=== PATIENT | male | born 1965 | race Caucasian/White ===

== ENCOUNTER 2016-06-24 20:47 | Inpatient (IN) ==
[2016-06-24 21:35] LABS: Basophils # 0.1 K/mcL (0.0-0.2); Basophils % 0.4 %; Eosinophils # 0.2 K/mcL (0.0-0.6); Eosinophils % 2.1 %; Hemoglobin 11.5 g/dL (12.9-16.9); Immature Granulocytes % 0.5 % (0-4); Lymphocytes # 1.2 K/mcL (0.6-4.6); Lymphocytes % 10.6 %; Mean Corpuscular HGB Conc 31.9 g/dL (31.6-35.5); Mean Corpuscular Hemoglobin 27.4 pg (28.0-33.3); Mean Corpuscular Volume 85.9 fL (83.0-100.0); Mean Platelet Volume 9.9 fL (9.4-12.4); Monocytes # 0.7 K/mcL (0.0-1.3); Monocytes % 6.2 %; Neutrophils # 9.3 K/mcL (1.6-8.9); Platelet Count 261 K/mcL (140-400); Red Blood Count 4.19 M/mcL (4.19-5.50); Red Cell Distribution Width 14.1 % (11.5-14.5); Segmented Neutrophils % 80.2 %
[2016-06-24 21:45] LABS: Calcium 8.5 mg/dL (8.6-10.8); Potassium 5.3 mEq/L (3.5-4.5)
[2016-06-24 23:12] LABS: INR 1.2; Prothrombin Time 13.2 Seconds (9.4-12.1)
[2016-06-24 23:14] LABS: Activated Partial Thrombo Time 32.3 Seconds (26.0-36.0)
[2016-06-25 10:28] LABS: INR 1.2; Prothrombin Time 13.1 Seconds (9.4-12.1)
[2016-06-25 10:31] LABS: Activated Partial Thrombo Time 30.4 Seconds (26.0-36.0)
[2016-06-25 10:34] LABS: Calcium 8.4 mg/dL (8.6-10.8); Potassium 5.5 mEq/L (3.5-4.5)
[2016-06-25 11:23] VITALS: BP 149/94
[2016-06-25 13:34] LABS: Basophils % 0.1 %; Hematocrit 38.1 % (37.5-50.1); Hemoglobin 12.5 g/dL (12.9-16.9); Immature Granulocytes % 1.1 % (0-4); Immature Platelets 3.5 % (1.1-6.1); Lymphocytes # 0.6 K/mcL (0.6-4.6); Lymphocytes % 4.8 %; Mean Corpuscular HGB Conc 32.8 g/dL (31.6-35.5); Mean Corpuscular Hemoglobin 27.4 pg (28.0-33.3); Mean Corpuscular Volume 83.4 fL (83.0-100.0); Monocytes # 0.1 K/mcL (0.0-1.3); Monocytes % 0.8 %; Neutrophils # 12.5 K/mcL (1.6-8.9); Platelet Count 246 K/mcL (140-400); Red Blood Count 4.57 M/mcL (4.19-5.50); Red Cell Distribution Width 13.8 % (11.5-14.5); Segmented Neutrophils % 93.2 %
== END 2016-06-25 13:57 | disposition left against medical advice (07) | DRG 189 ==
LOC: 2NNU 20:47 → EMEROO 20:47 → 2NNU 23:41
PROVIDERS: ADMIT Internal Medicine; ATTEND Internal Medicine

== ENCOUNTER 2017-02-28 19:10 | Inpatient (IN) ==
[2017-02-28] MEDS ORDERED: *HR* Morphine 2 MG/ML SYRINGE IVP ONE ×2 (19:26→20:28)
[2017-02-28] MEDS ORDERED: Ondansetron 4 MG/2 ML VIAL IVP ONE (19:26)
[2017-02-28 19:57] LABS: Basophils # 0.1 K/mcL (0.0-0.2); Basophils % 0.4 %; Eosinophils # 0.2 K/mcL (0.0-0.6); Eosinophils % 1.2 %; Hematocrit 36.5 % (37.5-50.1); Hemoglobin 10.9 g/dL (12.9-16.9); Immature Granulocytes % 0.4 % (0-4); Lymphocytes # 1.2 K/mcL (0.6-4.6); Lymphocytes % 9.6 %; Mean Corpuscular HGB Conc 29.9 g/dL (31.6-35.5); Mean Corpuscular Hemoglobin 25.6 pg (28.0-33.3); Mean Corpuscular Volume 85.7 fL (83.0-100.0); Monocytes # 0.9 K/mcL (0.0-1.3); Monocytes % 7.6 %; Platelet Count 252 K/mcL (140-400); Red Blood Count 4.26 M/mcL (4.19-5.50); Red Cell Distribution Width 15.9 % (11.5-14.5); Segmented Neutrophils % 80.8 %
--- NOTE | 2017-02-28 20:01 | Emergency Department Note ---
Disposition Clinical Impression: Anasarca, Acute diarrhea, Scrotal swelling, Hyperglycemia, Hyperkalemia CHF (congestive heart failure) Qualifiers: Congestive heart failure type: unspecified congestive heart failure type Congestive heart failure chronicity: unspecified congestive heart failure chronicity Qualified Code(s): I50.9 - Heart failure, unspecified Disposition: Admitted As Inpatient Condition: Fair Forms: ED Satisfaction Letter Time of Disposition: 22:50 General Adult HPI - General Chief complaint: ED Urogenital-Male Stated complaint: swelling in testicles Source: patient Limitations: no limitations Nursing Notes Reviewed: Yes Vital Signs Reviewed: Yes - History of Present Illness HPI Narrative: 52-year-old male past medical history of diabetes, recent diagnosis of C. difficile colitis, recent left above-knee amputation presents to the emergency Department with concern for testicular swelling. Patient states that this is been going on for last couple days. He also states that he is feeling a little more distended in his lower abdomen as well, has not been urinating as much, has increasing shortness of breath. Patient states that the diarrhea that he has had has not resolved after completion of his antibiotics. He was on Flagyl and vancomycin orally for it before discontinuation. Pain Scale: 7 - Related Data Home Medications Medication Instructions Recorded Confirmed Insulin ASPART [Novolog Flexpen] 15 units SQ TIDAC 12/05/14 06/24/16 Insulin Degludec [Tresiba 70 unit SQ BID 02/07/16 08/05/16 Flextouch U-100] Amlodipine Besylate [Amlodipine 10 mg PO DAILY 06/24/16 08/05/16 Besylate] Fluticasone/Vilanterol [Breo 1 each IH DAILY 06/24/16 08/05/16 Ellipta 100-25 Mcg INH] Lisinopril [Zestril] 2.5 mg PO DAILY 06/24/16 08/05/16 Oxygen 3 l NS CONT 06/24/16 08/05/16 Acetaminophen [Tylenol] 650 mg PO Q6HR PRN 08/05/16 08/05/16 Aspirin [Lo-Dose Aspirin EC] 81 mg PO DAILY 08/05/16 08/05/16 Buspirone HCl [Buspar] 7.5 mg PO BID 08/05/16 08/05/16 Carvedilol [Coreg] 3.125 mg PO BIDWM 08/05/16 08/05/16 Cyclobenzaprine [Flexeril] 10 mg PO TID PRN 08/05/16 08/05/16 DAPTOmycin [Cubicin] 500 mg IV Q24H 08/05/16 08/05/16 Enoxaparin [Lovenox] 40 mg SQ DAILY 08/05/16 08/05/16 FLUoxetine HCl [PROzac] 20 mg PO BID 08/05/16 08/05/16 Furosemide [Lasix] 40 mg PO BID 08/05/16 08/05/16 Nystatin POWDER [Nystop] 1 appl TP BID 08/05/16 08/05/16 OxyCODONE Immed Rel [Roxicodone 5 10 mg PO Q4HR PRN 08/05/16 08/05/16 MG] OxyCODONE Immed Rel [Roxicodone 5 20 mg PO Q4HR PRN 08/05/16 08/05/16 MG] hydrALAZINE [HydrALAZINE] 25 mg PO BID 08/05/16 08/05/16 Allergies Allergy/AdvReac Type Severity Reaction Status Date / Time tramadol Allergy Nausea Verified 02/28/17 19:20 vancomycin Allergy Hives Verified 02/28/17 19:20 All systems ED: reviewed and negative except as stated. Review of Systems: As Per HPI Constitutional: Denies: fever Cardiovascular: Reports: dyspnea on exertion. Denies: chest pain Respiratory: Reports: dyspnea. Denies: cough Gastrointestinal: Reports: other (Abdominal swelling and distention) Genitourinary: Reports: other (Less urine output, swelling of the testicles bilaterally) Musculoskeletal: Denies: back pain Integumentary: Denies: rash Past Medical History - Past Medical History Medical history: Reports: CHF, COPD, diabetes, hypertension, renal disease Surgical history: Reports: appendectomy, other Psychiatric history: Reports: anxiety, depression - Social History Smoking Status: Current every day smoker Smokeless Tobacco Status: No Alcohol use: Reports: none Drug use: Reports: none Physical Exam General: 52-year-old male who appears to be mildly dyspneic in conversation, extensive swelling Head: autraumatic, EOMI, no conjuncitval pallor, no scleral icterus, Mouth: oral mucous membranes moist Neck: neck soft, trachea midline Chest:: Equal chest wall rise Lungs: Rales bilaterally, mildly dyspneic in conversation Heart: normal heart sounds, normal rate and rhythm, Abdomen: soft, non-tender, no rigidity, no guarding, no rebdound tenderness, distention of the abdomen : Swelling of the scrotum, mild tenderness to palpation, no tenderness of the testicles to palpation, Lower Extremities: Unilateral 2+ pitting edema of the right leg, blisters of the right leg, left AKA which has serous drainage, but no erythema Integumentary: Pustules throughout the right lower extremity Neuro: Alert Psych: normal affect, normal mood - General Limitations: no limitations General appearance: alert, in no apparent distress Course Vital Signs Temperature 98.4 F 02/28/17 19:27 Pulse Rate 87 02/28/17 19:27 Respiratory Rate 20 02/28/17 19:27 Blood Pressure 136/84 02/28/17 19:27 O2 Sat by Pulse Oximetry 97 02/28/17 19:27 Temperature 98.4 F 02/28/17 19:27 Pulse Rate 84 02/28/17 22:42 Respiratory Rate 18 02/28/17 22:42 Blood Pressure 134/83 02/28/17 22:42 O2 Sat by Pulse Oximetry 98 02/28/17 22:42 Oxygen Delivery Oxygen Delivery Nasal Cannula Medical Decision Making - [facility] Narrative Medical decision making narrative: 52-year-old male presents to the emergency department with concern for significant swelling of his scrotum. On exam, his whole entire body appears edematous. We will obtain an EKG, chest x-ray, troponin, BNP, BMP, CBC. There is concern at this time is congestive heart failure. Patient's physical exam reveals rales of the lungs bilaterally. The patient also expresses some shortness of breath. Patient is on 2-1/2 L of oxygen at home normally, but states that he does not use it consistently. We will obtain a CT scan of the abdomen and pelvis to rule out intra-abdominal abnormality, possibly necrotizing fasciitis since this patient is a diabetic. Patient is provided analgesia here in the emergency department. Chest x-ray does not reveal any abnormality. Patient was unable to tolerate CT of the abdomen and pelvis, but will allow the pelvis to be scanned. This revealed anasarca and scrotal swelling. BNP here was elevated at 517. Patient has a creatinine of 1.99. This is his normal level of creatinine. Patient has mild hyperkalemia at 5.3. He does not have any electrocardiogram changes that warrants administration of calcium gluconate. I spoke with the hospitalist regarding this patient and he agreed to accept the admission. He believes that the patient's anasarca might be secondary to his recent diagnosis of C. difficile colitis as protein loss can occur through diarrhea. He wanted me to place the patient on contact precautions and provided oral vancomycin and oral metronidazole. I have also ordered a C. difficile pending on this patient. Patient's glucose was elevated as well here in the emergency department was 568. We administered 10 units of regular insulin here in the emergency department. I discussed this plan with the patient and he agreed to be admitted to the hospital. Patient was hemodynamically stable and not in any distress at time of admission. Chest X-Ray 02/28/17 19:25 IMPRESSION: No acute cardiopulmonary abnormality. D/ / Fede Muro MD / Fede Muro MD Interpreting Provider: Fede Muro MD Pelvis CT 02/28/17 20:36 IMPRESSION: Extensive anasarca and scrotal skin edema. D/ / James Conner MD / James Conner MD Interpreting Provider: James Conner MD Vital Signs Temperature 98.4 F 02/28/17 19:27 Pulse Rate 87 02/28/17 19:27 Respiratory Rate 20 02/28/17 19:27 Blood Pressure 136/84 02/28/17 19:27 O2 Sat by Pulse Oximetry 97 02/28/17 19:27 Temperature 98.4 F 02/28/17 19:27 Pulse Rate 84 02/28/17 22:42 Respiratory Rate 18 02/28/17 22:42 Blood Pressure 134/83 02/28/17 22:42 O2 Sat by Pulse Oximetry 98 02/28/17 22:42 Oxygen Delivery Oxygen Delivery Nasal Cannula - Medical Records Medical records reviewed: Yes I reviewed the patient's medical records. - Lab Data Lab results reviewed: Yes I reviewed the patient's lab results. Result diagrams: 02/28/17 19:51 02/28/17 19:51 Lab Results 02/28/17 02/28/17 02/28/17 Range/Units 19:51 19:51 19:51 WBC 12.3 H (4.3-11.1) K/mcL RBC 4.26 (4.19-5.50) M/mcL Hgb 10.9 L (12.9-16.9) g/dL Hct 36.5 L (37.5-50.1) % MCV 85.7 (83.0-100.0) fL MCH 25.6 L (28.0-33.3) pg MCHC 29.9 L (31.6-35.5) g/dL RDW 15.9 H (11.5-14.5) % Plt Count 252 (140-400) K/mcL MPV 11.0 (9.4-12.4) fL Immature Gran % 0.4 (0-4) % Seg Neutrophils % 80.8 % Lymphocytes % 9.6 % Monocytes % 7.6 % Eosinophils % 1.2 % Basophils % 0.4 % Neutrophils # 10.0 H (1.6-8.9) K/mcL Lymphocytes # 1.2 (0.6-4.6) K/mcL Monocytes # 0.9 (0.0-1.3) K/mcL Eosinophils # 0.2 (0.0-0.6) K/mcL Basophils # 0.1 (0.0-0.2) K/mcL Sodium 131 L (136-145) mEq/L Potassium 5.3 H (3.5-4.5) mEq/L Chloride 104 (98-109) mEq/L Carbon Dioxide 19 (19-29) mEq/L BUN 17 (8-26) mg/dL Creatinine 1.99 H (0.72-1.25) mg/dL Est GFR ( Amer) 43 L (> 60) Est GFR (Non-Af Amer) 35 L (> 60) BUN/Creatinine Ratio 9 (6-26) Glucose 568 H* (70-99) mg/dL Calculated Osmolality 300 (280-300) Lactic Acid (0.5-2.2) mmol/L Calcium 8.0 L (8.6-10.8) mg/dL Total Bilirubin 0.4 (0.2-1.2) mg/dL AST 12 (5-34) Units/L ALT 19 (0-55) Units/L Alkaline Phosphatase 378 H (38-126) Units/L Troponin I 0.03 (0-0.03) ng/mL B-Natriuretic Peptide (0-100) pg/mL Serum Total Protein 6.8 (6.0-8.3) g/dL Albumin 1.7 L (3.5-5.0) g/dL Globulin 5.1 H (2.4-3.5) g/dL Albumin/Globulin Ratio 0.3 L (1.1-2.2) Lipase < 10 (8-78) Units/L Beta-Hydroxybutyric Acd (0.02-0.27) mmol/L 02/28/17 02/28/17 02/28/17 Range/Units 19:51 20:16 20:17 WBC (4.3-11.1) K/mcL RBC (4.19-5.50) M/mcL Hgb (12.9-16.9) g/dL Hct (37.5-50.1) % MCV (83.0-100.0) fL MCH (28.0-33.3) pg MCHC (31.6-35.5) g/dL RDW (11.5-14.5) % Plt Count (140-400) K/mcL MPV (9.4-12.4) fL Immature Gran % (0-4) % Seg Neutrophils % % Lymphocytes % % Monocytes % % Eosinophils % % Basophils % % Neutrophils # (1.6-8.9) K/mcL Lymphocytes # (0.6-4.6) K/mcL Monocytes # (0.0-1.3) K/mcL Eosinophils # (0.0-0.6) K/mcL Basophils # (0.0-0.2) K/mcL Sodium (136-145) mEq/L Potassium (3.5-4.5) mEq/L Chloride (98-109) mEq/L Carbon Dioxide (19-29) mEq/L BUN (8-26) mg/dL Creatinine (0.72-1.25) mg/dL Est GFR ( Amer) (> 60) Est GFR (Non-Af Amer) (> 60) BUN/Creatinine Ratio (6-26) Glucose (70-99) mg/dL Calculated Osmolality (280-300) Lactic Acid 1.8 (0.5-2.2) mmol/L Calcium (8.6-10.8) mg/dL Total Bilirubin (0.2-1.2) mg/dL AST (5-34) Units/L ALT (0-55) Units/L Alkaline Phosphatase (38-126) Units/L Troponin I (0-0.03) ng/mL B-Natriuretic Peptide 517 H (0-100) pg/mL Serum Total Protein (6.0-8.3) g/dL Albumin (3.5-5.0) g/dL Globulin (2.4-3.5) g/dL Albumin/Globulin Ratio (1.1-2.2) Lipase (8-78) Units/L Beta-Hydroxybutyric Acd 0.20 (0.02-0.27) mmol/L - Radiology Data Radiology results reviewed: Yes I reviewed the patient's radiology results. - EKG Data EKG #1 EKG attestation: Yes I reviewed and interpreted this EKG. EKG results narrative: 19:36 Ventricular rate 87 bpm, NJ interval 180 ms, QRS duration 113 ms, QT 363 ms, QTC 407 ms, left axis deviation. Sinus rhythm with a ventricular rate of 87 bpm. There is an incomplete right bundle branch block. There are no ST segment elevations or depressions concerning for ischemia.
[2017-02-28] MEDS ORDERED: Furosemide 40 MG/4 ML VIAL IVP ONE (20:10)
[2017-02-28 20:12] LABS: Alanine Aminotransferase 19 Units/L (0-55); Albumin/Globulin Ratio 0.3 (1.1-2.2); Alkaline Phosphatase 378 Units/L (38-126); Aspartate Amino Transferase 12 Units/L (5-34); BUN/Creatinine Ratio 9 (6-26); Bilirubin,Total 0.4 mg/dL (0.2-1.2); Blood Urea Nitrogen 17 mg/dL (8-26); Carbon Dioxide 19 mEq/L (19-29); Chloride 104 mEq/L (98-109); Globulin 5.1 g/dL (2.4-3.5); Osmolality,Calculated 300 (280-300); Potassium 5.3 mEq/L (3.5-4.5); Sodium 131 mEq/L (136-145); Total Protein 6.8 g/dL (6.0-8.3); eGFR For African Americans 43 (> 60); eGFR For Non-African Americans 35 (> 60)
--- NOTE | 2017-02-28 20:14 | Emergency Department Note ---
START Narrative - START START: I examined this patient and my medical decision-making was reviewed with the Resident Physician. I agree with the documented findings, disposition and treatment plan as described except to the extent set forth below. 52-year-old male presents emergency room for lower extremity swelling scrotal swelling and shortness of breath. Patient's presentation seems as though he is in congestive heart failure. We will do a cardiac evaluation as well as a CT scan of the abdomen and pelvis to evaluate this scrotal swelling and redness. It appears as though he could be having either a cellulitis or a bad fungal infection in that groin region. Patient will need to be admitted for further workup of this peripheral edema. Patient will be given IV Lasix.
[2017-02-28 20:15] LABS: Albumin 1.7 g/dL (3.5-5.0); Glucose 568 mg/dL (70-99); Lipase < 10 Units/L (8-78)
[2017-02-28] MEDS ORDERED: Lidocaine Jelly 11 ml Syringe TP ONE (20:34)
[2017-02-28] MEDS ORDERED: diazePAM 10 MG/2 ML SYRINGE IVP ONE (21:07)
[2017-02-28] MEDS ORDERED: Insulin Regular, Human 100 UNIT/ML IV ONE (22:14)
[2017-02-28] MEDS ORDERED: Vancomycin Oral Soln 250 MG/5 ML UDC PO ONE (22:47)
[2017-03-01] MEDS ORDERED: Acetaminophen 325 MG TABLET PO PRN (01:21)
[2017-03-01] MEDS ORDERED: *HR* OxyCODONE Immed Rel 5 MG TABLET PO PRN (01:21)
[2017-03-01] MEDS ORDERED: Ondansetron 4 MG/2 ML VIAL IVP PRN (01:21)
[2017-03-01] MEDS ORDERED: *HR* Morphine 2 MG/ML SYRINGE IVP PRN (01:21)
[2017-03-01] MEDS ORDERED: Naloxone 0.4 MG/ML INJ IVP PRN (01:21)
[2017-03-01] MEDS ORDERED: *HR* Dextrose 50 % in Water (Syg) 50 ML SYRINGE IVP PRN (01:43)
[2017-03-01] MEDS ORDERED: Insulin Human Regular 100 UNIT in 0.9 % Sodium Chloride 100 ML IVC SCH ×2 (01:45→10:15)
--- NOTE | 2017-03-01 01:54 | Internal Med History&Physical ---
<JadieljohnJordy martin - Last Filed: 03/01/17 02:22> Date of Encounter: 03/01/17 Time of Encounter: 01:45 Assessment and Plan (1) Anasarca Current visit: Yes Status: Acute - Secondary to HFpEF with generalized edema extending to all extremities and abdomen. - Most recent Echo in Dec 2015 shows indeterminate diastolic dysfunction, EF 60% . - Pt states he takes some lasix, unsure of amount. Admits to poor diet with salt , large fluid intake. - Will diurese with Lasix 40 TID. Cali catheter, strict I/Os, daily weight. - Albumin low but non critical. will monitor (2) Diabetes mellitus Current visit: Yes Status: Chronic - Hyperglycemic without hyperosmolar state - CKD statge III and AKA on left leg with toe amputations on right. - Uncontrolled. Most recent A1c of 10% - BS in ED in 500s. - Will obtain new A1c with AM labs. - Insulin drip due to anasarca. Doubtful that subQ insulin will absorb. Qualifiers: Diabetes mellitus type: type 2 Diabetes mellitus complication status: with kidney complications Diabetes mellitus complication detail: with chronic kidney disease Diabetes mellitus correction insulin use: with correction use Chronic kidney disease stage: stage 3 (moderate) Qualified Code(s): E11.22 - Type 2 diabetes mellitus with diabetic chronic kidney disease; N18.3 - Chronic kidney disease, stage 3 (moderate); N18.3 - Chronic kidney disease, stage 3 ( moderate); Z79.4 - intermediate project manager (current) use of insulin; Z79.4 - halfway ( current) use of insulin; Z79.4 - intermediate project manager (current) use of insulin; Z79.4 - halfway (current) use of insulin (3) Chronic kidney disease (CKD) Current visit: Yes Status: Chronic BUN/Cr appears to be at baseline. - Will avoid nephrotoxic agents. Qualifiers: Chronic kidney disease stage: stage 3 (moderate) Qualified Code(s): N18.3 - Chronic kidney disease, stage 3 (moderate) (4) Essential hypertension Current visit: Yes Status: Chronic Under controll. Will monitor with Lasix use - Holding amlodipine and hydralazine in the setting of swelling. (5) Morbid obesity with BMI of 45.0-49.9, adult Current visit: No Status: Chronic - Decreased ambulation, poor diet. - Will need major outpatient lifestyle adjustments (6) Acute diarrhea Current visit: Yes Status: Acute - Pt reports loose stools, states he PCP told him he was negative for C. diff. - No stools since admission. Stool sample not collected. - Will monitor. (7) CHF (congestive heart failure) Current visit: Yes Status: Acute - Generalized body swelling, elevated BNP. - Workup for anasarca as above. - Lasix - Likely secondary to poor diet, non ambulation Qualifiers: Congestive heart failure type: diastolic Congestive heart failure chronicity: acute on chronic Qualified Code(s): I50.33 - Acute on chronic diastolic (congestive) heart failure (8) Scrotal swelling Current visit: Yes Status: Acute - Likely secondary to fluid overload secondary to CHF exacerbation. - Will diurese and monitor. - Nystatin cream for tinea cruis (9) Hyperglycemia Current visit: Yes Status: Acute - Likely secondary to non absorbtion of subcutaneous insulin, poor diet due to swelling - Insulin drip as above. Starting rate 13. - BS in ED of 500. A1c pending. (10) Hyperkalemia Current visit: Yes Status: Acute - In the setting of CKD. - Will monitor for now. (11) DVT prophylaxis Current visit: No Status: Acute - Heparin 5000 units. Internal Medicine - H&P: HPI Chief complaint: Scrotal pain/swelling Admitted From: Emergency Dept Plans for Post Hospital Care: Home History of present illness: Mr. Tripp is a 52 year old male with a PMHx of HFpEF, uncontrolled DM2, HTN, CKD III, depression/anxiety presents to ED with a complaint of scrotal swelling and pain, SOB, loose stools for the past week. He states that he has progressive swelling. He has noticed swelling in his arms, abdomen, scrotum, and remaining leg after AKA. He states he does not move very much after BKA so he does not know if SOB is exertional. He also has a complaint of loose stools, 4-5 per day which he describes at "butterscotch pudding" in nature. He saw his PCP who told him his stool sample was negative however he was given flagyl and oral vancomycin which has not helped his symptoms. In the ED, CXR showed no acute abnormality, and abdominal CT showed anasarca. VS unremarkable. Labs show mild WBC count, Stage III CKD at baseline, glucose in 500s. Elevated alk phos, hypoalbuminemia. Past Med Surg Social Fam HX - Past Medical History Medical history: CHF, COPD, diabetes, hypertension, renal disease Psychiatric history: anxiety, depression - Past Surgical History Surgical History: appendectomy, other - Social History Smoking Status: Current every day smoker Smokeless Tobacco Status: No Alcohol use: none Drug use: none - Family History Father Adopted: No Family Member Ethnicity: Non- Living Status: Hx Family Cardiac Disorders: Yes Hx Family Respiratory Disorders: No Hx Family Cancer: No Hx Family GI Disorders: No Hx Family Endocrine Disorder: Yes (Diabetic) Hx Family Neuromuscular Disorders: No Hx Family Neurologic Disorders: No Hx Family HEENT Disorders: No Hx Family Autoimmune Disorders: No Internal Medicine - H&P: Meds Insulin ASPART [Novolog Flexpen] 15 units SQ TIDAC 12/05/14 [History] Insulin Degludec [Tresiba Flextouch U-100] 70 unit SQ BID 02/07/16 [History] Amlodipine Besylate [Amlodipine Besylate] 10 mg PO DAILY 06/24/16 [History] Fluticasone/Vilanterol [Breo Ellipta 100-25 Mcg INH] 1 each IH DAILY 06/24/16 [ History] Lisinopril [Zestril] 2.5 mg PO DAILY 06/24/16 [History] Oxygen 3 l NS CONT 06/24/16 [History] Acetaminophen [Tylenol] 650 mg PO Q6HR PRN 08/05/16 [History] Aspirin [Lo-Dose Aspirin EC] 81 mg PO DAILY 08/05/16 [History] Buspirone HCl [Buspar] 7.5 mg PO BID 08/05/16 [History] Carvedilol [Coreg] 3.125 mg PO BIDWM 08/05/16 [History] Cyclobenzaprine [Flexeril] 10 mg PO TID PRN 08/05/16 [History] DAPTOmycin [Cubicin] 500 mg IV Q24H 08/05/16 [History] Enoxaparin [Lovenox] 40 mg SQ DAILY 08/05/16 [History] FLUoxetine HCl [PROzac] 20 mg PO BID 08/05/16 [History] Furosemide [Lasix] 40 mg PO BID 08/05/16 [History] Nystatin POWDER [Nystop] 1 appl TP BID 08/05/16 [History] OxyCODONE Immed Rel [Roxicodone 5 MG] 10 mg PO Q4HR PRN 08/05/16 [History] OxyCODONE Immed Rel [Roxicodone 5 MG] 20 mg PO Q4HR PRN 08/05/16 [History] hydrALAZINE [HydrALAZINE] 25 mg PO BID 08/05/16 [History] 3 Allergy/AdvReac Type Severity Reaction Status Date / Time tramadol Allergy Nausea Verified 02/28/17 19:20 vancomycin Allergy Hives Verified 02/28/17 19:20 All Systems PM: A 10-system review of systems was performed and is negative for pertinent findings except as documented above in the HPI. - Constitutional Constitutional: falls, weakness, no chills, no fatigue, no fever(s), no malaise - Cardiovascular Cardiovascular ROS IM: dyspnea, edema, no chest pain, no diaphoresis, no dyspnea on exertion, no lightheadedness - Respiratory Respiratory: dyspnea, no cough, no hemoptysis, no dyspnea on exertion, no wheezing - Gastrointestinal Gastrointestinal: change in bowel habits, early satiety, loose stools, no abdominal pain, no constipation, no diarrhea, no hematochezia, no nausea, no vomiting - Neurological Neurological ROS: paresthesias, no numbness, no tingling - Constitutional Vitals: Temp Pulse Resp BP Pulse Ox 98.0 F 84 16 112/73 92 03/01/17 00:55 03/01/17 00:55 03/01/17 00:55 03/01/17 00:55 03/01/17 00:55 Exam: Gen.: Vitals noted. No acute distress. AAOx3. Morbidly obese male resting comfortably in bed. HEENT:oropharynx clear, Normocephalic, atraumatic, MMM Cardiac: RRR, no murmur, +S1/S2 Pulmonary: CTA bilaterally, no wheezes, rales or rhonchi, equal chest expansion Abdomen: nontender, BS noted, no guarding, anasarca. Firm, pitting edema in entire abdomen. MSK: Right leg AKA. Right foot with 1st and 2nd toe amputations, multiple ulcers. Pitting edema throughout. Extremities: Edema present in all 4 extremities. nontender calf, no cyanosis or clubbing Neuro: A&Ox3, moves all extremities, no focal deficits Psych: Appropriate mood and behavior Internal Med - H&P Results - Labs CBC & Chem 7: 02/28/17 19:51 02/28/17 19:51 <Keyur Angel H - Last Filed: 03/01/17 03:41> Date of Encounter: 03/01/17 Internal Medicine - H&P: HPI History of present illness: Mr. Tripp is a 52 year old male All Systems PM: A 10-system review of systems was performed and is negative for pertinent findings except as documented above in the HPI. - Constitutional Vitals: Temp Pulse Resp BP Pulse Ox 98.0 F 84 16 112/73 92 03/01/17 00:55 03/01/17 00:55 03/01/17 00:55 03/01/17 00:55 03/01/17 00:55 Internal Med - H&P Results - Labs CBC & Chem 7: 02/28/17 19:51 02/28/17 19:51 - Attending Attestation anasarca and acute diastolic CHF exacerbation and hypoalbuminemia continue Lasix IV, strict I's and O's Nonketotic hyperosmolar hyperglicemic state Glucose >500 start insulin drip possible C diff ( patient denies having c diff) test for C diff may start flagyl if positive time spetn on this admission 40 min I examined this patient and my medical decision-making was reviewed with the Resident Physician. I agree with the documented findings, disposition and treatment plan as described except to the extent set forth below.
[2017-03-01] MEDS: Furosemide 40 MG/4 ML VIAL IVP SCH ×2 (02:24→12:24)
[2017-03-01 04:51] LABS: Basophils # 0.1 K/mcL (0.0-0.2); Basophils % 0.5 %; Eosinophils # 0.3 K/mcL (0.0-0.6); Eosinophils % 2.5 %; Hematocrit 33.8 % (37.5-50.1); Immature Granulocytes % 0.3 % (0-4); Lymphocytes # 1.6 K/mcL (0.6-4.6); Lymphocytes % 15.3 %; Mean Corpuscular HGB Conc 29.6 g/dL (31.6-35.5); Mean Corpuscular Hemoglobin 25.6 pg (28.0-33.3); Mean Corpuscular Volume 86.4 fL (83.0-100.0); Mean Platelet Volume 10.6 fL (9.4-12.4); Monocytes # 0.9 K/mcL (0.0-1.3); Monocytes % 8.8 %; Neutrophils # 7.8 K/mcL (1.6-8.9); Platelet Count 227 K/mcL (140-400); Red Blood Count 3.91 M/mcL (4.19-5.50); Red Cell Distribution Width 15.9 % (11.5-14.5); Segmented Neutrophils % 72.6 %
[2017-03-01 05:00] LABS: Hemoglobin A1C 10.9 %
[2017-03-01 05:04] LABS: Albumin/Globulin Ratio 0.3 (1.1-2.2); Bilirubin,Total 0.3 mg/dL (0.2-1.2); Calcium 7.8 mg/dL (8.6-10.8); Chol/HDL Ratio 3.3 (0-4.9); Globulin 4.7 g/dL (2.4-3.5); Potassium 4.3 mEq/L (3.5-4.5); Total Protein 6.2 g/dL (6.0-8.3)
[2017-03-01 05:07] LABS: Albumin 1.5 g/dL (3.5-5.0)
[2017-03-01] MEDS ORDERED: *HR* Heparin 5,000 UNIT/ML VIAL SQ SCH (06:00)
[2017-03-01] MEDS ORDERED: Furosemide 40 MG/4 ML VIAL IVP SCH (08:00)
[2017-03-01] MEDS ORDERED: Dextrose Gel 15 GM PO PRN ×2 (08:25)
[2017-03-01] MEDS ORDERED: D5% in Water 1,000 ML IVC PRN (08:25)
[2017-03-01] MEDS ORDERED: Insulin LISPRO 300 UNITS/3 ML VIAL SQ SCH ×2 (08:30→21:00)
[2017-03-01] MEDS ORDERED: Nystatin Cream 15 GM TUBE TP SCH (09:00)
--- NOTE | 2017-03-01 09:02 | Discharge Summary ---
Date of Encounter: 03/01/17 Time of Encounter: 08:40 - Discharge Diagnosis (1) Anasarca Priority: Primary Status: Acute Comments: Alexy Tripp is a 52 y/o male with multiple comorbidities including diabetes , chronic kidney disease, diastolic heart failure, hypertension, history osteomyelitis to left foot status post AKA with multiple revisions who presented to [facility] on 02/28/2017 with complaints of scrotal edema. He was admitted for further workup and treatment. Left AKA revision site with odorous, purulent drainage. Decision made to transfer to [facility] to be seen/treated by his surgeon. 1. Left AKA: - on 12/2015, secondary to chronic, non-healing diabetic ulcers. - has had multiple revisions, most recently 6-8 weeks ago per patient - follows with Dr. Gordon at [facility] - Left AKA site with sutures in place, odorous, purulent drainage - Transfer to [facility] 2. Anasarca: - Secondary to HFpEF with generalized edema extending to all extremities, abdomen and scrotum - Most recent Echo 12/2015 with indeterminate diastolic dysfunction, EF 60%. - Pt states he takes some lasix, unsure of amount. Admits to poor diet with salt , large fluid intake. - Lasix 40 TID. Gama catheter, strict I/Os, daily weight. - Albumin low but non critical. Monitor - Refusing gama 3. Diabetes: - Hyperglycemic without hyperosmolar state - with CKD statge III and AKA on left leg with toe amputations on right. - Uncontrolled. Hgb A1c 10.2% - BS in ED in 500s. - Insulin drip due to anasarca. Doubtful sub-q insulin will absorb. 4. CKD: BUN/Cr appears to be at baseline. - Will avoid nephrotoxic agents. 5. Hx C. diff: - patient reports loose stool for last 6-8 weeks. - recently treated with PO vanco and Flagyl - 03/01 stool specimen rejected as too solid. - repeat C. diff if loose stool recurs 6. Hypertension: - per hx. BP controlled - holding antihypertensives with high-dose Lasix - Monitor BP and titrate medication regimen PRN 7. Morbid obesity: - Decreased ambulation, poor diet. - Will need significant outpatient lifestyle adjustments 8. DVT prophylaxis: - Heparin (2) Acute on chronic kidney failure Priority: Primary Status: Acute Qualifiers: Chronic kidney disease stage: stage 4 (severe) Qualified Code(s): N17.9 - Acute kidney failure, unspecified; N18.4 - Chronic kidney disease, stage 4 ( severe); N18.4 - Chronic kidney disease, stage 4 (severe); N18.4 - Chronic kidney disease, stage 4 (severe); N18.4 - Chronic kidney disease, stage 4 ( severe) (3) COPD (chronic obstructive pulmonary disease) Priority: Primary Status: Chronic Qualifiers: COPD type: COPD with acute exacerbation Qualified Code(s): J44.1 - Chronic obstructive pulmonary disease with (acute) exacerbation (4) Diabetes mellitus Priority: Primary Status: Chronic Qualifiers: Diabetes mellitus type: type 2 Diabetes mellitus complication status: with kidney complications Diabetes mellitus complication detail: with chronic kidney disease Diabetes mellitus termite treater insulin use: with nursing home use Chronic kidney disease stage: stage 3 (moderate) Qualified Code(s): E11.22 - Type 2 diabetes mellitus with diabetic chronic kidney disease; N18.3 - Chronic kidney disease, stage 3 (moderate); N18.3 - Chronic kidney disease, stage 3 ( moderate); Z79.4 - oil heaterman (current) use of insulin; Z79.4 - nursing home ( current) use of insulin; Z79.4 - nursing home (current) use of insulin; Z79.4 - oil heaterman (current) use of insulin (5) S/P AKA (above knee amputation) Priority: Primary Status: Acute Qualifiers: Laterality: left Qualified Code(s): Z89.612 - Acquired absence of left leg above knee (6) Scrotal swelling Priority: Primary Status: Acute - Discharge Medications Home Medications: Insulin ASPART [Novolog Flexpen] 15 units SQ TIDAC 12/05/14 [History] Fluticasone/Vilanterol [Breo Ellipta 100-25 Mcg INH] 1 each IH DAILY 06/24/16 [ History] Oxygen 3 l NS CONT 06/24/16 [History] Acetaminophen [Tylenol] 650 mg PO Q6HR PRN 08/05/16 [History] Aspirin [Lo-Dose Aspirin EC] 81 mg PO DAILY 08/05/16 [History] Furosemide [Lasix] 40 mg PO BID 08/05/16 [History] Escitalopram [Lexapro] 20 mg PO DAILY 03/01/17 [History] Insulin Glargine [Lantus] 30 unit SQ QPM 03/01/17 [History] Oxycodone HCl 10 mg PO Q6H PRN 03/01/17 [History] Pregabalin [Lyrica] 225 mg PO BID 03/01/17 [History] Allergies/Adverse Reactions: 3 Allergy/AdvReac Type Severity Reaction Status Date / Time tramadol Allergy Nausea Verified 02/28/17 19:20 vancomycin Allergy Hives Verified 02/28/17 19:20 Procedures/tests Complete & Pending: Procedures Performed prior 72 hours Category Date Time Status EV echocardiogram Routine Y 03/01/17 08:23 Ordered Date of admission: 02/28/17 23:43 Primary care physician: Echo Godfrey Discharging clinician: Kelly Loredo Anticipated date of discharge: 03/01/17 - Patient Status Disposition: Transfer Other Condition: Fair Functional capacity at discharge: bed bound Overall status at discharge: patient is not back to baseline - Discharge Instructions Follow Up With: Echo Godfrey, DIRECTOR H[employer] SERVICES [Primary Care Provider] - - Diet and Activity Activity: as per physical therapy Diet: advance to your usual diet Interval History: Seen and examined at bedside. Patient is new to me, information obtained from chart review and patient report. Patient says he came in due to increased scrotal swelling. He noticed swelling started a couple days ago and has gotten progressively worse. Says he is still able to void. Reports last procedure to left [facility] site with 6-8 weeks ago. Has not followed up since then. Site with sutures intact and foul purulent drainage noted. Chart review shows that patient follows with Dr. Washington at [facility]. He was seen at [facility] 12/2016 and was transferred to [facility] at that time. Concern for recurrent infection. I feel he would be appropriate to transfer to [place] for continuity care to follow with Dr. Washington. Spoke with [facility] transfer center and patient was accepted by [facility]. Patient agreeable to transfer Hospital course: Mr. Tripp is a 52 year old male - Time Spent with Patient Total time spent providing and/or coordinating discharge services: Greater than 30 minutes (46 minutes spent on discharge) - Constitutional Vitals: Temp Pulse Resp BP Pulse Ox 98.1 F 86 16 116/77 97 03/01/17 08:03 03/01/17 08:03 03/01/17 08:03 03/01/17 08:03 03/01/17 08:03 General appearance: Present: disheveled, A&O X 3, morbidly obese - Head Head exam: Present: atraumatic, normocephalic - Eye Eye exam: Present: PERRL, conjuntiva pink, sclera anicteric Pupils: Present: PERRL - Neck Neck exam general surgery: Present: supple, trachea midline. Absent: lymphadenopathy - Respiratory Respiratory exam: Present: decreased breath sounds, CTAB. Absent: accessory muscle use, rales, rhonchi, wheezes - Cardiovascular Cardiovascular exam: Present: RRR, +S1, +S2. Absent: diastolic murmur, gallop, rubs, systolic murmur - GI/Abdominal GI/Abdominal exam: Present: normal bowel sounds, no peritoneal signs. Absent: distended, tenderness Additional comments: Obese with edema from ABD to thighs - exam: Present: scrotal swelling, testicular tenderness, urethral discharge - Extremities Exam Extremities exam: Present: warm, radial pulses palpable and symmetrical. Absent : calf tenderness, cyanotic, pedal edema Additional comments: Right lower ext with hard, pitting edema and toe amputation Left AKA site with sutures intact, moderate amount purulent, foul odorous drainage. Patient refusing dressing change or to allow area to be cleaned. - Neurological Exam Neurological exam: Present: CN II-XII intact, oriented X3, no focal deficits. Absent: pronater drift, facial droop, speech deficit - Skin Skin exam: Present: dry
[2017-03-01 10:57] VITALS: BP 122/82
--- NOTE | 2017-03-02 21:51 | Electrocardiograph Report ---
[address] [place] [address] Test Date: 2017-02-28 Pat Name: Alexy Tripp Department: 102 Room: 3B22 Gender: M Maintenance Inspector: Tmr : 1965 Requested By: Robbie Wilkes Order Number: [id number] Reading MD: Rony Gu MD Measurements Intervals [place] Rate: 87 P: 78 TX: 180 QRS: -55 QRSD: 113 T: 62 QT: 363 QTc: 407 Interpretive Statements SINUS RHYTHM RIGHT BUNDLE BRANCH BLOCK INFERIOR MYOCARDIAL INFARCTION, PROBABLY OLD Electronically Signed On 03-02-2017 21:49:39 EST by Rony Gu MD
== END 2017-03-01 13:45 | disposition critical access hospital (66) | DRG 291 ==
LOC: 3BNU 19:10 → EMEROO 19:10 → 3NENU 19:10 → 3BNU 03-01 00:55
PROVIDERS: ADMIT Pediatrics; ATTEND Registered Nurse

== ENCOUNTER 2018-09-12 06:37 | Inpatient (IN) ==
[2018-09-12] MEDS ORDERED: Ipratropium/Albuterol Neb 3 ML IH ONE (06:50)
[2018-09-12] MEDS ORDERED: Furosemide 40 MG/4 ML VIAL IVP ONE ×2 (06:50→10:33)
[2018-09-12] MEDS ORDERED: Aspirin 81 MG TAB.CHEW PO ONE (06:51)
--- NOTE | 2018-09-12 07:34 | Emergency Department Note ---
Disposition Clinical Impression: Elevated troponin Chest pain Qualifiers: Chest pain type: unspecified Qualified Code(s): R07.9 - Chest pain, unspecified Dyspnea Qualifiers: Dyspnea type: unspecified Qualified Code(s): R06.00 - Dyspnea, unspecified CHF (congestive heart failure) Qualifiers: Heart failure type: unspecified Heart failure chronicity: unspecified Qualified Code(s): I50.9 - Heart failure, unspecified Disposition: Admitted As Inpatient Condition: Good Referrals: NONE,PCP [Primary Care Provider] - Forms: ED Satisfaction Letter Time of Disposition: 10:03 SOB HPI - General Chief Complaint: ED Shortness of Breath/Dyspnea Stated Complaint: PAULINE Time Seen by Provider: 09/12/18 06:43 Source: patient, EMS Mode of arrival: EMS Limitations: physical limitation Nursing Notes Reviewed: Yes Vital Signs Reviewed: Yes - History of Present Illness Alert and oriented nontoxic-appearing 53-year-old male with a history of CHF, COPD, diabetes, hypertension, hyperlipidemia, and a left [id number] amputation presents for evaluation of diffuse right-sided chest pain as well as increasingly worsening shortness of breath. He has home oxygen to wear as needed but states that over the last week he has been wearing continuously. He describes a nonproductive cough. Shortness of breath is worse with exertion as well as lying supine. He does state he has noticed increased swelling in the right lower extremity. He recently had his Lasix discontinued due to potassium irregularities. He has not been began on another diuretic since. He denies any pain with inspiration or hemoptysis. He does describe some nausea but denies any vomiting. Eyes any diaphoresis. He describes chest pain as a constant dull ache and it has been present for the past one week as well. Pt Subjective Complaint: shortness of breath, cough, chest pain Onset (ago): day(s) (7) Severity: moderate Consistency/Duration: gradually worsening Improves with: nothing Worsens with: lying flat, exertion Known history of: COPD, congestive heart failure, diabetes Associated symptoms: Reports: orthopnea, lower extremity pain, nausea/vomiting (Nausea without vomiting). Denies: pain with inspiration, fever, sputum production, palpitations, hemoptysis, diaphoresis, syncope, abdominal pain Treatment prior to arrival: oxygen Cough present: Yes Cough Description: Involuntary Cough Frequency: Intermittent Sputum production: No - Related Data Home Medications Medication Instructions Recorded Confirmed Insulin ASPART [Novolog Flexpen] 15 units SQ TIDAC 12/05/14 09/12/18 Fluticasone/Vilanterol [Breo 1 each IH DAILY 06/24/16 09/12/18 Ellipta 100-25 Mcg INH] Aspirin [Lo-Dose Aspirin EC] 81 mg PO DAILY 08/05/16 09/12/18 Furosemide [Lasix] 40 mg PO BID 08/05/16 09/12/18 Escitalopram [Lexapro] 20 mg PO DAILY 03/01/17 09/12/18 Insulin Glargine [Lantus] 30 unit SQ QPM 03/01/17 09/12/18 OxyCODONE Immed Rel [Roxicodone 10 10 mg PO Q6H PRN 03/01/17 09/12/18 MG] Previous Rx's Medication Instructions Recorded Escitalopram [Lexapro] 20 mg PO DAILY #30 tablet 04/16/18 Insulin ASPART [Novolog Flexpen] 15 unit SQ TIDAC #1 insuln.pen 04/16/18 Insulin Glargine [Lantus] 30 unit SQ QPM #1 mls 04/16/18 Loperamide [Imodium] 2 mg PO Q4HR PRN #30 capsule 04/16/18 Allergies Allergy/AdvReac Type Severity Reaction Status Date / Time tramadol Allergy Nausea Verified 09/12/18 06:44 vancomycin Allergy Hives Verified 09/12/18 06:44 All systems ED: reviewed and negative except as stated. Review of Systems: As Per HPI Constitutional: Denies: fever, chills, weakness, weight change Eyes: Denies: eye pain, eye discharge, vision change ENT ED: Denies: ear pain, throat pain, dental pain, hearing loss, epistaxis, congestion, dysphagia Cardiovascular: Reports: as per HPI, chest pain, orthopnea. Denies: palpitatio ns, dyspnea on exertion, edema, syncope Respiratory: Reports: as per HPI, cough, dyspnea. Denies: wheezes, hemoptysis, stridor, sputum production Gastrointestinal: Denies: abdominal pain, nausea, vomiting, diarrhea, constipation, hematemesis, melena, hematochezia Genitourinary: Denies: urgency, dysuria, frequency, hematuria Musculoskeletal: Denies: back pain, neck pain, arthralgia, myalgia Integumentary: Denies: rash, abrasion, lesions Neurological: Denies: headache, weakness, numbness, paresthesias, confusion, abnormal gait, vertigo Psychiatric: Denies: anxiety, depression, suicidal thoughts, homicidal thoughts, auditory hallucinations, visual hallucinations Endocrine: Denies: fatigue Hematological/Lymphatic: Denies: easy bleeding, easy bruising Allergic/Immunologic: Denies: facial swelling, urticaria Past Medical History - Past Medical History Attestation: Yes The following information was validated with the patient. Source: patient, nursing notes reviewed Medical history: Reports: CHF, COPD, coronary artery disease, diabetes, hyperlipidemia, hypertension, renal disease, other Surgical history: Reports: appendectomy, other Psychiatric history: Reports: anxiety, depression - Social History Smoking Status: Current every day smoker Smokeless Tobacco Status: No Alcohol use: Reports: none Drug use: Reports: none Physical Exam - General Limitations: no limitations General appearance: alert - Head Head exam: atraumatic, normocephalic, normal inspection - Eye Eye exam: Present: normal appearance, PERRL, EOMI. Absent: conjunctival injection - ENT ENT exam: mucous membranes moist - Neck Neck exam: Present: normal inspection, full ROM - Chest Chest inspection: Present: normal inspection, symmetric chest wall rise - Respiratory Respiratory exam: Present: normal lung sounds bilaterally. Absent: respiratory distress, wheezes, stridor, accessory muscle use, prolonged expiratory phase - Cardiovascular Cardiovascular exam: Present: regular rate, normal rhythm, normal heart sounds - Abdominal Exam Abdominal exam: Present: soft, Non-Tender, normal bowel sounds. Absent: distention, guarding, rebound, rigidity - Extremities Exam Extremities exam: Present: other (Left [id number] amputee) - Expanded Lower Extremity Exam Lower leg exam: Present: tenderness, swelling, erythema, other (Several small ulcerations leaking serosanguineous fluid noted to the right sun) Ankle exam: Present: other 1 - Diabetic ulcer with shallow ulceration and mild surrounding cellulitis. No palpable fluctuance to suggest underlying abscess. No discharge or drainage. 1 - Amputated 2 - Wound covered with eschar, presumably diabetic foot ulcer. Neurovascular/Tendon exam: Present: normal capillary refill. Absent: pulse deficit, tendon deficit, extremity cold to touch - Neurological Exam Neurological exam: Present: alert, oriented X3 - Psychiatric Psychiatric exam: Present: normal affect, normal mood - Skin Skin exam: Present: warm, dry Course Course Narrative: Patient's BNP is elevated at 307. Troponin is elevated at 0.05. He was given aspirin. No EKG changes. Shows pulmonary edema. Symptoms are consistent with a CHF exacerbation. He was given Lasix and emergency department. I discussed this patient's case with Dr. Torres, admitting hospitalist who has accepted the patient for permission to the hospitalist care. Vital Signs Temperature 98.4 F 09/12/18 07:00 Pulse Rate 85 09/12/18 07:00 Respiratory Rate 20 09/12/18 07:00 Blood Pressure 174/156 09/12/18 07:00 O2 Sat by Pulse Oximetry 98 09/12/18 07:00 Temperature 98.4 F 09/12/18 07:25 Pulse Rate 85 09/12/18 09:54 Respiratory Rate 20 09/12/18 09:54 Blood Pressure 167/103 09/12/18 09:54 O2 Sat by Pulse Oximetry 97 09/12/18 09:54 Oxygen Delivery Oxygen Delivery Nasal Cannula Shortness of Breath/Dyspnea - Medical Records Medical records reviewed: Yes I reviewed the patient's medical records. - Lab Data Lab results reviewed: Yes I reviewed the patient's lab results. Lab results narrative: Lab Results 09/12/18 09/12/18 09/12/18 Range/Units 08:30 08:30 08:30 WBC 11.0 (4.3-11.1) K/mcL RBC 4.10 L (4.19-5.50) M/mcL Hgb 11.5 L (12.9-16.9) g/dL Hct 36.7 L (37.5-50.1) % MCV 89.5 (83.0-100.0) fL MCH 28.0 (28.0-33.3) pg MCHC 31.3 L (31.6-35.5) g/dL RDW 13.6 (11.5-14.5) % Plt Count 255 (140-400) K/mcL MPV 9.8 (9.4-12.4) fL Immature Gran % 0.6 (0-4) % Seg Neutrophils % 73.1 % Lymphocytes % 15.5 % Monocytes % 7.3 % Eosinophils % 3.0 % Basophils % 0.5 % Neutrophils # 8.1 (1.6-8.9) K/mcL Lymphocytes # 1.7 (0.6-4.6) K/mcL Monocytes # 0.8 (0.0-1.3) K/mcL Eosinophils # 0.3 (0.0-0.6) K/mcL Basophils # 0.1 (0.0-0.2) K/mcL PT 12.8 H (9.4-12.1) Seconds INR 1.1 APTT 32.6 (26.0-36.0) Seconds Sodium 139 (136-145) mEq/L Potassium 3.6 (3.5-5.1) mEq/L Chloride 109 H (98-107) mEq/L Carbon Dioxide 22 L (23-29) mEq/L BUN 24 H (6-20) mg/dL Creatinine 2.93 H (0.70-1.30) mg/dL Est GFR ( Amer) 27 L (> 60) Est GFR (Non-Af Amer) 22 L (> 60) BUN/Creatinine Ratio 8 (6-26) Glucose 271 H (70-105) mg/dL Calculated Osmolality 302 H (280-300) Lactic Acid (0.5-2.2) mmol/L Calcium 8.1 L (8.6-10.3) mg/dL Troponin I 0.05 H* (< 0.04) ng/mL B-Natriuretic Peptide (Less than 100) pg/mL 09/12/18 09/12/18 Range/Units 08:30 08:30 WBC (4.3-11.1) K/mcL RBC (4.19-5.50) M/mcL Hgb (12.9-16.9) g/dL Hct (37.5-50.1) % MCV (83.0-100.0) fL MCH (28.0-33.3) pg MCHC (31.6-35.5) g/dL RDW (11.5-14.5) % Plt Count (140-400) K/mcL MPV (9.4-12.4) fL Immature Gran % (0-4) % Seg Neutrophils % % Lymphocytes % % Monocytes % % Eosinophils % % Basophils % % Neutrophils # (1.6-8.9) K/mcL Lymphocytes # (0.6-4.6) K/mcL Monocytes # (0.0-1.3) K/mcL Eosinophils # (0.0-0.6) K/mcL Basophils # (0.0-0.2) K/mcL PT (9.4-12.1) Seconds INR APTT (26.0-36.0) Seconds Sodium (136-145) mEq/L Potassium (3.5-5.1) mEq/L Chloride (98-107) mEq/L Carbon Dioxide (23-29) mEq/L BUN (6-20) mg/dL Creatinine (0.70-1.30) mg/dL Est GFR ( Amer) (> 60) Est GFR (Non-Af Amer) (> 60) BUN/Creatinine Ratio (6-26) Glucose (70-105) mg/dL Calculated Osmolality (280-300) Lactic Acid 0.9 (0.5-2.2) mmol/L Calcium (8.6-10.3) mg/dL Troponin I (< 0.04) ng/mL B-Natriuretic Peptide 307 H (Less than 100) pg/mL Result diagrams: 09/12/18 08:30 09/12/18 08:30 Lab Results 09/12/18 09/12/18 09/12/18 Range/Units 08:30 08:30 08:30 WBC 11.0 (4.3-11.1) K/mcL RBC 4.10 L (4.19-5.50) M/mcL Hgb 11.5 L (12.9-16.9) g/dL Hct 36.7 L (37.5-50.1) % MCV 89.5 (83.0-100.0) fL MCH 28.0 (28.0-33.3) pg MCHC 31.3 L (31.6-35.5) g/dL RDW 13.6 (11.5-14.5) % Plt Count 255 (140-400) K/mcL MPV 9.8 (9.4-12.4) fL Immature Gran % 0.6 (0-4) % Seg Neutrophils % 73.1 % Lymphocytes % 15.5 % Monocytes % 7.3 % Eosinophils % 3.0 % Basophils % 0.5 % Neutrophils # 8.1 (1.6-8.9) K/mcL Lymphocytes # 1.7 (0.6-4.6) K/mcL Monocytes # 0.8 (0.0-1.3) K/mcL Eosinophils # 0.3 (0.0-0.6) K/mcL Basophils # 0.1 (0.0-0.2) K/mcL PT 12.8 H (9.4-12.1) Seconds INR 1.1 APTT 32.6 (26.0-36.0) Seconds Sodium 139 (136-145) mEq/L Potassium 3.6 (3.5-5.1) mEq/L Chloride 109 H (98-107) mEq/L Carbon Dioxide 22 L (23-29) mEq/L BUN 24 H (6-20) mg/dL Creatinine 2.93 H (0.70-1.30) mg/dL Est GFR ( Amer) 27 L (> 60) Est GFR (Non-Af Amer) 22 L (> 60) BUN/Creatinine Ratio 8 (6-26) Glucose 271 H (70-105) mg/dL Calculated Osmolality 302 H (280-300) Lactic Acid (0.5-2.2) mmol/L Calcium 8.1 L (8.6-10.3) mg/dL Troponin I 0.05 H* (< 0.04) ng/mL B-Natriuretic Peptide (Less than 100) pg/mL 09/12/18 09/12/18 Range/Units 08:30 08:30 WBC (4.3-11.1) K/mcL RBC (4.19-5.50) M/mcL Hgb (12.9-16.9) g/dL Hct (37.5-50.1) % MCV (83.0-100.0) fL MCH (28.0-33.3) pg MCHC (31.6-35.5) g/dL RDW (11.5-14.5) % Plt Count (140-400) K/mcL MPV (9.4-12.4) fL Immature Gran % (0-4) % Seg Neutrophils % % Lymphocytes % % Monocytes % % Eosinophils % % Basophils % % Neutrophils # (1.6-8.9) K/mcL Lymphocytes # (0.6-4.6) K/mcL Monocytes # (0.0-1.3) K/mcL Eosinophils # (0.0-0.6) K/mcL Basophils # (0.0-0.2) K/mcL PT (9.4-12.1) Seconds INR APTT (26.0-36.0) Seconds Sodium (136-145) mEq/L Potassium (3.5-5.1) mEq/L Chloride (98-107) mEq/L Carbon Dioxide (23-29) mEq/L BUN (6-20) mg/dL Creatinine (0.70-1.30) mg/dL Est GFR ( Amer) (> 60) Est GFR (Non-Af Amer) (> 60) BUN/Creatinine Ratio (6-26) Glucose (70-105) mg/dL Calculated Osmolality (280-300) Lactic Acid 0.9 (0.5-2.2) mmol/L Calcium (8.6-10.3) mg/dL Troponin I (< 0.04) ng/mL B-Natriuretic Peptide 307 H (Less than 100) pg/mL - Radiology Data Radiology results reviewed: Yes I reviewed the patient's radiology results. Chest X-Ray 09/12/18 06:50 IMPRESSION: 1. Pulmonary vascular congestion with questionable perihilar edema. Interstitial pneumonia could appear similar. 2. Bibasilar airspace opacities most likely representing atelectasis. D/ / Alexy Vasquez MD / Alexy Vasquez MD Interpreting Provider: Alexy Vasquez MD - EKG Data EKG attestation: Yes I reviewed and interpreted this EKG. EKG results narrative: EKG shows what appears to be in idioventricular conduction delay with a right bundle branch block at a rate of 86 bpm. QRS duration 147, QT/QTc interval 415/497. No significant ST elevations or depressions. Unchanged in morphology when compared to previous EKG dated from 02/28/17.
--- NOTE | 2018-09-12 08:02 | Emergency Department Note ---
Disposition Clinical Impression: Elevated troponin Chest pain Qualifiers: Chest pain type: unspecified Qualified Code(s): R07.9 - Chest pain, unspecified Dyspnea Qualifiers: Dyspnea type: unspecified Qualified Code(s): R06.00 - Dyspnea, unspecified CHF (congestive heart failure) Qualifiers: Heart failure type: unspecified Heart failure chronicity: unspecified Qualified Code(s): I50.9 - Heart failure, unspecified Disposition: Admitted As Inpatient Condition: Good Time of Disposition: 10:20 General Adult HPI - General Chief complaint: ED Shortness of Breath/Dyspnea Stated complaint: PAULINE Time Seen by Provider: 09/12/18 06:43 Source: patient, EMS Mode of arrival: EMS Limitations: physical limitation - History of Present Illness Pain Scale: 4 - Related Data Home Medications Medication Instructions Recorded Confirmed Insulin ASPART [Novolog Flexpen] 15 units SQ TIDAC 12/05/14 09/12/18 Fluticasone/Vilanterol [Breo 1 each IH DAILY 06/24/16 09/12/18 Ellipta 100-25 Mcg INH] Aspirin [Lo-Dose Aspirin EC] 81 mg PO DAILY 08/05/16 09/12/18 Furosemide [Lasix] 40 mg PO BID 08/05/16 09/12/18 Escitalopram [Lexapro] 20 mg PO DAILY 03/01/17 09/12/18 Insulin Glargine [Lantus] 30 unit SQ QPM 03/01/17 09/12/18 OxyCODONE Immed Rel [Roxicodone 10 10 mg PO Q6H PRN 03/01/17 09/12/18 MG] Previous Rx's Medication Instructions Recorded Escitalopram [Lexapro] 20 mg PO DAILY #30 tablet 04/16/18 Insulin ASPART [Novolog Flexpen] 15 unit SQ TIDAC #1 insuln.pen 04/16/18 Insulin Glargine [Lantus] 30 unit SQ QPM #1 mls 04/16/18 Loperamide [Imodium] 2 mg PO Q4HR PRN #30 capsule 04/16/18 Allergies Allergy/AdvReac Type Severity Reaction Status Date / Time tramadol Allergy Nausea Verified 09/12/18 06:44 vancomycin Allergy Hives Verified 09/12/18 06:44 Constitutional: Denies: fever, chills, weakness, weight change Eyes: Denies: eye pain, eye discharge, vision change ENT ED: Denies: ear pain, throat pain, dental pain, hearing loss, epistaxis, congestion, dysphagia Cardiovascular: Reports: as per HPI, chest pain, orthopnea. Denies: palpitations, dyspnea on exertion, edema, syncope Respiratory: Reports: as per HPI, cough, dyspnea. Denies: wheezes, hemoptysis, stridor, sputum production Gastrointestinal: Denies: abdominal pain, nausea, vomiting, diarrhea, constipation, hematemesis, melena, hematochezia Genitourinary: Denies: urgency, dysuria, frequency, hematuria Musculoskeletal: Denies: back pain, neck pain, arthralgia, myalgia Integumentary: Denies: rash, abrasion, lesions Neurological: Denies: headache, weakness, numbness, paresthesias, confusion, abnormal gait, vertigo Psychiatric: Denies: anxiety, depression, suicidal thoughts, homicidal thoughts, auditory hallucinations, visual hallucinations Endocrine: Denies: fatigue Hematological/Lymphatic: Denies: easy bleeding, easy bruising Allergic/Immunologic: Denies: facial swelling, urticaria Past Medical History - Past Medical History Medical history: Reports: CHF, COPD, coronary artery disease, diabetes, hyperlipidemia, hypertension, renal disease, other Surgical history: Reports: appendectomy, other Psychiatric history: Reports: anxiety, depression - Social History Smoking Status: Current every day smoker Smokeless Tobacco Status: No Alcohol use: Reports: none Drug use: Reports: none Physical Exam - General Limitations: physical limitation General appearance: alert Course Vital Signs Temperature 98.4 F 09/12/18 07:00 Pulse Rate 85 09/12/18 07:00 Respiratory Rate 20 09/12/18 07:00 Blood Pressure 174/156 09/12/18 07:00 O2 Sat by Pulse Oximetry 98 09/12/18 07:00 Temperature 98.4 F 09/12/18 07:25 Pulse Rate 85 09/12/18 09:54 Respiratory Rate 09/12/18 11:11 Blood Pressure 162/111 09/12/18 11:11 O2 Sat by Pulse Oximetry 97 09/12/18 09:54 Oxygen Delivery Oxygen Delivery Nasal Cannula Medical Decision Making - Lab Data Result diagrams: 09/12/18 08:30 09/12/18 08:30 Lab Results 09/12/18 09/12/18 09/12/18 Range/Units 08:30 08:30 08:30 WBC 11.0 (4.3-11.1) K/mcL RBC 4.10 L (4.19-5.50) M/mcL Hgb 11.5 L (12.9-16.9) g/dL Hct 36.7 L (37.5-50.1) % MCV 89.5 (83.0-100.0) fL MCH 28.0 (28.0-33.3) pg MCHC 31.3 L (31.6-35.5) g/dL RDW 13.6 (11.5-14.5) % Plt Count 255 (140-400) K/mcL MPV 9.8 (9.4-12.4) fL Immature Gran % 0.6 (0-4) % Seg Neutrophils % 73.1 % Lymphocytes % 15.5 % Monocytes % 7.3 % Eosinophils % 3.0 % Basophils % 0.5 % Neutrophils # 8.1 (1.6-8.9) K/mcL Lymphocytes # 1.7 (0.6-4.6) K/mcL Monocytes # 0.8 (0.0-1.3) K/mcL Eosinophils # 0.3 (0.0-0.6) K/mcL Basophils # 0.1 (0.0-0.2) K/mcL PT 12.8 H (9.4-12.1) Seconds INR 1.1 APTT 32.6 (26.0-36.0) Seconds Sodium 139 (136-145) mEq/L Potassium 3.6 (3.5-5.1) mEq/L Chloride 109 H (98-107) mEq/L Carbon Dioxide 22 L (23-29) mEq/L BUN 24 H (6-20) mg/dL Creatinine 2.93 H (0.70-1.30) mg/dL Est GFR ( Amer) 27 L (> 60) Est GFR (Non-Af Amer) 22 L (> 60) BUN/Creatinine Ratio 8 (6-26) Glucose 271 H (70-105) mg/dL Calculated Osmolality 302 H (280-300) Lactic Acid (0.5-2.2) mmol/L Calcium 8.1 L (8.6-10.3) mg/dL Troponin I 0.05 H* (< 0.04) ng/mL B-Natriuretic Peptide (Less than 100) pg/mL 09/12/18 09/12/18 Range/Units 08:30 08:30 WBC (4.3-11.1) K/mcL RBC (4.19-5.50) M/mcL Hgb (12.9-16.9) g/dL Hct (37.5-50.1) % MCV (83.0-100.0) fL MCH (28.0-33.3) pg MCHC (31.6-35.5) g/dL RDW (11.5-14.5) % Plt Count (140-400) K/mcL MPV (9.4-12.4) fL Immature Gran % (0-4) % Seg Neutrophils % % Lymphocytes % % Monocytes % % Eosinophils % % Basophils % % Neutrophils # (1.6-8.9) K/mcL Lymphocytes # (0.6-4.6) K/mcL Monocytes # (0.0-1.3) K/mcL Eosinophils # (0.0-0.6) K/mcL Basophils # (0.0-0.2) K/mcL PT (9.4-12.1) Seconds INR APTT (26.0-36.0) Seconds Sodium (136-145) mEq/L Potassium (3.5-5.1) mEq/L Chloride (98-107) mEq/L Carbon Dioxide (23-29) mEq/L BUN (6-20) mg/dL Creatinine (0.70-1.30) mg/dL Est GFR ( Amer) (> 60) Est GFR (Non-Af Amer) (> 60) BUN/Creatinine Ratio (6-26) Glucose (70-105) mg/dL Calculated Osmolality (280-300) Lactic Acid 0.9 (0.5-2.2) mmol/L Calcium (8.6-10.3) mg/dL Troponin I (< 0.04) ng/mL B-Natriuretic Peptide 307 H (Less than 100) pg/mL Critical Care Time Critical Care Time: Yes Total Critical Care Time: 35 Attestation: Critical care performed: Time is exclusive of separately billable procedures. Time includes: direct patient care, patient reassessment, coordination of patient care, interpretation of data (laboratory data, radiology data, and respiratory data), review of patient's medical records, medical consultation and documentation of patient care. Procedures included in critical care time: Procedures excluded from critical care time: Attestation Statement - Attestation Attestation: For this encounter, I have reviewed the [employer] WORKER or PA documentation, treatment plan, and medical decision making; and I have had face to face time with this patient. Patient to the ED with shortness of breath and feeling like he is "full of fluid." Onset 2 weeks ago and getting worse. Coughing. No fever. On exam he is in no respiratory distress. He does have some pitting edema. Rales and crackles. Plan. Cardiac workup. X-ray shows vascular congestion with perihilar edema. IV Lasix and likely admission. Patient with vascular congestion. Given IV Lasix. His troponin is slightly elevated. He is given an aspirin for this. Review of his old labs revealed this is chronic for him, and is likely secondary to the fluid overload. Patient has been admitted to the hospitalist service for diuresis and further cardiac workup. Vital signs stable and patient in no distress at the time of admission. Chest X-Ray 09/12/18 06:50 IMPRESSION: 1. Pulmonary vascular congestion with questionable perihilar edema. Interstitial pneumonia could appear similar. 2. Bibasilar airspace opacities most likely representing atelectasis. D/ / Alexy Vasquez MD / Alexy Vasquez MD Interpreting Provider: Alexy Vasquez MD
[2018-09-12 08:42] LABS: Basophils # 0.1 K/mcL (0.0-0.2); Basophils % 0.5 %; Eosinophils # 0.3 K/mcL (0.0-0.6); Hematocrit 36.7 % (37.5-50.1); Hemoglobin 11.5 g/dL (12.9-16.9); Immature Granulocytes % 0.6 % (0-4); Lymphocytes # 1.7 K/mcL (0.6-4.6); Lymphocytes % 15.5 %; Mean Corpuscular HGB Conc 31.3 g/dL (31.6-35.5); Mean Corpuscular Volume 89.5 fL (83.0-100.0); Mean Platelet Volume 9.8 fL (9.4-12.4); Monocytes # 0.8 K/mcL (0.0-1.3); Monocytes % 7.3 %; Neutrophils # 8.1 K/mcL (1.6-8.9); Platelet Count 255 K/mcL (140-400); Red Cell Distribution Width 13.6 % (11.5-14.5); Segmented Neutrophils % 73.1 %
[2018-09-12 08:52] LABS: INR 1.1; Prothrombin Time 12.8 Seconds (9.4-12.1)
[2018-09-12 08:55] LABS: Activated Partial Thrombo Time 32.6 Seconds (26.0-36.0)
[2018-09-12 09:07] LABS: Calcium 8.1 mg/dL (8.6-10.3); Potassium 3.6 mEq/L (3.5-5.1)
[2018-09-12 09:45] LABS: Troponin I 0.05 ng/mL (< 0.04)
[2018-09-12] MEDS ORDERED: *HR* OxyCODONE Immed Rel 5 MG TABLET PO PRN (10:54)
--- NOTE | 2018-09-12 11:01 | Internal Med History&Physical ---
Date of Encounter: 09/12/18 Time of Encounter: 11:01 Internal Medicine - H&P: HPI Chief complaint: shortness of breath History of present illness: Mr. Tripp is a 53 year old male with past medical history of CHF, COPD, diabetes, hypertension, hyperlipidemia, and a left eroxu-[id number]-[id number] amputation presents for evaluation of progressive worsening of shortness of breath associated with lower extremity edema and orthopnea. The patient stated that he stopped his Lasix 2 weeks ago due to potassium abnormalities currently is not on any diuretic regimen. The patient was evaluated by the ER staff and his laboratory data revealed elevated troponin. EKG was no significant changes. The patient was treated with IV Lasix and responded well. He was admitted for further evaluation and management of congestive heart failure exacerbation. Past Med Surg Social Fam HX - Past Medical History Medical history: CHF, COPD, coronary artery disease, diabetes, hyperlipidemia, hypertension, renal disease, other Additional medical history: anemia Psychiatric history: anxiety, depression - Past Surgical History Surgical History: appendectomy, other Additional surgical history: left aka, toe amputee - Social History Smoking Status: Current every day smoker Smokeless Tobacco Status: No Alcohol use: none Drug use: none - Family History Father Adopted: No Family Member Ethnicity: Non- Living Status: Hx Family Cardiac Disorders: Yes Hx Family Respiratory Disorders: No Hx Family Cancer: No Hx Family GI Disorders: No Hx Family Endocrine Disorder: Yes (Diabetic) Hx Family Neuromuscular Disorders: No Hx Family Neurologic Disorders: No Hx Family HEENT Disorders: No Hx Family Autoimmune Disorders: No Mother History Unknown: Yes Internal Medicine - H&P: Meds Fluticasone/Vilanterol [Breo Ellipta 100-25 Mcg INH] 1 puff IH DAILY 06/24/16 [History] Escitalopram [Lexapro] 20 mg PO DAILY #30 tablet 04/16/18 [Rx] Loperamide [Imodium] 2 mg PO Q4HR PRN #30 capsule 04/16/18 [Rx] Aspirin 81 mg PO DAILY 09/12/18 [History] Atorvastatin [Lipitor] 40 mg PO DAILY 09/12/18 [History] Bumetanide 2 mg PO DAILY 09/12/18 [History] Carvedilol 12.5 mg PO BID 09/12/18 [History] Insulin ASPART [Novolog Flexpen] 8 unit SQ TIDAC 09/12/18 [History] Insulin DETEMIR [Levemir Flextouch] 20 unit SQ BID 09/12/18 [History] Isosorbide MONOnitrate (24 HR) [Imdur] 30 mg PO QAM 09/12/18 [History] Lipase/Protease/Amylase [Isaac Melendez 36,000 Units Capsule] 2 cap PO TIDWM 09/12/18 [History] Rivaroxaban [Xarelto] 15 mg PO DAILY 09/12/18 [History] Allergy/AdvReac Type Severity Reaction Status Date / Time tramadol Allergy Nausea Verified 09/12/18 06:44 vancomycin Allergy Hives Verified 09/12/18 06:44 All Systems PM: A 10-system review of systems was performed and is negative for pertinent findings except as documented above in the HPI. - Constitutional Vitals: Temp Pulse Resp BP Pulse Ox 98.4 F 85 20 167/103 97 09/12/18 07:25 09/12/18 09:54 09/12/18 09:54 09/12/18 09:54 09/12/18 09:54 Exam: Gen: Alert, awake, Oriented to time,place and person Chest: Diminished breath sounds B/L, mild wheezing, No crackles, rales ++ Heart: S1S2+ RRR No murmurs Abd: Soft, NT, BS +, No organomegaly Ext: 1-2+ pitting edema in Rt leg.. Multiple papular rash with erythema noticed over Rt leg. He does have chronic non healing ulcer over Rt 3rd toe with scab and swollen 3rd toe. Also have non healing ulcer over Rt medial maleolus. pulses are palpable, No calf tenderness Neuro : Benign findings Skin: No rash. Internal Med - H&P Results - Labs CBC & Chem 7: 09/14/18 04:10 09/14/18 04:00 Labs: Short CBC 09/12/18 Range/Units 08:30 WBC 11.0 (4.3-11.1) K/mcL Hgb 11.5 L (12.9-16.9) g/dL Hct 36.7 L (37.5-50.1) % Plt Count 255 (140-400) K/mcL Neutrophils # 8.1 (1.6-8.9) K/mcL BMP 09/12/18 08:30 Sodium 139 Potassium 3.6 Chloride 109 H Carbon Dioxide 22 L BUN 24 H Creatinine 2.93 H Glucose 271 H Calcium 8.1 L Cardiac Enzymes 09/12/18 Range/Units 08:30 Troponin I 0.05 H* (< 0.04) ng/mL - Impressions ITS Impressions Chest X-Ray 09/12/18 06:50 IMPRESSION: 1. Pulmonary vascular congestion with questionable perihilar edema. Interstitial pneumonia could appear similar. 2. Bibasilar airspace opacities most likely representing atelectasis. D/ / Alexy Vasquez MD / Alexy Vasquez MD Interpreting Provider: Alexy Vasquez MD - Assessment and Plan (1) CHF (congestive heart failure) Current Visit: Yes Status: Acute Assessment and plan: SOB due to CHF exacerbation due to Noncompliance PLAN: - CPP x 1 more, 8 hr after the 1st one - EKG in AM - ASA - O2 to keep SpO2 > 92% - Lasix 40 mg IV BID - Aerosols UD q 4 hr - UA - 2D Echo - CBCD, BMP in AM - Fasting lipids - Tylenol 650 mg PO q 4-6 hr PRN pain - Home meds - Heparin 5000 U SQ BID Qualifiers: Heart failure type: systolic Heart failure chronicity: acute Qualified Code(s): I50.21 - Acute systolic (congestive) heart failure (2) Morbid obesity with BMI of 45.0-49.9, adult Current Visit: No Status: Chronic (3) Elevated troponin Current Visit: No Status: Acute Assessment and plan: The patient has no EKG changes, he is troponin was also elevated, we will trend cardiac enzymes and repeat EKG (4) Anxiety disorder Current Visit: No Status: Acute Assessment and plan: We will continue home medication Qualifiers: Anxiety disorder type: unspecified anxiety disorder Qualified Code(s): F41.9 - Anxiety disorder, unspecified (5) Essential hypertension Current Visit: No Status: Chronic Assessment and plan: We will continue home medication and adjust antihypertensive regimen if indicated (6) Diabetes mellitus Current Visit: No Status: Chronic Assessment and plan: We will start the patient and insulin sliding scale with moderate coverage Qualifiers: Diabetes mellitus type: other specified (including VAL) Diabetes mellitus intermediate card tender insulin use: with alf use Diabetes mellitus complication status: with unspecified complications Qualified Code(s): E13.8 - Other specified diabetes mellitus with unspecified complications; Z79.4 - alf (current) use of insulin (7) Cardiocranial syndrome Current Visit: Yes Status: Deleted Assessment and plan: The patient had acute kidney injury on security most likely secondary to decreased forward flow in the setting of congestive heart failure exacerbation, I would intensify diuretic management to achieve dry weight which around 147 , I will tolerate related worsening of creatinine during his initial diuretic phase until forward flow improve and hence renal perfusion. Fluid restriction and daily weight. (8) Cardiocranial syndrome Current Visit: Yes Status: Deleted (9) Anemia Current Visit: Yes Status: Acute Assessment and plan: Most likely secondary to chronic kidney disease, we will continue to monitor H&H, obtain iron studies and start erythropoietin stimulating agent if indicated Qualifiers: Qualified Code(s): D64.9 - Anemia, unspecified (10) Hyperlipidemia Current Visit: Yes Status: Acute Assessment and plan: We will continue home statin and obtain fasting lipid profile in a.m. Qualifiers: Hyperlipidemia type: unspecified Qualified Code(s): E78.5 - Hyperlipidemia, unspecified (11) DVT prophylaxis Current Visit: No Status: Chronic Assessment and plan: Heparin 5000 twice a day - Time Spent With Patient Total time spent is greater than 50% in coordination of care (as documented) at patient's floor/unit and/or counseling patient:
[2018-09-12] MEDS ORDERED: Ondansetron ODT 4 MG TAB.RAPDIS SL PRN (12:29)
[2018-09-12] MEDS ORDERED: Naloxone 0.4 MG/ML INJ IVP PRN (12:29)
[2018-09-12] MEDS ORDERED: OXYCODONE Oral CONC 10 MG/0.5 ML ORAL.SYG SL PRN ×2 (12:29)
[2018-09-12] MEDS ORDERED: Dextrose Gel 15 GM/37.5 ML TUBE PO PRN ×2 (12:30)
[2018-09-12] MEDS ORDERED: D5% in Water 1,000 ML IVC PRN (12:30)
[2018-09-12] MEDS ORDERED: *HR* Dextrose 50 % in Water (Syg) 50 ML SYRINGE IVP PRN (12:30)
[2018-09-12] MEDS: Insulin LISPRO 300 UNITS/3 ML VIAL SQ SCH ×3 (13:56→20:31)
[2018-09-12] MEDS: (Fluticasone/Vilanterol [Breo Ellipta 100-25 Mcg Inh] IH SCH (14:02)
--- NOTE | 2018-09-12 14:41 | Electrocardiograph Report ---
[address] [place] [address] Test Date: 2018-09-12 Pat Name: Alexy Tripp Department: EXAM20 Room: 3B49 Gender: M Purchase Price Analyst: : 1965 Requested By: Murtaza Chavira Order Number: [id number] Reading MD: James Hansen Measurements Intervals [place] Rate: 86 P: MN: QRS: -67 QRSD: 147 T: 70 QT: 415 QTc: 497 Interpretive Statements Sinus rhythm Right bundle branch block Possible anterolateral infarct, age undetermined Inferior infarct, age undetermined Electronically Signed On 09-12-2018 14:39:39 EDT by James Hansen
[2018-09-12 16:11] LABS: Estimated Average Glucose 237 mg/dl; Hemoglobin A1C 9.9 %
[2018-09-12] MEDS: Furosemide 40 MG/4 ML VIAL IVP SCH (16:33)
[2018-09-12] MEDS ORDERED: Perflutren Lipid Microsphere 1.3 ML in 0.9 % Sodium Chloride 8.7 ML IVP ONE (17:58)
[2018-09-13 02:04] LABS: Basophils # 0.1 K/mcL (0.0-0.2); Basophils % 0.7 %; Eosinophils # 0.4 K/mcL (0.0-0.6); Eosinophils % 4.3 %; Hematocrit 33.7 % (37.5-50.1); Hemoglobin 10.8 g/dL (12.9-16.9); Immature Granulocytes % 0.8 % (0-4); Lymphocytes # 1.6 K/mcL (0.6-4.6); Lymphocytes % 16.6 %; Mean Corpuscular Hemoglobin 28.3 pg (28.0-33.3); Mean Corpuscular Volume 88.5 fL (83.0-100.0); Mean Platelet Volume 10.6 fL (9.4-12.4); Monocytes # 0.6 K/mcL (0.0-1.3); Monocytes % 6.5 %; Neutrophils # 6.8 K/mcL (1.6-8.9); Platelet Count 228 K/mcL (140-400); Red Blood Count 3.81 M/mcL (4.19-5.50); Red Cell Distribution Width 13.8 % (11.5-14.5); Segmented Neutrophils % 71.1 %
[2018-09-13 02:10] LABS: Albumin 2.2 g/dL (3.5-5.7); Albumin/Globulin Ratio 0.7 (1.1-2.2); Bilirubin,Total 0.3 mg/dL (0.3-1.0); Calcium 7.5 mg/dL (8.6-10.3); Chol/HDL Ratio 3.6 (0-4.9); Globulin 3.2 g/dL (2.4-3.5); Phosphorous 4.8 mg/dL (2.7-4.5); Potassium 3.9 mEq/L (3.5-5.1); Total Protein 5.4 g/dL (6.4-8.9)
[2018-09-13] MEDS: Aspirin Enteric Coated 81 MG Tablet PO SCH (08:47)
[2018-09-13] MEDS: Furosemide 40 MG/4 ML VIAL IVP SCH ×2 (08:47→16:01)
[2018-09-13] MEDS: Insulin LISPRO 300 UNITS/3 ML VIAL SQ SCH ×5 (08:47→20:55)
[2018-09-13] MEDS: (Fluticasone/Vilanterol [Breo Ellipta 100-25 Mcg Inh] IH SCH (08:48)
[2018-09-13 09:36] LABS: INR 1.1; Prothrombin Time 12.6 Seconds (9.4-12.1)
[2018-09-13 09:50] LABS: Activated Partial Thrombo Time 36.4 Seconds (26.0-36.0)
[2018-09-13] MEDS ORDERED: Perflutren Lipid Microsphere 1.3 ML in 0.9 % Sodium Chloride 8.7 ML IVP ONE (10:08)
[2018-09-13] MEDS ORDERED: Perflutren Lipid Microsphere 2 ML VIAL ONE (10:37)
--- NOTE | 2018-09-13 12:53 | Internal Med Progress Note ---
Hospitalist Progress Note - Encounter Date of Encounter: 09/13/18 Time of Encounter: 11:30 - Subjective Interval History: Mr. Tripp is a 53 year old male with past medical history of diastolic CHF, COPD, diabetes, hypertension, hyperlipidemia, and a left [id number] amputation presented to ER with progressively worsening of shortness of breath associated with lower extremity edema and orthopnea. The patient stated that he stopped his Lasix 2 weeks ago due to potassium abnormalities currently is not on any diuretic regimen. The patient was evaluated by the ER staff and his laboratory data revealed elevated troponin @ 0.05. EKG was no significant changes. His CXR showed inc vascular congestion. He was admitted in the hospital and placed him on monitoring engineer. His serial trop slightly elevated @ 0.05 and flat. pt stated he felt little better y/d, however he started having worsening SOB and SALEH again today. He also have multiple folliculitis papular rash over trunk and Rt leg. He does have chronic non healing ulcer over Rt medial maleolus. - Exam Vitals: Temp Pulse Resp BP Pulse Ox 98.0 F 86 18 184/131 98 09/13/18 11:22 09/13/18 11:22 09/13/18 11:22 09/13/18 11:22 09/13/18 11:22 Exam: Gen: Alert, awake, Oriented to time,place and person Chest: Diminished breath sounds B/L, mild wheezing, No crackles, rales ++ Heart: S1S2+ RRR No murmurs Abd: Soft, NT, BS +, No organomegaly Ext: 2+ pitting edema in Rt leg.. Multiple papular rash with erythema noticed over Rt leg. He does have chronic non healing uler over Rt 3rd toe with scab. Also have non healing ulcer over Rt medial maleolus. pulses are palpable, No calf tenderness Neuro : Benign findings Skin: No rash. - Assessment and Plan (1) CHF (congestive heart failure) Current Visit: Yes Status: Acute Assessment and Plan: Reviewed his echocardiogram - showed LVEF @ 40-45%, with moderate global and segmental LV systolic dysfunction.. Indeterminate diastolic function. He does have moderate pulmonary hypertension. Small pericardial effusion noticed without tamponade. He does have significant volume overload patient is still very symptomatic increased his Lasix to 40mg Q8Hr since he does have new onset systolic dysfunction consular cardiology for further evaluation may need ischemic cardiac workup Cont ASA, Coreg, Lipitor and Imdur Patient does need to stay in the hospital more than 2 midnights due to his complex medical problems. So we will change him to full admission today. I did review my colleague Tojusten's H & P including HPI, PMH, PSH, FH, SH, and ROS no changes noticed (2) Acute kidney injury superimposed on CKD Current Visit: Yes Status: Acute Assessment and Plan: Due to cardio renal syndrome improving slowly continue diuresis avoid nephrotoxic medications (3) Cellulitis of right leg Current Visit: Yes Status: Acute Assessment and Plan: Ordered X ray of foot will do wound cx started on empirical abx Ancef consulted Business Investor for further eval for his non healing uler over Rt medial malleolus and 3rd toe (4) Elevated troponin Current Visit: No Status: Acute Assessment and Plan: Slightly elevated @ 0.05 , flat and adynamic due to demand ischemia with CHF exacerbation Reviewed 2 D Echo (5) Diabetes mellitus Current Visit: No Status: Chronic Assessment and Plan: on ADA diet Regular insulin 6 U TID and ISS Medium also started on Levemir (6) Essential hypertension Current Visit: No Status: Chronic Assessment and Plan: Resumed all home medications (7) Anxiety disorder Current Visit: No Status: Acute Assessment and Plan: continue home medication (8) DVT prophylaxis Current Visit: No Status: Acute Assessment and Plan: On home medication Xarelto (9) Morbid obesity with BMI of 45.0-49.9, adult Current Visit: No Status: Chronic Assessment and Plan: counseled to loose weight (10) Anemia Current Visit: Yes Status: Acute Assessment and Plan: Stable hemoglobin chronic anemia due to CKD (11) Hyperlipidemia Current Visit: Yes Status: Acute Assessment and Plan: Continue home medication reviewed his lipid profile - Time Spent with Patient Total time spent is greater than 50% in coordination of care (as documented) at patient's floor/unit and/or counseling patient: Internal Medicine: Result - Labs CBC & Chem 7: 09/13/18 00:58 09/13/18 00:58 Labs: Short CBC 09/13/18 Range/Units 00:58 WBC 9.5 (4.3-11.1) K/mcL Hgb 10.8 L (12.9-16.9) g/dL Hct 33.7 L (37.5-50.1) % Plt Count 228 (140-400) K/mcL Neutrophils # 6.8 (1.6-8.9) K/mcL BMP 09/13/18 00:58 Sodium 142 Potassium 3.9 Chloride 112 H Carbon Dioxide 22 L BUN 23 H Creatinine 2.57 H Glucose 104 Calcium 7.5 L Cardiac Enzymes 09/12/18 09/13/18 09/13/18 Range/Units 15:39 00:58 09:10 Troponin I 0.05 H* 0.05 H* 0.05 H* (< 0.04) ng/mL Liver Function 09/13/18 Range/Units 00:58 Total Bilirubin 0.3 (0.3-1.0) mg/dL AST 13 (13-39) Units/L ALT 12 (7-52) Units/L Alkaline Phosphatase 113 H (34-104) Units/L Albumin 2.2 L (3.5-5.7) g/dL - ABG Interpretation ABG results: PT/INR, D-dimer PT 12.6 Seconds (9.4-12.1) H 09/13/18 09:10 - Impressions Impressions Echocardiogram 09/13/18 00:00 Impressions: LVEF 40-45%. Moderate global and segmental left ventricular systolic dysfunction. Indeterminate diastolic function. Moderate concentric left ventricular hypertrophy. Normal right ventricular structure and function. Moderately dilated left atrium. Mild-moderate mitral regurgitation.Mild tricuspid regurgitation. Moderate pulmonary hypertension. Estimated RVSP is 66 mmHg There is a small pericardial effusion present without echocardiographic evidence of tamponade. Left Ventricular Wall Motion: Rest Echo Findings The apex, apical inferior, mid inferior, basal inferior, apical anterior, mid anterior, basal anterior, apical septal, mid inferior septal, basal inferior septal, mid anterior lateral, basal anterior lateral, mid anterior septal, basal anterior septal and basal inferior lateral baptiste were hypokinetic. The apical lateral and mid inferior lateral baptiste were akinetic. Findings: Study Quality * Technically sub-optimal due to poor echocardiographic windows. ECG Findings * Sinus rhythm with BBB. Left Ventricle * LVEF 40-45%.Moderate global and segmental left ventricular systolic dysfunction. * Definity echo contrast was used. * Atypical septal motion consistent with bundle branch block. * Indeterminate diastolic function. * Mildly dilated left ventricle. * Moderate concentric left ventricular hypertrophy. * Moderate global and segmental left ventricular systolic dysfunction. * There is no LV thrombus. Right Ventricle * Normal right ventricular structure and function. Left Atrium * Moderately dilated left atrium. Right Atrium * Mildly dilated right atrium. Aortic Valve * Trileaflet aortic valve. * Mildly calcified aortic valve leaflets. * No aortic regurgitation. * No aortic stenosis. Mitral Valve * Mild-moderate mitral regurgitation. * Normal mitral valve structure. * No mitral stenosis. Tricuspid Valve * Mild tricuspid regurgitation. * Moderate pulmonary hypertension. Estimated RVSP is 66 mmHg * Normal tricuspid valve structure. * No tricuspid stenosis. Pulmonic Valve * Pulmonic valve is not well visualized. Aorta * Normally sized aortic root. Pericardium * There is a small pericardial effusion present.There is no echocardiographic evidence of tamponade. * IVC * The IVC is dilated. Consult Discharge Plan - Plan Referrals: NONE,PCP [Primary Care Provider] - (1) CHF (congestive heart failure) Qualifiers: Heart failure type: systolic Heart failure chronicity: unspecified Qualified Code(s): I50.20 - Unspecified systolic (congestive) heart failure (5) Diabetes mellitus Qualifiers: Diabetes mellitus type: other specified (including VAL) Diabetes mellitus usp insulin use: with long chain beamer use Diabetes mellitus complication status: with unspecified complications Qualified Code(s): E13.8 - Other specified diabetes mellitus with unspecified complications; Z79.4 - long-term (current) use of insulin (7) Anxiety disorder Qualifiers: Anxiety disorder type: unspecified anxiety disorder Qualified Code(s): F41.9 - Anxiety disorder, unspecified
[2018-09-13] MEDS: Ipratropium/Albuterol Neb 3 ML IH SCH ×4 (13:57→23:55)
[2018-09-13] MEDS ORDERED: INSULIN ASPART 6 UNIT SQ SCH (16:30)
[2018-09-13] MEDS: ceFAZolin 1,000 MG in Water for inj. (sterile) 20 ML 10 ML IVP SCH (17:31)
--- NOTE | 2018-09-13 17:35 | Podiatry Consult Note ---
Date of Encounter: 09/14/18 Time of Encounter: 15:15 Assessment and Plan (1) Chronic ulcer of ankle with fat layer exposed Current visit: Yes Status: Acute Assessment: -Healing chronic ulcer noted right medial ankle, minimal erythema around ulcer, wound base pink, no lymphangitis, no odor, no drainage, no cellulitis, no tunnelingm, no undermining -1/4 PT/DP pulse -Cap refill less than 3 seconds -WBC 9.5 Plan: -Cleaned with sterile saline and pat dry -Covered with x4x dry gauze and Medipore tape Qualifiers: Laterality: right Qualified Code(s): L97.312 - Non-pressure chronic ulcer of right ankle with fat layer exposed (2) Osteomyelitis of toe Current visit: Yes Status: Acute Assessment: -Right third toe edematous with hyperkeratotic tissue noted and hair noted in the tissue. No drainage noted. No lymphangitis. -1/4 PT/DP pulse -Cap refill less than 3 seconds -WBC 9.5 -Right foot x-ray showede evidence of soft tissue edema with osteomyelitis involving the middle and distal 3rd phalanx Plan: -Cleaned area with sterile saline -Covered with 4x4 and Medipore tape -ESR -CRP -TAL -Will continue to monitor History of Present Illness HPI: Mr. Tripp is a 53 year old male with past medical history of diastolic CHF, COPD, diabetes, hypertension, hyperlipidemia, and a left [id number] amputation. Patient presented to Emergency Room (ER) with progressively wor sening shortness of breath associated with lower extremity edema and orthopnea. He was admitted to the hospital for further evaluation of elevated troponin @ 0.05 and flat. Podiatry was consulted due to ulcer right medial maleolus and ulcer right 3rd toe. Patient is known to Podiatry and has been treated by Dr. Bonilla in the past. Patient is alert, oriented, and appears irritated. He is very short with his answers. Patient reports he open the ulcer to his ankle and toe 2 weeks ago. Patient report he hit the medial maleolus on his wheelchair and the 3rd toe he hit on a screen door. 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 He does report pain to the right foot. Past Med Surg Social Fam HX - Past Medical History Medical history: CHF, COPD, coronary artery disease, diabetes, hyperlipidemia, hypertension, renal disease, other Additional medical history: anemia Psychiatric history: anxiety, depression - Past Surgical History Surgical History: appendectomy, other Additional surgical history: left aka, toe amputee - Social History Smoking Status: Current every day smoker Smokeless Tobacco Status: No Alcohol use: none Drug use: none - Family History Father Adopted: No Family Member Ethnicity: Non- Living Status: Hx Family Cardiac Disorders: Yes Hx Family Respiratory Disorders: No Hx Family Cancer: No Hx Family GI Disorders: No Hx Family Endocrine Disorder: Yes (Diabetic) Hx Family Neuromuscular Disorders: No Hx Family Neurologic Disorders: No Hx Family HEENT Disorders: No Hx Family Autoimmune Disorders: No Medications and Allergies Fluticasone/Vilanterol [Breo Ellipta 100-25 Mcg INH] 1 puff IH DAILY 06/24/16 [History] Escitalopram [Lexapro] 20 mg PO DAILY #30 tablet 04/16/18 [Rx] Loperamide [Imodium] 2 mg PO Q4HR PRN #30 capsule 04/16/18 [Rx] Aspirin 81 mg PO DAILY 09/12/18 [History] Atorvastatin [Lipitor] 40 mg PO DAILY 09/12/18 [History] Bumetanide 2 mg PO DAILY 09/12/18 [History] Carvedilol 12.5 mg PO BID 09/12/18 [History] Insulin ASPART [Novolog Flexpen] 8 unit SQ TIDAC 09/12/18 [History] Insulin DETEMIR [Levemir Flextouch] 20 unit SQ BID 09/12/18 [History] Isosorbide MONOnitrate (24 HR) [Imdur] 30 mg PO QAM 09/12/18 [History] Lipase/Protease/Amylase [Creon Dr 36,000 Units Capsule] 2 cap PO TIDWM 09/12/18 [History] Rivaroxaban [Xarelto] 15 mg PO DAILY 09/12/18 [History] Allergy/AdvReac Type Severity Reaction Status Date / Time tramadol Allergy Nausea Verified 09/12/18 06:44 vancomycin Allergy Hives Verified 09/12/18 06:44 All Systems Reviewed: The remainder of the systems were reviewed and are negative Review of systems: As per HPI - Constitutional Constitutional: no fever(s) - Cardiovascular Cardiovascular: no chest pain - Respiratory Respiratory: dyspnea Additional comments: Reports this is improving Physical Exam - Constitutional Vitals: Temp Pulse Resp BP Pulse Ox 98.0 F 85 18 172/103 84 09/13/18 15:27 09/13/18 15:27 09/13/18 16:07 09/13/18 15:27 09/13/18 16:07 Exam: Constitutional: Alert and oriented x 3, well nourished, no acute distress noted Vascular: 1/4 PT/DP pulses, 1/4 edema, cap refill less than 3 seconds, left AKA Neurological: Abnormal plantar reflex, absent protective sensation Dermatological: Healing chronic ulcer noted right medial ankle, minimal erythema around ulcer, wound base pink, no lymphangitis, no odor, no drainage, no cellulitis, no tunnelingm, no undermining. Right 1st and 2nd toes amputated. Right third toe edematous with hyperkeratotic tissue noted and hair noted in the tissue. No drainage noted. No lymphangitis. Musculoskeletal: 4/5 muscle strength, normal tone Results - Labs Result Diagrams: 09/14/18 04:10 09/14/18 04:00 Labs: Abnormal lab results RBC 3.81 M/mcL (4.19-5.50) L 09/13/18 00:58 Hgb 10.8 g/dL (12.9-16.9) L 09/13/18 00:58 Hct 33.7 % (37.5-50.1) L 09/13/18 00:58 MCHC 31.3 g/dL (31.6-35.5) L 09/12/18 08:30 PT 12.6 Seconds (9.4-12.1) H 09/13/18 09:10 APTT 36.4 Seconds (26.0-36.0) H 09/13/18 09:10 Chloride 112 mEq/L (98-107) H 09/13/18 00:58 Carbon Dioxide 22 mEq/L (23-29) L 09/13/18 00:58 BUN 23 mg/dL (6-20) H 09/13/18 00:58 2.57 mg/dL (0.70-1.30) H 09/13/18 00:58 Est GFR ( Amer) 32 (> 60) L 09/13/18 00:58 Est GFR (Non-Af Amer) 26 (> 60) L 09/13/18 00:58 Glucose 271 mg/dL (70-105) H 09/12/18 08:30 POC Glucose 141 mg/dL (70-99) H 09/13/18 11:20 9.9 % (-5.6) H 09/12/18 15:39 302 (280-300) H 09/12/18 08:30 Calcium 7.5 mg/dL (8.6-10.3) L 09/13/18 00:58 Phosphorus 4.8 mg/dL (2.7-4.5) H 09/13/18 00:58 113 Units/L (34-104) H 09/13/18 00:58 0.05 ng/mL (< 0.04) H* 09/13/18 09:10 B-Natriuretic Peptide 307 pg/mL (Less than 100) H 09/12/18 08:30 5.4 g/dL (6.4-8.9) L 09/13/18 00:58 2.2 g/dL (3.5-5.7) L 09/13/18 00:58 0.7 (1.1-2.2) L 09/13/18 00:58 35 mg/dL (40-59) L 09/13/18 00:58 H & H 09/13/18 Range/Units 00:58 Hgb 10.8 L (12.9-16.9) g/dL Hct 33.7 L (37.5-50.1) % All other labs normal. Consult Discharge Plan - Plan Referrals: NONE,PCP [Primary Care Provider] -
[2018-09-13] MEDS ORDERED: NON-FORMULARY MEDICATION 1 EACH EACH (Insulin Detemir [Levemir Flextouch] 20 UNIT) SQ SCH (21:00)
[2018-09-13] MEDS: Melatonin 3 MG TABLET PO PRN (21:32)
[2018-09-13] MEDS: Insulin DETEMIR 100 UNIT/ML X5UNITS SQ SCH (21:32)
[2018-09-14] MEDS: ceFAZolin 1,000 MG in Water for inj. (sterile) 20 ML 10 ML IVP SCH ×2 (00:20→09:35)
[2018-09-14] MEDS: Furosemide 40 MG/4 ML VIAL IVP SCH ×4 (00:21→17:01)
[2018-09-14] MEDS: Ipratropium/Albuterol Neb 3 ML IH SCH ×2 (03:24→07:22)
[2018-09-14 04:38] LABS: Basophils # 0.1 K/mcL (0.0-0.2); Basophils % 0.7 %; Eosinophils # 0.4 K/mcL (0.0-0.6); Eosinophils % 4.1 %; Hematocrit 34.2 % (37.5-50.1); Hemoglobin 10.8 g/dL (12.9-16.9); Immature Granulocytes % 0.4 % (0-4); Lymphocytes # 1.6 K/mcL (0.6-4.6); Lymphocytes % 17.5 %; Mean Corpuscular HGB Conc 31.6 g/dL (31.6-35.5); Mean Corpuscular Hemoglobin 28.1 pg (28.0-33.3); Mean Corpuscular Volume 88.8 fL (83.0-100.0); Monocytes # 0.6 K/mcL (0.0-1.3); Monocytes % 6.5 %; Neutrophils # 6.4 K/mcL (1.6-8.9); Platelet Count 247 K/mcL (140-400); Red Blood Count 3.85 M/mcL (4.19-5.50); Red Cell Distribution Width 13.9 % (11.5-14.5); Segmented Neutrophils % 70.8 %
[2018-09-14 04:59] LABS: Calcium 7.3 mg/dL (8.6-10.3); Magnesium 1.9 mg/dL (1.6-2.6); Potassium 3.5 mEq/L (3.5-5.1)
[2018-09-14] MEDS ORDERED: Ipratropium/Albuterol Neb 3 ML IH PRN (07:58)
[2018-09-14] MEDS: Insulin LISPRO 300 UNITS/3 ML VIAL SQ SCH ×7 (08:45→19:59)
[2018-09-14] MEDS: Isosorbide MONOnitrate (24 HR) 30 MG TAB.ER.24H PO SCH (09:36)
[2018-09-14] MEDS: Aspirin Enteric Coated 81 MG Tablet PO SCH (09:36)
[2018-09-14] MEDS: (Fluticasone/Vilanterol [Breo Ellipta 100-25 Mcg Inh] IH SCH (09:37)
[2018-09-14] MEDS: *HR* Rivaroxaban 15 MG TABLET PO SCH (09:37)
[2018-09-14] MEDS: Insulin DETEMIR 100 UNIT/ML X5UNITS SQ SCH ×2 (09:48→20:00)
--- NOTE | 2018-09-14 10:15 | Cardiology Consult Note ---
Date of Encounter: 09/14/18 Time of Encounter: 09:30 Assessment and Plan (1) CHF (congestive heart failure) Current Visit: Yes Status: Acute Patient presents with CHF symptoms--worsening dyspnea, weight gain, PND, and orthopnea over the past month. TTE shows reduced LVEF, 40-45% with global and segmental LV dysfunction, moderate cLVH, moderately dilated LA,and mild-moderate MR--chronicity unclear. Previous TTE at [facility] (2015) shows preserved LVEF, 60%. Pt. reports [facility] and cardiac testing within the past few years at [place]--will request records. Continue asa, statin, betablocker, and nitrates. Avoid ACEi/ARB d/t worsening kidney function. Diuresis per Nephrology recommendations. Symptoms have improved since admission, near euvolemic upon exam. Cumulative I&O: -6833 mL. Continue strict I&Os, daily weights, and Na/fluid restricted diet. May need to consider ischemic evaluation prior to discharge. Will continue to follow. Qualifiers: Heart failure type: systolic Heart failure chronicity: acute Qualified Code(s): I50.21 - Acute systolic (congestive) heart failure (2) Acute kidney injury superimposed on CKD Current Visit: Yes Status: Acute Hx of CKD, presents with worsening kidney function. Discussed with primary service, Nephrology consult pending. May need to consider ischemic evaluation prior to discharge given suspected new cardiomyopathy. Avoid nephrotoxins. Gentle diuresis. (3) PAF (paroxysmal atrial fibrillation) Current Visit: Yes Status: Acute Hx of PAF per outpatient record, on Xarelto (renal adjusted dose). May need to consider changing to Coumadin given worsening kidney function. Discussion w patient/family: The assessment and plan as outlined above was discussed with the patient and/or family members who expressed understanding and agreement. All questions were answered. Thank you for involving us in the care of your patient. Please call with any questions. The patient will be discussed and reviewed with Dr. Hansen; changes to be a ccordingly. History of Present Illness Consult date: 09/14/18 Requesting physician: Miranda Beth Consult reason: CHF Chief complaint: Shortness of breath History of present illness: Mr. Tripp is a 53 year old male with PMHx significant of HFpEF, CKD, HTN, DMII, reported PAF (Xarelto), heavy tobacco use, morbid obesity who presented to the ED with worsening shortness of breath over the past 1 month. Associated symptoms include orthopnea, PND, weight gain, and fatigue. Additionally, he reported an episode of chest pain x3 weeks ago while driving, described as non- radiating right sided sharp pain that lasted 1-2 minutes and resolved without in tervention. Cardiology consulted today for reduced LVEF per TTE, 40-45%. Upon arrival to ED, ECG showed NSR with RBBB. Denies chest pain or discomfort since admission. Prior CV testing: TTE 12/2015: LVEF 60%, poor quality study, no significant valvular dysfunction Past Med Surg Social Fam HX - Past Medical History Attestation: Yes The following information was validated with the patient. Source: patient Medical history: atrial fibrillation, CHF (diastolic), COPD, coronary artery disease, diabetes, hyperlipidemia, hypertension, renal disease, other Additional medical history: anemia Psychiatric history: anxiety, depression - Past Surgical History Surgical History: appendectomy, other Additional surgical history: left aka, toe amputee - Social History Smoking Status: Current every day smoker Packs per day: 1 (previous 2.5) Smokeless Tobacco Status: No Alcohol use: none Drug use: none - Family History Father Adopted: No Family Member Ethnicity: Non- Living Status: Hx Family Cardiac Disorders: Yes Hx Family Respiratory Disorders: No Hx Family Cancer: No Hx Family GI Disorders: No Hx Family Endocrine Disorder: Yes (Diabetic) Hx Family Neuromuscular Disorders: No Hx Family Neurologic Disorders: No Hx Family HEENT Disorders: No Hx Family Autoimmune Disorders: No Mother History Unknown: Yes Medications and Allergies Fluticasone/Vilanterol [Breo Ellipta 100-25 Mcg INH] 1 puff IH DAILY 06/24/16 [History] Escitalopram [Lexapro] 20 mg PO DAILY #30 tablet 04/16/18 [Rx] Loperamide [Imodium] 2 mg PO Q4HR PRN #30 capsule 04/16/18 [Rx] Aspirin 81 mg PO DAILY 09/12/18 [History] Atorvastatin [Lipitor] 40 mg PO DAILY 09/12/18 [History] Bumetanide 2 mg PO DAILY 09/12/18 [History] Carvedilol 12.5 mg PO BID 09/12/18 [History] Insulin ASPART [Novolog Flexpen] 8 unit SQ TIDAC 09/12/18 [History] Insulin DETEMIR [Levemir Flextouch] 20 unit SQ BID 09/12/18 [History] Isosorbide MONOnitrate (24 HR) [Imdur] 30 mg PO QAM 09/12/18 [History] Lipase/Protease/Amylase [Isaac Melendez 36,000 Units Capsule] 2 cap PO TIDWM 09/12/18 [History] Rivaroxaban [Xarelto] 15 mg PO DAILY 09/12/18 [History] Allergy/AdvReac Type Severity Reaction Status Date / Time tramadol Allergy Nausea Verified 09/12/18 06:44 vancomycin Allergy Hives Verified 09/12/18 06:44 All Systems Review: The remainder of the systems were reviewed and are negative - Cardiovascular Cardiovascular: as per HPI Physical Examination Vital Signs, Last 4 Hours Temp Pulse Resp BP Pulse Ox 09/14/18 07:37 97.6 F 83 16 150/94 98 General: Conversant, No Apparent Distress HEENT: Atraumatic, Normocephaly Cardiac: Reg Rate and Rhythm, Normal S1 and S2 Lungs: Other (Decreased bibasilar) Neuro: Alert and responsive Abdomen: Soft (large, obese) Skin: Other (poor skin integrity) Extremities: Other (right LE edema/skin redness/mulitple open sores/scabs; L AKA) Results 09/14/18 04:10 09/14/18 04:00 Lab Results 09/14/18 09/14/18 04:00 04:10 WBC 9.0 Hgb 10.8 L Hct 34.2 L Plt Count 247 Sodium 141 Potassium 3.5 Chloride 111 H Carbon Dioxide 25 BUN 27 H Creatinine 3.18 H Glucose 122 H Calcium 7.3 L Magnesium 1.9 Active Medications Albuterol/Ipratropium (Duoneb) 3 ml IH [id number] PRN PRN Reason: Shortness Of Breath/Wheezing Stop: 03/16/19 07:59 Lipase/Protease/Amylase (Isaac Melendez 6,000 Units Capsule) 12 each PO TIDWM [facility] Stop: 03/15/19 17:01 Last Admin: 09/14/18 09:37 Dose: 12 each Documented by: Aspirin (Aspirin Ec) 81 mg PO DAILY [facility] Stop: 03/15/19 09:01 Last Admin: 09/14/18 09:36 Dose: 81 mg Documented by: Atorvastatin Calcium (Lipitor) 40 mg PO DAILY [facility] Stop: 03/16/19 09:01 Last Admin: 09/14/18 09:36 Dose: 40 mg Documented by: Carvedilol (Coreg) 12.5 mg PO BIDWM [facility] Stop: 03/15/19 12:46 Last Admin: 09/14/18 09:37 Dose: 12.5 mg Documented by: Dextrose/Water (Dextrose 50% (Syg)) 25 ml IVP AD PRN PRN Reason: Hypoglycemia Stop: 03/14/19 12:31 Escitalopram Oxalate (Lexapro) 20 mg PO DAILY [facility] Stop: 03/14/19 11:01 Last Admin: 09/14/18 09:36 Dose: 20 mg Documented by: Furosemide (Lasix) 40 mg IVP Q8HR [facility] Stop: 03/15/19 12:46 Last Admin: 09/14/18 09:36 Dose: 40 mg Documented by: Glucagon (Glucagen) 1 mg IM ONCE PRN PRN Reason: Hypoglycemia Stop: 03/14/19 12:31 Glucose (Gluctose) 15 gm PO ONCE PRN PRN Reason: Hypoglycemia Stop: 03/14/19 12:31 Glucose (Gluctose) 30 gm PO ONCE PRN PRN Reason: Hypoglycemia Stop: 03/14/19 12:31 Dextrose (Dextrose 5%) 1,000 mls @ 100 mls/hr IVC .Q10H PRN PRN Reason: HYPOGLYCEMIA Stop: 03/14/19 12:31 Cefazolin Sodium 1,000 mg/ (Sterile Water) 10 mls @ 200 mls/hr IVP Q8HR [facility]; Protocol Stop: 03/15/19 16:01 Last Infusion: 09/14/18 09:37 Dose: Infused Documented by: Insulin Detemir (Levemir) 20 unit SQ BID [facility] Stop: 03/15/19 21:01 Last Admin: 09/14/18 09:48 Dose: 20 unit Documented by: Insulin Human Lispro (Humalog) 0 units SQ TIDAC [facility]; Protocol Stop: 03/14/19 12:46 Last Admin: 09/14/18 08:45 Dose: Not Given Documented by: Insulin Human Lispro (Humalog) 0 units SQ HS [facility]; Protocol Stop: 03/14/19 21:01 Last Admin: 09/13/18 20:55 Dose: Not Given Documented by: Insulin Human Lispro (Humalog) 6 units SQ TIDAC [facility] Stop: 03/15/19 16:31 Last Admin: 09/14/18 08:45 Dose: Not Given Documented by: Isosorbide Mononitrate (Imdur) 30 mg PO QAM [facility] Stop: 03/16/19 09:01 Last Admin: 09/14/18 09:36 Dose: 30 mg Documented by: Loperamide HCl (Imodium) 2 mg PO Q4HR PRN PRN Reason: Diarrhea Stop: 03/14/19 10:55 Melatonin (Melatonin) 3 mg PO HS PRN PRN Reason: Insomnia Stop: 03/15/19 21:07 Last Admin: 09/13/18 21:32 Dose: 3 mg Documented by: Naloxone HCl (Narcan) 0.4 mg IVP Q2MPRN PRN PRN Reason: SEE COMMENTS Stop: 03/14/19 12:30 Ondansetron HCl (Zofran Odt) 4 mg SL Q8HR PRN PRN Reason: Nausea And Vomiting Stop: 03/14/19 12:30 Oxycodone HCl (Roxicodone) 10 mg PO Q6H PRN PRN Reason: Pain Last Admin: 09/12/18 23:39 Dose: 10 mg Documented by: Oxycodone HCl (Oxycodone Oral Conc) 10 mg SL Q4H PRN; Protocol PRN Reason: Severe Pain Stop: 03/14/19 12:30 Oxycodone HCl (Oxycodone Oral Conc) 5 mg SL Q4H PRN; Protocol PRN Reason: mild to moderate pain Stop: 03/14/19 12:30 Pharmacy Profile Note (Patient Taking Own Medication) 0 each IH DAILY [facility] Stop: 03/14/19 11:01 Last Admin: 09/14/18 09:37 Dose: Not Given Documented by: Rivaroxaban (Xarelto) 15 mg PO DAILY [facility] Stop: 03/16/19 09:01 Last Admin: 09/14/18 09:37 Dose: 15 mg Documented by: - Imaging and Cardiology Echo: report reviewed Other Results: pt. not on telemetry - EKG Interpretation EKG results cardiology: personally reviewed Consult Discharge Plan - Plan Referrals: Echo Godfrey [Advanced Practice Nurse] - (Appointment has been requested)
--- NOTE | 2018-09-14 11:58 | Infectious Disease Consult ---
Infectious Disease-Consult - Encounter Date/Time Date of Encounter: 09/14/18 Time of Encounter: 11:54 - Data of Consult Patient: new to practice Reason for consult: Osteomyelitis right foot Consult date: 09/14/18 Requesting Physician: Miranda Beth MD Primary Care Provider: PCP NONE - HPI HPI: Mr. Tripp is a 53-year-old male with a past medical history of CHF, COPD, diabetes, hypertension, hyperlipidemia, chronic kidney disease, remote history of right foot toe #1 amputation, and left AKA. The patient was admitted to the hospital 09/12/18 for elevated troponin, chest pain, and CHF. We are consulted 09/14/18 for further workup and treatment recommendations for osteomyelitis of the right foot third toe. Briefly, the patient's a 53-year-old male with past medical history as stated above. The patient presented to the emergency department on the day of admission with complaints of shortness of breath and chest pain for a week with some right lower extremity swelling. Upon arrival, he was afebrile and hemodynamically stable. His white blood cell count was normal. Creatinine was elevated. He had a chest x-ray that showed pulmonary vascular congestion with perihilar edema and atelectasis. He had a right lotion made duplex study that was negative for DVT or SVT. Lactic acid was normal. Troponin was mildly elevated. He was admitted to the hospital for further evaluation. Since admission, the patient has remained afebrile hemodynamically stable. He was noted to have an ulceration of the right foot third toe and right ankle. He had a right foot x-ray that showed osteomyelitis of the third toe. ESR is elevated at 72 with a CRP of 16. Podiatry was consulted. Currently, the patient is on IV cefazolin. We have been asked to evaluate and make further recommendations. During my exam today, the patient history as stated above. He states he was having chest pain or shortness of breath for about a week prior to admission. He tells me that the ulceration to the medial aspect of his right ankle occurred about 2 weeks ago when he bumped his ankle on his wheelchair. He tells me that the ulceration to the toe occurred a couple of weeks ago as well when he pulled off a scab. He denies any fevers or chills or rigors. Denies headache or neck pain. Reports some right-sided chest pain and shortness of breath as previously mentioned. Reports a chronic cough with clear sputum. Denies nausea, vomiting, diarrhea, or constipation. Denies abdominal pain or urinary complaints. Denies oral thrush or skin lesions. He denies pain in the right lower extremity. Denies any redness. He does endorse some swelling. The patient lives at home with his family. 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 He smokes half pack of cigarettes per day. Denies alcohol or illicit drug use. Denies chronic infectious diseases. Denies recent travel outside the [facility]. Denies any prolonged exposure to water except for when he has had a bath or shower. Denies any pet or animal exposures. - ROS Review of Systems: All systems reviewed and no additional remarkable complaints except as stated. - Results CBC & Chem 7: 09/15/18 05:48 09/15/18 05:48 - Exam Vitals: Temp Pulse Resp BP Pulse Ox 97.5 F L 85 16 146/86 98 09/14/18 11:16 09/14/18 11:16 09/14/18 11:16 09/14/18 11:16 09/14/18 11:16 Exam: Head: Atraumatic, normal inspection, normocephalic. Eye: EOMI, PERRLA, no scleral icterus noted. ENT: Mucous membranes moist. No odontogenic infection noted. Neck: Normal inspection, no meningismus. Respiratory: Clear to auscultation. No rales, respiratory distress, rhonchi, or wheezes noted. Cardiovascular: Regular rate and rhythm, S1 and S2 audible. No murmurs, rubs, or gallops. GI: Firm, distended, normal bowel sounds. Tender. Extremities:No joint swelling or tenderness noted. Left AKA stump without abnormality. 1+ edema noted to the right lower extremity. Ulceration noted to the medial aspect of the right ankle with beefy red wound bed without surrounding erythema or fluctuance or drainage. Ulceration noted to the dorsal aspect of the right third toe with mild necrosis of the wound edges. Edema and deformity noted. Wound bed with yellow drainage. No fluctuance or tenderness noted. Back: Normal inspection. No vertebral tenderness noted. Neurological: Alert, oriented 3, no focal deficits. Psychiatric: normal affect, normal mood. Skin: Dry, intact, warm. Normal color. No rashes. Fluticasone/Vilanterol [Breo Ellipta 100-25 Mcg INH] 1 puff IH DAILY 06/24/16 [History] Escitalopram [Lexapro] 20 mg PO DAILY #30 tablet 04/16/18 [Rx] Loperamide [Imodium] 2 mg PO Q4HR PRN #30 capsule 04/16/18 [Rx] Aspirin 81 mg PO DAILY 09/12/18 [History] Atorvastatin [Lipitor] 40 mg PO DAILY 09/12/18 [History] Bumetanide 2 mg PO DAILY 09/12/18 [History] Carvedilol 12.5 mg PO BID 09/12/18 [History] Insulin ASPART [Novolog Flexpen] 8 unit SQ TIDAC 09/12/18 [History] Insulin DETEMIR [Levemir Flextouch] 20 unit SQ BID 09/12/18 [History] Isosorbide MONOnitrate (24 HR) [Imdur] 30 mg PO QAM 09/12/18 [History] Lipase/Protease/Amylase [Isaac Melendez 36,000 Units Capsule] 2 cap PO TIDWM 09/12/18 [History] Rivaroxaban [Xarelto] 15 mg PO DAILY 09/12/18 [History] Allergy/AdvReac Type Severity Reaction Status Date / Time tramadol Allergy Nausea Verified 09/12/18 06:44 vancomycin Allergy Hives Verified 09/12/18 06:44 - Assessment and Plan (1) Osteomyelitis of foot Current Visit: No Status: Acute Location: Foot third toe. Causative organism: Unclear. Noted on x-ray of the right foot. Likely secondary to chronic ulcer. ESR elevated at 72 with a CRP of 16. Podiatry consult. Will discuss plan with them to see if the patient is a surgical candidate. The patient does tells me that he does not want an amputation. No cultures are been obtained. If no surgical intervention planned, will see if podiatry can do a bedside bone biopsy or at least get superficial wound cultures. No sepsis criteria noted. Currently on IV cefazolin. SNOMED Code(s): 54251582, 191107879 (2) Foot ulcer Current Visit: No Status: Acute Occasion: Right foot third toe. Etiology: Not exactly clear. Diabetic foot ulcer versus trauma versus other. TAL studies completed. Report is pending. Podiatry consult and following. Qualifiers: Laterality: left Non-pressure ulcer stage: limited to breakdown of skin Qualified Code(s): L97.521 - Non-pressure chronic ulcer of other part of left foot limited to breakdown of skin SNOMED Code(s): 96236257 (3) Ankle ulcer Current Visit: Yes Status: Acute Patient: Medial aspect right ankle. Likely secondary to recent trauma. Clinically does not appear infected. Wound care per the podiatry team. Qualifiers: Laterality: right Non-pressure ulcer stage: with fat layer exposed Qualified Code(s): L97.312 - Non-pressure chronic ulcer of right ankle with fat layer exposed SNOMED Code(s): 708470641 (4) CHF (congestive heart failure) Current Visit: Yes Status: Acute TTE shows an EF of 40-45%. Cardiology consult and following. Qualifiers: Heart failure type: systolic Heart failure chronicity: acute Qualified Code(s): I50.21 - Acute systolic (congestive) heart failure SNOMED Code(s): 81632231 (5) Shortness of breath Current Visit: No Status: Acute Likely secondary to CHF and acute exacerbation of COPD. Improved. Management per the primary team. SNOMED Code(s): 492760816 (6) Elevated troponin Current Visit: No Status: Acute SNOMED Code(s): 399454294, 188600851, 552351917 (7) Chronic kidney disease (CKD) Current Visit: No Status: Chronic Serum creatinine elevated consistent with the patient's chronic kidney disease. Monitor renal function closely. Dose adjust medications and avoid nephrotoxins as able. Consider nephrology to evaluate if renal function worsens. Qualifiers: Chronic kidney disease stage: stage 3 (moderate) Qualified Code(s): N18.3 - Chronic kidney disease, stage 3 (moderate) SNOMED Code(s): 395678123 (8) Obesity Current Visit: No Status: Chronic Qualifiers: Obesity type: due to excess calories SNOMED Code(s): 948054708, 010753343 (9) Diabetes mellitus Current Visit: No Status: Chronic Uncontrolled. Hemoglobin A1c 9.9%. Recommend aggressive glucose monitoring and control to promote wound healing and prevent reinfection. Management per the primary team. Qualifiers: Diabetes mellitus type: other specified (including VAL) Diabetes mellitus care home insulin use: with care home use Diabetes mellitus complication status: with unspecified complications Qualified Code(s): E13.8 - Other specified diabetes mellitus with unspecified complications; Z79.4 - FPC (current) use of insulin SNOMED Code(s): 52147748 - Recommendations Recommendations: Check baseline CK level. Hold antibiotics until wound cultures are collected. We will discuss with the podiatry team. If planning operative intervention, we will continue to hold IV antibiotics until intra-op cultures could be obtained. If no surgical debridement is planned, will see if they can do a bedside bone biopsy. If not, will obtain superficial wound cultures to help isolate a causative organism. Hold antibiotics for now until cultures are obtained. Once cultures are obtained, start broad-spectrum IV antibiotics: Daptomycin k ilograms per kilogram IV daily and Zosyn 3.375 g IV every 8 hours. Wound care per the podiatry team. Duration of treatment up until the clinical picture, but likely a total of 6 weeks. Monitor renal function and dose adjust antibiotics. Past Med Surg Social Fam HX - Past Medical History Medical history: atrial fibrillation, CHF (diastolic), COPD, coronary artery disease, diabetes, hyperlipidemia, hypertension, renal disease, other Additional medical history: anemia Psychiatric history: anxiety, depression - Past Surgical History Surgical History: appendectomy, other Additional surgical history: left aka, toe amputee - Social History Smoking Status: Current every day smoker Packs per day: 1 (previous 2.5) Smokeless Tobacco Status: No Alcohol use: none Drug use: none - Family History Mother History Unknown: Yes Father Adopted: No Family Member Ethnicity: Non- Living Status: Hx Family Cardiac Disorders: Yes Hx Family Respiratory Disorders: No Hx Family Cancer: No Hx Family GI Disorders: No Hx Family Endocrine Disorder: Yes (Diabetic) Hx Family Neuromuscular Disorders: No Hx Family Neurologic Disorders: No Hx Family HEENT Disorders: No Hx Family Autoimmune Disorders: No Consult Discharge Plan - Plan Referrals: Echo Godfrey [Advanced Practice Nurse] - (Appointment has been requested) - Attending Attestation I have personally performed a face to face evaluation on this patient. I have reviewed and agree with the care plan. History and Exam by me shows: This is an addendum to original report dictated by Constance Guevara CNP. Please refer to Constance's note for full detail. Patient seen and examined. Aid was in the room. Patient was markedly agitated but other than that he seemed okay. Patient tells me he has poorly controlled blood sugar fluctuates. Assessment and plan: 1.Osteomyelitis of the foot third toe causative organism not clear 2.Foot ulcer has been present for weeks 3.Diabetes mellitus type 2 4.Congestive heart failure 5.COPD Recommendations: Check baseline CK level. Hold antibiotics until wound cultures are collected. We will discuss with the podiatry team. If planning operative intervention, we will continue to hold IV antibiotics until intra-op cultures could be obtained. If no surgical debridement is planned, will see if they can do a bedside bone biopsy. If not, will obtain superficial wound cultures to help isolate a causative organism. Hold antibiotics for now until cultures are obtained. Once cultures are obtained, start broad-spectrum IV antibiotics: Daptomycin kilograms per kilogram IV daily and Zosyn 3.375 g IV every 8 hours. Wound care per the podiatry team. Duration of treatment up until the clinical picture, but likely a total of 6 weeks. Monitor renal function and dose adjust antibiotics.
--- NOTE | 2018-09-14 13:56 | Internal Med Progress Note ---
Hospitalist Progress Note - Encounter Date of Encounter: 09/14/18 Time of Encounter: 11:00 - Subjective Interval History: Mr. Tripp is a 53 year old male with past medical history of diastolic CHF, COPD, diabetes, hypertension, hyperlipidemia, and a left [id number] amputation presented to ER with progressively worsening of shortness of breath associated with lower extremity edema and orthopnea. The patient stated that he stopped his Lasix 2 weeks ago due to potassium abnormalities currently is not on any diuretic regimen. The patient was evaluated by the ER staff and his laboratory data revealed elevated troponin @ 0.05. EKG was no significant changes. His CXR showed inc vascular congestion. He was admitted in the hospital and placed him on monitoring and evaluation advisor. His serial trop slightly elevated @ 0.05 and flat. He does have multiple folliculitis papular rash over trunk and Rt leg. He does have chronic healing ulcer over Rt medial maleolus and swollen Rt 3rd toe. Pt stated he is feeling better today. His SOB and SALEH little better today. Denied any CP. Denied any fever / chills. - Exam Vitals: Temp Pulse Resp BP Pulse Ox 97.5 F L 85 16 146/86 98 09/14/18 11:16 09/14/18 11:16 09/14/18 11:16 09/14/18 11:16 09/14/18 11:16 Exam: Gen: Alert, awake, Oriented to time,place and person Chest: Diminished breath sounds B/L, mild wheezing, No crackles, rales ++ Heart: S1S2+ RRR No murmurs Abd: Soft, NT, BS +, No organomegaly Ext: 1-2+ pitting edema in Rt leg.. Multiple papular rash with erythema noticed over Rt leg. He does have chronic non healing ulcer over Rt 3rd toe with scab and swollen 3rd toe. Also have non healing ulcer over Rt medial maleolus. pulses are palpable, No calf tenderness Neuro : Benign findings Skin: No rash. - Assessment and Plan (1) CHF (congestive heart failure) Current Visit: Yes Status: Acute Assessment and Plan: Reviewed his echocardiogram - showed LVEF @ 40-45%, with moderate global and segmental LV systolic dysfunction.. Indeterminate diastolic function. He does have moderate pulmonary hypertension. Small pericardial effusion noticed without tamponade. His volume status improving slowly so will cut down on Lasix to 40mg Q12Hr since he does have new onset systolic dysfunction consulted cardiology for further evaluation may need ischemic cardiac workup Cont ASA, Coreg, Lipitor and Imdur High risk pt for C with underline CKD with ABELINO now (2) Osteomyelitis of third toe of right foot Current Visit: Yes Status: Acute Assessment and Plan: His X ray of foot showed possible osteomyelitis of middle and distal third phalanx. Pt is not septic His ESR @ 72 and CRP @ 16 He does not want to proceed with surgery / amputation He wanted to try medical management only Will Obtain blood cx ID consulted Podiatry on board Currently on Ancef for cellulites will defer abx management to ID (3) Acute kidney injury superimposed on CKD Current Visit: Yes Status: Acute Assessment and Plan: Due to cardio renal syndrome Cr went upto 3.18 today Consulted Nephro for further care / diuretics management continue diuresis avoid nephrotoxic medications (4) Cellulitis of right leg Current Visit: Yes Status: Acute Assessment and Plan: started on Ancef (5) Elevated troponin Current Visit: No Status: Acute Assessment and Plan: Slightly elevated @ 0.05 , flat and adynamic due to demand ischemia with CHF exacerbation Reviewed 2 D Echo (6) Diabetes mellitus Current Visit: No Status: Chronic Assessment and Plan: on ADA diet Regular insulin 6 U TID and ISS Medium also started on Levemir (7) Essential hypertension Current Visit: No Status: Chronic Assessment and Plan: Resumed all home medications (8) Anxiety disorder Current Visit: No Status: Acute Assessment and Plan: continue home medication (9) Anemia Current Visit: Yes Status: Acute Assessment and Plan: Stable hemoglobin chronic anemia due to CKD (10) PAF (paroxysmal atrial fibrillation) Current Visit: Yes Status: Acute Assessment and Plan: Rate controlled with Coreg on Xarelto for anti coag (11) S/P AKA (above knee amputation) unilateral Current Visit: No Status: Acute (12) Hyperlipidemia Current Visit: Yes Status: Acute Assessment and Plan: Continue home medication reviewed his lipid profile (13) Morbid obesity with BMI of 45.0-49.9, adult Current Visit: No Status: Chronic Assessment and Plan: counseled to loose weight (14) DVT prophylaxis Current Visit: No Status: Chronic Assessment and Plan: On home medication Xarelto - Time Spent with Patient Total time spent is greater than 50% in coordination of care (as documented) at patient's floor/unit and/or counseling patient: Internal Medicine: Result - Labs CBC & Chem 7: 09/14/18 04:10 09/14/18 04:00 Labs: Short CBC 09/14/18 Range/Units 04:10 WBC 9.0 (4.3-11.1) K/mcL Hgb 10.8 L (12.9-16.9) g/dL Hct 34.2 L (37.5-50.1) % Plt Count 247 (140-400) K/mcL Neutrophils # 6.4 (1.6-8.9) K/mcL BMP 09/14/18 04:00 Sodium 141 Potassium 3.5 Chloride 111 H Carbon Dioxide 25 BUN 27 H Creatinine 3.18 H Glucose 122 H Calcium 7.3 L - ABG Interpretation ABG results: PT/INR, D-dimer PT 12.6 Seconds (9.4-12.1) H 09/13/18 09:10 - Impressions Impressions Foot X-Ray 09/13/18 13:03 IMPRESSION: Soft tissue edema with osteomyelitis involving the middle and distal third phalanx. D/ / 09/13/2018 14:49:12 Red Oliver MD / maycol Interpreting Provider: Red Oliver MD Consult Discharge Plan - Plan Referrals: Echo Godfrey [Advanced Practice Nurse] - (Appointment has been requested) (1) CHF (congestive heart failure) Qualifiers: Heart failure type: systolic Heart failure chronicity: acute Qualified Code(s): I50.21 - Acute systolic (congestive) heart failure (6) Diabetes mellitus Qualifiers: Diabetes mellitus type: other specified (including VAL) Diabetes mellitus correction insulin use: with manager integration use Diabetes mellitus complication status: with unspecified complications Qualified Code(s): E13.8 - Other specified diabetes mellitus with unspecified complications; Z79.4 - dial painter (current) use of insulin (8) Anxiety disorder Qualifiers: Anxiety disorder type: unspecified anxiety disorder Qualified Code(s): F41.9 - Anxiety disorder, unspecified (12) Hyperlipidemia Qualifiers: Hyperlipidemia type: unspecified Qualified Code(s): E78.5 - Hyperlipidemia, unspecified
[2018-09-14] MEDS ORDERED: Furosemide 40 MG/4 ML VIAL IVP SCH (17:00)
--- NOTE | 2018-09-14 18:32 | Podiatry Progress Note ---
Date of Encounter: 09/14/18 Time of Encounter: 15:30 - Assessment and Plan (1) Chronic ulcer of ankle with fat layer exposed Current Visit: Yes Status: Acute Assessment: -Healing chronic ulcer noted right medial ankle, minimal erythema around ulcer, wound base pink, no lymphangitis, no odor, no drainage, no cellulitis, no tunnelingm, no undermining -1/4 PT/DP pulse -Cap refill less than 3 seconds -WBC 9.0 Plan: -Cleaned with sterile saline and pat dry -Covered with x4x dry gauze and Medipore tape Qualifiers: Qualified Code(s): L97.312 - Non-pressure chronic ulcer of right ankle with fat layer exposed (2) Osteomyelitis of toe Current Visit: Yes Status: Acute Assessment: -Right third toe edematous with hyperkeratotic tissue noted and hair noted in the tissue. No drainage noted. No lymphangitis. -1/4 PT/DP pulse -Cap refill less than 3 seconds -WBC 9.0 -Right foot x-ray showede evidence of soft tissue edema with osteomyelitis involving the middle and distal 3rd phalanx -ESR 72, CRP 16 -TAL preliminary Plan: -Cleaned area with alcohol x 3. All non-viable tissue removed using sterile suture scissors and pick ups. Small ulcer measuring 0.4 cm x 0.4 cm x 0.3 cm noted. There is tunneling, does not probe to bone. No undermining. Minimal drainage noted, non- purulent. Cultures obtained and left at bedside for nursing staff to send to lab. Area flushed thoroughly with sterile normal saline. -Painted toe with betadine and applied 4x4 and medipore tape dressing. -Anaerobic and wound cultures ordered -Discussed with patient amputation of toe due to osteomyelitis . Patient adamant that he is not going to consent to this treatment. -Discussed in length with patient risk versus benefits of the having the toe amputated and that even with IV antibiotics this infection can return later. Risks include infection spreading to other bone, entering blood stream, and . -Patient asked to speak with Dr. Bonilla in regards to amputation, Dr. Bonilla notified. -Will continue to monitor Subjective Interval history: Patient is sleeping aroused easily with verbal stimuli, oriented x 3, no acute distress noted, and appears less irritable today. Patient denies any chest pain, shortness or breath, or calf pain. He denies any fever, chills, n/v/d. Objective - Vital Signs Vital Signs: Vital Signs Temp Pulse Resp BP Pulse Ox 09/14/18 16:19 97.6 F 83 17 134/81 98 09/14/18 11:16 97.5 F L 85 16 146/86 98 09/14/18 07:37 97.6 F 83 16 150/94 98 09/14/18 04:11 97.5 F L 87 16 169/94 96 09/13/18 23:07 97.7 F 87 16 137/86 96 09/13/18 20:07 18 94 09/13/18 19:09 98.2 F 84 16 142/84 96 Intake and Output 09/14/18 09/14/18 09/14/18 07:59 15:59 23:59 Intake Total 492 / 622 10 / 622 120 / 622 Output Total 2950 / 3550 600 / 3550 Balance -2458 / -2928 -590 / -2928 120 / -2928 Intake: IV Fluids Ancef 1,000 MG In Water for inj . (sterile) 10 ML @ 200 mls/hr IVP Q8HR [facility] Rx#:[id number] Oral 482 / 602 120 / 602 Output: Urine 2950 / 3550 600 / 3550 Other: Meal Dinner Percent of Meal Consumed 100% Weight 146.8 kg Blood Glucose* 94 126 180 Patient Weight 09/14/18 23:59 Weight 146.8 kg - Exam Exam: Constitutional: Sleeping, aroused easily, oriented x 3 male, well nourished, no acute distress noted Vascular: 1/4 PT/DP pulses, 1/4 edema, cap refill less than 3 seconds, left AKA Neurological: Abnormal plantar reflex, absent protective sensation Dermatological: Healing chronic ulcer noted right medial ankle, minimal erythema around ulcer, wound base pink, no lymphangitis, no odor, no drainage, no cellulitis, no tunnelingm, no undermining. Right 1st and 2nd toes amputated. Right third toe edematous with hyperkeratotic tissue noted and hair noted in the tissue. No drainage noted. No lymphangitis. Musculoskeletal: 4/5 muscle strength, normal tone - Lab Result Diagrams: 09/14/18 04:10 05/22/19 04:00 Labs: Abnormal lab results RBC 3.85 M/mcL (4.19-5.50) L 09/14/18 04:10 Hgb 10.8 g/dL (12.9-16.9) L 09/14/18 04:10 Hct 34.2 % (37.5-50.1) L 09/14/18 04:10 MCHC 31.3 g/dL (31.6-35.5) L 09/12/18 08:30 ESR 72 mm/hr (0-10) H 09/13/18 17:56 PT 12.6 Seconds (9.4-12.1) H 09/13/18 09:10 APTT 36.4 Seconds (26.0-36.0) H 09/13/18 09:10 Chloride 111 mEq/L (98-107) H 09/14/18 04:00 Carbon Dioxide 22 mEq/L (23-29) L 09/13/18 00:58 BUN 27 mg/dL (6-20) H 09/14/18 04:00 3.18 mg/dL (0.70-1.30) H 09/14/18 04:00 Est GFR ( Amer) 25 (> 60) L 09/14/18 04:00 Est GFR (Non-Af Amer) 20 (> 60) L 09/14/18 04:00 Glucose 122 mg/dL (70-105) H 09/14/18 04:00 POC Glucose 126 mg/dL (70-99) H 09/14/18 11:15 9.9 % (-5.6) H 09/12/18 15:39 302 (280-300) H 09/12/18 08:30 Calcium 7.3 mg/dL (8.6-10.3) L 09/14/18 04:00 Phosphorus 4.8 mg/dL (2.7-4.5) H 09/13/18 00:58 113 Units/L (34-104) H 09/13/18 00:58 0.05 ng/mL (< 0.04) H* 09/13/18 09:10 16 mg/L (Less than 10) H 09/13/18 17:56 B-Natriuretic Peptide 307 pg/mL (Less than 100) H 09/12/18 08:30 5.4 g/dL (6.4-8.9) L 09/13/18 00:58 2.2 g/dL (3.5-5.7) L 09/13/18 00:58 0.7 (1.1-2.2) L 09/13/18 00:58 35 mg/dL (40-59) L 09/13/18 00:58 Microbiology, Last 48 Hours 09/14/18 17:05 Wound Culture - Preliminary Right Third Toe Culture is incubating. 09/14/18 17:05 Anaerobic Culture - Preliminary Right Third Toe Culture is incubating. 09/14/18 16:02 Blood Culture - Preliminary Peripheral Venipuncture Culture is incubating and being continuously monitored for growth. Final report to follow. 09/14/18 16:02 Blood Culture - Preliminary Peripheral Venipuncture Culture is incubating and being continuously monitored for growth. Final report to follow. Consult Discharge Plan - Plan Referrals: Echo Godfrey [Advanced Practice Nurse] - (Appointment has been requested)
--- NOTE | 2018-09-14 18:45 | Nephrology Consult Note ---
Date of Encounter: 09/14/18 Time of Encounter: 18:00 Assessment and Plan (1) Acute kidney injury superimposed on CKD Current Visit: Yes Status: Acute Nonoliguric acute kidney injury on chronic kidney disease stage IIIB. His labs earlier in 2019 were consistent with GFR is in the 30s. Going back to 2016 he required short-term dialysis. He once saw my colleague Dr. Johnson in the office, and I recall meeting him during his inpatient stay back in 2016. I reviewed his [employer] notes, clinic notes, labs, vitals, medications, progress notes and imaging. He has anasarca, congestive heart failure, osteomyelitis, morbid obesity, uncontrolled diabetes, and numerous other renal risk factors making him very complex. It will be hard to diuresis him and yet this is exactly what he needs. I will add albumin (25gm IV BID) to help with the third spacing and ideally minimize the renal impact while he remains on the Lasix 40 mg IV BID. I recommend following strict I's and O's, daily weights, avoidance of nephrotoxins if able, and renal dosing. I see that he now has newly diagnosed systolic heart failure. Ultimately he does not need dialysis this evening, but given that he has worsening renal function, and previous episodes of severe acute kidney injury, there is a higher chance that he may need renal replacement again at some point - even potentially during this admission.. He requested a more liberal fluid restriction, and complained of such severe thirst that he could hardly stand it. I am okay with a 2 L per day fluid restriction. He should be on a low sodium diet, heart healthy diet, renal diet, diabetic diet. Thank you for consult in the [facility]: I will closely follow with you. (2) Anemia Current Visit: Yes Status: Acute Qualifiers: Qualified Code(s): D64.9 - Anemia, unspecified (3) CHF (congestive heart failure) Current Visit: Yes Status: Acute Qualifiers: Heart failure type: systolic Heart failure chronicity: acute Qualified Code(s): I50.21 - Acute systolic (congestive) heart failure (4) Cellulitis of right leg Current Visit: Yes Status: Acute (5) ABELINO (acute kidney injury) Current Visit: No Status: Acute (6) Anasarca Current Visit: No Status: Acute (7) S/P AKA (above knee amputation) unilateral Current Visit: No Status: Acute (8) COPD (chronic obstructive pulmonary disease) Current Visit: No Status: Chronic Qualifiers: COPD type: COPD with acute exacerbation Qualified Code(s): J44.1 - Chronic obstructive pulmonary disease with (acute) exacerbation (9) Diabetes mellitus Current Visit: No Status: Chronic Qualifiers: Diabetes mellitus type: other specified (including VAL) Diabetes mellitus nursing home insulin use: with nursing home use Diabetes mellitus complication status: with unspecified complications Qualified Code(s): E13.8 - Other specified diabetes mellitus with unspecified complications; Z79.4 - exterminator (current) use of insulin History of Present Illness - Reason for Consult Consult date: 09/14/18 Acute Kidney Injury, Chronic Kidney Disease Requesting physician: Miranda Beth - Chief Complaint ABELINO on CKD - History of Present Illness The patient is a 53-year-old morbidly obese male with a past medical history of long-standing diabetes, previous amputations and wounds, known chronic kidney disease with a baseline creatinine of approximately 2, who presented with symptoms supportive of congestive heart failure. Nephrology was consulted because his serum creatinine has worsened while on diuretics. He reported feeling having some fatigue, and having uncontrolled blood sugars for quite some time. He said that his toes on the right foot are being assessed, and these could be infected as well, he said. In reviewing the notes he has been found to have acute osteomyelitis. He has required IV antibiotics. He denied taking NSAIDs just prior to this admission. He affirms that he has previously seen nephrology, and in 2016 he had temporary hemodialysis. He had been seen by myself and Dr. Johnson during that admission. The patient could not explain why he never followed up in the Nephrology clinic closely. He said that he is being assessed by cardiology as well due to worsening congestive heart failure. The primary team reported he may need a heart catheter. The patient did not affirm recent nausea, vomiting, but did have some occasional chest discomfort. He did not affirm palpitations, abdominal pain, burning urination, or confusion. Past Med Surg Social Fam HX - Past Medical History Medical history: atrial fibrillation, CHF (diastolic), COPD, coronary artery disease, diabetes, hyperlipidemia, hypertension, renal disease, other Additional medical history: anemia Psychiatric history: anxiety, depression - Past Surgical History Surgical History: appendectomy, other Additional surgical history: left aka, toe amputee - Social History Smoking Status: Current every day smoker Packs per day: 1 (previous 2.5) Smokeless Tobacco Status: No Alcohol use: none Drug use: none - Family History Mother History Unknown: Yes Father Adopted: No Family Member Ethnicity: Non- Living Status: Hx Family Cardiac Disorders: Yes Hx Family Respiratory Disorders: No Hx Family Cancer: No Hx Family GI Disorders: No Hx Family Endocrine Disorder: Yes (Diabetic) Hx Family Neuromuscular Disorders: No Hx Family Neurologic Disorders: No Hx Family HEENT Disorders: No Hx Family Autoimmune Disorders: No Medications and Allergies Fluticasone/Vilanterol [Breo Ellipta 100-25 Mcg INH] 1 puff IH DAILY 06/24/16 [History] Escitalopram [Lexapro] 20 mg PO DAILY #30 tablet 04/16/18 [Rx] Loperamide [Imodium] 2 mg PO Q4HR PRN #30 capsule 04/16/18 [Rx] Aspirin 81 mg PO DAILY 09/12/18 [History] Atorvastatin [Lipitor] 40 mg PO DAILY 09/12/18 [History] Bumetanide 2 mg PO DAILY 09/12/18 [History] Carvedilol 12.5 mg PO BID 09/12/18 [History] Insulin ASPART [Novolog Flexpen] 8 unit SQ TIDAC 09/12/18 [History] Insulin DETEMIR [Levemir Flextouch] 20 unit SQ BID 09/12/18 [History] Isosorbide MONOnitrate (24 HR) [Imdur] 30 mg PO QAM 09/12/18 [History] Lipase/Protease/Amylase [Isaac Melendez 36,000 Units Capsule] 2 cap PO TIDWM 09/12/18 [History] Rivaroxaban [Xarelto] 15 mg PO DAILY 09/12/18 [History] Allergy/AdvReac Type Severity Reaction Status Date / Time tramadol Allergy Nausea Verified 09/12/18 06:44 vancomycin Allergy Hives Verified 09/12/18 06:44 Review of Systems All Systems: reviewed and no additional remarkable complaints except as stated Exam - Vital Signs Vital signs: Initial Vital Signs Temp Pulse Resp BP Pulse Ox 98.4 F 85 20 174/156 98 09/12/18 07:00 09/12/18 07:00 09/12/18 07:00 09/12/18 07:00 09/12/18 07:00 Vital Signs - Last 8 Hours Temp Pulse Resp BP Pulse Ox 09/14/18 16:19 97.6 F 83 17 134/81 98 09/14/18 11:16 97.5 F L 85 16 146/86 98 Intake and Output 09/14/18 09/14/18 09/14/18 07:59 15:59 23:59 Intake Total 492 / 622 10 / 622 120 / 622 Output Total 2950 / 3550 600 / 3550 Balance -2458 / -2928 -590 / -2928 120 / -2928 Intake: IV Fluids Ancef 1,000 MG In Water for inj . (sterile) 10 ML @ 200 mls/hr IVP Q8HR [facility] Rx#:[id number] Oral 482 / 602 120 / 602 Output: Urine 2950 / 3550 600 / 3550 Other: Meal Dinner Percent of Meal Consumed 100% Weight 146.8 kg Blood Glucose* 94 126 180 Patient Weight 09/14/18 23:59 Weight 146.8 kg - General Appearance General appearance: well-developed, well-nourished, appears started age, obese, chronically ill EENT: ATNC, PERRL, mucous membranes dry Neck: no JVD, supple Respiratory: course breath sounds (with diminished basilar breath sounds) Cardiology: edema (tense 1-2+ RLE edema up to his thigh), regular rate, regular rhythm, normal S1, normal S2 Gastrointestinal: normoactive bowel sounds, no guarding, obese (with a large pannus) Integumentary: rash (across his chest with pustules diffusely), ulcer (ulcers and skin abrasions on the RLE) Neurologic: no focal deficit, no asterixis, alert and oriented x3 Musculoskeletal: deformities (Left leg amputation) Psychiatric: mood/affect appropriate, cooperative Results - Lab Results 09/18/18 04:20 09/18/18 05:25 Most recent lab results 09/14/18 04:00 Calcium 7.3 L Magnesium 1.9 Consult Discharge Plan - Plan Referrals: Echo Godfrey [Advanced Practice Nurse] - (Appointment has been requested)
[2018-09-14] MEDS ORDERED: ceFAZolin 1,000 MG in Water for inj. (sterile) 20 ML 10 ML IVP SCH (20:00)
[2018-09-14] MEDS: Budesonide/Formoterol 160/4.5 1 PUFF INH IH SCH (20:25)
[2018-09-15] MEDS: Melatonin 3 MG TABLET PO PRN (00:53)
[2018-09-15 06:15] LABS: Basophils # 0.1 K/mcL (0.0-0.2); Basophils % 0.7 %; Eosinophils # 0.4 K/mcL (0.0-0.6); Eosinophils % 3.5 %; Hematocrit 39.8 % (37.5-50.1); Immature Granulocytes % 0.5 % (0-4); Lymphocytes # 2.2 K/mcL (0.6-4.6); Lymphocytes % 17.4 %; Mean Corpuscular HGB Conc 31.4 g/dL (31.6-35.5); Mean Corpuscular Hemoglobin 28.3 pg (28.0-33.3); Mean Corpuscular Volume 90.2 fL (83.0-100.0); Mean Platelet Volume 9.9 fL (9.4-12.4); Monocytes # 0.8 K/mcL (0.0-1.3); Monocytes % 6.2 %; Neutrophils # 8.9 K/mcL (1.6-8.9); Platelet Count 320 K/mcL (140-400); Red Blood Count 4.41 M/mcL (4.19-5.50); Red Cell Distribution Width 13.8 % (11.5-14.5); Segmented Neutrophils % 71.7 %
[2018-09-15 06:46] LABS: Albumin 2.4 g/dL (3.5-5.7); Calcium 7.7 mg/dL (8.6-10.3); Phosphorous 5.1 mg/dL (2.7-4.5); Potassium 4.3 mEq/L (3.5-5.1); Uric Acid 7.5 mg/dL (2.3-7.6)
[2018-09-15 06:48] LABS: Parathyroid Hormone Intact 175.4 pg/ml (10.0-65.0)
[2018-09-15 06:52] LABS: Hemoglobin 12.5 g/dL (12.9-16.9)
[2018-09-15 07:20] LABS: Hepatitis B Surface Antibody < 3.10 mIU/mL
[2018-09-15 07:30] LABS: Hepatitis B Surface Antigen Nonreactive (Nonreactive)
[2018-09-15 07:59] LABS: Hepatitis B Core IgM Nonreactive (Nonreactive)
[2018-09-15 08:00] LABS: Hepatitis A Antibody IgM Nonreactive (Nonreactive); Hepatitis C Virus Antibody Nonreactive (Nonreactive)
[2018-09-15] MEDS: Insulin LISPRO 300 UNITS/3 ML VIAL SQ SCH ×7 (08:05→20:58)
[2018-09-15] MEDS: Aspirin Enteric Coated 81 MG Tablet PO SCH (08:06)
[2018-09-15] MEDS: *HR* Rivaroxaban 15 MG TABLET PO SCH (08:06)
[2018-09-15] MEDS: Furosemide 40 MG/4 ML VIAL IVP SCH ×2 (08:06→16:50)
[2018-09-15] MEDS: Isosorbide MONOnitrate (24 HR) 30 MG TAB.ER.24H PO SCH (08:06)
[2018-09-15] MEDS: Budesonide/Formoterol 160/4.5 1 PUFF INH IH SCH ×2 (08:07→19:54)
--- NOTE | 2018-09-15 08:50 | Internal Med Progress Note ---
Hospitalist Progress Note - Encounter Date of Encounter: 09/15/18 Time of Encounter: 08:30 - Subjective Interval History: Mr. Tripp is a 53 year old male with past medical history of diastolic CHF, COPD, diabetes, hypertension, hyperlipidemia, and a left [id number] amputation presented to ER with progressively worsening of shortness of breath associated with lower extremity edema and orthopnea. The patient stated that he stopped his Lasix 2 weeks ago due to potassium abnormalities currently is not on any diuretic regimen. The patient was evaluated by the ER staff and his laboratory data revealed elevated troponin @ 0.05. EKG was no significant changes. His CXR showed inc vascular congestion. He was admitted in the hospital and placed him on opto mechanical engineer. His serial trop slightly elevated @ 0.05 and flat. He does have multiple folliculitis papular rash over trunk and Rt leg. He does have chronic healing ulcer over Rt medial maleolus and swollen Rt 3rd toe. Pt stated he still has moderate SOB and SALEH. Denied any CP. Denied any fever / chills. His pain is tolerable with current regimen - Exam Vitals: Temp Pulse Resp BP Pulse Ox 97.9 F 83 16 171/92 96 09/15/18 07:45 09/15/18 07:45 09/15/18 07:45 09/15/18 07:45 09/15/18 07:45 Exam: Gen: Alert, awake, Oriented to time,place and person Chest: Diminished breath sounds B/L, mild wheezing, No crackles, rales + Heart: S1S2+ RRR No murmurs Abd: Soft, NT, BS +, No organomegaly Ext: 1-2+ pitting edema in Rt leg.. Multiple papular rash with erythema noticed over Rt leg. He does have chronic non healing ulcer over Rt 3rd toe with scab and swollen 3rd toe. Also have non healing ulcer over Rt medial maleolus. pulses are palpable, No calf tenderness Neuro : Benign findings Skin: No rash. - Assessment and Plan (1) Osteomyelitis of third toe of right foot Current Visit: Yes Status: Acute Assessment and Plan: His X ray of foot showed possible osteomyelitis of middle and distal third phalanx. Pt is not septic His ESR @ 72 and CRP @ 16 Blood cx and wound cx pending ID consulted Podiatry on board ID recommend to wait for the tissue biopsy for the antibitoic initiation I did talk to pt about Rt 3rd toe amputation, he is willing to go for amputation Talked to reverser about it will defer abx management to ID (2) CHF (congestive heart failure) Current Visit: Yes Status: Acute Assessment and Plan: Reviewed his echocardiogram - showed LVEF @ 40-45%, with moderate global and seg mental LV systolic dysfunction.. Indeterminate diastolic function. He does have moderate pulmonary hypertension. Small pericardial effusion noticed without tamponade. His volume status improving slowly cont Lasix to 40mg Q12Hr Will check with Nephro to add Aldactone since he does have new onset systolic dysfunction consulted cardiology for further evaluation may need ischemic cardiac workup Cont ASA, Coreg, Lipitor and Imdur High risk pt for LHC with underline CKD with ABELINO now (3) Elevated troponin Current Visit: No Status: Acute Assessment and Plan: His serial trop slightly elevated @ 0.05 and flat mostly due to demand ischemia (4) Diabetes mellitus Current Visit: No Status: Chronic Assessment and Plan: on ADA diet Regular insulin 6 U TID and ISS Medium also started on Levemir (5) Essential hypertension Current Visit: No Status: Chronic Assessment and Plan: BP fairly controlled with current home meds on IV hydralazine PRN (6) Anxiety disorder Current Visit: No Status: Acute Assessment and Plan: continue home medication (7) Morbid obesity with BMI of 45.0-49.9, adult Current Visit: No Status: Chronic Assessment and Plan: counseled to loose weight (8) Acute kidney injury superimposed on CKD Current Visit: Yes Status: Acute Assessment and Plan: Due to cardio renal syndrome Cr started trending down Consulted Nephro for further care / diuretics management continue diuresis Strict I & O Fluid restriction avoid nephrotoxic medications (9) Cellulitis of right leg Current Visit: Yes Status: Acute Assessment and Plan: Improving (10) Chronic ulcer of ankle with fat layer exposed Current Visit: Yes Status: Acute (11) PAF (paroxysmal atrial fibrillation) Current Visit: Yes Status: Acute Assessment and Plan: Rate controlled with Coreg on Xarelto for anti coag Due to his CKD - Xarelto may not be the best medication..will talk to pt about t ransitioning to Coumadin (12) Hyperlipidemia Current Visit: Yes Status: Acute Assessment and Plan: Continue home medication reviewed his lipid profile (13) Anemia Current Visit: Yes Status: Acute Assessment and Plan: Stable hemoglobin chronic anemia due to CKD (14) DVT prophylaxis Current Visit: No Status: Chronic Assessment and Plan: On home medication Xarelto - Time Spent with Patient Total time spent is greater than 50% in coordination of care (as documented) at patient's floor/unit and/or counseling patient: Internal Medicine: Result - Labs CBC & Chem 7: 09/15/18 05:48 09/15/18 05:48 Labs: Short CBC 09/15/18 Range/Units 05:48 WBC 12.5 H (4.3-11.1) K/mcL Hgb 12.5 L D (12.9-16.9) g/dL Hct 39.8 (37.5-50.1) % Plt Count 320 (140-400) K/mcL Neutrophils # 8.9 (1.6-8.9) K/mcL BMP 09/14/18 09/15/18 04:00 05:48 Sodium 141 140 Potassium 3.5 4.3 Chloride 111 H 108 H Carbon Dioxide 25 27 BUN 27 H 28 H Creatinine 3.18 H 2.79 H Glucose 122 H 57 L Calcium 7.3 L 7.7 L Liver Function 09/15/18 Range/Units 05:48 Albumin 2.4 L (3.5-5.7) g/dL - ABG Interpretation ABG results: PT/INR, D-dimer PT 12.6 Seconds (9.4-12.1) H 09/13/18 09:10 Consult Discharge Plan - Plan Referrals: Echo Godfrey [Advanced Practice Nurse] - (Appointment has been requested) (2) CHF (congestive heart failure) Qualifiers: Heart failure type: systolic Heart failure chronicity: acute Qualified Code(s): I50.21 - Acute systolic (congestive) heart failure (4) Diabetes mellitus Qualifiers: Diabetes mellitus type: other specified (including VAL) Diabetes mellitus terminal worker insulin use: with alf use Diabetes mellitus complication status: with unspecified complications Qualified Code(s): E13.8 - Other specified diabetes mellitus with unspecified complications; Z79.4 - lobsterman (current) use of insulin (6) Anxiety disorder Qualifiers: Anxiety disorder type: unspecified anxiety disorder Qualified Code(s): F41.9 - Anxiety disorder, unspecified (10) Chronic ulcer of ankle with fat layer exposed Qualifiers: Laterality: right Qualified Code(s): L97.312 - Non-pressure chronic ulcer of right ankle with fat layer exposed (12) Hyperlipidemia Qualifiers: Hyperlipidemia type: unspecified Qualified Code(s): E78.5 - Hyperlipidemia, unspecified (13) Anemia Qualifiers: Qualified Code(s): D64.9 - Anemia, unspecified
[2018-09-15] MEDS: Insulin DETEMIR 100 UNIT/ML X5UNITS SQ SCH ×2 (09:20→20:58)
--- NOTE | 2018-09-15 10:19 | Infectious Disease Progress No ---
ID Progress Note Date of Encounter: 09/15/18 Time of Encounter: 09:05 - Subjective Subjective: Patient seen and examined. No acute events noted overnight. Patient states overall he feels okay. Reports pain to the right foot that is at baseline. Denies fevers, chills, rigors. Denies chest pain. Reports some mild shortness of breath, worse with exertion and alleviated with rest, and a cough productive of yellow sputum. Denies congestion, earache, or sore throat. Denies nausea, vomiting, diarrhea, or constipation. Denies abdominal pain or urinary complaints. States his appetite is okay. Denies oral thrush or new skin lesions. - Objective CBC & Chem 7: 09/16/18 06:20 09/16/18 06:20 - Exam Vitals: Temp Pulse Resp BP Pulse Ox 97.9 F 83 18 171/92 95 09/15/18 07:45 09/15/18 07:45 09/15/18 08:07 09/15/18 07:45 09/15/18 08:07 Exam: Head: Atraumatic, normal inspection, normocephalic. Eye: EOMI, PERRLA, no scleral icterus noted. ENT: Mucous membranes moist. No odontogenic infection noted. Neck: Normal inspection, no meningismus. Respiratory: Clear to auscultation. No rales, respiratory distress, rhonchi, or wheezes noted. Cardiovascular: Regular rate and rhythm, S1 and S2 audible. No murmurs, rubs, or gallops. GI: Firm, distended, normal bowel sounds. Tender. Extremities:No joint swelling or tenderness noted. Left AKA stump without abnormality. 1+ edema noted to the right lower extremity. Right foot dressing clean, dry, and intact. Back: Normal inspection. No vertebral tenderness noted. Neurological: Alert, oriented 3, no focal deficits. Psychiatric: normal affect, normal mood. Skin: Dry, intact, warm. Normal color. Folliculitis noted to the chest and abdomen. - Assessment and Plan (1) Leukocytosis Current Visit: Yes Status: Acute WBC up to 12 today. Infectious vs. reactive from steroids? No other SIRS criteria. Continue to trend. Qualifiers: Leukocytosis type: unspecified Qualified Code(s): D72.829 - Elevated white blood cell count, unspecified SNOMED Code(s): 989318016, 537924310 (2) Osteomyelitis of foot Current Visit: No Status: Acute Location: Foot third toe. Causative organism: Unclear. Noted on x-ray of the right foot. Likely secondary to chronic ulcer. ESR elevated at 72 with a CRP of 16. Podiatry consulted. The patient is amendable to amputation at this time, but wants to discuss with Dr. Bonilla. Wound cultures pending. Antibiotics currently on hold. SNOMED Code(s): 81854866, 043653640 (3) Foot ulcer Current Visit: No Status: Acute Occasion: Right foot third toe. Etiology: Not exactly clear. Diabetic foot ulcer versus trauma versus other. TAL studies completed and inconclusive due to arterial calcinosis. Podiatry consulted and following. Qualifiers: Laterality: left Non-pressure ulcer stage: limited to breakdown of skin Qualified Code(s): L97.521 - Non-pressure chronic ulcer of other part of left foot limited to breakdown of skin SNOMED Code(s): 02300258 (4) Ankle ulcer Current Visit: Yes Status: Acute Patient: Medial aspect right ankle. Likely secondary to recent trauma. Clinically does not appear infected. Wound care per the podiatry team. Qualifiers: Laterality: right Non-pressure ulcer stage: with fat layer exposed Qualified Code(s): L97.312 - Non-pressure chronic ulcer of right ankle with fat layer exposed SNOMED Code(s): 184788788 (5) CHF (congestive heart failure) Current Visit: Yes Status: Acute TTE shows an EF of 40-45%. Cardiology consult and following. Qualifiers: Heart failure type: systolic Heart failure chronicity: acute Qualified Code(s): I50.21 - Acute systolic (congestive) heart failure SNOMED Code(s): 33077647 (6) Shortness of breath Current Visit: No Status: Acute Likely secondary to CHF and acute exacerbation of COPD. Improved. Management per the primary team. SNOMED Code(s): 160597957 (7) Elevated troponin Current Visit: No Status: Acute Cardiology consulted and following. SNOMED Code(s): 930278358, 743214585, 217940282 (8) Chronic kidney disease (CKD) Current Visit: No Status: Chronic Serum creatinine elevated consistent with the patient's chronic kidney disease. Monitor renal function closely. Dose adjust medications and avoid nephrotoxins as able. Nephrology consulted and following. Qualifiers: Chronic kidney disease stage: stage 3 (moderate) Qualified Code(s): N18.3 - Chronic kidney disease, stage 3 (moderate) SNOMED Code(s): 834618177 (9) Obesity Current Visit: No Status: Chronic Qualifiers: Obesity type: due to excess calories SNOMED Code(s): 144741633, 078653290 (10) Diabetes mellitus Current Visit: No Status: Chronic Uncontrolled. Hemoglobin A1c 9.9%. Recommend aggressive glucose monitoring and control to promote wound healing and prevent reinfection. Management per the primary team. Qualifiers: Diabetes mellitus type: other specified (including VAL) Diabetes mellitus custodial insulin use: with rn burn use Diabetes mellitus complication status: with unspecified complications Qualified Code(s): E13.8 - Other specified diabetes mellitus with unspecified complications; Z79.4 - [facility] (current) use of insulin SNOMED Code(s): 55625232 - Recommendations Recommendations: Hold antibiotics for now unless the patient takes a turn to the worse. Await further recommendations from Podiatry re: surgery. If antibioitcs started, recommend Daptomycin 6mg per kilogram IV daily and Zosyn 3.375 g IV every 8 hours. Wound care per the podiatry team. Duration of treatment up until the clinical picture, but likely a total of 6 weeks. Monitor renal function and dose adjust antibiotics. Consult Discharge Plan - Plan Referrals: Echo Godfrey [Advanced Practice Nurse] - (Appointment has been requested) - Attending Attestation I have personally performed a face to face evaluation on this patient. I have reviewed and agree with the care plan. History and Exam by me shows: Assessment and plan: 1.Osteomyelitis of the foot third toe causative organism not clear 2.Foot ulcer has been present for weeks 3.Diabetes mellitus type 2 4.Congestive heart failure 5.COPD Recommendations: continue to hold antibiotics until surgery post op start zosyn while cultures finalize
--- NOTE | 2018-09-15 12:33 | Cardiology Progress Note ---
Date of Encounter: 09/15/18 Time of Encounter: 12:30 Assessment and Plan (1) Acute kidney injury superimposed on CKD Current Visit: Yes Status: Acute Per Cardiology: Hx of CKD, presents with worsening kidney function. Nephrology following. (2) CHF (congestive heart failure) Current Visit: Yes Status: Acute Per Cardiology; TTE shows reduced LVEF, 40-45% with global and segmental LV dysfunction, moderate cLVH, moderately dilated LA,and mild-moderate MR--chronicity unclear. Previous TTE at [facility] (2015) shows preserved LVEF, 60%. Medical records received and reviewed from [place]-- abnormal nuclear stress test with EF 30% July 2016 and subsequent catheterization in February 2017: Diffuse disease in left main, severe diffuse disease in OM1, proximal RCA 40% lesion, diffuse disease percent LAD with collaterals from circumflex, right PDA 100% occlusion with collaterals from circumflex. Dx: ICMP. No intervention performed with medical management recommended. On asa, statin, betablocker, and nitrates. Avoid ACEi/ARB d/t worsening kidney function. Diuresis per Nephrology recommendations. Symptoms have improved since admission, Cumulative I&O: -11,233mL; weight jeri ears down about 12 kg. On Lasix 40 mg IV twice a day. Continue strict I&Os, daily weights, and Na/fluid restricted diet. Discussed and reviewed with Dr. Langley, no further recommendations this time, repeat ischemic evaluation is not warranted at this juncture. Cardiology signing off, follow-up arranged, all questions answered. Re-consult as needed. Qualifiers: Heart failure type: systolic Heart failure chronicity: acute Qualified Code(s): I50.21 - Acute systolic (congestive) heart failure (3) Elevated troponin Current Visit: Yes Status: Acute Per Cardiology: Troponin 0.054, flat and adynamic, suspect the main ischemia in the setting of ABELINO on CKD and volume overload. CP free. No cardiac rehabilitation consult warranted. Discussion w patient/family: The assessment and plan as outlined above was discussed with the patient and/or family members who expressed understanding and agreement. All questions were answered. Thank you for involving us in the care of your patient. Please call with any questions. Subjective Principal diagnosis: SOB Interval history: Denies any new concerns over night. Reports shortness of breath has improved d uring hospital stay. Reports some improvement to his right lower leg swelling. Denies any dictations or chest pain. Objective Vital Signs, Last 4 Hours Temp Pulse Resp BP Pulse Ox 09/15/18 12:02 97.5 F L 84 18 144/85 97 General: Conversant, No Apparent Distress HEENT: Atraumatic, Normocephaly, Mucus Membranes Moist Neck: No JVD, Normal carotid pulses Cardiac: Reg Rate and Rhythm, Normal S1 and S2, No Murmur Lungs: Normal Breath Sounds, No Wheeze, Rales, Rhonchi Neuro: Alert and responsive, No focal deficits noted Abdomen: Soft, Non-Tender, Other (obese) Skin: No rashes noted on visualized skin Musculoskeletal: No Chest Wall Tenderness Extremities: No Clubbing, No Cyanosis, Normal Pulses, Other (+2-3 pitting edema to RLE; has L AKA) Results 09/15/18 05:48 09/15/18 05:48 Lab Results Laboratory Tests 09/12/18 09/12/18 09/13/18 08:30 15:39 00:58 WBC Hgb Hct INR Creatinine Est GFR (Non-Af Amer) Troponin I 0.05 H* 0.05 H* 0.05 H* B-Natriuretic Peptide 09/13/18 09/13/18 09/14/18 00:58 09:10 04:00 WBC Hgb Hct INR TNP Creatinine 3.18 H Est GFR (Non-Af Amer) 20 L Troponin I 0.05 H* B-Natriuretic Peptide 09/15/18 09/15/18 09/15/18 05:48 05:48 05:48 WBC 12.5 H Hgb 12.5 L D Hct 39.8 INR Creatinine 2.79 H Est GFR (Non-Af Amer) 24 L Troponin I B-Natriuretic Peptide 338 H ITS Impressions Chest X-Ray 09/12/18 06:50 IMPRESSION: 1. Pulmonary vascular congestion with questionable perihilar edema. Interstitial pneumonia could appear similar. 2. Bibasilar airspace opacities most likely representing atelectasis. D/ / Alexy Vasquez MD / Alexy Vasquez MD Interpreting Provider: Alexy Vasquez MD Echocardiogram 05/21/19 00:00 Impressions: LVEF 40-45%. Moderate global and segmental left ventricular systolic dysfunction. Indeterminate diastolic function. Moderate concentric left ventricular hypertrophy. Normal right ventricular structure and function. Moderately dilated left atrium. Mild-moderate mitral regurgitation.Mild tricuspid regurgitation. Moderate pulmonary hypertension. Estimated RVSP is 66 mmHg There is a small pericardial effusion present without echocardiographic evidence of tamponade. Left Ventricular Wall Motion: Rest Echo Findings The apex, apical inferior, mid inferior, basal inferior, apical anterior, mid anterior, basal anterior, apical septal, mid inferior septal, basal inferior septal, mid anterior lateral, basal anterior lateral, mid anterior septal, basal anterior septal and basal inferior lateral baptiste were hypokinetic. The apical lateral and mid inferior lateral baptiste were akinetic. Findings: Study Quality * Technically sub-optimal due to poor echocardiographic windows. ECG Findings * Sinus rhythm with BBB. Left Ventricle * LVEF 40-45%.Moderate global and segmental left ventricular systolic dysfunction. * Definity echo contrast was used. * Atypical septal motion consistent with bundle branch block. * Indeterminate diastolic function. * Mildly dilated left ventricle. * Moderate concentric left ventricular hypertrophy. * Moderate global and segmental left ventricular systolic dysfunction. * There is no LV thrombus. Right Ventricle * Normal right ventricular structure and function. Left Atrium * Moderately dilated left atrium. Right Atrium * Mildly dilated right atrium. Aortic Valve * Trileaflet aortic valve. * Mildly calcified aortic valve leaflets. * No aortic regurgitation. * No aortic stenosis. Mitral Valve * Mild-moderate mitral regurgitation. * Normal mitral valve structure. * No mitral stenosis. Tricuspid Valve * Mild tricuspid regurgitation. * Moderate pulmonary hypertension. Estimated RVSP is 66 mmHg * Normal tricuspid valve structure. * No tricuspid stenosis. Pulmonic Valve * Pulmonic valve is not well visualized. Aorta * Normally sized aortic root. Pericardium * There is a small pericardial effusion present.There is no echocardiographic evidence of tamponade. * IVC * The IVC is dilated. Foot X-Ray 09/13/18 13:03 IMPRESSION: Soft tissue edema with osteomyelitis involving the middle and distal third phalanx. D/ / 09/13/2018 14:49:12 Red Oliver MD / maycol Interpreting Provider: Red Oliver MD Active Medications Albuterol/Ipratropium (Duoneb) 3 ml IH [id number] PRN PRN Reason: Shortness Of Breath/Wheezing Stop: 03/16/19 07:59 Lipase/Protease/Amylase (Isaac Melendez 6,000 Units Capsule) 12 each PO TIDWM REPLACED BY [facility] Stop: 03/15/19 17:01 Last Admin: 09/15/18 12:16 Dose: 12 each Documented by: Aspirin (Aspirin Ec) 81 mg PO DAILY REPLACED BY [facility] Stop: 03/15/19 09:01 Last Admin: 09/15/18 08:06 Dose: 81 mg Documented by: Atorvastatin Calcium (Lipitor) 40 mg PO DAILY REPLACED BY [facility] Stop: 03/16/19 09:01 Last Admin: 09/15/18 08:06 Dose: 40 mg Documented by: Budesonide/Formoterol Fumarate (Symbicort) 2 puff IH BIDR REPLACED BY [facility]; Protocol Stop: 03/16/19 22:01 Last Admin: 09/15/18 08:07 Dose: 2 puff Documented by: Carvedilol (Coreg) 12.5 mg PO BIDWM REPLACED BY [facility] Stop: 03/15/19 12:46 Last Admin: 09/15/18 08:06 Dose: 12.5 mg Documented by: Dextrose/Water (Dextrose 50% (Syg)) 25 ml IVP AD PRN PRN Reason: Hypoglycemia Stop: 03/14/19 12:31 Escitalopram Oxalate (Lexapro) 20 mg PO DAILY REPLACED BY [facility] Stop: 03/14/19 11:01 Last Admin: 09/15/18 08:06 Dose: 20 mg Documented by: Furosemide (Lasix) 40 mg IVP BIDDIURETIC REPLACED BY [facility] Stop: 03/16/19 17:01 Last Admin: 09/15/18 08:06 Dose: 40 mg Documented by: Glucagon (Glucagen) 1 mg IM ONCE PRN PRN Reason: Hypoglycemia Stop: 03/14/19 12:31 Glucose (Gluctose) 15 gm PO ONCE PRN PRN Reason: Hypoglycemia Stop: 03/14/19 12:31 Glucose (Gluctose) 30 gm PO ONCE PRN PRN Reason: Hypoglycemia Stop: 03/14/19 12:31 Dextrose (Dextrose 5%) 1,000 mls @ 100 mls/hr IVC .Q10H PRN PRN Reason: HYPOGLYCEMIA Stop: 03/14/19 12:31 Insulin Detemir (Levemir) 20 unit SQ BID REPLACED BY [facility] Stop: 03/15/19 21:01 Last Admin: 09/15/18 09:20 Dose: 20 unit Documented by: Insulin Human Lispro (Humalog) 0 units SQ TIDAC REPLACED BY [facility]; Protocol Stop: 03/14/19 12:46 Last Admin: 09/15/18 12:19 Dose: Not Given Documented by: Insulin Human Lispro (Humalog) 0 units SQ HS REPLACED BY [facility]; Protocol Stop: 03/14/19 21:01 Last Admin: 09/14/18 19:59 Dose: Not Given Documented by: Insulin Human Lispro (Humalog) 6 units SQ TIDWM REPLACED BY [facility] Stop: 03/16/19 17:01 Last Admin: 09/15/18 12:19 Dose: Not Given Documented by: Isosorbide Mononitrate (Imdur) 30 mg PO QAM REPLACED BY [facility] Stop: 03/16/19 09:01 Last Admin: 09/15/18 08:06 Dose: 30 mg Documented by: Loperamide HCl (Imodium) 2 mg PO Q4HR PRN PRN Reason: Diarrhea Stop: 03/14/19 10:55 Lorazepam (Ativan) 0.5 mg PO TID PRN PRN Reason: Anxiety Stop: 03/17/19 12:24 Melatonin (Melatonin) 3 mg PO HS PRN PRN Reason: Insomnia Stop: 03/15/19 21:07 Last Admin: 09/15/18 00:53 Dose: 3 mg Documented by: Naloxone HCl (Narcan) 0.4 mg IVP Q2MPRN PRN PRN Reason: SEE COMMENTS Stop: 03/14/19 12:30 Ondansetron HCl (Zofran Odt) 4 mg SL Q8HR PRN PRN Reason: Nausea And Vomiting Stop: 03/14/19 12:30 Oxycodone HCl (Roxicodone) 10 mg PO Q6H PRN PRN Reason: Pain Last Admin: 09/12/18 23:39 Dose: 10 mg Documented by: Rivaroxaban (Xarelto) 15 mg PO DAILY REPLACED BY [facility] Stop: 03/16/19 09:01 Last Admin: 09/15/18 08:06 Dose: 15 mg Documented by: - Imaging and Cardiology Echo: report reviewed Cardiac cath: report reviewed Consult Discharge Plan - Plan Referrals: Echo Godfrey [Advanced Practice Nurse] - (Appointment has been requested)
[2018-09-15] MEDS: *HR* LORazepam 0.5 MG TABLET PO PRN (12:45)
--- NOTE | 2018-09-15 12:57 | Nephrology Progress Note ---
Date of Encounter: 09/15/18 Time of Encounter: 09:40 - Assessment and Plan (1) Acute kidney injury superimposed on CKD Current Visit: Yes Status: Acute SCr was slightly improved today, so I recommend continuing the IV loop diuretics and add Spironolactone (he will need close lab monitoring while on this medication going forward). Discussed with the Hospitalist. Nonoliguric acute kidney injury on chronic kidney disease stage IIIB. His labs earlier in 2019 were consistent with GFR is in the 30s. Going back to 2016 he required short-term dialysis. He once saw my colleague Dr. Johnson in the office, and I recall meeting him during his inpatient stay back in 2016. I recommend following strict I's and O's, daily weights, avoidance of nephrotoxins if able, and renal dosing. I see that he now has newly diagnosed systolic heart failure. My colleague Dr. Bonilla will be on-call/on-service starting tomorrow at 0800. Thank you. (2) Anemia Current Visit: Yes Status: Acute Transfusion parameters as per primary. Goal Hgb is 10-11 in the setting of CKD. Qualifiers: Qualified Code(s): D64.9 - Anemia, unspecified (3) CHF (congestive heart failure) Current Visit: Yes Status: Acute See above re: diuretics Qualifiers: Heart failure type: systolic Heart failure chronicity: acute Qualified Code(s): I50.21 - Acute systolic (congestive) heart failure (4) Cellulitis of right leg Current Visit: Yes Status: Acute (5) ABELINO (acute kidney injury) Current Visit: No Status: Acute See above. (6) Anasarca Current Visit: No Status: Acute (7) S/P AKA (above knee amputation) unilateral Current Visit: No Status: Acute (8) COPD (chronic obstructive pulmonary disease) Current Visit: No Status: Chronic As per primary. Qualifiers: COPD type: COPD with acute exacerbation Qualified Code(s): J44.1 - Chronic obstructive pulmonary disease with (acute) exacerbation (9) Diabetes mellitus Current Visit: No Status: Chronic As per primary. Qualifiers: Diabetes mellitus type: other specified (including VAL) Diabetes mellitus terminal carman insulin use: with longterm use Diabetes mellitus complication status: with unspecified complications Qualified Code(s): E13.8 - Other specified diabetes mellitus with unspecified complications; Z79.4 - jail (current) use of insulin Subjective Principal diagnosis: ABELINO on CKD Interval history: The patient was seen and examined earlier in the day. He did not affirm having active chest pain, nausea, vomiting, or diarrhea. Objective - Vital Signs Vital signs: Vital Signs Temp Pulse Resp BP Pulse Ox 09/15/18 12:02 97.5 F L 84 18 144/85 97 09/15/18 08:07 18 95 09/15/18 07:45 97.9 F 83 16 171/92 96 09/15/18 03:35 97.9 F 84 17 155/91 95 09/14/18 23:48 97.8 F 83 17 161/78 96 09/14/18 20:28 17 97 09/14/18 19:27 98.0 F 84 17 120/72 97 09/14/18 16:19 97.6 F 83 17 134/81 98 Intake and Output 09/14/18 09/15/18 09/15/18 23:59 07:59 15:59 Intake Total 620 / 1122 240 / 240 Output Total 1800 / 5350 2300 / 3100 800 / 3100 Balance -1180 / -4228 -2060 / -2860 -800 / -2860 Intake: Oral 620 / 1102 240 / 240 Output: Urine 1800 / 5350 2300 / 3100 800 / 3100 Other: Meal Dinner Percent of Meal Consumed 100% Weight 145 kg Blood Glucose* 154 136 107 - General Appearance Exam: General appearance: well-developed, well-nourished, appears started age, obese, chronically ill EENT: ATNC, PERRL, mucous membranes dry Neck: no JVD, supple Respiratory: course breath sounds (with diminished basilar breath sounds) Cardiology: edema (tense pitting 1+ RLE edema up to his thigh), regular rate, regular rhythm, normal S1, normal S2 Gastrointestinal: normoactive bowel sounds, no guarding, obese (with a large aguila nus) Integumentary: rash (across his chest with pustules diffusely), ulcer (ulcers and skin abrasions on the RLE) Neurologic: no focal deficit, no asterixis, alert and oriented x3 Musculoskeletal: deformities (Left leg amputation) Psychiatric: mood/affect appropriate, cooperative - Lab 09/18/18 04:20 09/18/18 05:25 Most recent lab results 09/15/18 05:48 Calcium 7.7 L Phosphorus 5.1 H Magnesium 2.0 Consult Discharge Plan - Plan Referrals: Echo Godfrey [Advanced Practice Nurse] - (Appointment has been requested)
--- NOTE | 2018-09-15 13:03 | Podiatry Progress Note ---
Date of Encounter: 09/15/18 Time of Encounter: 12:20 - Assessment and Plan (1) Chronic ulcer of ankle with fat layer exposed Current Visit: Yes Status: Acute Assessment: -Healing chronic ulcer noted right medial ankle, minimal erythema around ulcer, wound base pink, no lymphangitis, no odor, minimal serosanguineous drainage, no cellulitis, no tunneling, no undermining -1/4 PT/DP pulse -Cap refill less than 3 seconds -WBC 12.5 Plan: -Cleaned with sterile saline and pat dry -Painted with betadine and covered with 4x4 dry gauze and Medipore tape due to patient refusing bulky dressing -Will continue to monitor Qualifiers: Laterality: right Qualified Code(s): L97.312 - Non-pressure chronic ulcer of right ankle with fat layer exposed (2) Osteomyelitis of toe Current Visit: Yes Status: Acute Assessment: -Right third toe edematous with ulcer noted that is mainly fibrin tissue. Small area to ulcer that does probe, but not to bone. Minimal serosanguineous drainage. No lymphangitis. -1/4 PT/DP pulse -Cap refill less than 3 seconds -WBC 12.5 -Right foot x-ray showed evidence of soft tissue edema with osteomyelitis involving the middle and distal 3rd phalanx -ESR 72, CRP 16 -TAL: The right lower extremity waveforms are normal. The left lower extremity waveforms are moderately abnormal. The bilateral tibial vessels are noncompressible. The bilateral ankle brachial indices cannot be calculated due to vessel calcinosis. Plan: -Flushed thoroughly with sterile saline -Painted toe with betadine and applied 4x4 and medipore tape dressing due to patient refusing bulky dressing -Discussed with patient amputation of toe due to osteomyelitis, patient is in agreement but would like to speak with Dr. Bonilla -Dr. Bonilla to speak with patient -Will continue to monitor Subjective Principal diagnosis: SOB Interval history: Patient is alert and oriented x 3, very pleasant, and no acute distress noted. Patient denies any chest pain, shortness or breath, or calf pain. He denies any fever, chills, n/v/d. Patient does report he thought about things and would like to proceed with having the right 3rd toe amputated, but wants to speak with Dr. Bonilla. Informed patient Dr. Bonilla was in OR and aware that he would like to sp eak with him and will be over as soon as possible. Informed patient Dr. Valdivia is sterilization technician and he could speak with him, but he states he trusts Dr. Bonilla and wants to talk with him. Objective - Vital Signs Vital Signs: Vital Signs Temp Pulse Resp BP Pulse Ox 09/15/18 12:02 97.5 F L 84 18 144/85 97 09/15/18 08:07 18 95 09/15/18 07:45 97.9 F 83 16 171/92 96 09/15/18 03:35 97.9 F 84 17 155/91 95 09/14/18 23:48 97.8 F 83 17 161/78 96 09/14/18 20:28 17 97 09/14/18 19:27 98.0 F 84 17 120/72 97 09/14/18 16:19 97.6 F 83 17 134/81 98 Intake and Output 09/14/18 09/15/18 09/15/18 23:59 07:59 15:59 Intake Total 620 / 1122 240 / 240 Output Total 1800 / 5350 2300 / 3100 800 / 3100 Balance -1180 / -4228 -2060 / -2860 -800 / -2860 Intake: Oral 620 / 1102 240 / 240 Output: Urine 1800 / 5350 2300 / 3100 800 / 3100 Other: Meal Dinner Percent of Meal Consumed 100% Weight 145 kg Blood Glucose* 154 136 107 - Exam Exam: Constitutional: Alert and oriented x 3 male, well nourished, no acute distress noted Vascular: 1/4 PT/DP pulses, 1/4 edema, cap refill less than 3 seconds, left AKA Neurological: Abnormal plantar reflex, absent protective sensation Dermatological: Healing chronic ulcer noted right medial ankle, minimal erythema around ulcer, wound base pink, no lymphangitis, no odor, minimal serosanguineous drainage, no cellulitis, no tunneling, no undermining. Right 1st and 2nd toes amputated. Right third toe edematous with ulcer noted that is mainly fibrin tissue. Small area to ulcer that does probe, but not to bone. Minimal serosanguineous drainage. No lymphangitis. Musculoskeletal: 4/5 muscle strength, normal tone - Lab Result Diagrams: 09/15/18 05:48 09/15/18 05:48 Labs: Abnormal lab results WBC 12.5 K/mcL (4.3-11.1) H 09/15/18 05:48 RBC 3.85 M/mcL (4.19-5.50) L 09/14/18 04:10 Hgb 12.5 g/dL (12.9-16.9) L D 09/15/18 05:48 Hct 34.2 % (37.5-50.1) L 09/14/18 04:10 MCHC 31.4 g/dL (31.6-35.5) L 09/15/18 05:48 ESR 72 mm/hr (0-10) H 09/13/18 17:56 PT 12.6 Seconds (9.4-12.1) H 09/13/18 09:10 APTT 36.4 Seconds (26.0-36.0) H 09/13/18 09:10 Chloride 108 mEq/L (98-107) H 09/15/18 05:48 Carbon Dioxide 22 mEq/L (23-29) L 09/13/18 00:58 BUN 28 mg/dL (6-20) H 09/15/18 05:48 2.79 mg/dL (0.70-1.30) H 09/15/18 05:48 Est GFR ( Amer) 29 (> 60) L 09/15/18 05:48 Est GFR (Non-Af Amer) 24 (> 60) L 09/15/18 05:48 Glucose 57 mg/dL (70-105) L 09/15/18 05:48 POC Glucose 107 mg/dL (70-99) H 09/15/18 12:00 9.9 % (-5.6) H 09/12/18 15:39 302 (280-300) H 09/12/18 08:30 Calcium 7.7 mg/dL (8.6-10.3) L 09/15/18 05:48 Phosphorus 5.1 mg/dL (2.7-4.5) H 09/15/18 05:48 113 Units/L (34-104) H 09/13/18 00:58 0.05 ng/mL (< 0.04) H* 09/13/18 09:10 16 mg/L (Less than 10) H 09/13/18 17:56 B-Natriuretic Peptide 338 pg/mL (Less than 100) H 09/15/18 05:48 5.4 g/dL (6.4-8.9) L 09/13/18 00:58 2.4 g/dL (3.5-5.7) L 09/15/18 05:48 0.7 (1.1-2.2) L 09/13/18 00:58 35 mg/dL (40-59) L 09/13/18 00:58 PTH Intact 175.4 pg/ml (10.0-65.0) H 09/15/18 05:48 Hep Bs Antibody < 3.10 mIU/mL (10.00-) L 09/15/18 05:48 Microbiology, Last 48 Hours 09/14/18 17:05 Wound Culture - Preliminary Right Third Toe Culture is incubating. 09/14/18 17:05 Anaerobic Culture - Preliminary Right Third Toe Culture is incubating. 09/14/18 16:02 Blood Culture - Preliminary Peripheral Venipuncture Culture is incubating and being continuously monitored for growth. Final report to follow. 09/14/18 16:02 Blood Culture - Preliminary Peripheral Venipuncture Culture is incubating and being continuously monitored for growth. Final report to follow. Consult Discharge Plan - Plan Referrals: Echo Godfrey [Advanced Practice Nurse] - (Appointment has been requested)
[2018-09-16] MEDS: Melatonin 3 MG TABLET PO PRN ×2 (00:46→21:47)
[2018-09-16] MEDS: *HR* LORazepam 0.5 MG TABLET PO PRN ×3 (00:46→21:46)
[2018-09-16] MEDS ORDERED: Insulin DETEMIR 100 UNIT/ML X5UNITS SQ ONE (01:42)
[2018-09-16] MEDS ORDERED: Insulin LISPRO 300 UNITS/3 ML VIAL SQ SCH (02:00)
[2018-09-16 06:58] LABS: Hematocrit 35.4 % (37.5-50.1); Hemoglobin 11.2 g/dL (12.9-16.9); Mean Corpuscular HGB Conc 31.6 g/dL (31.6-35.5); Mean Corpuscular Hemoglobin 28.1 pg (28.0-33.3); Mean Corpuscular Volume 88.9 fL (83.0-100.0); Platelet Count 240 K/mcL (140-400); Red Blood Count 3.98 M/mcL (4.19-5.50); Red Cell Distribution Width 13.7 % (11.5-14.5)
[2018-09-16 07:17] LABS: Calcium 7.6 mg/dL (8.6-10.3); Potassium 3.8 mEq/L (3.5-5.1)
[2018-09-16] MEDS: Budesonide/Formoterol 160/4.5 1 PUFF INH IH SCH ×2 (07:55→22:32)
[2018-09-16] MEDS: Insulin LISPRO 300 UNITS/3 ML VIAL SQ SCH ×5 (08:29→21:49)
[2018-09-16] MEDS: *HR* Rivaroxaban 15 MG TABLET PO SCH (08:30)
[2018-09-16] MEDS: Isosorbide MONOnitrate (24 HR) 30 MG TAB.ER.24H PO SCH (08:31)
[2018-09-16] MEDS: Insulin DETEMIR 100 UNIT/ML X5UNITS SQ SCH ×2 (08:31→21:29)
[2018-09-16] MEDS: Furosemide 40 MG/4 ML VIAL IVP SCH (08:31)
[2018-09-16] MEDS: Aspirin Enteric Coated 81 MG Tablet PO SCH (08:32)
--- NOTE | 2018-09-16 10:15 | Infectious Disease Progress No ---
ID Progress Note Date of Encounter: 09/16/18 Time of Encounter: 09:15 - Subjective Subjective: Patient seen and examined. No acute events noted overnight. Patient states overall he feels okay. Denies pain at this time. Denies fevers, chills, rigors. Denies chest pain. Reports some mild shortness of breath, worse with exertion and alleviated with rest, and a cough productive of yellow sputum. Denies congestion, earache, or sore throat. Denies nausea, vomiting, diarrhea, or constipation. Denies abdominal pain or urinary complaints. States his appetite is okay, but he is currently nothing by mouth for surgery later today. He is requesting something to drink.. Denies oral thrush or new skin lesions. - Objective CBC & Chem 7: 09/16/18 06:20 09/16/18 06:20 - Exam Vitals: Temp Pulse Resp BP Pulse Ox 98.0 F 88 20 145/79 2 09/16/18 07:37 09/16/18 07:37 09/16/18 07:55 09/16/18 07:37 09/16/18 09:55 Exam: Head: Atraumatic, normal inspection, normocephalic. Eye: EOMI, PERRLA, no scleral icterus noted. ENT: Mucous membranes moist. No odontogenic infection noted. Neck: Normal inspection, no meningismus. Respiratory: Clear to auscultation. No rales, respiratory distress, rhonchi, or wheezes noted. Cardiovascular: Regular rate and rhythm, S1 and S2 audible. No murmurs, rubs, or gallops. GI: Firm, distended, normal bowel sounds. Tender. Extremities:No joint swelling or tenderness noted. Left AKA stump without abnormality. 1+ edema noted to the right lower extremity. Multiple superficial scabbed lesions noted to the anterior aspect of the right lower leg. Right foot and right ankle dressings clean, dry, and intact. Back: Normal inspection. No vertebral tenderness noted. Neurological: Alert, oriented 3, no focal deficits. Psychiatric: normal affect, normal mood. Skin: Dry, intact, warm. Normal color. Folliculitis noted to the chest and abdomen. - Assessment and Plan (1) Leukocytosis Current Visit: Yes Status: Acute Likely reactive from steroids. Resolved. No other SIRS criteria. Continue to trend. Qualifiers: Leukocytosis type: unspecified Qualified Code(s): D72.829 - Elevated white blood cell count, unspecified SNOMED Code(s): 173098834, 980944116 (2) Osteomyelitis of foot Current Visit: No Status: Acute Location: Foot third toe. Causative organism: Group B strep and group G strep per wound cultures. Noted on x-ray of the right foot. Likely secondary to chronic ulcer. ESR elevated at 72 with a CRP of 16. Podiatry consulted. Planning amputation of the affected toe later today. Antibiotics currently on hold. SNOMED Code(s): 81511728, 372334748 (3) Foot ulcer Current Visit: No Status: Acute Occasion: Right foot third toe. Etiology: Not exactly clear. Diabetic foot ulcer versus trauma versus other. TAL studies completed. Studies are inconclusive due to arterial calcinosis. Podiatry consulted and following. Qualifiers: Laterality: left Non-pressure ulcer stage: limited to breakdown of skin Qualified Code(s): L97.521 - Non-pressure chronic ulcer of other part of left foot limited to breakdown of skin SNOMED Code(s): 14761794 (4) Ankle ulcer Current Visit: Yes Status: Acute Patient: Medial aspect right ankle. Likely secondary to recent trauma. Clinically does not appear infected. Wound care per the podiatry team. Qualifiers: Laterality: right Non-pressure ulcer stage: with fat layer exposed Qualified Code(s): L97.312 - Non-pressure chronic ulcer of right ankle with fat layer exposed SNOMED Code(s): 007075380 (5) CHF (congestive heart failure) Current Visit: Yes Status: Acute TTE shows an EF of 40-45%. Cardiology consult and signed off. Qualifiers: Heart failure type: systolic Heart failure chronicity: acute Qualified Code(s): I50.21 - Acute systolic (congestive) heart failure SNOMED Code(s): 64536234 (6) Shortness of breath Current Visit: No Status: Acute Likely secondary to CHF and acute exacerbation of COPD. Improved. Management per the primary team. SNOMED Code(s): 264460230 (7) Elevated troponin Current Visit: No Status: Acute Cardiology consulted and signed off. SNOMED Code(s): 924823327, 730028350, 960757772 (8) Chronic kidney disease (CKD) Current Visit: No Status: Chronic Serum creatinine elevated consistent with the patient's chronic kidney disease. Monitor renal function closely. Dose adjust medications and avoid nephrotoxins as able. Nephrology consulted and following. Qualifiers: Chronic kidney disease stage: stage 3 (moderate) Qualified Code(s): N18.3 - Chronic kidney disease, stage 3 (moderate) SNOMED Code(s): 378066389 (9) Obesity Current Visit: No Status: Chronic Qualifiers: Obesity type: due to excess calories SNOMED Code(s): 208498434, 493148492 (10) Diabetes mellitus Current Visit: No Status: Chronic Uncontrolled. Hemoglobin A1c 9.9%. Recommend aggressive glucose monitoring and control to promote wound healing and prevent reinfection. Management per the primary team. 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 Await intraoperative findings, cultures, and pathology. Start Zosyn 3.375 g IV every 8 hours post-op. Wound care per the podiatry team. Duration of treatment up until the clinical picture. Monitor renal function and dose adjust antibiotics. Consult Discharge Plan - Plan Referrals: Echo Godfrey [Advanced Practice Nurse] - (Appointment has been requested) - Attending Attestation I have personally performed a face to face evaluation on this patient. I have reviewed and agree with the care plan. History and Exam by me shows: Assessment and plan: 1.Osteomyelitis of the foot third toe causative organism not clear 2.Foot ulcer has been present for weeks 3.Diabetes mellitus type 2 4.Congestive heart failure 5.COPD Recommendations: Recommendations: continue to hold antibiotics until surgery post op start zosyn while cultures finalize
--- NOTE | 2018-09-16 11:31 | Event Note ---
Date of Encounter: 09/16/18 Time of Encounter: 10:55 Patient resting and aroused easily with verbal stimuli. Patient is oriented x3. No acute distress noted. He denies any chest pain, shortness of breath, or calf pain. Patient denies any fever, chills, n/v/d. Patient verbalized he wants to have the third toe amputated by Dr. Valdivia. Nature of the procedure, risk versus benefits, potential complications, consequences of surgery, and condition discussed. All questions and concerns addressed. Consent signed and placed in chart. Patient to go to OR today for procedure He reports he has been NPO.
--- NOTE | 2018-09-16 14:31 | Internal Med Progress Note ---
Hospitalist Progress Note - Encounter Date of Encounter: 09/16/18 Time of Encounter: 14:29 - Subjective Interval History: Patient seen and examined earlier today. Pt sitting in bed and angry about the delay in getting his surgery. He reported of being hungry and thirsty and wanted his surgery earlier this morning. Denied any pain or fever, or chills. No overnight events reported. Ten point ROS is negative except as listed above - Exam Vitals: Temp Pulse Resp BP Pulse Ox 98.0 F 84 16 160/89 96 09/16/18 12:12 09/16/18 12:12 09/16/18 12:12 09/16/18 12:12 09/16/18 12:12 Exam: Gen: Alert, awake, Oriented to time,place and person, morbidly obese, no acute distress Chest: Diminished breath sounds B/L, no wheezing, bibasilar rales Heart: S1S2+ RRR No murmurs Abd: Soft, NT, BS +, No organomegaly Ext: 1+ pitting edema in Rt leg.. Multiple papular rash with erythema noticed over Rt leg. He does have chronic non healing ulcer over Rt 3rd toe with scab and swollen 3rd toe. Also have non healing ulcer over Rt medial maleolus. pulses are palpable, No calf tenderness, left AKA Neuro : No focal deficits Skin: No rash. Rest of the clinical exam is noncontributory - Assessment and Plan (1) Osteomyelitis of third toe of right foot Current Visit: Yes Status: Acute Assessment and Plan: Podiatry and ID on board, evaluation appreciated Scheduled for surgical intervention today f/u blood and wound cultures will defer to ID for abx management pain control (2) CHF (congestive heart failure) Current Visit: Yes Status: Acute Assessment and Plan: echocardiogram - showed LVEF @ 40-45%, with moderate global and segmental LV systolic dysfunction.. Indeterminate diastolic function. He does have moderate pulmonary hypertension. Small pericardial effusion noticed without tamponade. His volume status improving slowly continue Lasix to 40mg Q12Hr will defer to nephrology for lasix dosing cardiology signed off Cont ASA, Coreg, Lipitor and Imdur fluid restriction diet monitor daily weight, strict I/Os. (3) Acute kidney injury superimposed on CKD Current Visit: Yes Status: Acute Assessment and Plan: Likely secondary to cardio renal syndrome renal function worsened from previous day will f/u with nephrology Strict I & O Fluid restriction avoid nephrotoxic medications will closely monitor renal function (4) Elevated troponin Current Visit: No Status: Acute Assessment and Plan: His serial trop slightly elevated @ 0.05 and flat mostly due to demand ischemia (5) Diabetes mellitus Current Visit: No Status: Chronic Assessment and Plan: continue basal and sliding scale insulin coverage monitor FS and BG ADA diet (6) Essential hypertension Current Visit: No Status: Chronic Assessment and Plan: Noted to be hypertensive today will closely monitor, if remains hypertensive post-operatively, will adjust antihypertensive medications Hydralazine 10mg IV q6h PRN SBP>160 closely monitor BP (7) PAF (paroxysmal atrial fibrillation) Current Visit: Yes Status: Acute Assessment and Plan: Rate controlled with Coreg on Xarelto for anti coag holding Xarelto in anticipation of surgery will f/u with podiatry in regards to restarting Xarelto post-operatively (8) Anxiety disorder Current Visit: No Status: Acute Assessment and Plan: continue home medication (9) Anemia Current Visit: Yes Status: Acute Assessment and Plan: H&H low but acceptable anemia of chronic disease secondary to CKD no acute bleeding reported will closely monitor (10) Hyperlipidemia Current Visit: Yes Status: Acute Assessment and Plan: Continue home medication (11) Cellulitis of right leg Current Visit: Yes Status: Acute Assessment and Plan: ID on board, evaluation appreciated (12) Chronic ulcer of ankle with fat layer exposed Current Visit: Yes Status: Chronic (13) Morbid obesity with BMI of 45.0-49.9, adult Current Visit: No Status: Chronic Assessment and Plan: weight loss and dietary modification counseling provided (14) DVT prophylaxis Current Visit: No Status: Chronic - Time Spent with Patient Total time spent is greater than 50% in coordination of care (as documented) at patient's floor/unit and/or counseling patient: 25 - 35 minutes Plan of Care Discussed with: patient (patient/RN/case management/pharmacist) Internal Medicine: Result - Labs CBC & Chem 7: 09/16/18 06:20 09/16/18 06:20 Labs: Short CBC 09/16/18 Range/Units 06:20 WBC 9.9 (4.3-11.1) K/mcL Hgb 11.2 L (12.9-16.9) g/dL Hct 35.4 L (37.5-50.1) % Plt Count 240 (140-400) K/mcL BMP 09/16/18 06:20 Sodium 141 Potassium 3.8 Chloride 107 Carbon Dioxide 28 BUN 30 H Creatinine 2.93 H Glucose 197 H Calcium 7.6 L - ABG Interpretation ABG results: PT/INR, D-dimer PT 12.6 Seconds (9.4-12.1) H 09/13/18 09:10 - Impressions Impressions Foot X-Ray 09/13/18 13:03 IMPRESSION: Soft tissue edema with osteomyelitis involving the middle and distal third phalanx. 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 use Diabetes mellitus complication status: with unspecified complications Qualified Code(s): E13.8 - Other specified diabetes mellitus with unspecified complications; Z79.4 - correction (current) use of insulin (8) Anxiety disorder Qualifiers: Anxiety disorder type: unspecified anxiety disorder Qualified Code(s): F41.9 - Anxiety disorder, unspecified (9) Anemia Qualifiers: Qualified Code(s): D64.9 - Anemia, unspecified (10) Hyperlipidemia Qualifiers: Hyperlipidemia type: unspecified Qualified Code(s): E78.5 - Hyperlipidemia, unspecified (12) Chronic ulcer of ankle with fat layer exposed Qualifiers: Laterality: right Qualified Code(s): L97.312 - Non-pressure chronic ulcer of right ankle with fat layer exposed
--- NOTE | 2018-09-16 17:16 | Anesthesia Evaluation PreOp ---
Date of Encounter: 09/16/18 Time of Encounter: 17:14 - Past History Planned Operation: Amputation of Right Third Toe Cardiac History: LA, CHF ( usually PRN @ night), HTN, Hyperlipidemia Pulmonary History: Smoker, Pack/yr, COPD WORKSHOP MANAGER History: Denies Any Significant HX Other Medical History: Renal, Other (Morbid Obesity BMI 40.6, Diabetic Neuropathy) Anesthesia History: No Prior Anesthetic Complications, Past Anesthesia Alcohol Use: none Drug use: none Medications and Allergies Fluticasone/Vilanterol [Breo Ellipta 100-25 Mcg INH] 1 puff IH DAILY 06/24/16 [History] Escitalopram [Lexapro] 20 mg PO DAILY #30 tablet 04/16/18 [Rx] Loperamide [Imodium] 2 mg PO Q4HR PRN #30 capsule 04/16/18 [Rx] Aspirin 81 mg PO DAILY 09/12/18 [History] Atorvastatin [Lipitor] 40 mg PO DAILY 09/12/18 [History] Bumetanide 2 mg PO DAILY 09/12/18 [History] Carvedilol 12.5 mg PO BID 09/12/18 [History] Insulin ASPART [Novolog Flexpen] 8 unit SQ TIDAC 09/12/18 [History] Insulin DETEMIR [Levemir Flextouch] 20 unit SQ BID 09/12/18 [History] Isosorbide MONOnitrate (24 HR) [Imdur] 30 mg PO QAM 09/12/18 [History] Lipase/Protease/Amylase [Creon Dr 36,000 Units Capsule] 2 cap PO TIDWM 09/12/18 [History] Rivaroxaban [Xarelto] 15 mg PO DAILY 09/12/18 [History] Allergy/AdvReac Type Severity Reaction Status Date / Time tramadol Allergy Nausea Verified 09/12/18 06:44 vancomycin Allergy Hives Verified 09/12/18 06:44 - Meds/Allergy Pre-op Review Medications Reviewed: Yes Allergies Reviewed: Yes Beta Blockers on Current Med List: Yes If Beta Blockers taken, Date/Time (Last Dose taken): 09/16/2018 @ 08:31 Anesthesia Results - Labs 09/16/18 06:20 09/16/18 06:20 - Imaging EKG: report reviewed (Sinus rhythm Right bundle branch block Possible anterolateral infarct, age undetermined Inferior infarct, age undetermined) Additional studies: Echo with Imaging Enhancement Agent Name: Alexy Tripp Date of Study: 09/13/2018 EV/EV echocardiogram w enhance Impressions: LVEF 40-45%. Moderate global and segmental left ventricular systolic dysfunction. Indeterminate diastolic function. Moderate concentric left ventricular hypertrophy. Normal right ventricular structure and function. Moderately dilated left atrium. Mild-moderate mitral regurgitation.Mild tricuspid regurgitation. Moderate pulmonary hypertension. Estimated RVSP is 66 mmHg There is a small pericardial effusion present without echocardiographic evidence of tamponade. Left Ventricular Wall Motion: Rest Echo Findings The apex, apical inferior, mid inferior, basal inferior, apical anterior, mid anterior, basal anterior, apical septal, mid inferior septal, basal inferior septal, mid anterior lateral, basal anterior lateral, mid anterior septal, basal anterior septal and basal inferior lateral baptiste were hypokinetic. The apical lateral and mid inferior lateral baptiste were akinetic. Anesthesia Exam Vital Signs/O2 Sat, Most Current Temp Pulse Resp BP Pulse Ox 98.0 F 80 20 164/97 100 09/16/18 16:02 09/16/18 16:02 09/16/18 16:02 09/16/18 16:02 09/16/18 16:02 NPO (# of Hours): > 8 hrs Pain Scale Used: Numeric (1 - 10) - HEENT Pupil (Motor): Pupils equal, EOMI Mallampati: III Teeth: Poor dentition Oral Opening: Greater than 3 - WORKSHOP MANAGER LOC: Oriented WORKSHOP MANAGER Motor: Normal RUE, Normal LUE, Normal RLE, Normal LLE, Normal Face WORKSHOP MANAGER Sensory: Normal: RUE, LUE, RLE, LLE, Face - Cardiac Rhythm: Regular Murmur: None JVD: No Carotid Bruit: No - Pulmonary Breath Sounds: bilateral Clear Respiratory Effort: Symmetrical Anesthesia Assess/Plan ASA Score: 4 Anesthetic Plan: MAC Autologous Blood: Yes Monitoring Plan: Standard Monitors Recovery Plan: Other
[2018-09-16] MEDS ORDERED: *HR* Midazolam HCl 2 MG/2 ML VIAL ONE (17:19)
[2018-09-16] MEDS ORDERED: *HR* FentaNYL (PF) 100 MCG/2 ML VIAL ONE (17:21)
[2018-09-16] MEDS ORDERED: Propofol 500 MG/50 ML INFUS..BTL ONE (17:23)
[2018-09-16] MEDS ORDERED: Lidocaine -MPF 2% 2 ML VIAL ONE (17:23)
[2018-09-16] MEDS ORDERED: Piperacillin/Tazobactam 3.375 GM in 0.9 % Sodium Chloride Mini Bag 100 ML IVPB SCH (18:00)
[2018-09-16] MEDS ORDERED: Dextrose Gel 15 GM/37.5 ML TUBE PO PRN ×2 (18:55)
[2018-09-16] MEDS ORDERED: D5% in Water 1,000 ML IVC PRN (18:55)
[2018-09-16] MEDS ORDERED: Ondansetron ODT 4 MG TAB.RAPDIS SL PRN (18:55)
[2018-09-16] MEDS ORDERED: Naloxone 0.4 MG/ML INJ IVP PRN (18:55)
[2018-09-16] MEDS ORDERED: *HR* Dextrose 50 % in Water (Syg) 50 ML SYRINGE IVP PRN (18:55)
[2018-09-16] MEDS ORDERED: Ipratropium/Albuterol Neb 3 ML IH PRN (18:55)
--- NOTE | 2018-09-16 19:49 | Operative Note ---
Date of procedure: 09/16/18 Pre-op diagnosis: osteomyelitis, ulceration right 3rd toe Post-op diagnosis: same Procedure: amputation of right 3rd toe at the level of the metatarsophalangeal joint Implants: none Complications: none Anesthesia: GETA Local Anesthetics: 1% Lidocaine HCL SubQ (cc) Surgeon: Rajesh Valdivia Was there an phys assistant present: No Estimated blood loss (cc): 10 Specimen: right 3rd toe micro and pathology Condition: stable Disposition: PACU Procedure in Detail: Indications: 53-year-old male with left above-knee amputation and then with osteomyelitis of the right third toe and after refusing amputation for a period of time agreed to amputation but only amputation of this right third toe. Nature of the procedure potential complications and consequences of surgery and his condition discussed at length. No guarantees made as to the outcome. It is been explained that he get breakdown of the fourth and fifth digits by leaving them. All his questions have been answered and informed consent was signed patient was taken from the preoperative holding area and operating room placed on the operating room table in the supine position. 10 mL of 1% lidocaine plain was injected into the patient's right foot. The right foot was scrubbed prepped and draped in the usual sterile fashion. A tourniquet was applied but not inflated during the entire procedure. Amputation of right third toe. Attention was directed to the right third digit where a #15 blade was used to make a full thickness racquet type incision around the third digit. There was noted to be ulceration at the level of the interphalangeal joint which was able to express some purulent drainage. Bone from this site as well as soft tissue was obtained and sent to microbiology. The bone felt soft in nature. The bone at the level of the proximal phalanx was noted to be hard in nature and there was no purulence or devitalized tissue present at the level of the metatarsophalangeal joint and the third digit was disarticulated at the metatarsophalangeal joint level. The flexor and extensor tendons were traced as far proximal as possible. The site was flushed with normal sterile saline. All bleeders were cauterized with the Bovie. After flushing the site thoroughly there was no devitalized tissue present and no purulence and the site was deemed adequate for closure. 3-0 Prolene was used to close the surgical site. Postoperative bandaging included Xeroform, 4 x 4 gauze Kerlix and an Carl wrap. Patient was started on Zosyn as recommended by infectious disease postoperatively and will return to the floor.
--- NOTE | 2018-09-16 19:58 | Anesthesia Evaluation Post Op ---
Date of Encounter: 09/16/18 Time of Encounter: 19:58 - Vital Signs Vital Signs: Vital Signs/O2 Sat, Most Current Temp Pulse Resp BP Pulse Ox 97.9 F 82 17 142/85 98 09/16/18 19:33 09/16/18 19:33 09/16/18 19:33 09/16/18 19:33 09/16/18 19:33 - Lungs Lungs: Clear Ascult./Percussion - Airway Airway: Non-obstructed - Cardiovascular Regular Rate - Mental Status Mental Status: Alert & Oriented, Answers Appropriately - Pain Pain Scale: 0 Pain Scale used: Numeric (1 - 10) - Nausea Vomiting Nausea Vomiting: Not Present - Hydration Hydration: Tolerates oral liquids, Has not voided - Discharge PostOp Status: Transfer Patient to floor
--- NOTE | 2018-09-16 23:00 | Nephrology Progress Note ---
Date of Encounter: 09/16/18 Time of Encounter: 12:00 - Assessment and Plan (1) Osteomyelitis of third toe of right foot Current Visit: Yes Status: Acute Continue abx per primary Amputation planned today (2) ABELINO (acute kidney injury) Current Visit: No Status: Chronic SCr fairly stable at 2.93, GFR 27, continue supportive care UOP noted at 5050cc in the past 24hrs on diuretics, will monitor Continue to avoid nephrotoxins if possible (3) COPD (chronic obstructive pulmonary disease) Current Visit: No Status: Chronic As per primary. Qualifiers: COPD type: COPD with acute exacerbation Qualified Code(s): J44.1 - Chronic obstructive pulmonary disease with (acute) exacerbation (4) CHF (congestive heart failure) Current Visit: Yes Status: Acute See above re: diuretics Qualifiers: Heart failure type: systolic Heart failure chronicity: acute Qualified Code(s): I50.21 - Acute systolic (congestive) heart failure (5) S/P AKA (above knee amputation) unilateral Current Visit: No Status: Acute (6) Anemia Current Visit: Yes Status: Acute Transfusion parameters as per primary. Hgb is currently stable at 11.2 Goal Hgb is 10-11 in the setting of CKD. Qualifiers: Qualified Code(s): D64.9 - Anemia, unspecified (7) Acute kidney injury superimposed on CKD Current Visit: Yes Status: Acute Subjective Principal diagnosis: SOB Interval history: Interim noted, pt seen and examined. Does not believe he has a kidney problems and wants to be left alone. Awaiting surgery. Objective - Vital Signs Vital signs: Vital Signs Temp Pulse Resp BP Pulse Ox 09/16/18 19:33 97.9 F 82 17 142/85 98 09/16/18 16:02 98.0 F 80 20 164/97 100 09/16/18 12:12 98.0 F 84 16 160/89 96 09/16/18 09:55 2 09/16/18 07:55 20 98 09/16/18 07:37 98.0 F 88 16 145/79 97 09/16/18 04:22 97.6 F 86 16 153/86 96 09/16/18 00:23 98 F 85 18 129/77 98 Intake and Output 09/16/18 09/16/18 09/16/18 07:59 15:59 23:59 Output Total 1025 / 2335 1300 / 2335 2334 Balance -1025 / -2335 -1300 / -2335 - Output: Urine 1025 / 2325 1300 / 2325 Estimated Blood Loss Other: Weight 143.5 kg Blood Glucose* 208 156 93 Patient Weight 09/16/18 23:59 Weight 143.5 kg - General Appearance General appearance: Present: well-developed, well-nourished, obese EENT: Present: ATNC, mucous membranes moist Neck: Present: no JVD, supple Additional Comments: decreased BS bases bilat Cardiology: Present: edema ( L AKA), normal S1, normal S2 Gastrointestinal: Present: no tenderness, no guarding, obese Integumentary: Present: warm and dry Neurologic: Present: no focal deficit Musculoskeletal: Present: no deformities - Lab 09/18/18 04:20 09/18/18 05:25 Consult Discharge Plan - Plan Referrals: Echo Godfrey [Advanced Practice Nurse] - (Appointment has been requested)
[2018-09-17] MEDS ORDERED: Piperacillin/Tazobactam 3.375 GM in 0.9 % Sodium Chloride Mini Bag 100 ML IVPB SCH
[2018-09-17] MEDS: Piperacillin/Tazobactam 3.375 GM in 0.9 % Sodium Chloride Mini Bag 100 ML IVPB SCH ×4 (00:24→23:48)
[2018-09-17] MEDS: *HR* OxyCODONE Immed Rel 5 MG TABLET PO PRN ×4 (01:18→23:51)
[2018-09-17 04:07] LABS: Basophils % 0.5 %; Eosinophils # 0.3 K/mcL (0.0-0.6); Hematocrit 33.6 % (37.5-50.1); Hemoglobin 10.6 g/dL (12.9-16.9); Immature Granulocytes % 0.3 % (0-4); Lymphocytes # 1.5 K/mcL (0.6-4.6); Lymphocytes % 17.8 %; Mean Corpuscular HGB Conc 31.5 g/dL (31.6-35.5); Mean Corpuscular Hemoglobin 28.5 pg (28.0-33.3); Mean Corpuscular Volume 90.3 fL (83.0-100.0); Mean Platelet Volume 10.1 fL (9.4-12.4); Monocytes # 0.6 K/mcL (0.0-1.3); Monocytes % 6.6 %; Neutrophils # 6.2 K/mcL (1.6-8.9); Platelet Count 221 K/mcL (140-400); Red Blood Count 3.72 M/mcL (4.19-5.50); Red Cell Distribution Width 13.8 % (11.5-14.5); Segmented Neutrophils % 71.8 %
[2018-09-17 04:27] LABS: Calcium 7.2 mg/dL (8.6-10.3); Magnesium 1.9 mg/dL (1.6-2.6); Phosphorous 4.7 mg/dL (2.7-4.5); Potassium 3.6 mEq/L (3.5-5.1)
[2018-09-17] MEDS: Furosemide 40 MG/4 ML VIAL IVP SCH ×2 (08:03→16:57)
[2018-09-17] MEDS: Isosorbide MONOnitrate (24 HR) 30 MG TAB.ER.24H PO SCH (08:03)
[2018-09-17] MEDS: *HR* Rivaroxaban 15 MG TABLET PO SCH (08:03)
[2018-09-17] MEDS: Insulin LISPRO 300 UNITS/3 ML VIAL SQ SCH ×7 (08:04→20:28)
[2018-09-17] MEDS: Insulin DETEMIR 100 UNIT/ML X5UNITS SQ SCH ×2 (08:15→20:29)
[2018-09-17] MEDS ORDERED: Aspirin Enteric Coated 81 MG Tablet PO SCH (09:00)
[2018-09-17] MEDS: Budesonide/Formoterol 160/4.5 1 PUFF INH IH SCH ×2 (10:14→22:37)
--- NOTE | 2018-09-17 10:51 | Nephrology Progress Note ---
Date of Encounter: 09/17/18 Time of Encounter: 12:00 - Assessment and Plan (1) Osteomyelitis of third toe of right foot Current Visit: Yes Status: Acute POD#1 amputation Continue abx per primary Continue pain control per primary (2) ABELINO (acute kidney injury) Current Visit: No Status: Acute SCr slightly improved at 2.73, GFR 24, continue supportive care UOP noted at 2325cc in the past 24hrs on diuretics, will monitor Continue to avoid nephrotoxins if possible (3) CHF (congestive heart failure) Current Visit: Yes Status: Acute See above re: diuretics Qualifiers: Heart failure type: systolic Heart failure chronicity: acute Qualified Code(s): I50.21 - Acute systolic (congestive) heart failure (4) COPD (chronic obstructive pulmonary disease) Current Visit: No Status: Chronic As per primary. Qualifiers: COPD type: COPD with acute exacerbation Qualified Code(s): J44.1 - Chronic obstructive pulmonary disease with (acute) exacerbation (5) S/P AKA (above knee amputation) unilateral Current Visit: No Status: Chronic (6) Anemia Current Visit: Yes Status: Acute Transfusion parameters as per primary. Hgb is currently stable at 10.6 Goal Hgb is 10-11 in the setting of CKD. Qualifiers: Qualified Code(s): D64.9 - Anemia, unspecified (7) Acute kidney injury superimposed on CKD Current Visit: Yes Status: Acute Subjective Principal diagnosis: SOB Interval history: Pt seen and examined POD#1 toe amputation, doing well. Objective - Vital Signs Vital signs: Vital Signs Temp Pulse Resp BP Pulse Ox 09/17/18 07:01 98.0 F 83 17 151/91 92 09/16/18 23:09 98.0 F 83 17 160/93 94 09/16/18 19:33 97.9 F 82 17 142/85 98 09/16/18 16:02 98.0 F 80 20 164/97 100 09/16/18 12:12 98.0 F 84 16 160/89 96 Intake and Output 09/16/18 09/17/18 09/17/18 23:59 07:59 15:59 Intake Total 100 / 340 240 / 340 Output Total 2334 1050 / 1050 Balance - -950 / -710 240 / -710 Intake: IV Fluids 100 / 100 Zosyn 3.375 GM In 0.9 % Sodium 100 / 100 Chloride (Mini-Bag +) 100 ML @ 25 mls/hr IVPB Q8HR [facility] Rx#: [id number] Oral 240 / 240 Output: Urine 1050 / 1050 Estimated Blood Loss Other: Meal Breakfast Percent of Meal Consumed 100% # Bowel Movements 0 Blood Glucose* 93 165 - General Appearance General appearance: Present: well-developed, well-nourished, obese EENT: Present: ATNC, mucous membranes moist Neck: Present: no JVD, supple Additional Comments: decreased BS bilat Cardiology: Present: edema (L AKA), normal S1, normal S2 Gastrointestinal: Present: no tenderness, no guarding, obese Integumentary: Present: warm and dry Neurologic: Present: no focal deficit Musculoskeletal: Present: no deformities Psychiatric: Present: mood/affect appropriate - Lab 09/18/18 04:20 09/18/18 05:25 Most recent lab results 09/17/18 03:50 Calcium 7.2 L Phosphorus 4.7 H Magnesium 1.9 Consult Discharge Plan - Plan Referrals: Echo Godfrey [Advanced Practice Nurse] - (Appointment has been requested)
--- NOTE | 2018-09-17 11:14 | Internal Med Progress Note ---
Hospitalist Progress Note - Encounter Date of Encounter: 09/17/18 Time of Encounter: 11:12 - Subjective Interval History: Patient seen and examined earlier today. He is sitting in bed, watching tv. States pain is adequately controlled. He is unhappy with the fluid restriction and wants more water. He reports of using oxygen at home intermittently. POD # 1 amputation of right 3rd toe at the level of the metatarsophalangeal joint (date of surgery: 09/16/18) No overnight events reported. Currently reports improvement in breathing and right leg edema since hospitalization. Ten point ROS is negative except as listed above - Exam Vitals: Temp Pulse Resp BP Pulse Ox 98.0 F 83 17 151/91 92 09/17/18 07:01 09/17/18 07:01 09/17/18 07:01 09/17/18 07:01 09/17/18 07:01 Exam: Gen: AAO x 3, morbidly obese, no acute distress Chest: Diminished breath sounds B/L, no wheezing, bibasilar rales Heart: S1S2+ RRR No murmurs Abd: Soft, NT, BS +, No organomegaly Ext: 1+ pitting edema in Rt leg, right foot dressing intact, No calf tenderness, left AKA Neuro : No focal deficits Skin: No rash. Rest of the clinical exam is noncontributory - Assessment and Plan (1) Osteomyelitis of third toe of right foot Current Visit: Yes Status: Acute Assessment and Plan: Podiatry and ID on board, evaluation appreciated POD #1: amputation of right 3rd toe at the level of the metatarsophalangeal joint (date of surgery:09/16/18) f/u blood and wound cultures will defer to ID for abx management, currently on IV zosyn pain control post-op wound care as per podiatry (2) CHF (congestive heart failure) Current Visit: Yes Status: Acute Assessment and Plan: echocardiogram - showed LVEF @ 40-45%, with moderate global and segmental LV systolic dysfunction.. Indeterminate diastolic function. He does have moderate pulmonary hypertension. Small pericardial effusion noticed without tamponade. His volume status improving slowly continue Lasix to 40mg Q12Hr will defer to nephrology for lasix dosing cardiology signed off Cont ASA, Coreg, Lipitor and Imdur fluid restriction diet monitor daily weight, strict I/Os. noted to have 14kg weight loss since admission (3) Acute kidney injury superimposed on CKD Current Visit: Yes Status: Acute Assessment and Plan: Likely secondary to cardio renal syndrome renal function improved from previous day will f/u with nephrology Strict I & O Fluid restriction avoid nephrotoxic medications will closely monitor renal function (4) Elevated troponin Current Visit: No Status: Acute Assessment and Plan: His serial trop slightly elevated @ 0.05 and flat mostly due to demand ischemia (5) Diabetes mellitus Current Visit: No Status: Chronic Assessment and Plan: continue basal and sliding scale insulin coverage monitor FS and BG ADA diet (6) Essential hypertension Current Visit: No Status: Chronic Assessment and Plan: BP better controlled will closely monitor, if remains hypertensive post-operatively, will adjust antihypertensive medications Hydralazine 10mg IV q6h PRN SBP>160 closely monitor BP (7) PAF (paroxysmal atrial fibrillation) Current Visit: Yes Status: Acute Assessment and Plan: Rate controlled with Coreg on Xarelto for anti coag (8) Anxiety disorder Current Visit: No Status: Chronic Assessment and Plan: continue home medication (9) Anemia Current Visit: Yes Status: Acute Assessment and Plan: H&H low but acceptable anemia of chronic disease secondary to CKD no acute bleeding reported will closely monitor (10) Hyperlipidemia Current Visit: Yes Status: Chronic Assessment and Plan: Continue home medication (11) Cellulitis of right leg Current Visit: Yes Status: Acute Assessment and Plan: ID on board, evaluation appreciated (12) Chronic ulcer of ankle with fat layer exposed Current Visit: Yes Status: Chronic (13) Morbid obesity with BMI of 45.0-49.9, adult Current Visit: No Status: Chronic (14) DVT prophylaxis Current Visit: No Status: Chronic Assessment and Plan: On Xarelto - Time Spent with Patient Total time spent is greater than 50% in coordination of care (as documented) at patient's floor/unit and/or counseling patient: 25 - 35 minutes Plan of Care Discussed with: patient (patient/RN) Internal Medicine: Result - Labs CBC & Chem 7: 09/17/18 03:50 09/17/18 03:50 Labs: Short CBC 09/17/18 Range/Units 03:50 WBC 8.7 (4.3-11.1) K/mcL Hgb 10.6 L (12.9-16.9) g/dL Hct 33.6 L (37.5-50.1) % Plt Count 221 (140-400) K/mcL Neutrophils # 6.2 (1.6-8.9) K/mcL BMP 09/17/18 03:50 Sodium 142 Potassium 3.6 Chloride 111 H Carbon Dioxide 29 BUN 30 H Creatinine 2.73 H Glucose 226 H Calcium 7.2 L - ABG Interpretation ABG results: PT/INR, D-dimer PT 12.6 Seconds (9.4-12.1) H 09/13/18 09:10 Consult Discharge Plan - Plan Referrals: Echo Godfrey [Advanced Practice Nurse] - (Appointment has been requested) (2) CHF (congestive heart failure) Qualifiers: Heart failure type: systolic Heart failure chronicity: acute Qualified Code(s): I50.21 - Acute systolic (congestive) heart failure (5) Diabetes mellitus Qualifiers: Diabetes mellitus type: other specified (including VAL) Diabetes mellitus senior care insulin use: with gusset edger use Diabetes mellitus complication status: with unspecified complications Qualified Code(s): E13.8 - Other specified diabetes mellitus with unspecified complications; 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
[2018-09-17] MEDS: *HR* LORazepam 0.5 MG TABLET PO PRN (23:48)
[2018-09-18 04:49] LABS: Basophils # 0.1 K/mcL (0.0-0.2); Basophils % 0.4 %; Eosinophils # 0.4 K/mcL (0.0-0.6); Eosinophils % 3.3 %; Hematocrit 34.7 % (37.5-50.1); Hemoglobin 10.7 g/dL (12.9-16.9); Immature Granulocytes % 0.3 % (0-4); Lymphocytes # 1.3 K/mcL (0.6-4.6); Lymphocytes % 11.6 %; Mean Corpuscular HGB Conc 30.8 g/dL (31.6-35.5); Mean Corpuscular Hemoglobin 28.4 pg (28.0-33.3); Mean Platelet Volume 10.1 fL (9.4-12.4); Monocytes # 0.8 K/mcL (0.0-1.3); Monocytes % 6.8 %; Neutrophils # 8.7 K/mcL (1.6-8.9); Platelet Count 206 K/mcL (140-400); Red Blood Count 3.77 M/mcL (4.19-5.50); Segmented Neutrophils % 77.6 %
[2018-09-18 06:10] LABS: Calcium 7.4 mg/dL (8.6-10.3); Magnesium 1.9 mg/dL (1.6-2.6); Phosphorous 5.6 mg/dL (2.7-4.5); Potassium 4.2 mEq/L (3.5-5.1)
[2018-09-18] MEDS: Insulin LISPRO 300 UNITS/3 ML VIAL SQ SCH ×7 (07:52→21:37)
[2018-09-18] MEDS: Piperacillin/Tazobactam 3.375 GM in 0.9 % Sodium Chloride Mini Bag 100 ML IVPB SCH ×2 (08:04→17:37)
[2018-09-18] MEDS: Furosemide 40 MG/4 ML VIAL IVP SCH (08:08)
[2018-09-18] MEDS: Isosorbide MONOnitrate (24 HR) 30 MG TAB.ER.24H PO SCH (08:11)
[2018-09-18] MEDS: *HR* Rivaroxaban 15 MG TABLET PO SCH (08:11)
[2018-09-18] MEDS: Aspirin 81 MG TAB.CHEW PO SCH (08:11)
[2018-09-18] MEDS: Insulin DETEMIR 100 UNIT/ML X5UNITS SQ SCH ×2 (08:15→21:36)
--- NOTE | 2018-09-18 09:15 | Internal Med Progress Note ---
Hospitalist Progress Note - Encounter Date of Encounter: 09/18/18 Time of Encounter: 08:50 - Subjective Interval History: Patient seen and examined at bedside. Resting in bed and saturating well on nasal cannula. States he has been wearing oxygen intermittently as needed. Reports foot pain being adequately controlled. Denies any sob, chest pain, abd pain,n/v, fever, or chills. No overnight events reported. Ten point ROS is negative except as listed above - Exam Vitals: Temp Pulse Resp BP Pulse Ox 97.8 F 82 18 133/87 98 09/18/18 07:47 09/18/18 07:47 09/18/18 07:47 09/18/18 07:47 09/18/18 08:23 Exam: Gen: AAO x 3, morbidly obese, no acute distress Chest: Diminished breath sounds B/L, no wheezing, no rales Heart: S1S2+ RRR No murmurs Abd: Soft, NT, BS +, No organomegaly Ext: edema in right LE, right foot dressing intact, No calf tenderness, left AKA Neuro : No focal deficits Skin: No rash. Rest of the clinical exam is noncontributory - Assessment and Plan (1) Osteomyelitis of third toe of right foot Current Visit: Yes Status: Acute Assessment and Plan: Podiatry and ID on board, evaluation appreciated POD #2: amputation of right 3rd toe at the level of the metatarsophalangeal joint (date of surgery:09/16/18) blood cultures report no growth thus far wound cultures reporting group B strep, Group G strep, and MRSA will add Clindamycin as per sensitivities continue Zosyn at this time will f/u with ID in am continue pain control post-op wound care as per podiatry (2) CHF (congestive heart failure) Current Visit: Yes Status: Acute Assessment and Plan: echocardiogram - showed LVEF @ 40-45%, with moderate global and segmental LV systolic dysfunction.. Indeterminate diastolic function. He does have moderate pulmonary hypertension. Small pericardial effusion noticed without tamponade. His volume status improving slowly will d/c Lasix dose to PO after pt received this morning's lasix dose of 40mg IV start Lasix 40mg PO BID in am cardiology signed off Cont ASA, Coreg, Lipitor and Imdur fluid restriction diet monitor daily weight, strict I/Os. noted to have 14kg weight loss since admission (3) Acute kidney injury superimposed on CKD Current Visit: Yes Status: Acute Assessment and Plan: Likely secondary to cardio renal syndrome renal function worsened from previous day will f/u with nephrology Strict I & O Fluid restriction avoid nephrotoxic medications will closely monitor renal function discontinued IV lasix after pt received today's morning dose will start Lasix 40mg PO BID in am (4) Elevated troponin Current Visit: No Status: Acute Assessment and Plan: His serial trop slightly elevated @ 0.05 and flat mostly due to demand ischemia (5) Diabetes mellitus Current Visit: No Status: Chronic Assessment and Plan: BG adequately controlled continue basal and sliding scale insulin coverage monitor FS and BG ADA diet (6) Essential hypertension Current Visit: No Status: Chronic Assessment and Plan: BP better controlled continue current management will closely monitor, if remains hypertensive, will adjust antihypertensive medications Hydralazine 10mg IV q6h PRN SBP>160 closely monitor BP (7) PAF (paroxysmal atrial fibrillation) Current Visit: Yes Status: Acute Assessment and Plan: Rate controlled with Coreg on Xarelto for anti coag (8) Anxiety disorder Current Visit: No Status: Chronic Assessment and Plan: continue home medication (9) Anemia Current Visit: Yes Status: Acute Assessment and Plan: H&H low but acceptable anemia of chronic disease secondary to CKD no acute bleeding reported will closely monitor (10) Hyperlipidemia Current Visit: Yes Status: Chronic Assessment and Plan: Continue home medication (11) Cellulitis of right leg Current Visit: Yes Status: Acute Assessment and Plan: ID on board, evaluation appreciated (12) Chronic ulcer of ankle with fat layer exposed Current Visit: Yes Status: Chronic (13) Morbid obesity with BMI of 45.0-49.9, adult Current Visit: No Status: Chronic (14) DVT prophylaxis Current Visit: No Status: Chronic Assessment and Plan: On Xarelto - Time Spent with Patient Total time spent is greater than 50% in coordination of care (as documented) at patient's floor/unit and/or counseling patient: 25 - 35 minutes Plan of Care Discussed with: patient (patient/RN) Internal Medicine: Result - Labs CBC & Chem 7: 09/18/18 04:20 09/18/18 05:25 Labs: Short CBC 09/18/18 Range/Units 04:20 WBC 11.2 H (4.3-11.1) K/mcL Hgb 10.7 L (12.9-16.9) g/dL Hct 34.7 L (37.5-50.1) % Plt Count 206 (140-400) K/mcL Neutrophils # 8.7 (1.6-8.9) K/mcL BMP 09/18/18 05:25 Sodium 143 Potassium 4.2 Chloride 107 Carbon Dioxide 29 BUN 33 H Creatinine 3.06 H Glucose 119 H Calcium 7.4 L - ABG Interpretation ABG results: PT/INR, D-dimer PT 12.6 Seconds (9.4-12.1) H 09/13/18 09:10 Consult Discharge Plan - Plan Referrals: Echo Godfrey [Advanced Practice Nurse] - (Appointment has been requested) (2) CHF (congestive heart failure) Qualifiers: Heart failure type: systolic Heart failure chronicity: acute Qualified Code(s): I50.21 - Acute systolic (congestive) heart failure (5) Diabetes mellitus Qualifiers: Diabetes mellitus type: other specified (including VAL) Diabetes mellitus half-way insulin use: with half-way use Diabetes mellitus complication status: with unspecified complications Qualified Code(s): E13.8 - Other specified diabetes mellitus with unspecified complications; Z79.4 - USP (current) use of insulin (8) Anxiety disorder Qualifiers: Anxiety disorder type: unspecified anxiety disorder Qualified Code(s): F41.9 - Anxiety disorder, unspecified (9) Anemia Qualifiers: Qualified Code(s): D64.9 - Anemia, unspecified (10) Hyperlipidemia Qualifiers: Hyperlipidemia type: unspecified Qualified Code(s): E78.5 - Hyperlipidemia, unspecified (12) Chronic ulcer of ankle with fat layer exposed Qualifiers: Laterality: right Qualified Code(s): L97.312 - Non-pressure chronic ulcer of right ankle with fat layer exposed
[2018-09-18] MEDS: Budesonide/Formoterol 160/4.5 1 PUFF INH IH SCH ×2 (10:49→19:46)
[2018-09-18] MEDS: *HR* OxyCODONE Immed Rel 5 MG TABLET PO PRN ×2 (11:10→20:11)
[2018-09-18] MEDS ORDERED: Clindamycin 300 MG/50 ML 300 MG/50 ML IV.SOLN IVPB SCH (16:00)
[2018-09-18] MEDS: *HR* LORazepam 0.5 MG TABLET PO PRN ×2 (16:32→21:35)
[2018-09-18] MEDS: Melatonin 3 MG TABLET PO PRN (21:35)
--- NOTE | 2018-09-18 23:23 | Nephrology Progress Note ---
Date of Encounter: 09/18/18 Time of Encounter: 14:00 - Assessment and Plan (1) Osteomyelitis of third toe of right foot Current Visit: Yes Status: Acute POD#2 amputation Continue abx per primary Continue pain control per primary (2) ABELINO (acute kidney injury) Current Visit: No Status: Acute SCr worse at 3.06, GFR 21 likely due to duretics Agree with diuretic taper from iv to po Continue to avoid nephrotoxins if possible UOP good at 2775cc in the past 24hrs (3) COPD (chronic obstructive pulmonary disease) Current Visit: No Status: Chronic Qualifiers: COPD type: COPD with acute exacerbation Qualified Code(s): J44.1 - Chronic obstructive pulmonary disease with (acute) exacerbation (4) S/P AKA (above knee amputation) unilateral Current Visit: No Status: Acute (5) CHF (congestive heart failure) Current Visit: Yes Status: Acute See above re: diuretics Qualifiers: Heart failure type: systolic Heart failure chronicity: acute Qualified Code(s): I50.21 - Acute systolic (congestive) heart failure (6) Anemia Current Visit: Yes Status: Acute Transfusion parameters as per primary. Hgb is currently stable at 10.7 Goal Hgb is 10-11 in the setting of CKD. Qualifiers: Qualified Code(s): D64.9 - Anemia, unspecified (7) Acute kidney injury superimposed on CKD Current Visit: Yes Status: Acute Subjective Principal diagnosis: ABELINO on CKD Interval history: Pt seen and examined sitting up in chair taking on his cellphone, would not hangup to talk with me. No overnight issues per nurse Objective - Vital Signs Vital signs: Vital Signs Temp Pulse Resp BP Pulse Ox 09/18/18 21:38 98.4 F 77 18 151/95 97 09/18/18 19:46 17 98 09/18/18 16:27 98.0 F 86 18 149/99 99 09/18/18 11:35 98.2 F 83 17 123/77 98 09/18/18 10:49 16 98 09/18/18 08:23 98 09/18/18 07:47 97.8 F 82 18 133/87 98 09/18/18 04:45 98.1 F 76 17 138/74 98 09/17/18 23:40 98.1 F 78 18 141/78 98 Intake and Output 09/18/18 09/18/1819 07:59 15:59 23:59 Intake Total 500 / 1370 820 / 1370 50 / 1370 Output Total 2500 / 5900 1800 / 5900 1600 / 5900 Balance -2000 / -4530 -980 / -4530 -1550 / -4530 Intake: IV Fluids 100 / 250 100 / 250 50 / 250 Cleocin 300 MG/50 ML 300 mg In 50 / 50 50 ml @ 48.077 mls/hr IVPB Q8HR [facility] Rx#:[id number] Zosyn 3.375 GM In 0.9 % Sodium 100 / 200 100 / 200 Chloride (Mini-Bag +) 100 ML @ 25 mls/hr IVPB Q8HR [facility] Rx#: [id number] Oral 400 / 1120 720 / 1120 Output: Urine 2500 / 5900 1800 / 5900 1600 / 5900 Other: Meal Lunch Percent of Meal Consumed 100% # Voids 1 2 1 Blood Glucose* 87 121 98 - General Appearance General appearance: Present: well-developed, well-nourished, obese EENT: Present: ATNC, mucous membranes moist Neck: Present: no JVD, supple Additional Comments: decreased BS bases bilat Cardiology: Present: edema (L AKA), normal S1, normal S2 Gastrointestinal: Present: no tenderness, no guarding, obese Integumentary: Present: warm and dry Neurologic: Present: no focal deficit Musculoskeletal: Present: no deformities Psychiatric: Present: mood/affect appropriate - Lab 09/18/18 04:20 09/18/18 05:25 Consult Discharge Plan - Plan Referrals: Echo Godfrey [Advanced Practice Nurse] - (Appointment has been requested)
[2018-09-19] MEDS: Piperacillin/Tazobactam 3.375 GM in 0.9 % Sodium Chloride Mini Bag 100 ML IVPB SCH ×2 (00:21→09:42)
[2018-09-19] MEDS: Clindamycin 300 MG in D5% in Water 50 ML IVPB SCH ×4 (00:21→23:33)
[2018-09-19 00:54] LABS: Basophils # 0.1 K/mcL (0.0-0.2); Basophils % 0.6 %; Eosinophils # 0.4 K/mcL (0.0-0.6); Eosinophils % 3.7 %; Hematocrit 34.4 % (37.5-50.1); Hemoglobin 10.8 g/dL (12.9-16.9); Immature Granulocytes % 0.6 % (0-4); Lymphocytes # 1.1 K/mcL (0.6-4.6); Lymphocytes % 10.1 %; Mean Corpuscular HGB Conc 31.4 g/dL (31.6-35.5); Mean Corpuscular Hemoglobin 28.7 pg (28.0-33.3); Mean Corpuscular Volume 91.5 fL (83.0-100.0); Mean Platelet Volume 10.1 fL (9.4-12.4); Monocytes # 0.7 K/mcL (0.0-1.3); Monocytes % 6.6 %; Neutrophils # 8.2 K/mcL (1.6-8.9); Platelet Count 209 K/mcL (140-400); Red Blood Count 3.76 M/mcL (4.19-5.50); Red Cell Distribution Width 13.8 % (11.5-14.5); Segmented Neutrophils % 78.4 %
[2018-09-19 01:11] LABS: Calcium 7.2 mg/dL (8.6-10.3); Magnesium 1.9 mg/dL (1.6-2.6); Phosphorous 5.6 mg/dL (2.7-4.5); Potassium 4.1 mEq/L (3.5-5.1)
[2018-09-19] MEDS: Budesonide/Formoterol 160/4.5 1 PUFF INH IH SCH ×2 (07:32→21:57)
[2018-09-19] MEDS ORDERED: Furosemide 40 MG TABLET PO SCH (08:00)
[2018-09-19] MEDS: Insulin LISPRO 300 UNITS/3 ML VIAL SQ SCH ×9 (09:23→21:23)
[2018-09-19] MEDS: *HR* LORazepam 0.5 MG TABLET PO PRN ×2 (09:41→17:38)
[2018-09-19] MEDS: *HR* Rivaroxaban 15 MG TABLET PO SCH (09:41)
[2018-09-19] MEDS: Isosorbide MONOnitrate (24 HR) 30 MG TAB.ER.24H PO SCH (09:41)
[2018-09-19] MEDS: Insulin DETEMIR 100 UNIT/ML X5UNITS SQ SCH ×2 (09:41→21:23)
[2018-09-19] MEDS: Aspirin 81 MG TAB.CHEW PO SCH (09:41)
--- NOTE | 2018-09-19 10:15 | Event Note ---
Date of Encounter: 09/19/18 Time of Encounter: 10:14 Per the operative note, it appears that the infected tissue has been removed with the amputation and patient will likely be able to discharge on course of PO antibiotics.
[2018-09-19] MEDS: Furosemide 40 MG/4 ML VIAL IVP SCH (10:40)
--- NOTE | 2018-09-19 12:50 | Internal Med Progress Note ---
Hospitalist Progress Note - Encounter Date of Encounter: 09/19/18 Time of Encounter: 12:45 - Subjective Interval History: Patient seen and examined earlier today. Reports of having a panic attack overnight but states he feels calm and better right now. saturating well on nasal cannula. Denies any sob, headache, chest pain at this time. Pt states he gets panic attacks often due to worry about his health, states he feels better at this time. Ten point ROS is negative except as listed above - Exam Vitals: Temp Pulse Resp BP Pulse Ox 97.8 F 83 17 158/107 97 09/19/18 09:35 09/19/18 09:35 09/19/18 09:35 09/19/18 09:35 09/19/18 09:42 Exam: Gen: AAO x 3, morbidly obese, no acute distress Chest: Diminished breath sounds B/L, no wheezing, no rales Heart: S1S2+ RRR No murmurs Abd: Soft, NT, BS +, No organomegaly Ext: edema in right LE, right foot dressing intact, No calf tenderness, left AKA Neuro : No focal deficits Skin: No rash. Rest of the clinical exam is noncontributory - Assessment and Plan (1) Osteomyelitis of third toe of right foot Current Visit: Yes Status: Acute Assessment and Plan: Podiatry and ID on board, evaluation appreciated POD #3: amputation of right 3rd toe at the level of the metatarsophalangeal joint (date of surgery:09/16/18) blood cultures report no growth thus far wound cultures reporting group B strep, Group G strep, and MRSA continue Clindamycin as per sensitivities discontinue Zosyn at this time will f/u with ID in am continue pain control post-op wound care as per podiatry (2) CHF (congestive heart failure) Current Visit: Yes Status: Acute Assessment and Plan: echocardiogram - showed LVEF @ 40-45%, with moderate global and segmental LV systolic dysfunction.. Indeterminate diastolic function. He does have moderate pulmonary hypertension. Small pericardial effusion noticed without tamponade. His volume status improving slowly will continue Lasix 40mg PO daily instead of BID given worsening renal function cardiology signed off Cont ASA, Coreg, Lipitor and Imdur fluid restriction diet monitor daily weight, strict I/Os. noted to have 14kg weight loss since admission (3) Acute kidney injury superimposed on CKD Current Visit: Yes Status: Acute Assessment and Plan: Likely secondary to cardio renal syndrome renal function worsened from previous day will f/u with nephrology Strict I & O Fluid restriction avoid nephrotoxic medications will closely monitor renal function Lasix 40mg PO daily instead of BID given renal function (4) Elevated troponin Current Visit: No Status: Acute Assessment and Plan: His serial trop slightly elevated @ 0.05 and flat mostly due to demand ischemia (5) Diabetes mellitus Current Visit: No Status: Chronic Assessment and Plan: BG adequately controlled continue basal and sliding scale insulin coverage monitor FS and BG ADA diet (6) Essential hypertension Current Visit: No Status: Chronic Assessment and Plan: Noted to be hypertensive this morning repeat BP: 143/88 continue current management will closely monitor, if remains hypertensive, will adjust antihypertensive medications Hydralazine 10mg IV q6h PRN SBP>160 closely monitor BP (7) PAF (paroxysmal atrial fibrillation) Current Visit: Yes Status: Acute Assessment and Plan: Rate controlled with Coreg on Xarelto for anti coag (8) Anxiety disorder Current Visit: No Status: Chronic Assessment and Plan: continue home medication (9) Anemia Current Visit: Yes Status: Chronic Assessment and Plan: H&H low but acceptable anemia of chronic disease secondary to CKD no acute bleeding reported will closely monitor (10) Hyperlipidemia Current Visit: Yes Status: Chronic Assessment and Plan: Continue home medication (11) Cellulitis of right leg Current Visit: Yes Status: Acute Assessment and Plan: ID on board, evaluation appreciated (12) Chronic ulcer of ankle with fat layer exposed Current Visit: Yes Status: Chronic (13) Morbid obesity with BMI of 45.0-49.9, adult Current Visit: No Status: Chronic (14) DVT prophylaxis Current Visit: No Status: Chronic Assessment and Plan: On Xarelto - Time Spent with Patient Total time spent is greater than 50% in coordination of care (as documented) at patient's floor/unit and/or counseling patient: 25 - 35 minutes Plan of Care Discussed with: patient (patient/RN/consulting provider) Internal Medicine: Result - Labs CBC & Chem 7: 09/19/18 00:40 09/19/18 00:40 Labs: Short CBC 09/19/18 Range/Units 00:40 WBC 10.4 (4.3-11.1) K/mcL Hgb 10.8 L (12.9-16.9) g/dL Hct 34.4 L (37.5-50.1) % Plt Count 209 (140-400) K/mcL Neutrophils # 8.2 (1.6-8.9) K/mcL BMP 09/19/18 00:40 Sodium 141 Potassium 4.1 Chloride 106 Carbon Dioxide 30 H BUN 35 H Creatinine 3.26 H Glucose 231 H Calcium 7.2 L - ABG Interpretation ABG results: PT/INR, D-dimer PT 12.6 Seconds (9.4-12.1) H 09/13/18 09:10 Consult Discharge Plan - Plan Referrals: Echo Godfrey [Advanced Practice Nurse] - (Appointment has been requested) (2) CHF (congestive heart failure) Qualifiers: Heart failure type: systolic Heart failure chronicity: acute Qualified Code(s): I50.21 - Acute systolic (congestive) heart failure (5) Diabetes mellitus Qualifiers: Diabetes mellitus type: other specified (including VAL) Diabetes mellitus terminal computer operator insulin use: with terminal computer operator use Diabetes mellitus complication status: with unspecified complications Qualified Code(s): E13.8 - Other specified diabetes mellitus with unspecified complications; Z79.4 - terminal computer operator (current) use of insulin (8) Anxiety disorder Qualifiers: Anxiety disorder type: unspecified anxiety disorder Qualified Code(s): F41.9 - Anxiety disorder, unspecified (9) Anemia Qualifiers: Qualified Code(s): D64.9 - Anemia, unspecified (10) Hyperlipidemia Qualifiers: Hyperlipidemia type: unspecified Qualified Code(s): E78.5 - Hyperlipidemia, unspecified (12) Chronic ulcer of ankle with fat layer exposed Qualifiers: Laterality: right Qualified Code(s): L97.312 - Non-pressure chronic ulcer of right ankle with fat layer exposed
--- NOTE | 2018-09-19 16:01 | Infectious Disease Progress No ---
ID Progress Note Date of Encounter: 09/19/18 Time of Encounter: 15:57 - Subjective Subjective: Patient seen and examined. Appears comfotable. No acute distress. denies any headache. NO chest pain. No shortness o breath. No diarrhea. foot pain under control VS noted labs noted Cr 3.26 - Objective CBC & Chem 7: 09/19/18 00:40 09/19/18 00:40 - Exam Vitals: Temp Pulse Resp BP Pulse Ox 98.0 F 82 17 143/88 98 09/19/18 12:52 09/19/18 12:52 09/19/18 12:52 09/19/18 12:52 09/19/18 12:52 Exam: GENERAL: Comfortable. Laying in bed NAD HEENT: BARBARA, EOMI LUNGS: Good air sounds bilaterally, no wheezing or rhonchi CV: RRR, S1 S2 ABDOMEN: Soft, nontender, + bowel sounds NEURO: A&OX3; no focal deficit - Assessment and Plan (1) Leukocytosis Current Visit: Yes Status: Acute Likely reactive from steroids. Resolved. No other SIRS criteria. Continue to trend. Qualifiers: Leukocytosis type: unspecified Qualified Code(s): D72.829 - Elevated white blood cell count, unspecified SNOMED Code(s): 131025968, 785041965 (2) Osteomyelitis of foot Current Visit: No Status: Acute Location: Foot third toe. Causative organism: Group B strep and group G strep per wound cultures. Noted on x-ray of the right foot. Likely secondary to chronic ulcer. ESR elevated at 72 with a CRP of 16. Podiatry consulted. Planning amputation of the affected toe later today. Antibiotics currently on hold. SNOMED Code(s): 16281463, 284255117 (3) Foot ulcer Current Visit: No Status: Acute Occasion: Right foot third toe. Etiology: Not exactly clear. Diabetic foot ulcer versus trauma versus other. TAL studies completed. Studies are inconclusive due to arterial calcinosis. Podiatry consulted and following. Qualifiers: Laterality: left Non-pressure ulcer stage: limited to breakdown of skin Qualified Code(s): L97.521 - Non-pressure chronic ulcer of other part of left foot limited to breakdown of skin SNOMED Code(s): 97295608 (4) Ankle ulcer Current Visit: Yes Status: Acute Patient: Medial aspect right ankle. Likely secondary to recent trauma. Clinically does not appear infected. Wound care per the podiatry team. Qualifiers: Laterality: right Non-pressure ulcer stage: with fat layer exposed Qualified Code(s): L97.312 - Non-pressure chronic ulcer of right ankle with fat layer exposed SNOMED Code(s): 142684860 (5) CHF (congestive heart failure) Current Visit: Yes Status: Acute TTE shows an EF of 40-45%. Cardiology consult and signed off. Qualifiers: Heart failure type: systolic Heart failure chronicity: acute Qualified Code(s): I50.21 - Acute systolic (congestive) heart failure SNOMED Code(s): 83857394 (6) Shortness of breath Current Visit: No Status: Acute Likely secondary to CHF and acute exacerbation of COPD. Improved. Management per the primary team. SNOMED Code(s): 480766333 (7) Elevated troponin Current Visit: No Status: Acute Cardiology consulted and signed off. SNOMED Code(s): 276216558, 912317616, 742977151 (8) Chronic kidney disease (CKD) Current Visit: No Status: Chronic Serum creatinine elevated consistent with the patient's chronic kidney disease. Monitor renal function closely. Dose adjust medications and avoid nephrotoxins as able. Nephrology consulted and following. Qualifiers: Chronic kidney disease stage: stage 3 (moderate) Qualified Code(s): N18.3 - Chronic kidney disease, stage 3 (moderate) SNOMED Code(s): 283860092 (9) Obesity Current Visit: No Status: Chronic Qualifiers: Obesity type: due to excess calories SNOMED Code(s): 747014205, 067294034 (10) Diabetes mellitus Current Visit: No Status: Chronic Uncontrolled. Hemoglobin A1c 9.9%. Recommend aggressive glucose monitoring and control to promote wound healing and prevent reinfection. Management per the primary team. Qualifiers: Diabetes mellitus type: other specified (including VAL) Diabetes mellitus terminal clerk insulin use: with long-term use Diabetes mellitus complication status: with unspecified complications Qualified Code(s): E13.8 - Other specified diabetes mellitus with unspecified complications; Z79.4 - correction (current) use of insulin SNOMED Code(s): 97524769 - Recommendations Recommendations: continue clindamycin for now duration of treatment depends on clinical picture follow kidney function closely; continue to avoid nephrotoxins will d/w podiatry monitor labs and for drug toxicity weekly ESR and CrP, CBC, BMP Consult Discharge Plan - Plan Referrals: Echo Godfrey [Advanced Practice Nurse] - (Appointment has been requested)
[2018-09-19] MEDS: Melatonin 3 MG TABLET PO PRN (21:22)
--- NOTE | 2018-09-19 23:15 | Nephrology Progress Note ---
Date of Encounter: 09/19/18 Time of Encounter: 12:00 - Assessment and Plan (1) ABELINO (acute kidney injury) Current Visit: No Status: Acute SCr worse at 3.26, GFR 20 due to diuretics UOP noted at 5900cc in the past 24hrs on diuretics, will taper Continue to avoid nephrotoxins if possible (2) Osteomyelitis of third toe of right foot Current Visit: Yes Status: Acute Continue abx per primary s/p toe amputation (3) COPD (chronic obstructive pulmonary disease) Current Visit: No Status: Chronic Qualifiers: COPD type: COPD with acute exacerbation Qualified Code(s): J44.1 - Chronic obstructive pulmonary disease with (acute) exacerbation (4) CHF (congestive heart failure) Current Visit: Yes Status: Acute Qualifiers: Heart failure type: systolic Heart failure chronicity: acute Qualified Code(s): I50.21 - Acute systolic (congestive) heart failure (5) S/P AKA (above knee amputation) unilateral Current Visit: No Status: Acute (6) Anemia Current Visit: Yes Status: Chronic Qualifiers: Qualified Code(s): D64.9 - Anemia, unspecified (7) Acute kidney injury superimposed on CKD Current Visit: Yes Status: Acute Subjective Principal diagnosis: ABELINO on CKD Interval history: Pt seen and examined Objective - Vital Signs Vital signs: Vital Signs Temp Pulse Resp BP Pulse Ox 09/19/18 19:46 98.3 F 82 18 136/83 99 09/19/18 16:00 97.6 F 82 18 159/102 96 09/19/18 12:52 98.0 F 82 17 143/88 98 09/19/18 09:42 97 09/19/18 09:35 97.8 F 83 17 158/107 97 09/19/18 07:34 16 94 09/19/18 04:20 98.1 F 83 16 154/102 94 09/19/18 00:04 97.7 F 83 17 155/81 97 Intake and Output 09/19/18 09/19/18 09/19/18 07:59 15:59 23:59 Intake Total 152 / 1636 392 / 1636 1092 / 1636 Output Total 1030 / 3580 1725 / 3580 825 / 3580 Balance -878 / -1944 -1333 / -1944 267 / -1944 Intake: IV Fluids 152 / 356 152 / 356 52 / 356 Cleocin 300 MG In Dextrose 5% 52 / 156 52 / 156 52 / 156 50 ML @ 50 mls/hr IVPB Q8HR [facility] Rx#:[id number] Zosyn 3.375 GM In 0.9 % Sodium 100 / 200 100 / 200 Chloride (Mini-Bag +) 100 ML @ 25 mls/hr IVPB Q8HR [facility] Rx#: [id number] Oral 240 / 480 240 / 480 Free Water 800 / 800 Output: Urine 1030 / 3580 1725 / 3580 825 / 3580 Other: Meal Lunch 2 sherberts Percent of Meal Consumed 95% 100% Blood Glucose* 240 220 - Lab 09/19/18 00:40 09/19/18 00:40 Consult Discharge Plan - Plan Referrals: Echo Godfrey [Advanced Practice Nurse] - (Appointment has been requested)
[2018-09-19] MEDS: *HR* OxyCODONE Immed Rel 5 MG TABLET PO PRN (23:34)
[2018-09-20 05:14] LABS: Basophils # 0.1 K/mcL (0.0-0.2); Basophils % 0.7 %; Eosinophils # 0.5 K/mcL (0.0-0.6); Eosinophils % 5.6 %; Hematocrit 36.2 % (37.5-50.1); Hemoglobin 11.3 g/dL (12.9-16.9); Immature Granulocytes % 0.4 % (0-4); Lymphocytes # 1.1 K/mcL (0.6-4.6); Lymphocytes % 12.2 %; Mean Corpuscular HGB Conc 31.2 g/dL (31.6-35.5); Mean Corpuscular Hemoglobin 28.8 pg (28.0-33.3); Mean Corpuscular Volume 92.1 fL (83.0-100.0); Mean Platelet Volume 10.3 fL (9.4-12.4); Monocytes # 0.9 K/mcL (0.0-1.3); Monocytes % 9.8 %; Neutrophils # 6.4 K/mcL (1.6-8.9); Platelet Count 220 K/mcL (140-400); Red Blood Count 3.93 M/mcL (4.19-5.50); Red Cell Distribution Width 13.9 % (11.5-14.5); Segmented Neutrophils % 71.3 %
[2018-09-20 05:30] LABS: Calcium 7.9 mg/dL (8.6-10.3); Phosphorous 5.2 mg/dL (2.7-4.5); Potassium 4.1 mEq/L (3.5-5.1)
[2018-09-20] MEDS: Budesonide/Formoterol 160/4.5 1 PUFF INH IH SCH ×2 (07:42→20:23)
[2018-09-20] MEDS: Insulin LISPRO 300 UNITS/3 ML VIAL SQ SCH ×7 (08:42→21:26)
[2018-09-20] MEDS: Clindamycin 300 MG in D5% in Water 50 ML IVPB SCH ×2 (09:46→17:23)
[2018-09-20] MEDS: Insulin DETEMIR 100 UNIT/ML X5UNITS SQ SCH ×2 (09:47→21:27)
[2018-09-20] MEDS: Isosorbide MONOnitrate (24 HR) 30 MG TAB.ER.24H PO SCH (09:47)
[2018-09-20] MEDS: Aspirin 81 MG TAB.CHEW PO SCH (09:47)
[2018-09-20] MEDS: Furosemide 40 MG TABLET PO SCH (09:47)
[2018-09-20] MEDS: *HR* Rivaroxaban 15 MG TABLET PO SCH (09:47)
[2018-09-20] MEDS: *HR* LORazepam 0.5 MG TABLET PO PRN ×2 (09:50→21:27)
--- NOTE | 2018-09-20 10:23 | Infectious Disease Progress No ---
ID Progress Note Date of Encounter: 09/20/18 Time of Encounter: 09:30 - Subjective Subjective: Patient seen and examined. No acute events noted overnight. Patient states overall he feels okay. Denies pain at this time. Denies fevers, chills, rigors. Denies chest pain. Reports PAULINE improved and he had a coughing spell this morning productive of a lot of sputum. Denies nausea, vomiting, diarrhea, or constipation. Denies abdominal pain or urinary complaints. States his jeri etite is okay. He is requesting something to drink. Denies oral thrush or new skin lesions. - Objective CBC & Chem 7: 09/21/18 10:17 09/21/18 10:17 - Exam Vitals: Temp Pulse Resp BP Pulse Ox 97.9 F 82 16 155/97 97 09/20/18 07:53 09/20/18 07:53 09/20/18 07:53 09/20/18 07:53 09/20/18 07:53 Exam: Head: Atraumatic, normal inspection, normocephalic. Eye: EOMI, PERRLA, no scleral icterus noted. ENT: Mucous membranes moist. No odontogenic infection noted. Neck: Normal inspection, no meningismus. Respiratory: Clear to auscultation. No rales, respiratory distress, rhonchi, or wheezes noted. Cardiovascular: Regular rate and rhythm, S1 and S2 audible. No murmurs, rubs, or gallops. GI: Firm, distended, normal bowel sounds. Tender. Extremities:No joint swelling or tenderness noted. Left AKA stump without abnormality. 1+ edema noted to the right lower extremity. Multiple superficial scabbed lesions noted to the anterior aspect of the right lower leg. Right foot and right ankle dressings clean, dry, and intact. Back: Normal inspection. No vertebral tenderness noted. Neurological: Alert, oriented 3, no focal deficits. Psychiatric: normal affect, normal mood. Skin: Dry, intact, warm. Normal color. Folliculitis noted to the chest and abdomen, improved. - Assessment and Plan (1) Leukocytosis Current Visit: Yes Status: Resolved Likely reactive from steroids. Resolved. No other SIRS criteria. Continue to trend. Qualifiers: Leukocytosis type: unspecified Qualified Code(s): D72.829 - Elevated white blood cell count, unspecified SNOMED Code(s): 878169494, 067726741 (2) Osteomyelitis of foot Current Visit: No Status: Acute Location: Foot third toe. Causative organism: Group B strep and group G strep and MRSA per wound cultures. Noted on x-ray of the right foot. Likely secondary to chronic ulcer. ESR elevated at 72 with a CRP of 16. Podiatry consulted. Status post amputation right foot toe #3 at [facility] 09/16/[address] Valdivia. Operative note reviewed. It appears all infected tissue and bone were removed. Discussed with the podiatry team who agrees with oral antibiotics on discharge. Currently on IV Clindamycin. SNOMED Code(s): 17516229, 992612834 (3) Foot ulcer Current Visit: No Status: Acute Occasion: Right foot third toe. Etiology: Not exactly clear. Diabetic foot ulcer versus trauma versus other. TAL studies completed. Studies are inconclusive due to arterial calcinosis. Podiatry consulted. Status post right 3rd toe amputation. Qualifiers: Laterality: left Non-pressure ulcer stage: limited to breakdown of skin Qualified Code(s): L97.521 - Non-pressure chronic ulcer of other part of left foot limited to breakdown of skin SNOMED Code(s): 68037416 (4) Ankle ulcer Current Visit: Yes Status: Acute Patient: Medial aspect right ankle. Likely secondary to recent trauma. Clinically does not appear infected. Wound care per the podiatry team. Qualifiers: Laterality: right Non-pressure ulcer stage: with fat layer exposed Qualified Code(s): L97.312 - Non-pressure chronic ulcer of right ankle with fat layer exposed SNOMED Code(s): 994034603 (5) CHF (congestive heart failure) Current Visit: Yes Status: Acute TTE shows an EF of 40-45%. Cardiology consult and signed off. Qualifiers: Heart failure type: systolic Heart failure chronicity: acute Qualified Code(s): I50.21 - Acute systolic (congestive) heart failure SNOMED Code(s): 07157142 (6) Shortness of breath Current Visit: No Status: Acute Likely secondary to CHF and acute exacerbation of COPD. Improved. Management per the primary team. SNOMED Code(s): 381681834 (7) Elevated troponin Current Visit: No Status: Acute Cardiology consulted and signed off. SNOMED Code(s): 599474032, 961944913, 543167533 (8) Chronic kidney disease (CKD) Current Visit: No Status: Chronic Serum creatinine elevated consistent with the patient's chronic kidney disease. Monitor renal function closely. Dose adjust medications and avoid nephrotoxins as able. Nephrology consulted and following. Qualifiers: Chronic kidney disease stage: stage 3 (moderate) Qualified Code(s): N18.3 - Chronic kidney disease, stage 3 (moderate) SNOMED Code(s): 467251745 (9) Obesity Current Visit: No Status: Chronic Qualifiers: Obesity type: due to excess calories SNOMED Code(s): 617659610, 263398585 (10) Diabetes mellitus Current Visit: No Status: Chronic Uncontrolled. Hemoglobin A1c 9.9%. Recommend aggressive glucose monitoring and control to promote wound healing and prevent reinfection. Management per the primary team. 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 Continue clindamycin IV for now. Wound care per the podiatry team. Duration of treatment up until the clinical picture, but can likely transition to PO Clindamycin to complete 14 day post-op course when ready for discharge. Treat through 09/29/18. Monitor renal function and dose adjust antibiotics. Consult Discharge Plan - Plan Referrals: Echo Godfrey [Advanced Practice Nurse] - (Appointment has been requested) - Attending Attestation I have personally performed a face to face evaluation on this patient. I have reviewed and agree with the care plan. History and Exam by me shows: Assessment and plan: 1.Osteomyelitis of the foot third toe causative organism not clear 2.Foot ulcer has been present for weeks 3.Diabetes mellitus type 2 4.Congestive heart failure 5.COPD Recommendations: Await intra-op cultures. Continue clindamycin IV for now. Wound care per the podiatry team. Duration of treatment up until the clinical picture, but can likely transition to PO Clindamycin to complete 14 day post-op course when ready for discharge. Treat through 09/29/18. Monitor renal function and dose adjust antibiotics.
--- NOTE | 2018-09-20 11:31 | Podiatry Progress Note ---
Date of Encounter: 09/20/18 Time of Encounter: 10:00 - Assessment and Plan (1) Osteomyelitis of third toe of right foot Current Visit: Yes Status: Acute s/p amputation of toe #3 right on 09/16 PLAN: Incision line healing well and without complication Dressing removed, cleansed site with saline, painted with betadine, adaptic 4x4 and kerlix bulk dressing applied Secured with RAVEN wrap Patient to keep dressing CDI Will order post operative shoe to be brought to bedside, to wear at all times with transfer. Verbalized undestanding Patient reports he has wheelchair at home and is able to care for himself with assistance from ex who he lives with reports surgical margins were free from infection Bone and wound cultures were sent intra op Group B, Group C and MRSA Patient currently on IV clindamycin From podiatry standpoint ok to be discharged on oral antibiotics Spoke with ID, recommendations appreciated. BC (-) Will need follow up appointment in wound care clinic with 1 week following discharge (2) Chronic ulcer of ankle with fat layer exposed Current Visit: Yes Status: Chronic Healing chronic ulcer noted right medial ankle, minimal erythema around ulcer, wound base pink, no lymphangitis, no odor, minimal serosanguineous drainage, no cellulitis, no tunneling, no undermining -1/4 PT/DP pulse -Cap refill less than 3 seconds Adaptic applied Dry bulk dressing Monitor for any pressure to area. Will be placed to post operative shoe. Qualifiers: Laterality: right Qualified Code(s): L97.312 - Non-pressure chronic ulcer of right ankle with fat layer exposed Subjective Principal diagnosis: ABELINO on CKD Interval history: Patient is alert and oriented x 3, very pleasant, and no acute distress noted. Patient denies any chest pain, shortness or breath, or calf pain. He denies any fever, chills, n/v/d. States his anxiety is high at this time and he does not know why. Patient is s/p amputation of toe #3 [facility]. Reports he is doing well and without pain. States he did hit his foot last night going to the bathroom. States there was no bleeding that he knew of but states they did have to re-wrap the dressing. Objective - Vital Signs Vital Signs: Vital Signs Temp Pulse Resp BP Pulse Ox 09/20/18 07:53 97.9 F 82 16 155/97 97 09/20/18 05:15 98.5 F 76 18 143/80 98 09/19/18 19:46 98.3 F 82 18 136/83 99 09/19/18 16:00 97.6 F 82 18 159/102 96 09/19/18 12:52 98.0 F 82 17 143/88 98 Intake and Output 09/19/18 09/20/18 09/20/18 23:59 07:59 15:59 Intake Total 1092 / 1636 52 Output Total 825 / 3580 600 / 600 Balance 267 / -1944 52 / -548 -600 / -548 Intake: IV Fluids 52 / 356 Cleocin 300 MG In Dextrose 5% 50 ML @ 50 mls/hr IVPB Q8HR [facility] Rx#:[id number] Oral 240 / 480 Free Water 800 / 800 Output: Urine 825 / 3580 600 / 600 Other: Meal 2 sherberts Percent of Meal Consumed 100% Blood Glucose* 220 126 - Exam Exam: Constitutional: Alert and oriented x 3 male, well nourished, no acute distress noted Vascular: 1/4 PT/DP pulses, 1/4 edema, cap refill less than 3 seconds, left AKA Neurological: Abnormal plantar reflex, absent protective sensation Dermatological: Healing chronic ulcer noted right medial ankle, no remaining erythema around ulcer, wound base pink, no lymphangitis, no odor, minimal serosanguineous drainage, no cellulitis, no tunneling, no undermining. Right 1st and 2nd toes amputated. s/p amputation of right toe #3, surgical incision intact. Healing without complication. Dry bloody drainage surrounding incision line without dehiscence or signs of active bleeding. No drainage. No clinical signs of infection Musculoskeletal: 4/5 muscle strength, normal tone - Lab Result Diagrams: 09/20/18 04:32 09/20/18 04:32 Labs: Abnormal lab results WBC 11.2 K/mcL (4.3-11.1) H 09/18/18 04:20 RBC 3.93 M/mcL (4.19-5.50) L 09/20/18 04:32 Hgb 11.3 g/dL (12.9-16.9) L 09/20/18 04:32 Hct 36.2 % (37.5-50.1) L 09/20/18 04:32 MCHC 31.2 g/dL (31.6-35.5) L 09/20/18 04:32 ESR 72 mm/hr (0-10) H 09/13/18 17:56 PT 12.6 Seconds (9.4-12.1) H 09/13/18 09:10 APTT 36.4 Seconds (26.0-36.0) H 09/13/18 09:10 Chloride 111 mEq/L (98-107) H 09/17/18 03:50 Carbon Dioxide 30 mEq/L (23-29) H 09/19/18 00:40 BUN 32 mg/dL (6-20) H 09/20/18 04:32 3.04 mg/dL (0.70-1.30) H 09/20/18 04:32 Est GFR ( Amer) 26 (> 60) L 09/20/18 04:32 Est GFR (Non-Af Amer) 22 (> 60) L 09/20/18 04:32 Glucose 168 mg/dL (70-105) H 09/20/18 04:32 POC Glucose 126 mg/dL (70-99) H 09/20/18 07:51 9.9 % (-5.6) H 09/12/18 15:39 307 (280-300) H 09/19/18 00:40 Calcium 7.9 mg/dL (8.6-10.3) L 09/20/18 04:32 Phosphorus 5.2 mg/dL (2.7-4.5) H 09/20/18 04:32 113 Units/L (34-104) H 09/13/18 00:58 0.05 ng/mL (< 0.04) H* 09/13/18 09:10 16 mg/L (Less than 10) H 09/13/18 17:56 B-Natriuretic Peptide 338 pg/mL (Less than 100) H 09/15/18 05:48 5.4 g/dL (6.4-8.9) L 09/13/18 00:58 2.4 g/dL (3.5-5.7) L 09/15/18 05:48 0.7 (1.1-2.2) L 09/13/18 00:58 35 mg/dL (40-59) L 09/13/18 00:58 25-OH Vitamin D Total 10 ng/mL (30-80) L 09/15/18 05:48 PTH Intact 175.4 pg/ml (10.0-65.0) H 09/15/18 05:48 Hep Bs Antibody < 3.10 mIU/mL (10.00-) L 09/15/18 05:48 Microbiology, Last 48 Hours 09/14/18 17:05 Anaerobic Culture - Final Right Third Toe No anaerobes were recovered. 09/14/18 17:05 Wound Culture - Final Right Third Toe Strep agalactiae - (Group B) Group G Streptococcus Methicillin Resistant S.aureus 09/14/18 16:02 Blood Culture - Final Peripheral Venipuncture No growth. Final report. 09/14/18 16:02 Blood Culture - Final Peripheral Venipuncture No growth. Final report. Consult Discharge Plan - Plan Referrals: Echo Godfrey [Advanced Practice Nurse] - (Appointment has been requested)
--- NOTE | 2018-09-20 12:49 | Internal Med Progress Note ---
Hospitalist Progress Note - Encounter Date of Encounter: 09/20/18 Time of Encounter: 12:47 - Subjective Interval History: Pt seen and examined earlier today. reports of worsening anxiety due to which he was given Hydroxyzine 25mg PO, which improved his anxiety significantly. Resting in bed and breathing comfortably on nasal cannula. Denies any chest pain or shortness of breath at this time. Reports of being wheelchair bound at baseline. Ten point ROS is negative except as listed above - Exam Vitals: Temp Pulse Resp BP Pulse Ox 98.0 F 82 16 147/92 98 09/20/18 12:13 09/20/18 12:13 09/20/18 12:13 09/20/18 12:13 09/20/18 12:13 Exam: Gen: AAO x 3, morbidly obese, no acute distress Chest: Diminished breath sounds B/L, no wheezing, no rales Heart: S1S2+ RRR No murmurs Abd: Soft, NT, BS +, No organomegaly Ext: edema in right LE, right foot dressing intact, No calf tenderness, left AKA Neuro : No focal deficits Skin: No rash. Rest of the clinical exam is noncontributory - Assessment and Plan (1) Osteomyelitis of third toe of right foot Current Visit: Yes Status: Acute Assessment and Plan: Podiatry and ID on board, evaluation appreciated POD #3: amputation of right 3rd toe at the level of the metatarsophalangeal joint (date of surgery:09/16/18) blood cultures report no growth thus far wound cultures reporting group B strep, Group G strep, and MRSA continue Clindamycin as per sensitivities ID input appreciated continue pain control post-op wound care as per podiatry (2) CHF (congestive heart failure) Current Visit: Yes Status: Acute Assessment and Plan: echocardiogram - showed LVEF @ 40-45%, with moderate global and segmental LV systolic dysfunction.. Indeterminate diastolic function. He does have moderate pulmonary hypertension. Small pericardial effusion noticed without tamponade. His volume status improving slowly will continue Lasix 40mg PO daily cardiology signed off Cont ASA, Coreg, Lipitor and Imdur fluid restriction diet monitor daily weight, strict I/Os. noted to have 14kg weight loss since admission RN requested to monitor daily weights (3) Acute kidney injury superimposed on CKD Current Visit: Yes Status: Acute Assessment and Plan: Likely secondary to cardio renal syndrome renal function improved from previous day will f/u with nephrology Strict I & O Fluid restriction avoid nephrotoxic medications will closely monitor renal function continue Lasix 40mg PO daily (4) Elevated troponin Current Visit: No Status: Acute Assessment and Plan: His serial trop slightly elevated @ 0.05 and flat mostly due to demand ischemia (5) Diabetes mellitus Current Visit: No Status: Chronic Assessment and Plan: BG adequately controlled continue basal and sliding scale insulin coverage monitor FS and BG ADA diet (6) Essential hypertension Current Visit: No Status: Chronic Assessment and Plan: BP within acceptable range continue current management will closely monitor, if remains hypertensive, will adjust antihypertensive medications Hydralazine 10mg IV q6h PRN SBP>160 closely monitor BP (7) PAF (paroxysmal atrial fibrillation) Current Visit: Yes Status: Chronic Assessment and Plan: Rate controlled with Coreg on Xarelto for anti coag (8) Anxiety disorder Current Visit: No Status: Chronic Assessment and Plan: continue home medication (9) Anemia Current Visit: Yes Status: Chronic Assessment and Plan: H&H low but acceptable anemia of chronic disease secondary to CKD no acute bleeding reported will closely monitor (10) Hyperlipidemia Current Visit: Yes Status: Chronic Assessment and Plan: Continue home medication (11) Cellulitis of right leg Current Visit: Yes Status: Acute Assessment and Plan: ID on board, evaluation appreciated (12) Chronic ulcer of ankle with fat layer exposed Current Visit: Yes Status: Chronic (13) Morbid obesity with BMI of 45.0-49.9, adult Current Visit: No Status: Chronic (14) DVT prophylaxis Current Visit: No Status: Chronic Assessment and Plan: On Xarelto - Time Spent with Patient Total time spent is greater than 50% in coordination of care (as documented) at patient's floor/unit and/or counseling patient: 25 - 35 minutes Plan of Care Discussed with: patient (patient/RN/pharmacist/case management) Internal Medicine: Result - Labs CBC & Chem 7: 09/20/18 04:32 09/20/18 04:32 Labs: Short CBC 09/20/18 Range/Units 04:32 WBC 9.0 (4.3-11.1) K/mcL Hgb 11.3 L (12.9-16.9) g/dL Hct 36.2 L (37.5-50.1) % Plt Count 220 (140-400) K/mcL Neutrophils # 6.4 (1.6-8.9) K/mcL BMP 09/20/18 04:32 Sodium 139 Potassium 4.1 Chloride 107 Carbon Dioxide 29 BUN 32 H Creatinine 3.04 H Glucose 168 H Calcium 7.9 L - ABG Interpretation ABG results: PT/INR, D-dimer PT 12.6 Seconds (9.4-12.1) H 09/13/18 09:10 Consult Discharge Plan - Plan Referrals: Echo Godfrey [Advanced Practice Nurse] - (Appointment has been requested) (2) CHF (congestive heart failure) Qualifiers: Heart failure type: systolic Heart failure chronicity: acute Qualified Code(s): I50.21 - Acute systolic (congestive) heart failure (5) Diabetes mellitus Qualifiers: Diabetes mellitus type: other specified (including VAL) Diabetes mellitus fdc insulin use: with fdc use Diabetes mellitus complication status: with unspecified complications Qualified Code(s): E13.8 - Other specified diabetes mellitus with unspecified complications; Z79.4 - senior care (current) use of insulin (8) Anxiety disorder Qualifiers: Anxiety disorder type: unspecified anxiety disorder Qualified Code(s): F41.9 - Anxiety disorder, unspecified (9) Anemia Qualifiers: Qualified Code(s): D64.9 - Anemia, unspecified (10) Hyperlipidemia Qualifiers: Hyperlipidemia type: unspecified Qualified Code(s): E78.5 - Hyperlipidemia, unspecified (12) Chronic ulcer of ankle with fat layer exposed Qualifiers: Laterality: right Qualified Code(s): L97.312 - Non-pressure chronic ulcer of right ankle with fat layer exposed
[2018-09-20] MEDS: Melatonin 3 MG TABLET PO PRN (21:27)
--- NOTE | 2018-09-20 22:07 | Nephrology Progress Note ---
Date of Encounter: 09/20/18 Time of Encounter: 12:00 - Assessment and Plan (1) ABELINO (acute kidney injury) Current Visit: No Status: Acute SCr better today at 3.0, GFR 22 with reduced diuretics UOP noted at 3580cc in the past 24hrs despite diuretics taper, will monitor Continue to avoid nephrotoxins if possible (2) Osteomyelitis of third toe of right foot Current Visit: Yes Status: Acute (3) COPD (chronic obstructive pulmonary disease) Current Visit: No Status: Chronic Qualifiers: COPD type: COPD with acute exacerbation Qualified Code(s): J44.1 - Chronic obstructive pulmonary disease with (acute) exacerbation (4) CHF (congestive heart failure) Current Visit: Yes Status: Acute Qualifiers: Heart failure type: systolic Heart failure chronicity: acute Qualified Code(s): I50.21 - Acute systolic (congestive) heart failure (5) S/P AKA (above knee amputation) unilateral Current Visit: No Status: Acute (6) Anemia Current Visit: Yes Status: Chronic Qualifiers: Qualified Code(s): D64.9 - Anemia, unspecified (7) Acute kidney injury superimposed on CKD Current Visit: Yes Status: Acute Subjective Principal diagnosis: ABELINO on CKD Interval history: Pt seen and examined feeling "pretty good" with no new complaints Objective - Vital Signs Vital signs: Vital Signs Temp Pulse Resp BP Pulse Ox 09/20/18 20:43 98.0 F 83 16 170/103 97 09/20/18 20:23 16 97 09/20/18 17:04 97.9 F 85 16 143/90 98 09/20/18 12:13 98.0 F 82 16 147/92 98 09/20/18 07:53 97.9 F 82 16 155/97 97 09/20/18 05:15 98.5 F 76 18 143/80 98 Intake and Output 09/20/18 09/20/18 09/20/18 07:59 15:59 23:59 Intake Total 52 / 156 52 / 156 52 / 156 Output Total 4025 / 5050 1025 / 5050 Balance 52 / -4894 -3973 / -4894 -973 / -4894 Intake: IV Fluids 52 / 156 52 / 156 52 / 156 Cleocin 300 MG In Dextrose 5% 52 / 156 52 / 156 52 / 156 50 ML @ 50 mls/hr IVPB Q8HR [facility] Rx#:[id number] Output: Urine 4025 / 5050 1025 / 5050 Other: Blood Glucose* 126 164 59 - Lab 09/20/18 04:32 09/20/18 04:32 Consult Discharge Plan - Plan Referrals: Echo Godfrey [Advanced Practice Nurse] - (Appointment has been requested)
[2018-09-21] MEDS: Clindamycin 300 MG in D5% in Water 50 ML IVPB SCH ×4 (00:40→23:59)
[2018-09-21] MEDS: *HR* OxyCODONE Immed Rel 5 MG TABLET PO PRN (01:08)
[2018-09-21] MEDS: Budesonide/Formoterol 160/4.5 1 PUFF INH IH SCH ×2 (07:22→20:07)
[2018-09-21] MEDS: Aspirin 81 MG TAB.CHEW PO SCH (09:09)
[2018-09-21] MEDS: Isosorbide MONOnitrate (24 HR) 30 MG TAB.ER.24H PO SCH (09:09)
[2018-09-21] MEDS: Insulin LISPRO 300 UNITS/3 ML VIAL SQ SCH ×7 (09:09→20:13)
[2018-09-21] MEDS: Furosemide 40 MG TABLET PO SCH (09:09)
[2018-09-21] MEDS: *HR* Rivaroxaban 15 MG TABLET PO SCH (09:09)
[2018-09-21] MEDS: Insulin DETEMIR 100 UNIT/ML X5UNITS SQ SCH ×2 (10:30→20:13)
[2018-09-21] MEDS: amLODIPine 5 MG TABLET PO SCH (10:31)
--- NOTE | 2018-09-21 11:09 | Infectious Disease Progress No ---
ID Progress Note Date of Encounter: 09/21/18 Time of Encounter: 09:20 - Subjective Subjective: Patient seen and examined. No acute events noted overnight. Patient states overall he feels okay. Reports mild pain in the right foot at this time. Denies fevers, chills, rigors. Denies chest pain. Reports PAULINE at rest and states he hasn't been up to know if it worsens with exertion. Denies cough this morning. Denies nausea, vomiting, diarrhea, or constipation. Denies abdominal pain or urinary complaints. States his appetite is okay. Last BM last night. Denies oral thrush or new skin lesions. - Objective CBC & Chem 7: 09/22/18 09:52 09/22/18 09:52 - Exam Vitals: Temp Pulse Resp BP Pulse Ox 97.5 F L 81 18 160/103 98 09/21/18 07:50 09/21/18 07:50 09/21/18 07:50 09/21/18 07:50 09/21/18 07:50 Exam: Head: Atraumatic, normal inspection, normocephalic. Eye: EOMI, PERRLA, no scleral icterus noted. ENT: Mucous membranes moist. No odontogenic infection noted. Neck: Normal inspection, no meningismus. Respiratory: Clear to auscultation. No rales, respiratory distress, rhonchi, or wheezes noted. Cardiovascular: Regular rate and rhythm, S1 and S2 audible. No murmurs, rubs, or gallops. GI: Firm, distended, normal bowel sounds. Tender. Extremities:No joint swelling or tenderness noted. Left AKA stump without abnormality. 1+ edema noted to the right lower extremity. Multiple superficial scabbed lesions noted to the anterior aspect of the right lower leg. Right foot and right ankle dressings clean, dry, and intact. Back: Normal inspection. No vertebral tenderness noted. Neurological: Alert, oriented 3, no focal deficits. Psychiatric: normal affect, normal mood. Skin: Dry, intact, warm. Normal color. No rashes. - Assessment and Plan (1) Leukocytosis Current Visit: Yes Status: Resolved Likely reactive from steroids. Resolved. No other SIRS criteria. Continue to trend. Qualifiers: Leukocytosis type: unspecified Qualified Code(s): D72.829 - Elevated white blood cell count, unspecified SNOMED Code(s): 400616460, 864350978 (2) Osteomyelitis of foot Current Visit: No Status: Acute Location: Foot third toe. Causative organism: Group B strep and group G strep and MRSA per wound cultures. Noted on x-ray of the right foot. Likely secondary to chronic ulcer. ESR elevated at 72 with a CRP of 16. Podiatry consulted. Status post amputation right foot toe #3 at [facility] 09/16/[address] Valdivia. Operative note reviewed. It appears all infected tissue and bone were removed. Discussed with the podiatry team who agrees with oral antibiotics on discharge. Currently on IV Clindamycin. SNOMED Code(s): 85066916, 078490133 (3) Foot ulcer Current Visit: No Status: Acute Occasion: Right foot third toe. Etiology: Not exactly clear. Diabetic foot ulcer versus trauma versus other. TAL studies completed. Studies are inconclusive due to arterial calcinosis. Podiatry consulted. Status post right 3rd toe amputation. Qualifiers: Laterality: left Non-pressure ulcer stage: limited to breakdown of skin Qualified Code(s): L97.521 - Non-pressure chronic ulcer of other part of left foot limited to breakdown of skin SNOMED Code(s): 29185405 (4) Ankle ulcer Current Visit: Yes Status: Acute Patient: Medial aspect right ankle. Likely secondary to recent trauma. Clinically does not appear infected. Wound care per the podiatry team. Qualifiers: Laterality: right Non-pressure ulcer stage: with fat layer exposed Qualified Code(s): L97.312 - Non-pressure chronic ulcer of right ankle with fat layer exposed SNOMED Code(s): 567325612 (5) CHF (congestive heart failure) Current Visit: Yes Status: Acute TTE shows an EF of 40-45%. Cardiology consult and signed off. Qualifiers: Heart failure type: systolic Heart failure chronicity: acute Qualified Code(s): I50.21 - Acute systolic (congestive) heart failure SNOMED Code(s): 77617754 (6) Shortness of breath Current Visit: No Status: Acute Likely secondary to CHF and acute exacerbation of COPD. Improved. Management per the primary team. SNOMED Code(s): 024341525 (7) Elevated troponin Current Visit: No Status: Acute Cardiology consulted and signed off. SNOMED Code(s): 532446914, 947718444, 417762968 (8) Chronic kidney disease (CKD) Current Visit: No Status: Chronic Serum creatinine elevated consistent with the patient's chronic kidney disease. Monitor renal function closely. Dose adjust medications and avoid nephrotoxins as able. Nephrology consulted and following. Qualifiers: Chronic kidney disease stage: stage 3 (moderate) Qualified Code(s): N18.3 - Chronic kidney disease, stage 3 (moderate) SNOMED Code(s): 476801056 (9) Obesity Current Visit: No Status: Chronic Qualifiers: Obesity type: due to excess calories SNOMED Code(s): 129880834, 128584663 (10) Diabetes mellitus Current Visit: No Status: Chronic Uncontrolled. Hemoglobin A1c 9.9%. Recommend aggressive glucose monitoring and control to promote wound healing and prevent reinfection. Management per the primary team. Qualifiers: Diabetes mellitus type: other specified (including VAL) Diabetes mellitus jail insulin use: with jail use Diabetes mellitus complication status: with unspecified complications Qualified Code(s): E13.8 - Other specified diabetes mellitus with unspecified complications; Z79.4 - terminal operator (current) use of insulin SNOMED Code(s): 46850052 - Recommendations Recommendations: Await intra-op cultures and pathology. Continue clindamycin IV for now. Wound care per the podiatry team. Duration of treatment up until the clinical picture, but can likely transition to PO Clindamycin to complete 14 day post-op course when ready for discharge. Treat through 09/29/18. Monitor renal function and dose adjust antibiotics. Consult Discharge Plan - Plan Referrals: Echo Godfrey [Advanced Practice Nurse] - (Appointment has been requested) - Attending Attestation I have personally performed a face to face evaluation on this patient. I have reviewed and agree with the care plan. History and Exam by me shows: Assessment and plan: 1.Osteomyelitis of the foot third toe causative organism not clear 2.Foot ulcer has been present for weeks 3.Diabetes mellitus type 2 4.Congestive heart failure 5.COPD Recommendations: Await intra-op cultures. Continue clindamycin IV for now. Wound care per the podiatry team. Duration of treatment up until the clinical picture, but can likely transition to PO Clindamycin to complete 14 day post-op course when ready for discharge. Treat through 09/29/18. Monitor renal function and dose adjust antibiotics.
[2018-09-21 11:32] LABS: Basophils % 0.5 %; Eosinophils # 0.4 K/mcL (0.0-0.6); Eosinophils % 5.2 %; Hematocrit 35.9 % (37.5-50.1); Hemoglobin 11.4 g/dL (12.9-16.9); Immature Granulocytes % 0.5 % (0-4); Lymphocytes # 0.9 K/mcL (0.6-4.6); Lymphocytes % 11.8 %; Mean Corpuscular HGB Conc 31.8 g/dL (31.6-35.5); Mean Corpuscular Hemoglobin 28.8 pg (28.0-33.3); Mean Corpuscular Volume 90.7 fL (83.0-100.0); Mean Platelet Volume 10.5 fL (9.4-12.4); Monocytes # 0.6 K/mcL (0.0-1.3); Monocytes % 7.6 %; Neutrophils # 5.8 K/mcL (1.6-8.9); Platelet Count 214 K/mcL (140-400); Red Blood Count 3.96 M/mcL (4.19-5.50); Red Cell Distribution Width 13.8 % (11.5-14.5); Segmented Neutrophils % 74.4 %
[2018-09-21 11:51] LABS: Magnesium 2.1 mg/dL (1.6-2.6); Phosphorous 4.7 mg/dL (2.7-4.5); Potassium 4.1 mEq/L (3.5-5.1)
--- NOTE | 2018-09-21 12:01 | Internal Med Progress Note ---
Hospitalist Progress Note - Encounter Date of Encounter: 09/21/18 Time of Encounter: 11:58 - Subjective Interval History: Patient seen and examined earlier this morning. He is resting in bed and saturating well on nasal cannula. He has been refusing physical therapy and been noncompliant with fluid restriction. He has been refusing daily weight monitoring as well. Denies any shortness of breath or chest pain at this time. extensive counseling was provided in regards to the need to remain compliant with his current treatment plan. He gets agitated with this conversation and asks to be left alone. Ten point ROS is negative except as listed above Discharge pending stabilization in in renal function - Exam Vitals: Temp Pulse Resp BP Pulse Ox 97.5 F L 81 18 160/103 98 09/21/18 07:50 09/21/18 07:50 09/21/18 07:50 09/21/18 07:50 09/21/18 07:50 Exam: Gen: AAO x 3, morbidly obese, no acute distress Chest: Diminished breath sounds B/L, no wheezing, no rales Heart: S1S2+ RRR No murmurs Abd: Soft, NT, BS +, No organomegaly Ext: edema in right LE, right foot dressing intact, No calf tenderness, left AKA Neuro : No focal deficits Skin: No rash. Rest of the clinical exam is noncontributory - Assessment and Plan (1) Osteomyelitis of third toe of right foot Current Visit: Yes Status: Acute Assessment and Plan: Podiatry and ID on board, evaluation appreciated POD #4: amputation of right 3rd toe at the level of the metatarsophalangeal joint (date of surgery:09/16/18) blood cultures report no growth thus far wound cultures reporting group B strep, Group G strep, and MRSA continue Clindamycin as per sensitivities ID input appreciated continue pain control post-op wound care as per podiatry (2) CHF (congestive heart failure) Current Visit: Yes Status: Acute Assessment and Plan: echocardiogram - showed LVEF @ 40-45%, with moderate global and segmental LV systolic dysfunction.. Indeterminate diastolic function. He does have moderate pulmonary hypertension. Small pericardial effusion noticed without tamponade. His volume status improving slowly will continue Lasix 40mg PO daily cardiology signed off Cont ASA, Coreg, Lipitor and Imdur fluid restriction diet monitor daily weight, strict I/Os. noted to have 14kg weight loss since admission (last weight recording was on ). pt requested to allow daily weight checks. RN requested to obtain daily weight checks with strict I/Os (3) Acute kidney injury superimposed on CKD Current Visit: Yes Status: Acute Assessment and Plan: Likely secondary to cardio renal syndrome renal function improved from previous day will f/u with nephrology Strict I & O Fluid restriction avoid nephrotoxic medications will closely monitor renal function continue Lasix 40mg PO daily will f/u with nephrology for lasix dosing on discharge (4) Elevated troponin Current Visit: No Status: Acute Assessment and Plan: His serial trop slightly elevated @ 0.05 and flat mostly due to demand ischemia (5) Diabetes mellitus Current Visit: No Status: Chronic Assessment and Plan: continue basal and sliding scale insulin coverage monitor FS and BG ADA diet noted to have an episode of hypoglycemia yesterday evening, now resolve and is hyperglycemic, will closely monitor (6) Essential hypertension Current Visit: No Status: Chronic Assessment and Plan: Hypertensive this morning awaiting repeat BP after administration of morning medications continue current management will closely monitor, if remains hypertensive, will adjust antihypertensive medications Hydralazine 10mg IV q6h PRN SBP>160 closely monitor BP (7) PAF (paroxysmal atrial fibrillation) Current Visit: Yes Status: Chronic Assessment and Plan: Rate controlled with Coreg on Xarelto for anti coag (8) Anxiety disorder Current Visit: No Status: Chronic Assessment and Plan: continue home medication (9) Anemia Current Visit: Yes Status: Chronic Assessment and Plan: H&H low but acceptable anemia of chronic disease secondary to CKD no acute bleeding reported will closely monitor (10) Hyperlipidemia Current Visit: Yes Status: Chronic Assessment and Plan: Continue home medication (11) Cellulitis of right leg Current Visit: Yes Status: Acute Assessment and Plan: ID on board, evaluation appreciated (12) Chronic ulcer of ankle with fat layer exposed Current Visit: Yes Status: Chronic (13) Morbid obesity with BMI of 45.0-49.9, adult Current Visit: No Status: Chronic (14) DVT prophylaxis Current Visit: No Status: Chronic Assessment and Plan: On Xarelto - Time Spent with Patient Total time spent is greater than 50% in coordination of care (as documented) at patient's floor/unit and/or counseling patient: 25 - 35 minutes Plan of Care Discussed with: patient (patient/RN/consulting provider/pharmacist/case management) Internal Medicine: Result - Labs CBC & Chem 7: 09/21/18 10:17 09/21/18 10:17 Labs: Short CBC 09/21/18 Range/Units 10:17 WBC 7.7 (4.3-11.1) K/mcL Hgb 11.4 L (12.9-16.9) g/dL Hct 35.9 L (37.5-50.1) % Plt Count 214 (140-400) K/mcL Neutrophils # 5.8 (1.6-8.9) K/mcL BMP 09/21/18 10:17 Sodium 139 Potassium 4.1 Chloride 106 Carbon Dioxide 29 BUN 31 H Creatinine 2.71 H Glucose 282 H Calcium 8.0 L - ABG Interpretation ABG results: PT/INR, D-dimer PT 12.6 Seconds (9.4-12.1) H 09/13/18 09:10 Consult Discharge Plan - Plan Referrals: Echo Godfrey [Advanced Practice Nurse] - (Appointment has been requested) (2) CHF (congestive heart failure) Qualifiers: Qualified Code(s): I50.21 - Acute systolic (congestive) heart failure (5) Diabetes mellitus Qualifiers: Qualified Code(s): E13.8 - Other specified diabetes mellitus with unspecified complications; Z79.4 - correction (current) use of insulin (8) Anxiety disorder Qualifiers: Qualified Code(s): F41.9 - Anxiety disorder, unspecified (9) Anemia Qualifiers: Qualified Code(s): D64.9 - Anemia, unspecified (10) Hyperlipidemia Qualifiers: Qualified Code(s): E78.5 - Hyperlipidemia, unspecified (12) Chronic ulcer of ankle with fat layer exposed Qualifiers: Qualified Code(s): L97.312 - Non-pressure chronic ulcer of right ankle with fat layer exposed
[2018-09-21] MEDS: *HR* LORazepam 0.5 MG TABLET PO PRN ×2 (14:46→20:39)
[2018-09-21] MEDS: Melatonin 3 MG TABLET PO PRN (20:39)
--- NOTE | 2018-09-21 23:11 | Nephrology Progress Note ---
Date of Encounter: 09/21/18 Time of Encounter: 12:00 - Assessment and Plan (1) ABELINO (acute kidney injury) Current Visit: No Status: Acute (2) Osteomyelitis of third toe of right foot Current Visit: Yes Status: Acute (3) COPD (chronic obstructive pulmonary disease) Current Visit: No Status: Chronic Qualifiers: COPD type: COPD with acute exacerbation Qualified Code(s): J44.1 - Chronic obstructive pulmonary disease with (acute) exacerbation (4) CHF (congestive heart failure) Current Visit: Yes Status: Acute Qualifiers: Heart failure type: systolic Heart failure chronicity: acute Qualified Code(s): I50.21 - Acute systolic (congestive) heart failure (5) S/P AKA (above knee amputation) unilateral Current Visit: No Status: Acute (6) Anemia Current Visit: Yes Status: Chronic Qualifiers: Qualified Code(s): D64.9 - Anemia, unspecified (7) Acute kidney injury superimposed on CKD Current Visit: Yes Status: Acute Subjective Principal diagnosis: ABELINO on CKD Interval history: Pt seen and examined feeling "pretty good" with no new complaints Objective - Vital Signs Vital signs: Vital Signs Temp Pulse Resp BP Pulse Ox 09/21/18 18:30 97.9 F 82 18 159/81 97 09/21/18 16:52 97.4 F L 83 18 144/86 97 09/21/18 07:50 97.5 F L 81 18 160/103 98 09/21/18 07:24 17 98 09/21/18 04:58 97.6 F 81 17 150/97 98 09/21/18 01:04 97.6 F 83 17 168/84 97 Intake and Output 09/21/18 09/21/18 09/21/18 07:59 15:59 23:59 Intake Total 52 / 1616 892 / 1616 672 / 1616 Output Total 850 / 2650 1800 / 2650 Balance 52 / -1034 42 / -1034 -1128 / -1034 Intake: IV Fluids 156 / 156 156 Cleocin 300 MG In Dextrose 5% 52 / 156 156 50 ML @ 50 mls/hr IVPB Q8HR [facility] Rx#:[id number] Oral 840 / 1460 620 / 1460 Output: Urine 850 / 2650 1800 / 2650 Other: Meal Breakfast Dinner Percent of Meal Consumed 100% 100% # Voids 1 Blood Glucose* 254 183 121 - Lab 09/21/18 10:17 09/21/18 10:17 Most recent lab results 09/21/18 10:17 Calcium 8.0 L Phosphorus 4.7 H Magnesium 2.1 Consult Discharge Plan - Plan Referrals: Echo Godfrey [Advanced Practice Nurse] - (Appointment has been requested)
[2018-09-22] MEDS: Budesonide/Formoterol 160/4.5 1 PUFF INH IH SCH ×2 (07:23→19:45)
[2018-09-22] MEDS: Clindamycin 300 MG in D5% in Water 50 ML IVPB SCH ×2 (08:10→15:58)
[2018-09-22] MEDS: amLODIPine 5 MG TABLET PO SCH (08:11)
[2018-09-22] MEDS: Isosorbide MONOnitrate (24 HR) 30 MG TAB.ER.24H PO SCH (08:11)
[2018-09-22] MEDS: Furosemide 40 MG TABLET PO SCH (08:11)
[2018-09-22] MEDS: *HR* Rivaroxaban 15 MG TABLET PO SCH (08:11)
[2018-09-22] MEDS: Aspirin 81 MG TAB.CHEW PO SCH (08:11)
[2018-09-22] MEDS: Insulin DETEMIR 100 UNIT/ML X5UNITS SQ SCH ×2 (08:12→20:02)
[2018-09-22] MEDS: Insulin LISPRO 300 UNITS/3 ML VIAL SQ SCH ×7 (08:12→23:11)
--- NOTE | 2018-09-22 10:30 | Podiatry Progress Note ---
Date of Encounter: 09/22/18 Time of Encounter: 10:00 - Assessment and Plan (1) Osteomyelitis of third toe of right foot Current Visit: Yes Status: Acute s/p amputation of toe #3 right on 09/16 PLAN: Dressing removed Incision line healing well and without complication cleansed surgical site with saline, painted with betadine, adaptic 4x4 and kerlix bulk dressing applied Secured with RAVEN wrap Patient to keep dressing CDI Patient to go home with [facility] however does not appear receptive to going home reports surgical margins were free from infection Bone and wound cultures were sent intra op Group B, Group C and MRSA Patient currently on IV clindamycin From podiatry standpoint ok to be discharged on oral antibiotics Spoke with ID, recommendations appreciated. BC (-) Will need follow up appointment in wound care clinic with 1 week following discharge (2) Chronic ulcer of ankle with fat layer exposed Current Visit: Yes Status: Chronic Healing chronic ulcer noted right medial ankle, minimal erythema around ulcer, wound base pink, no lymphangitis, no odor, minimal serosanguineous drainage, no cellulitis, no tunneling, no undermining -04/29 PT/DP pulse -Cap refill less than 3 seconds Adaptic applied Dry bulk dressing Monitor for any pressure to area. Qualifiers: Laterality: right Qualified Code(s): L97.312 - Non-pressure chronic ulcer of right ankle with fat layer exposed Subjective Principal diagnosis: ABELINO on CKD Interval history: Patient is alert and oriented x 3, very pleasant, and no acute distress noted. Patient denies any chest pain, shortness or breath, or calf pain. He denies any fever, chills, n/v/d. Sw has seen patient and provided [facility] service names, patient reports hes "not ready to go today" Patient is s/p amputation of toe #3 [facility]. Reports he is doing well and without pain. Dressing CDI on arrival. Objective - Vital Signs Vital Signs: Vital Signs Temp Pulse Resp BP Pulse Ox 09/22/18 10:11 96 09/22/18 06:40 97.7 F 83 18 144/96 96 09/22/18 00:00 97.7 F 81 18 129/79 95 09/21/18 18:30 97.9 F 82 18 159/81 97 09/21/18 16:52 97.4 F L 83 18 144/86 97 Intake and Output 09/21/18 09/22/18 09/22/18 23:59 07:59 15:59 Intake Total 672 / 1616 52 / 412 360 / 412 Output Total 1800 / 3150 500 / 900 400 / 900 Balance -1128 / -1534 -448 / -488 -40 / -488 Intake: IV Fluids 52 / 52 Cleocin 300 MG In Dextrose 5% 52 / 52 50 ML @ 50 mls/hr IVPB Q8HR COUNTS INCLUDE 234 BEDS AT THE [facility] Rx#:[id number] Oral 620 / 1460 360 / 360 Output: Urine 1800 / 3150 500 / 900 400 / 900 Other: Meal Dinner Breakfast Percent of Meal Consumed 100% 100% # Voids 1 1 Weight 144.696 kg Blood Glucose* 121 158 Patient Weight 09/22/18 23:59 Weight 144.696 kg - Exam Exam: Constitutional: Alert and oriented x 3 male, well nourished, no acute distress noted Vascular: 1/4 PT/DP pulses, 1/4 edema, cap refill less than 3 seconds, left AKA Neurological: Abnormal plantar reflex, absent protective sensation Dermatological: Healing chronic ulcer noted right medial ankle, no remaining er ythema around ulcer, wound base pink, no lymphangitis, no odor, minimal serosanguineous drainage, no cellulitis, no tunneling, no undermining. Right 1st and 2nd toes amputated. s/p amputation of right toe #3, surgical incision intact. Healing without complication. Dry bloody drainage surrounding incision line without dehiscence or signs of active bleeding. No drainage. No clinical signs of infection Musculoskeletal: 4/5 muscle strength, normal tone - Lab Result Diagrams: 09/21/18 10:17 09/21/18 10:17 Labs: Abnormal lab results WBC 11.2 K/mcL (4.3-11.1) H 09/18/18 04:20 RBC 3.96 M/mcL (4.19-5.50) L 09/21/18 10:17 Hgb 11.4 g/dL (12.9-16.9) L 09/21/18 10:17 Hct 35.9 % (37.5-50.1) L 09/21/18 10:17 MCHC 31.2 g/dL (31.6-35.5) L 09/20/18 04:32 ESR 72 mm/hr (0-10) H 09/13/18 17:56 PT 12.6 Seconds (9.4-12.1) H 09/13/18 09:10 APTT 36.4 Seconds (26.0-36.0) H 09/13/18 09:10 Chloride 111 mEq/L (98-107) H 09/17/18 03:50 Carbon Dioxide 30 mEq/L (23-29) H 09/19/18 00:40 BUN 31 mg/dL (6-20) H 09/21/18 10:17 2.71 mg/dL (0.70-1.30) H 09/21/18 10:17 Est GFR ( Amer) 30 (> 60) L 09/21/18 10:17 Est GFR (Non-Af Amer) 25 (> 60) L 09/21/18 10:17 Glucose 282 mg/dL (70-105) H 09/21/18 10:17 POC Glucose 158 mg/dL (70-99) H 09/22/18 06:44 9.9 % (-5.6) H 09/12/18 15:39 305 (280-300) H 09/21/18 10:17 Calcium 8.0 mg/dL (8.6-10.3) L 09/21/18 10:17 Phosphorus 4.7 mg/dL (2.7-4.5) H 09/21/18 10:17 113 Units/L (34-104) H 09/13/18 00:58 0.05 ng/mL (< 0.04) H* 09/13/18 09:10 16 mg/L (Less than 10) H 09/13/18 17:56 B-Natriuretic Peptide 338 pg/mL (Less than 100) H 09/15/18 05:48 5.4 g/dL (6.4-8.9) L 09/13/18 00:58 2.4 g/dL (3.5-5.7) L 09/15/18 05:48 0.7 (1.1-2.2) L 09/13/18 00:58 35 mg/dL (40-59) L 09/13/18 00:58 25-OH Vitamin D Total 10 ng/mL (30-80) L 09/15/18 05:48 PTH Intact 175.4 pg/ml (10.0-65.0) H 09/15/18 05:48 Hep Bs Antibody < 3.10 mIU/mL (10.00-) L 09/15/18 05:48 Microbiology, Last 48 Hours 09/16/18 18:56 Surgical Biopsy Culture - Preliminary Surgery 09/14/18 17:05 Anaerobic Culture - Final Right Third Toe No anaerobes were recovered. 09/14/18 17:05 Wound Culture - Final Right Third Toe Strep agalactiae - (Group B) Group G Streptococcus Methicillin Resistant S.aureus Consult Discharge Plan - Plan Referrals: Echo Godfrey [Advanced Practice Nurse] - (Appointment has been requested)
[2018-09-22 10:39] LABS: Hematocrit 33.9 % (37.5-50.1); Hemoglobin 10.7 g/dL (12.9-16.9); Mean Corpuscular HGB Conc 31.6 g/dL (31.6-35.5); Mean Corpuscular Hemoglobin 28.4 pg (28.0-33.3); Mean Corpuscular Volume 89.9 fL (83.0-100.0); Mean Platelet Volume 10.4 fL (9.4-12.4); Platelet Count 197 K/mcL (140-400); Red Blood Count 3.77 M/mcL (4.19-5.50); Red Cell Distribution Width 13.9 % (11.5-14.5)
[2018-09-22 10:40] LABS: Basophils # 0.1 K/mcL (0.0-0.2); Basophils % 0.7 %; Eosinophils # 0.4 K/mcL (0.0-0.6); Eosinophils % 5.7 %; Immature Granulocytes % 0.5 % (0-4); Lymphocytes # 1.1 K/mcL (0.6-4.6); Monocytes # 0.7 K/mcL (0.0-1.3); Monocytes % 8.7 %; Neutrophils # 5.3 K/mcL (1.6-8.9); Segmented Neutrophils % 70.4 %
[2018-09-22 11:00] LABS: Calcium 7.8 mg/dL (8.6-10.3); Magnesium 2.1 mg/dL (1.6-2.6); Phosphorous 4.7 mg/dL (2.7-4.5)
--- NOTE | 2018-09-22 11:28 | Infectious Disease Progress No ---
ID Progress Note Date of Encounter: 09/22/18 Time of Encounter: 09:20 - Subjective Subjective: Patient seen and examined. No acute events noted overnight. Patient states overall he doesn't feel very well today. Reports mild pain in the right foot at this time. Denies fevers, chills, rigors. Denies chest pain. Reports PAULINE at rest. Denies cough this morning. Denies nausea, vomiting, diarrhea, or constipation. Denies abdominal pain or urinary complaints. States his appetite is okay. Last BM last night. Denies oral thrush or new skin lesions. - Objective CBC & Chem 7: 09/23/18 05:30 09/23/18 05:30 - Exam Vitals: Temp Pulse Resp BP Pulse Ox 97.3 F L 82 18 164/99 98 09/22/18 10:48 09/22/18 10:48 09/22/18 10:48 09/22/18 10:48 09/22/18 10:48 Exam: Head: Atraumatic, normal inspection, normocephalic. Eye: EOMI, PERRLA, no scleral icterus noted. ENT: Mucous membranes moist. No odontogenic infection noted. Neck: Normal inspection, no meningismus. Respiratory: Clear to auscultation. No rales, respiratory distress, rhonchi, or wheezes noted. Cardiovascular: Regular rate and rhythm, S1 and S2 audible. No murmurs, rubs, or gallops. GI: Firm, distended, normal bowel sounds. Tender. Extremities:No joint swelling or tenderness noted. Left AKA stump without abnormality. 1+ edema noted to the right lower extremity. Multiple superficial scabbed lesions noted to the anterior aspect of the right lower leg. Right foot and right ankle dressings dry,and intact with small amount of old drainage noted. Back: Normal inspection. No vertebral tenderness noted. Neurological: Alert, oriented 3, no focal deficits. Psychiatric: normal affect, normal mood. Skin: Dry, intact, warm. Normal color. No rashes. - Assessment and Plan (1) Leukocytosis Current Visit: Yes Status: Resolved Likely reactive from steroids. Resolved. No other SIRS criteria. Continue to trend. Qualifiers: Leukocytosis type: unspecified Qualified Code(s): D72.829 - Elevated white blood cell count, unspecified SNOMED Code(s): 787482823, 954426556 (2) Osteomyelitis of foot Current Visit: No Status: Acute Location: Foot third toe. Causative organism: Group B strep and group G strep and MRSA per wound cultures. Noted on x-ray of the right foot. Likely secondary to chronic ulcer. ESR elevated at 72 with a CRP of 16. Podiatry consulted. Status post amputation right foot toe #3 at [facility] 09/16/[address] Valdivia. Operative note reviewed. It appears all infected tissue and bone were removed. Discussed with the podiatry team who agrees with oral antibiotics on discharge. Currently on IV Clindamycin. SNOMED Code(s): 39287248, 122734694 (3) Foot ulcer Current Visit: No Status: Acute Occasion: Right foot third toe. Etiology: Not exactly clear. Diabetic foot ulcer versus trauma versus other. TAL studies completed. Studies are inconclusive due to arterial calcinosis. Podiatry consulted. Status post right 3rd toe amputation. Qualifiers: Laterality: left Non-pressure ulcer stage: limited to breakdown of skin Qualified Code(s): L97.521 - Non-pressure chronic ulcer of other part of left foot limited to breakdown of skin SNOMED Code(s): 74093491 (4) Ankle ulcer Current Visit: Yes Status: Acute Patient: Medial aspect right ankle. Likely secondary to recent trauma. Clinically does not appear infected. Wound care per the podiatry team. Qualifiers: Laterality: right Non-pressure ulcer stage: with fat layer exposed Qualified Code(s): L97.312 - Non-pressure chronic ulcer of right ankle with fat layer exposed SNOMED Code(s): 461163375 (5) CHF (congestive heart failure) Current Visit: Yes Status: Chronic TTE shows an EF of 40-45%. Cardiology consult and signed off. Qualifiers: Heart failure type: systolic Heart failure chronicity: acute Qualified Code(s): I50.21 - Acute systolic (congestive) heart failure SNOMED Code(s): 33864069 (6) Shortness of breath Current Visit: No Status: Acute Likely secondary to CHF and acute exacerbation of COPD. Improved. Management per the primary team. SNOMED Code(s): 825377086 (7) Elevated troponin Current Visit: No Status: Acute Cardiology consulted and signed off. SNOMED Code(s): 212589466, 956717447, 949293347 (8) Chronic kidney disease (CKD) Current Visit: No Status: Chronic Serum creatinine elevated consistent with the patient's chronic kidney disease. Monitor renal function closely. Dose adjust medications and avoid nephrotoxins as able. Nephrology consulted and following. Qualifiers: Chronic kidney disease stage: stage 3 (moderate) Qualified Code(s): N18.3 - Chronic kidney disease, stage 3 (moderate) SNOMED Code(s): 437977886 (9) Obesity Current Visit: No Status: Chronic Qualifiers: Obesity type: due to excess calories SNOMED Code(s): 281778991, 068995921 (10) Diabetes mellitus Current Visit: No Status: Chronic Uncontrolled. Hemoglobin A1c 9.9%. Recommend aggressive glucose monitoring and control to promote wound healing and prevent reinfection. Management per the primary team. Qualifiers: Diabetes mellitus type: other specified (including VAL) Diabetes mellitus fpc insulin use: with fpc use Diabetes mellitus complication status: with unspecified complications Qualified Code(s): E13.8 - Other sp ecified diabetes mellitus with unspecified complications; Z79.4 - exterminator (current) use of insulin SNOMED Code(s): 89057383 - Recommendations Recommendations: Await intra-op cultures. Continue clindamycin IV for now. Wound care per the podiatry team. Duration of treatment up until the clinical picture, but can likely transition to PO Clindamycin to complete 14 day post-op course when ready for discharge. Treat through 09/29/18. Monitor renal function and dose adjust antibiotics. Consult Discharge Plan - Plan Instructions: Clindamycin (By mouth), Furosemide (By mouth), Oxycodone, Rapid Release (By mouth), Amlodipine (By mouth) Additional Instructions: 1. Please follow up with your primary care physician within 3-5 days after your discharge from the hospital. 2. Please follow up with podiatry within one week after your discharge from the hospital. 3. Please follow up with nephrology within one to two weeks after your discharge from the hospital. 4. Please obtain the prescribed lab work prior to your follow up with your PCP and digital producer. 5. your home dose of bumex has been discontinued. Lasix 20mg twice a day has been added. 6. Amlodpine 5mg once a day is added for better blood pressure control 7. Please continue oral antibiotic Clindamycin as prescribed. 8. Please resume all your home medications as prescribed by your primary care physician. Referrals: Ke Saha [Resident] - (Office is closed at this time. Please call and schedule a hospital follow up in 5-7 days. Thank you!) Prescriptions: Clindamycin [Cleocin] 300 mg PO Q8H #19 capsule Furosemide [Lasix] 20 mg PO BID #60 tablet amLODIPine [Norvasc] 5 mg PO DAILY #30 tablet OxyCODONE Immed Rel [Roxicodone 5 MG] 10 mg PO Q6H PRN 3 Days #10 tablet PRN Reason: Pain - Attending Attestation I have personally performed a face to face evaluation on this patient. I have reviewed and agree with the care plan. History and Exam by me shows: Assessment and plan: 1.Osteomyelitis of the foot third toe causative organism not clear 2.Foot ulcer has been present for weeks 3.Diabetes mellitus type 2 4.Congestive heart failure 5.COPD Recommendations: Await intra-op cultures. Continue clindamycin IV for now. Wound care per the podiatry team. Duration of treatment up until the clinical picture, but can likely transition to PO Clindamycin to complete 14 day post-op course when ready for discharge. Treat through 09/29/18. Monitor renal function and dose adjust antibiotics.
--- NOTE | 2018-09-22 14:17 | Internal Med Progress Note ---
Hospitalist Progress Note - Encounter Date of Encounter: 09/22/18 Time of Encounter: 14:14 - Subjective Interval History: Patient seen and examined earlier this morning. Reports of feeling tired this morning and does not want to be discharged to home today. He has been noncompliant with diet and continues to refuse physical therapy. He is refusing to pick a home health care agency and reports of living with his ex-. As per RN, ex- stated that she is unable to take care of the patient upon his return from the hospital. Pt is saturating well on nasal cannula. Denies any sob or chest pain at this time. No overnight events reported. 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 Rest of the clinical exam is noncontributory - Assessment and Plan (1) Acute kidney injury superimposed on CKD Current Visit: Yes Status: Acute Assessment and Plan: Likely secondary to cardio renal syndrome renal function worsened from previous day will f/u with nephrology Strict I & O Fluid restriction avoid nephrotoxic medications will closely monitor renal function continue Lasix 40mg PO daily will f/u with nephrology for lasix dosing on discharge (2) Osteomyelitis of third toe of right foot Current Visit: Yes Status: Acute Assessment and Plan: Podiatry and ID on board, evaluation appreciated POD #4: amputation of right 3rd toe at the level of the metatarsophalangeal joint (date of surgery:09/16/18) blood cultures report no growth thus far wound cultures reporting group B strep, Group G strep, and MRSA continue Clindamycin as per sensitivities ID input appreciated continue pain control post-op wound care as per podiatry (3) CHF (congestive heart failure) Current Visit: Yes Status: Acute Assessment and Plan: echocardiogram - showed LVEF @ 40-45%, with moderate global and segmental LV systolic dysfunction.. Indeterminate diastolic function. He does have moderate pulmonary hypertension. Small pericardial effusion noticed without tamponade. His volume status improving slowly will continue Lasix 40mg PO daily cardiology signed off Cont ASA, Coreg, Lipitor and Imdur fluid restriction diet monitor daily weight, strict I/Os. noted to have 14kg weight loss since admission (last weight recording was on ). pt requested to allow daily weight checks. RN requested to obtain daily weight checks with strict I/Os (4) Elevated troponin Current Visit: No Status: Acute Assessment and Plan: His serial trop slightly elevated @ 0.05 and flat mostly due to demand ischemia (5) Diabetes mellitus Current Visit: No Status: Chronic Assessment and Plan: continue basal and sliding scale insulin coverage monitor FS and BG ADA diet (6) Essential hypertension Current Visit: No Status: Chronic Assessment and Plan: Hypertensive this morning awaiting repeat BP after administration of morning medications continue current management will closely monitor, if remains hypertensive, will adjust antihypertensive medications Hydralazine 10mg IV q6h PRN SBP>160 closely monitor BP (7) PAF (paroxysmal atrial fibrillation) Current Visit: Yes Status: Chronic Assessment and Plan: Rate controlled with Coreg on Xarelto for anti coag (8) Anxiety disorder Current Visit: No Status: Chronic Assessment and Plan: continue home medication (9) Anemia Current Visit: Yes Status: Chronic Assessment and Plan: H&H low but acceptable anemia of chronic disease secondary to CKD no acute bleeding reported will closely monitor (10) Hyperlipidemia Current Visit: Yes Status: Chronic Assessment and Plan: Continue home medication (11) Cellulitis of right leg Current Visit: Yes Status: Acute Assessment and Plan: ID on board, evaluation appreciated (12) Chronic ulcer of ankle with fat layer exposed Current Visit: Yes Status: Chronic (13) Morbid obesity with BMI of 45.0-49.9, adult Current Visit: No Status: Chronic (14) DVT prophylaxis Current Visit: No Status: Chronic Assessment and Plan: On Xarelto - Time Spent with Patient Total time spent is greater than 50% in coordination of care (as documented) at patient's floor/unit and/or counseling patient: 25 - 35 minutes Plan of Care Discussed with: patient (patient/RN/case management/pharmacist) Internal Medicine: Result - Labs CBC & Chem 7: 09/22/18 09:52 09/22/18 09:52 Labs: Short CBC 09/22/18 Range/Units 09:52 WBC 7.5 (4.3-11.1) K/mcL Hgb 10.7 L (12.9-16.9) g/dL Hct 33.9 L (37.5-50.1) % Plt Count 197 (140-400) K/mcL Neutrophils # 5.3 (1.6-8.9) K/mcL BMP 09/22/18 09:52 Sodium 142 Potassium 4.0 Chloride 109 H Carbon Dioxide 29 BUN 32 H Creatinine 2.80 H Glucose 189 H Calcium 7.8 L - ABG Interpretation ABG results: PT/INR, D-dimer PT 12.6 Seconds (9.4-12.1) H 09/13/18 09:10 Consult Discharge Plan - Plan Referrals: Echo Godfrey [Advanced Practice Nurse] - (Appointment has been requested) (3) CHF (congestive heart failure) Qualifiers: Heart failure type: systolic Heart failure chronicity: acute Qualified Code(s): I50.21 - Acute systolic (congestive) heart failure (5) Diabetes mellitus Qualifiers: Diabetes mellitus type: other specified (including VAL) Diabetes mellitus fci insulin use: with internal controls manager use Diabetes mellitus complication status: with unspecified complications Qualified Code(s): E13.8 - Other specified diabetes mellitus with unspecified complications; Z79.4 - shelter (current) use of insulin (8) Anxiety disorder Qualifiers: Anxiety disorder type: unspecified anxiety disorder Qualified Code(s): F41.9 - Anxiety disorder, unspecified (9) Anemia Qualifiers: Qualified Code(s): D64.9 - Anemia, unspecified (10) Hyperlipidemia Qualifiers: Hyperlipidemia type: unspecified Qualified Code(s): E78.5 - Hyperlipidemia, unspecified (12) Chronic ulcer of ankle with fat layer exposed Qualifiers: Laterality: right Qualified Code(s): L97.312 - Non-pressure chronic ulcer of right ankle with fat layer exposed
[2018-09-22] MEDS: *HR* LORazepam 0.5 MG TABLET PO PRN (18:10)
[2018-09-22] MEDS: *HR* OxyCODONE Immed Rel 5 MG TABLET PO PRN (20:02)
--- NOTE | 2018-09-22 21:23 | Nephrology Progress Note ---
Date of Encounter: 09/22/18 Time of Encounter: 12:00 - Assessment and Plan (1) ABELINO (acute kidney injury) Current Visit: No Status: Acute SCr slightly worse today at 2.8, GFR 24 with reduced diuretics UOP noted at 2550cc in the past 24hrs despite diuretics taper, will decrease further to lasix 20mg daily Continue to avoid nephrotoxins if possible Will signoff, please reconsult prn. Can discharge on lasix 20mg daily with bid prn Needs followup appt with either Dr Johnson or Spencer within 4 weeks of discharge. BMP in a week of discharge (2) Osteomyelitis of third toe of right foot Current Visit: Yes Status: Acute Continue abx per primary and podiatry s/p toe amputation (3) CHF (congestive heart failure) Current Visit: Yes Status: Acute See above re: diuretics Qualifiers: Heart failure type: systolic Heart failure chronicity: acute Qualified Code(s): I50.21 - Acute systolic (congestive) heart failure (4) COPD (chronic obstructive pulmonary disease) Current Visit: No Status: Chronic As per primary. Qualifiers: COPD type: COPD with acute exacerbation Qualified Code(s): J44.1 - Chronic obstructive pulmonary disease with (acute) exacerbation (5) S/P AKA (above knee amputation) unilateral Current Visit: No Status: Acute (6) Anemia Current Visit: Yes Status: Chronic Transfusion parameters as per primary. Hgb is currently stable at 10.7 Goal Hgb is 10-11 in the setting of CKD. Qualifiers: Qualified Code(s): D64.9 - Anemia, unspecified (7) Acute kidney injury superimposed on CKD Current Visit: Yes Status: Acute Baseline GFR noted in the 30s (8) CKD (chronic kidney disease) stage 3, GFR 30-59 ml/min Current Visit: Yes Status: Acute (9) CKD (chronic kidney disease) stage 3, GFR 30-59 ml/min Current Visit: Yes Status: Acute As above Subjective Principal diagnosis: ABELINO on CKD Interval history: Pt seen and examined sleeping comfortably but easily awaken. No new complaints. Pt has been in negative fluid balance daily for the whole week with weight dropping from 157kg on admission to 144kg now. Objective - Vital Signs Vital signs: Vital Signs Temp Pulse Resp BP Pulse Ox 09/22/18 18:51 98.5 F 81 18 157/94 98 09/22/18 17:20 150/90 09/22/18 15:23 97.4 F L 83 18 172/114 98 09/22/18 10:48 97.3 F L 82 18 164/99 98 09/22/18 10:11 96 09/22/18 06:40 97.7 F 83 18 144/96 96 09/22/18 00:00 97.7 F 81 18 129/79 95 Intake and Output 09/22/18 09/22/18 09/22/18 07:59 15:59 23:59 Intake Total 52 / 944 652 / 944 240 / 944 Output Total 500 / 3200 1600 / 3200 1100 / 3200 Balance -448 / -2256 -948 / -2256 -860 / -2256 Intake: IV Fluids Cleocin 300 MG In Dextrose 5% 50 ML @ 50 mls/hr IVPB Q8HR BELK[facility] Rx#:[id number] Oral 600 / 840 240 / 840 Output: Urine 500 / 3200 1600 / 3200 1100 / 3200 Other: Meal Lunch Dinner Percent of Meal Consumed 40% 100% # Voids 1 Weight 144.696 kg Blood Glucose* 158 184 Patient Weight 09/22/18 23:59 Weight 144.696 kg - General Appearance General appearance: Present: chronically ill (NAD) EENT: Present: ATNC, mucous membranes moist Neck: Present: no JVD, supple Additional Comments: good areation ant bilat Cardiology: Present: edema (Improving RLE, LLE AKA), normal S1, normal S2 Gastrointestinal: Present: no tenderness, no guarding, obese Integumentary: Present: warm and dry Neurologic: Present: no focal deficit Musculoskeletal: Present: no deformities Psychiatric: Present: mood/affect appropriate, cooperative - Lab 09/22/18 09:52 09/22/18 09:52 Most recent lab results 09/22/18 09:52 Calcium 7.8 L Phosphorus 4.7 H Magnesium 2.1 Consult Discharge Plan - Plan Referrals: Echo Godfrey [Advanced Practice Nurse] - (Appointment has been requested)
[2018-09-22] MEDS: Melatonin 3 MG TABLET PO PRN (23:12)
[2018-09-23 05:54] LABS: Basophils # 0.1 K/mcL (0.0-0.2); Basophils % 0.9 %; Eosinophils # 0.4 K/mcL (0.0-0.6); Eosinophils % 5.4 %; Hematocrit 34.3 % (37.5-50.1); Hemoglobin 10.7 g/dL (12.9-16.9); Immature Granulocytes % 0.3 % (0-4); Lymphocytes # 1.6 K/mcL (0.6-4.6); Lymphocytes % 20.7 %; Mean Corpuscular HGB Conc 31.2 g/dL (31.6-35.5); Mean Corpuscular Hemoglobin 28.3 pg (28.0-33.3); Mean Corpuscular Volume 90.7 fL (83.0-100.0); Mean Platelet Volume 10.1 fL (9.4-12.4); Monocytes # 0.7 K/mcL (0.0-1.3); Monocytes % 9.2 %; Neutrophils # 4.8 K/mcL (1.6-8.9); Platelet Count 193 K/mcL (140-400); Red Blood Count 3.78 M/mcL (4.19-5.50); Segmented Neutrophils % 63.5 %
[2018-09-23 06:14] LABS: Calcium 7.9 mg/dL (8.6-10.3); Magnesium 2.1 mg/dL (1.6-2.6); Phosphorous 4.9 mg/dL (2.7-4.5)
[2018-09-23] MEDS: Budesonide/Formoterol 160/4.5 1 PUFF INH IH SCH ×2 (07:33→19:45)
[2018-09-23] MEDS: Clindamycin 300 MG in D5% in Water 50 ML IVPB SCH ×3 (08:31→16:12)
[2018-09-23] MEDS: Insulin LISPRO 300 UNITS/3 ML VIAL SQ SCH ×7 (08:32→20:38)
[2018-09-23] MEDS: amLODIPine 5 MG TABLET PO SCH (08:33)
[2018-09-23] MEDS: *HR* Rivaroxaban 15 MG TABLET PO SCH (08:33)
[2018-09-23] MEDS: Isosorbide MONOnitrate (24 HR) 30 MG TAB.ER.24H PO SCH (08:33)
[2018-09-23] MEDS: Furosemide 40 MG TABLET PO SCH (08:34)
[2018-09-23] MEDS: Aspirin 81 MG TAB.CHEW PO SCH (08:34)
[2018-09-23] MEDS: Insulin DETEMIR 100 UNIT/ML X5UNITS SQ SCH ×2 (08:38→20:46)
[2018-09-23] MEDS: *HR* OxyCODONE Immed Rel 5 MG TABLET PO PRN (09:37)
[2018-09-23] MEDS: *HR* LORazepam 0.5 MG TABLET PO PRN (09:51)
--- NOTE | 2018-09-23 11:18 | Infectious Disease Progress No ---
ID Progress Note Date of Encounter: 09/23/18 Time of Encounter: 09:45 - Subjective Subjective: Patient seen and examined. No acute events noted overnight. Patient states overall he doesn't feel very well today. Reports mild pain in the right foot and leg at this time. Denies fevers, chills, rigors. Denies chest pain. Reports PAULINE at rest. Denies cough this morning. Denies nausea, vomiting, diarrhea, or constipation. Denies abdominal pain or urinary complaints. States his appetite is okay. Last BM last night. Denies oral thrush or new skin lesions. - Objective CBC & Chem 7: 09/23/18 05:30 09/23/18 05:30 - Exam Vitals: Temp Pulse Resp BP Pulse Ox 97.6 F 83 18 146/85 95 09/23/18 08:09 09/23/18 08:09 09/23/18 08:09 09/23/18 04:44 09/23/18 08:09 Exam: Head: Atraumatic, normal inspection, normocephalic. Eye: EOMI, PERRLA, no scleral icterus noted. ENT: Mucous membranes moist. No odontogenic infection noted. Neck: Normal inspection, no meningismus. Respiratory: Clear to auscultation. No rales, respiratory distress, rhonchi, or wheezes noted. Cardiovascular: Regular rate and rhythm, S1 and S2 audible. No murmurs, rubs, or gallops. GI: Firm, distended, normal bowel sounds. Tender. Extremities:No joint swelling or tenderness noted. Left AKA stump without abnormality. 1+ edema noted to the right lower extremity. Multiple superficial scabbed lesions noted to the anterior aspect of the right lower leg. Right foot and right ankle dressings dry,and intact with small amount of old drainage noted. Back: Normal inspection. No vertebral tenderness noted. Neurological: Alert, oriented 3, no focal deficits. Psychiatric: normal affect, normal mood. Skin: Dry, intact, warm. Normal color. No rashes. - Assessment and Plan (1) Leukocytosis Current Visit: Yes Status: Resolved Likely reactive from steroids. Resolved. No other SIRS criteria. Continue to trend. Qualifiers: Leukocytosis type: unspecified Qualified Code(s): D72.829 - Elevated white blood cell count, unspecified SNOMED Code(s): 539462348, 967662724 (2) Osteomyelitis of foot Current Visit: No Status: Acute Location: Foot third toe. Causative organism: Group B strep and group G strep and MRSA per wound cultures. Noted on x-ray of the right foot. Likely secondary to chronic ulcer. ESR elevated at 72 with a CRP of 16. Podiatry consulted. Status post amputation right foot toe #3 at [facility] 09/16/[address] Valdivia. Operative note reviewed. It appears all infected tissue and bone were removed. Discussed with the podiatry team who agrees with oral antibiotics on discharge. Currently on IV Clindamycin. SNOMED Code(s): 89248161, 998818395 (3) Foot ulcer Current Visit: No Status: Acute Occasion: Right foot third toe. Etiology: Not exactly clear. Diabetic foot ulcer versus trauma versus other. TAL studies completed. Studies are inconclusive due to arterial calcinosis. Podiatry consulted. Status post right 3rd toe amputation. Qualifiers: Laterality: left Non-pressure ulcer stage: limited to breakdown of skin Qualified Code(s): L97.521 - Non-pressure chronic ulcer of other part of left foot limited to breakdown of skin SNOMED Code(s): 70237100 (4) Ankle ulcer Current Visit: Yes Status: Acute Patient: Medial aspect right ankle. Likely secondary to recent trauma. Clinically does not appear infected. Wound care per the podiatry team. Qualifiers: Laterality: right Non-pressure ulcer stage: with fat layer exposed Qualified Code(s): L97.312 - Non-pressure chronic ulcer of right ankle with fat layer exposed SNOMED Code(s): 022514824 (5) CHF (congestive heart failure) Current Visit: Yes Status: Chronic TTE shows an EF of 40-45%. Cardiology consult and signed off. Qualifiers: Heart failure type: systolic Heart failure chronicity: acute Qualified Code(s): I50.21 - Acute systolic (congestive) heart failure SNOMED Code(s): 20935041 (6) Shortness of breath Current Visit: No Status: Acute Likely secondary to CHF and acute exacerbation of COPD. Improved. Management per the primary team. SNOMED Code(s): 644021570 (7) Elevated troponin Current Visit: No Status: Acute Cardiology consulted and signed off. SNOMED Code(s): 606043193, 032012301, 586497796 (8) Chronic kidney disease (CKD) Current Visit: No Status: Chronic Serum creatinine elevated consistent with the patient's chronic kidney disease. Monitor renal function closely. Dose adjust medications and avoid nephrotoxins as able. Nephrology consulted and following. Qualifiers: Chronic kidney disease stage: stage 3 (moderate) Qualified Code(s): N18.3 - Chronic kidney disease, stage 3 (moderate) SNOMED Code(s): 543190333 (9) Obesity Current Visit: No Status: Chronic Qualifiers: Obesity type: due to excess calories SNOMED Code(s): 326866799, 981547351 (10) Diabetes mellitus Current Visit: No Status: Chronic Uncontrolled. Hemoglobin A1c 9.9%. Recommend aggressive glucose monitoring and control to promote wound healing and prevent reinfection. Management per the primary team. Qualifiers: Diabetes mellitus type: other specified (including VAL) Diabetes mellitus senior living insulin use: with terminal operator use Diabetes mellitus complication status: with unspecified complications Qualified Code(s): E13.8 - Other specified diabetes mellitus with unspecified complications; Z79.4 - longterm (current) use of insulin SNOMED Code(s): 16489824 - Recommendations Recommendations: Await intra-op cultures and pathology. Continue clindamycin IV for now. Wound care per the podiatry team. Duration of treatment up until the clinical picture, but can likely transition to PO Clindamycin to complete 14 day post-op course when ready for discharge. Treat through 09/29/18. Monitor renal function and dose adjust antibiotics. Consult Discharge Plan - Plan Instructions: Clindamycin (By mouth), Furosemide (By mouth), Oxycodone, Rapid Release (By mouth), Amlodipine (By mouth) Additional Instructions: 1. Please follow up with your primary care physician within 3-5 days after your discharge from the hospital. 2. Please follow up with podiatry within one week after your discharge from the hospital. 3. Please follow up with nephrology within one to two weeks after your discharge from the hospital. 4. Please obtain the prescribed lab work prior to your follow up with your PCP and beater operator. 5. your home dose of bumex has been discontinued. Lasix 20mg twice a day has been added. 6. Amlodpine 5mg once a day is added for better blood pressure control 7. Please continue oral antibiotic Clindamycin as prescribed. 8. Please resume all your home medications as prescribed by your primary care physician. Referrals: Ke Saha [Resident] - (Office is closed at this time. Please call and schedule a hospital follow up in 5-7 days. Thank you!) Prescriptions: Clindamycin [Cleocin] 300 mg PO Q8H #19 capsule Furosemide [Lasix] 20 mg PO BID #60 tablet amLODIPine [Norvasc] 5 mg PO DAILY #30 tablet OxyCODONE Immed Rel [Roxicodone 5 MG] 10 mg PO Q6H PRN 3 Days #10 tablet PRN Reason: Pain - Attending Attestation I have personally performed a face to face evaluation on this patient. I have reviewed and agree with the care plan. History and Exam by me shows: Assessment and plan: 1.Osteomyelitis of the foot third toe causative organism not clear 2.Foot ulcer has been present for weeks 3.Diabetes mellitus type 2 4.Congestive heart failure 5.COPD Recommendations: Await intra-op cultures. Continue clindamycin IV for now. Wound care per the podiatry team. Duration of treatment up until the clinical picture, but can likely transition to PO Clindamycin to complete 14 day post-op course when ready for discharge. Treat through 09/29/18. Monitor renal function and dose adjust antibiotics.
--- NOTE | 2018-09-23 11:53 | Physician Discharge Referral ---
Home Health/Hosp Referral Info Transfer to: Home Health Provider in Charge Post Discharge: PCP - Diagnosis (1) Acute kidney injury superimposed on CKD Priority: Secondary Status: Acute (2) Osteomyelitis of third toe of right foot Status: Acute (3) CHF (congestive heart failure) Priority: Secondary Status: Chronic (4) Elevated troponin Priority: Secondary Status: Acute (5) Diabetes mellitus Priority: Secondary Status: Chronic (6) Essential hypertension Priority: Secondary Status: Chronic (7) PAF (paroxysmal atrial fibrillation) Priority: Secondary Status: Chronic (8) Anxiety disorder Priority: Secondary Status: Chronic (9) Anemia Priority: Secondary Status: Chronic (10) Hyperlipidemia Priority: Secondary Status: Chronic (11) Cellulitis of right leg Priority: Secondary Status: Acute (12) Chronic ulcer of ankle with fat layer exposed Priority: Secondary Status: Chronic (13) Morbid obesity with BMI of 45.0-49.9, adult Priority: Secondary Status: Chronic (14) DVT prophylaxis Priority: Secondary Status: Chronic - Respiratory Orders Smoking Cessation: Smoking cessation has been advised. For more information, call the [place] Tobacco Quit Line at 7-435-BCZO-NOW. - Services Needed Following services are medically necessary services: Nursing, Home Health Aide, Physical Therapy, Occupational Therapy - Transfer Medications Prescriptions: Clindamycin [Cleocin] 300 mg PO Q8H #19 capsule Furosemide [Lasix] 20 mg PO BID #60 tablet amLODIPine [Norvasc] 5 mg PO DAILY #30 tablet OxyCODONE Immed Rel [Roxicodone 5 MG] 10 mg PO Q6H PRN 3 Days #10 tablet PRN Reason: Pain Home Medications: Fluticasone/Vilanterol [Breo Ellipta 100-25 Mcg INH] 1 puff IH DAILY 06/24/16 [History] Escitalopram [Lexapro] 20 mg PO DAILY #30 tablet 04/16/18 [Rx] Loperamide [Imodium] 2 mg PO Q4HR PRN #30 capsule 04/16/18 [Rx] Aspirin 81 mg PO DAILY 09/12/18 [History] Atorvastatin [Lipitor] 40 mg PO DAILY 09/12/18 [History] Carvedilol 12.5 mg PO BID 09/12/18 [History] Insulin ASPART [Novolog Flexpen] 8 unit SQ TIDAC 09/12/18 [History] Insulin DETEMIR [Levemir Flextouch] 20 unit SQ BID 09/12/18 [History] Isosorbide MONOnitrate (24 HR) [Imdur] 30 mg PO QAM 09/12/18 [History] Lipase/Protease/Amylase [Isaac Melendez 36,000 Units Capsule] 2 cap PO TIDWM 09/12/18 [History] Rivaroxaban [Xarelto] 15 mg PO DAILY 09/12/18 [History] Clindamycin [Cleocin] 300 mg PO Q8H #19 capsule 09/23/18 [Rx] Furosemide [Lasix] 20 mg PO BID #60 tablet 09/23/18 [Rx] OxyCODONE Immed Rel [Roxicodone 5 MG] 10 mg PO Q6H PRN 3 Days #10 tablet 09/23/18 [Rx] amLODIPine [Norvasc] 5 mg PO DAILY #30 tablet 09/23/18 [Rx] Allergies/Adverse Reactions: Allergy/AdvReac Type Severity Reaction Status Date / Time tramadol Allergy Nausea Verified 09/12/18 06:44 vancomycin Allergy Hives Verified 09/12/18 06:44 Certification: Further, I certify that my clinical findings support that this patient is homebound (i.e. absences from home require considerable and taxing effort and are for medical reasons or quaker services or infrequently or short duration when for other reasons) because: Homebound Reason: Patient requires assistance of a person or device to safely leave home Attestation: My signature below is to certify that this patient is under my care and that I, or nurse practitioner, or a physician's drug safety assistant working with me, has a [id number] encounter with this patient.
--- NOTE | 2018-09-23 11:55 | Discharge Summary ---
- NOTES TO OUTPATIENT PROVIDER Notes to Outpatient Provider: Patient was admitted for Osteomyelitis of 3rd toe on right foot, s/p amputation, on oral abx until 09/29/17. Hospital course complicated with CHF exacerbation and ABELINO on CKD. Home dose of Bumex discontinued, started on Lasix. Being discharged on lasix 20mg PO BID. Closely monitor renal funciton as outpatient. Also noted to have uncontrolled HTN, started on Amlodipine 5mg qdaily, closely monitor BP, adjust BP meds as needed. Orders not resulted at time of discharge: Pending orders 09/16/18 18:56 Culture,Anaerobic [RM] Routine Culture,Tissue (Biopsy) [RM] Routine Surgical Pathology [PTH] Routine Date of Encounter: 09/23/18 Time of Encounter: 11:53 - Discharge Diagnosis (1) Acute kidney injury superimposed on CKD Priority: Secondary Status: Acute (2) Osteomyelitis of third toe of right foot Priority: Primary Status: Acute (3) CHF (congestive heart failure) Priority: Secondary Status: Chronic Qualifiers: Heart failure type: systolic Heart failure chronicity: acute Qualified Code(s): I50.21 - Acute systolic (congestive) heart failure (4) Elevated troponin Priority: Secondary Status: Acute (5) Diabetes mellitus Priority: Secondary Status: Chronic Qualifiers: Diabetes mellitus type: other specified (including VAL) Diabetes mellitus dinker insulin use: with dinker use Diabetes mellitus complication status: with unspecified complications Qualified Code(s): E13.8 - Other specified diabetes mellitus with unspecified complications; Z79.4 - [facility] (current) use of insulin (6) Essential hypertension Priority: Secondary Status: Chronic (7) PAF (paroxysmal atrial fibrillation) Priority: Secondary Status: Chronic (8) Anxiety disorder Priority: Secondary Status: Chronic Qualifiers: Anxiety disorder type: unspecified anxiety disorder Qualified Code(s): F41.9 - Anxiety disorder, unspecified (9) Anemia Priority: Secondary Status: Chronic Qualifiers: Qualified Code(s): D64.9 - Anemia, unspecified (10) Hyperlipidemia Priority: Secondary Status: Chronic Qualifiers: Hyperlipidemia type: unspecified Qualified Code(s): E78.5 - Hyperlipidemia, unspecified (11) Cellulitis of right leg Priority: Secondary Status: Acute (12) Chronic ulcer of ankle with fat layer exposed Priority: Secondary Status: Chronic Qualifiers: Laterality: right Qualified Code(s): L97.312 - Non-pressure chronic ulcer of right ankle with fat layer exposed (13) Morbid obesity with BMI of 45.0-49.9, adult Priority: Secondary Status: Chronic (14) DVT prophylaxis Priority: Secondary Status: Chronic Hospital course: Mr. Tripp is a 53 year old male with PMH of CHF, COPD on home oxygen, HTN, HLD, Afib on Xarelto, s/p Left AKA who was admitted for acute respiratory distress secondary to CHF exacerbation and right LE cellulitis/ulcer of the foot. Pt was started on IV diuretics and IV abx. After further evaluation of the RLE wound, it appeared to be osteomyelitis of the third toe of the right foot. ID and podiatry were consulted. Pt underwent surgical amputation of the third toe by podiatry on 09/16/18. He was continued on IV abx. IV abx were de-escalated as per wound culture report. Pt's hospital course was further complicated by acute on chronic renal insufficiency for which nephrology was consulted. Pt's diuretic dose was adjusted. Pt was also noted to have uncontrolled HTN for which his BP meds were adjusted. Pt reports of being wheel chair bound and refused physical therapy during this hospitalization. He remained noncompliant with his fluid restriction and diet throughout the course of his hospitalization despite extensive counseling provided on a daily basis. He is currently at baseline respiratory status. Pt is seen and examined earlier today. He is resting in bed and saturating well on nasal cannula. He is medically stable for discharge to home with home health services. Wound care orders have been sent to the visiting nurse by social psychologist/adult protective caseworker. Pt is medically stable for discharge to home with outpatient follow up with PCP, podiatry, and nephrology. Pt is to continue oral antibiotics as per ID until 09/29/18. Discharge discussed with: patient, nurse, social work, case management - Time Spent with Patient Total time spent providing and/or coordinating discharge services: 36 minutes Time spent: Greater than 30 minutes - Discharge Medications Prescriptions: New Clindamycin [Cleocin] 300 mg PO Q8H #19 capsule Furosemide [Lasix] 20 mg PO BID #60 tablet amLODIPine [Norvasc] 5 mg PO DAILY #30 tablet OxyCODONE Immed Rel [Roxicodone 5 MG] 10 mg PO Q6H PRN 3 Days #10 tablet PRN Reason: Pain Continued Fluticasone/Vilanterol [Breo Ellipta 100-25 Mcg INH] 1 puff IH DAILY Escitalopram [Lexapro] 20 mg PO DAILY #30 tablet Loperamide [Imodium] 2 mg PO Q4HR PRN #30 capsule PRN Reason: Diarrhea Atorvastatin [Lipitor] 40 mg PO DAILY Carvedilol 12.5 mg PO BID Insulin ASPART [Novolog Flexpen] 8 unit SQ TIDAC Insulin DETEMIR [Levemir Flextouch] 20 unit SQ BID Isosorbide MONOnitrate (24 HR) [Imdur] 30 mg PO QAM Lipase/Protease/Amylase [Isaac Dr 36,000 Units Capsule] 2 cap PO TIDWM Rivaroxaban [Xarelto] 15 mg PO DAILY Aspirin 81 mg PO DAILY Discontinued Bumetanide 2 mg PO DAILY Home Medications: Fluticasone/Vilanterol [Breo Ellipta 100-25 Mcg INH] 1 puff IH DAILY 06/24/16 [History] Escitalopram [Lexapro] 20 mg PO DAILY #30 tablet 04/16/18 [Rx] Loperamide [Imodium] 2 mg PO Q4HR PRN #30 capsule 04/16/18 [Rx] Aspirin 81 mg PO DAILY 09/12/18 [History] Atorvastatin [Lipitor] 40 mg PO DAILY 09/12/18 [History] Carvedilol 12.5 mg PO BID 09/12/18 [History] Insulin ASPART [Novolog Flexpen] 8 unit SQ TIDAC 09/12/18 [History] Insulin DETEMIR [Levemir Flextouch] 20 unit SQ BID 09/12/18 [History] Isosorbide MONOnitrate (24 HR) [Imdur] 30 mg PO QAM 09/12/18 [History] Lipase/Protease/Amylase [Isaac Melendez 36,000 Units Capsule] 2 cap PO TIDWM 09/12/18 [History] Rivaroxaban [Xarelto] 15 mg PO DAILY 09/12/18 [History] Clindamycin [Cleocin] 300 mg PO Q8H #19 capsule 09/23/18 [Rx] Furosemide [Lasix] 20 mg PO BID #60 tablet 09/23/18 [Rx] OxyCODONE Immed Rel [Roxicodone 5 MG] 10 mg PO Q6H PRN 3 Days #10 tablet 09/23/18 [Rx] amLODIPine [Norvasc] 5 mg PO DAILY #30 tablet 09/23/18 [Rx] Allergies/Adverse Reactions: Allergy/AdvReac Type Severity Reaction Status Date / Time tramadol Allergy Nausea Verified 09/12/18 06:44 vancomycin Allergy Hives Verified 09/12/18 06:44 Date of admission: 09/13/18 13:03 Primary care physician: PCP NONE Consults: 09/12/18 07:29 Consult to Invasive Line Access Team [CONS] Stat Reason for Consult: difficult access Line Type: Midline 09/12/18 10:55 Consult to Invasive Line Access Team [CONS] Routine Reason for Consult: poor access Line Type: EPIV 09/13/18 09:22 Consult to Nurse Navigator [CONS] Routine Comment: CHF 09/13/18 13:02 Consult to Cardiology [CONS] Routine Comment: Consulting Provider: Cardiology Jolene Reason for Consult: New onset systolic CHF Time Notified: 13:03 Call Completed: Yes 09/13/18 13:06 Consult to Podiatry [CONS] Routine Consulting Provider: [facility] Reason for Consult: Rt foot ulcer Time Notified: 13:06 Call Completed: Yes 09/14/18 11:26 Consult to [place] Worker [CONS] Routine Reason for SW Consult: Patient states needs help finding a place to live. 09/14/18 11:32 Consult to Infectious Diseases [CONS] Routine Consulting Provider: Infectious Disease [place] Reason for Consult: Acute Osteomyelitis Time Notified: 11:38 Call Completed: Yes Consult to Nephrology [CONS] Routine Consulting Provider: Kidney Jolene/JOEL/LUIS ALFREDO/JAE Reason for Consult: ABELINO with CKD-3 Time Notified: 11:35 Call Completed: Yes Discharging clinician: Klaudia Medina Anticipated date of discharge: 09/23/18 - Constitutional Vitals: Temp Pulse Resp BP Pulse Ox 97.6 F 83 18 146/85 95 09/23/18 08:09 09/23/18 08:09 09/23/18 08:09 09/23/18 04:44 09/23/18 08:09 Exam: Gen: AAO x 3, morbidly obese, no acute distress Chest: Diminished breath sounds B/L, no wheezing, no rales Heart: S1S2+ RRR No murmurs Abd: Soft, NT, BS +, No organomegaly Ext: edema in right LE, right foot dressing intact, No calf tenderness, left AKA Neuro : No focal deficits Skin: No rash. Rest of the clinical exam is noncontributory - Patient Status Disposition: Home Health Service - Ambulatory Orders Ambulatory Orders: Basic Metabolic Panel [CHEM] Time Frame: 1 Week, Facility: [facility], Location: Lab - Discharge Instructions Follow Up With: NONE,PCP [Primary Care Provider] - Additional Instructions: 1. Please follow up with your primary care physician within 3-5 days after your discharge from the hospital. 2. Please follow up with podiatry within one week after your discharge from the hospital. 3. Please follow up with nephrology within one to two weeks after your discharge from the hospital. 4. Please obtain the prescribed lab work prior to your follow up with your PCP and associate professor physician. 5. your home dose of bumex has been discontinued. Lasix 20mg twice a day has been added. 6. Amlodpine 5mg once a day is added for better blood pressure control 7. Please continue oral antibiotic Clindamycin as prescribed. 8. Please resume all your home medications as prescribed by your primary care physician. - Diet and Activity Activity: as per physical therapy Diet: diabetic diet, low fat, low cholesterol, low salt diet (fluid restriction diet 2L/day)
[2018-09-24] MEDS: Clindamycin 300 MG in D5% in Water 50 ML IVPB SCH ×2 (00:05→09:02)
[2018-09-24] MEDS: *HR* OxyCODONE Immed Rel 5 MG TABLET PO PRN (02:17)
[2018-09-24] MEDS: Budesonide/Formoterol 160/4.5 1 PUFF INH IH SCH (07:35)
[2018-09-24] MEDS: Insulin LISPRO 300 UNITS/3 ML VIAL SQ SCH ×4 (08:53→12:04)
[2018-09-24] MEDS: Isosorbide MONOnitrate (24 HR) 30 MG TAB.ER.24H PO SCH (09:01)
[2018-09-24] MEDS: *HR* LORazepam 0.5 MG TABLET PO PRN (09:01)
[2018-09-24] MEDS: Aspirin 81 MG TAB.CHEW PO SCH (09:02)
[2018-09-24] MEDS: Furosemide 40 MG TABLET PO SCH (09:02)
[2018-09-24] MEDS: *HR* Rivaroxaban 15 MG TABLET PO SCH (09:02)
[2018-09-24] MEDS: amLODIPine 5 MG TABLET PO SCH (09:02)
[2018-09-24] MEDS: Insulin DETEMIR 100 UNIT/ML X5UNITS SQ SCH (09:03)
--- NOTE | 2018-09-24 09:53 | Internal Med Progress Note ---
Hospitalist Progress Note - Encounter Date of Encounter: 09/24/18 Time of Encounter: 09:51 - Subjective Interval History: Pateint was seen and examined. Denies chest pain. Discharge was held yesterday with chest pain. Troponins were 0.04, .03, .04. Afebrile. - Exam Vitals: Temp Pulse Resp BP Pulse Ox 98.2 F 83 18 154/101 99 09/24/18 07:51 09/24/18 07:51 09/24/18 07:51 09/24/18 07:51 09/24/18 07:51 Exam: Gen: AAO x 3, morbidly obese, no acute distress Chest: Diminished breath sounds B/L, no wheezing, no rales Heart: S1S2+ RRR No murmurs Abd: Soft, NT, BS +, No organomegaly Ext: edema in right LE, right foot dressing intact, No calf tenderness, left AKA Neuro : No focal deficits - Assessment and Plan (1) Elevated troponin Current Visit: No Status: Acute (2) Diabetes mellitus Current Visit: No Status: Chronic (3) Essential hypertension Current Visit: No Status: Chronic (4) Anxiety disorder Current Visit: No Status: Chronic (5) DVT prophylaxis Current Visit: No Status: Chronic (6) Morbid obesity with BMI of 45.0-49.9, adult Current Visit: No Status: Chronic (7) CHF (congestive heart failure) Current Visit: Yes Status: Chronic (8) Anemia Current Visit: Yes Status: Chronic (9) Hyperlipidemia Current Visit: Yes Status: Chronic (10) Cellulitis of right leg Current Visit: Yes Status: Acute (11) Acute kidney injury superimposed on CKD Current Visit: Yes Status: Acute (12) Chronic ulcer of ankle with fat layer exposed Current Visit: Yes Status: Chronic (13) PAF (paroxysmal atrial fibrillation) Current Visit: Yes Status: Chronic (14) Osteomyelitis of third toe of right foot Current Visit: Yes Status: Acute - Time Spent with Patient Total time spent is greater than 50% in coordination of care (as documented) at patient's floor/unit and/or counseling patient: Internal Medicine: Result - Labs CBC & Chem 7: 09/23/18 05:30 09/23/18 05:30 Labs: Cardiac Enzymes 09/23/18 09/24/18 09/24/18 Range/Units 17:49 01:05 08:28 Troponin I 0.04 H* 0.03 0.04 H* (< 0.04) ng/mL - ABG Interpretation ABG results: PT/INR, D-dimer PT 12.6 Seconds (9.4-12.1) H 09/13/18 09:10 Consult Discharge Plan - Plan Instructions: Clindamycin (By mouth), Furosemide (By mouth), Oxycodone, Rapid Release (By mouth), Amlodipine (By mouth) Additional Instructions: 1. Please follow up with your primary care physician within 3-5 days after your discharge from the hospital. 2. Please follow up with podiatry within one week after your discharge from the hospital. 3. Please follow up with nephrology within one to two weeks after your discharge from the hospital. 4. Please obtain the prescribed lab work prior to your follow up with your PCP and real estate internship. 5. your home dose of bumex has been discontinued. Lasix 20mg twice a day has been added. 6. Amlodpine 5mg once a day is added for better blood pressure control 7. Please continue oral antibiotic Clindamycin as prescribed. 8. Please resume all your home medications as prescribed by your primary care physician. Referrals: Ke Saha [Resident] - (Office is closed at this time. Please call and schedule a hospital follow up in 5-7 days. Thank you!) Prescriptions: Clindamycin [Cleocin] 300 mg PO Q8H #19 capsule Furosemide [Lasix] 20 mg PO BID #60 tablet amLODIPine [Norvasc] 5 mg PO DAILY #30 tablet OxyCODONE Immed Rel [Roxicodone 5 MG] 10 mg PO Q6H PRN 3 Days #10 tablet PRN Reason: Pain (2) Diabetes mellitus Qualifiers: Diabetes mellitus type: other specified (including VAL) Diabetes mellitus l chasidy term insulin use: with penitentiary use Diabetes mellitus complication status: with unspecified complications Qualified Code(s): E13.8 - Other specified diabetes mellitus with unspecified complications; Z79.4 - [facility] (current) use of insulin (4) Anxiety disorder Qualifiers: Anxiety disorder type: unspecified anxiety disorder Qualified Code(s): F41.9 - Anxiety disorder, unspecified (7) CHF (congestive heart failure) Qualifiers: Heart failure type: systolic Heart failure chronicity: acute Qualified C ode(s): I50.21 - Acute systolic (congestive) heart failure (8) Anemia Qualifiers: Qualified Code(s): D64.9 - Anemia, unspecified (9) Hyperlipidemia Qualifiers: Hyperlipidemia type: unspecified Qualified Code(s): E78.5 - Hyperlipidemia, unspecified (12) Chronic ulcer of ankle with fat layer exposed Qualifiers: Laterality: right Qualified Code(s): L97.312 - Non-pressure chronic ulcer of right ankle with fat layer exposed
[2018-09-24 11:56] VITALS: BP 144/87
--- NOTE | 2018-09-29 09:54 | Electrocardiograph Report ---
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
== END 2018-09-24 15:27 | disposition home health service (06) | DRG 616 ==
LOC: 2SOUTHHOLD 06:37 → EMEROOARM 06:37 → SUATTDRO 10:31 → 2SOUTHHOLD 11:16 → 3BNU 14:18 → SUATTDRO 09-13 13:03 → 2ANU 09-14 14:02
PROVIDERS: ADMIT Internal Medicine Nephrology; ATTEND Internal Medicine

== ENCOUNTER 2018-09-28 19:46 | Inpatient (IN) ==
[2018-09-28] MEDS ORDERED: Ipratropium/Albuterol Neb 3 ML IH ONE (19:49)
--- NOTE | 2018-09-28 20:06 | Emergency Department Note ---
Disposition Clinical Impression: ESRD (end stage renal disease), Elevated troponin, Acute and chronic respiratory failure with hypoxia CHF (congestive heart failure) Qualifiers: Heart failure type: diastolic Heart failure chronicity: acute on chronic Qual ified Code(s): I50.33 - Acute on chronic diastolic (congestive) heart failure Disposition: Admitted As Inpatient Condition: Undetermined Referrals: Ke Saha [Primary Care Provider] - Forms: ED Satisfaction Letter Time of Disposition: 22:26 SOB HPI - General Chief Complaint: ED Shortness of Breath/Dyspnea Stated Complaint: Adilene chest pressure Time Seen by Provider: 09/28/18 19:48 Source: patient, EMS Mode of arrival: EMS Limitations: no limitations Nursing Notes Reviewed: Yes Vital Signs Reviewed: Yes - History of Present Illness 53-year-old male with history of CAD, CHF, COPD, diabetes arrives to the emergency Department complaint difficulty breathing. The patient states that it started yesterday is progressively worsened. The patient is requiring of oxygen. The patient normally is on 2 L but has required more. Patient states that he took is fluid-filled thinks is going on. He is complaining of right lower extremity swelling. The patient has a history of AKA of the left side. The patient denies any fevers, chills. He admits to a small amount of chest pressure as well. No other acute complaints noted at this time. Patient speaking full sentences upon arrival to the emergency department. - Related Data Home Medications Medication Instructions Recorded Confirmed Fluticasone/Vilanterol [Breo 1 puff IH DAILY 06/24/16 09/12/18 Ellipta 100-25 Mcg INH] Aspirin 81 mg PO DAILY 09/12/18 09/12/18 Atorvastatin [Lipitor] 40 mg PO DAILY 09/12/18 09/12/18 Carvedilol 12.5 mg PO BID 09/12/18 09/12/18 Insulin ASPART [Novolog Flexpen] 8 unit SQ TIDAC 09/12/18 09/12/18 Insulin DETEMIR [Levemir Flextouch] 20 unit SQ BID 09/12/18 09/12/18 Isosorbide MONOnitrate (24 HR) 30 mg PO QAM 09/12/18 09/12/18 [Imdur] Lipase/Protease/Amylase [Creon Dr 2 cap PO TIDWM 09/12/18 09/12/18 36,000 Units Capsule] Rivaroxaban [Xarelto] 15 mg PO DAILY 09/12/18 09/12/18 Previous Rx's Medication Instructions Recorded Escitalopram [Lexapro] 20 mg PO DAILY #30 tablet 04/16/18 Loperamide [Imodium] 2 mg PO Q4HR PRN #30 capsule 04/16/18 Clindamycin [Cleocin] 300 mg PO Q8H #19 capsule 09/23/18 Furosemide [Lasix] 20 mg PO BID #60 tablet 09/23/18 amLODIPine [Norvasc] 5 mg PO DAILY #30 tablet 09/23/18 Allergies Allergy/AdvReac Type Severity Reaction Status Date / Time tramadol Allergy Nausea Verified 09/12/18 06:44 vancomycin Allergy Hives Verified 09/12/18 06:44 All systems ED: reviewed and negative except as stated. Constitutional: Denies: fever, chills, weakness ENT ED: Denies: dysphagia Cardiovascular: Reports: chest pain, edema. Denies: dyspnea on exertion, syncope Respiratory: Reports: dyspnea. Denies: cough, sputum production Gastrointestinal: Denies: abdominal pain, nausea, vomiting Genitourinary: Denies: urgency, dysuria Musculoskeletal: Denies: back pain Integumentary: Denies: rash Neurological: Denies: headache Past Medical History - Past Medical History Attestation: Yes The following information was validated with the patient. Source: patient, old records reviewed Medical history: Reports: atrial fibrillation, CHF (diastolic), COPD, coronary a rtery disease, diabetes, hyperlipidemia, hypertension, renal disease, other Surgical history: Reports: appendectomy, other Psychiatric history: Reports: anxiety, depression - Social History Smoking Status: Current every day smoker Smokeless Tobacco Status: No Alcohol use: Reports: none Drug use: Reports: none Physical Exam - General Limitations: no limitations General appearance: alert, in no apparent distress - Head Head exam: atraumatic, normocephalic, normal inspection - Eye Eye exam: Present: normal appearance, PERRL, EOMI - ENT ENT exam: normal exam, normal oropharynx, mucous membranes moist - Neck Neck exam: Present: normal inspection, full ROM, trachea midline - Chest Chest inspection: Present: normal inspection, symmetric chest wall rise - Respiratory Respiratory exam: Present: other (mild bilbasilar rales) - Cardiovascular Cardiovascular exam: Present: regular rate, normal rhythm, normal heart sounds - Abdominal Exam Abdominal exam: Present: soft, Non-Tender. Absent: tenderness - Extremities Exam Extremities exam: Present: full ROM, normal capillary refill, pedal edema (2+ pitting of RLE, LLE with AKA), other (healing surgical would to right 3rd toe). Absent: tenderness - Neurological Exam Neurological exam: Present: alert, oriented X3 - Skin Skin exam: Present: warm, dry, intact, normal color Course Vital Signs Temperature 97.9 F 09/28/18 20:27 Pulse Rate 86 09/28/18 20:27 Respiratory Rate 16 09/28/18 20:27 Blood Pressure 174/106 09/28/18 20:27 O2 Sat by Pulse Oximetry 98 09/28/18 20:27 Temperature 97.9 F 09/28/18 20:27 Pulse Rate 86 09/28/18 20:27 Respiratory Rate 20 09/28/18 21:00 Blood Pressure 174/106 09/28/18 20:27 O2 Sat by Pulse Oximetry 98 09/28/18 21:00 Oxygen Delivery Oxygen Delivery Room Air Shortness of Breath/Dyspnea - MDM Narrative Medical decision making narrative: Patient's work-up in the ED demonstrates findings consistent with CHF exacerbation and elevation in troponin. The patient was given aspirin and Nitroglycerin and placed on Bipap. the patient will be admitted to the hospital at this time for further work-up and care. No further question or concern by patient noted. Accepted by Dr. Aguilar. - Lab Data Lab results reviewed: Yes I reviewed the patient's lab results. Result diagrams: 09/28/18 20:06 09/28/18 20:06 Lab Results 09/28/18 09/28/18 09/28/18 Range/Units 20:04 20:06 20:06 WBC 7.6 (4.3-11.1) K/mcL RBC 4.32 (4.19-5.50) M/mcL Hgb 12.6 L D (12.9-16.9) g/dL Hct 38.9 (37.5-50.1) % MCV 90.0 (83.0-100.0) fL MCH 29.2 (28.0-33.3) pg MCHC 32.4 (31.6-35.5) g/dL RDW 14.6 H (11.5-14.5) % Plt Count 246 (140-400) K/mcL MPV 10.3 (9.4-12.4) fL Immature Gran % 0.5 (0-4) % Seg Neutrophils % 80.8 % Lymphocytes % 9.7 % Monocytes % 7.3 % Eosinophils % 0.9 % Basophils % 0.8 % Neutrophils # 6.1 (1.6-8.9) K/mcL Lymphocytes # 0.7 (0.6-4.6) K/mcL Monocytes # 0.6 (0.0-1.3) K/mcL Eosinophils # 0.1 (0.0-0.6) K/mcL Basophils # 0.1 (0.0-0.2) K/mcL Sodium 137 (136-145) mEq/L Potassium 3.9 (3.5-5.1) mEq/L Chloride 106 (98-107) mEq/L Carbon Dioxide 23 (23-29) mEq/L BUN 28 H (6-20) mg/dL Creatinine 3.03 H (0.70-1.30) mg/dL Est GFR ( Amer) 26 L (> 60) Est GFR (Non-Af Amer) 22 L (> 60) BUN/Creatinine Ratio 9 (6-26) Glucose 184 H (70-105) mg/dL Calculated Osmolality 294 (280-300) Lactic Acid (0.5-2.2) mmol/L Calcium 8.3 L (8.6-10.3) mg/dL Troponin I 0.04 H* (< 0.04) ng/mL B-Natriuretic Peptide 317 H (Less than 100) pg/mL 09/28/18 09/28/18 Range/Units 20:06 21:20 WBC (4.3-11.1) K/mcL RBC (4.19-5.50) M/mcL Hgb (12.9-16.9) g/dL Hct (37.5-50.1) % MCV (83.0-100.0) fL MCH (28.0-33.3) pg MCHC (31.6-35.5) g/dL RDW (11.5-14.5) % Plt Count (140-400) K/mcL MPV (9.4-12.4) fL Immature Gran % (0-4) % Seg Neutrophils % % Lymphocytes % % Monocytes % % Eosinophils % % Basophils % % Neutrophils # (1.6-8.9) K/mcL Lymphocytes # (0.6-4.6) K/mcL Monocytes # (0.0-1.3) K/mcL Eosinophils # (0.0-0.6) K/mcL Basophils # (0.0-0.2) K/mcL Sodium (136-145) mEq/L Potassium (3.5-5.1) mEq/L Chloride (98-107) mEq/L Carbon Dioxide (23-29) mEq/L BUN (6-20) mg/dL Creatinine (0.70-1.30) mg/dL Est GFR ( Amer) (> 60) Est GFR (Non-Af Amer) (> 60) BUN/Creatinine Ratio (6-26) Glucose (70-105) mg/dL Calculated Osmolality (280-300) Lactic Acid 1.7 1.2 (0.5-2.2) mmol/L Calcium (8.6-10.3) mg/dL Troponin I (< 0.04) ng/mL B-Natriuretic Peptide (Less than 100) pg/mL - Radiology Data Radiology results reviewed: Yes I reviewed the patient's radiology results. Chest X-Ray 09/28/18 19:49 IMPRESSION: Cardiomegaly with pulmonary vascular congestion D/ / Alexy Velasquez MD / Alexy Velasquez MD Interpreting Provider: Alexy Velasquez MD - EKG Data EKG attestation: Yes I reviewed and interpreted this EKG. EKG results narrative: Heart rate 86 beats for minute. Normal sinus rhythm noted. Right bundle branch block noted. No ST elevation or ST depression noted. Prolonged QTC at 502. No acute changes noted. Attestation Statement - Attestation Attestation: Resident Attestation: I examined this patient and my medical decision making was reviewed with the Resident Physician. I agree with the documented findings, disposition and treatment plan as described except to the extent set forth below. We independently had [id number] contact with the patient. EKG reviewed with resident physician. Agree with documentation. Patient with significant history including diabetes, renal disease, A. fib, COPD , CHF with no reported cardiac history presented for chest pain and shortness of breath. Patient states he was recently in the hospital and has been home. Symptoms started yesterday. He tried staying home to hopefully allow the symptoms to just go away. Symptoms have not resolved and continued to get worse. Patient does have a home concentrator at home and has used oxygen as needed and replace of his BiPAP which she states he cannot wear secondary to claustrophobia. The patient does have an indication to the left leg. Patient had recent right toe amputation. Patient's wounds to the right amputation site as well as medial malleolus are clean and dry without purulence. Patient does have +2 pitting edema throughout the right extremity. He will undergo further evaluation for concern for CHF area underlying cardiac workup. Medical records will be reviewed. Disposition pending.
[2018-09-28 20:32] LABS: Basophils # 0.1 K/mcL (0.0-0.2); Basophils % 0.8 %; Eosinophils # 0.1 K/mcL (0.0-0.6); Eosinophils % 0.9 %; Hematocrit 38.9 % (37.5-50.1); Immature Granulocytes % 0.5 % (0-4); Lymphocytes # 0.7 K/mcL (0.6-4.6); Lymphocytes % 9.7 %; Mean Corpuscular HGB Conc 32.4 g/dL (31.6-35.5); Mean Corpuscular Hemoglobin 29.2 pg (28.0-33.3); Mean Platelet Volume 10.3 fL (9.4-12.4); Monocytes # 0.6 K/mcL (0.0-1.3); Monocytes % 7.3 %; Neutrophils # 6.1 K/mcL (1.6-8.9); Platelet Count 246 K/mcL (140-400); Red Blood Count 4.32 M/mcL (4.19-5.50); Red Cell Distribution Width 14.6 % (11.5-14.5); Segmented Neutrophils % 80.8 %; White Blood Count 7.6 K/mcL (4.3-11.1)
[2018-09-28 20:33] LABS: Hemoglobin 12.6 g/dL (12.9-16.9)
[2018-09-28 21:13] LABS: Troponin I 0.04 ng/mL (< 0.04)
[2018-09-28] MEDS ORDERED: Aspirin 325 MG TABLET PO ONE (21:22)
[2018-09-28 21:48] LABS: Potassium 3.9 mEq/L (3.5-5.1)
[2018-09-28] MEDS: Nitroglycerin 0.4 MG TAB.SUBL SL PRN ×3 (22:04→22:15)
[2018-09-28 22:05] LABS: Calcium 8.3 mg/dL (8.6-10.3)
[2018-09-28] MEDS ORDERED: *HR* LORazepam 2 MG/ML VIAL IVP ONE (22:08)
[2018-09-28] MEDS ORDERED: Furosemide 40 MG/4 ML VIAL IVP ONE (22:25)
[2018-09-28] MEDS ORDERED: *HR* OxyCODONE Immed Rel 5 MG TABLET PO ONE (23:48)
[2018-09-29] MEDS ORDERED: *HR* LORazepam 2 MG/ML VIAL IVP ONE (02:03)
--- NOTE | 2018-09-29 04:22 | Internal Med History&Physical ---
Date of Encounter: 09/29/18 Time of Encounter: 04:09 Internal Medicine - H&P: HPI Chief complaint: Dyspnea History of present illness: Mr. Tripp is a 53 year old male with a past medical history of CHF, COPD on home oxygen, hypertension, hyperlipidemia, paroxysmal atrial fibrillation on Xarelto, status post left AKA who was recently discharged from the hospital on September 23 after hospitalization for osteomyelitis of the right third toe status post amputation. Hospital course was complicated by CHF exacerbation and acute on chronic kidney injury. Patient's Bumex was discontinued and patient was subsequently started on Lasix 20 mg by mouth twice a day. He returns today with complaints of difficulty breathing the past couple days. Patient is on home oxygen at 2 L at baseline. Patient reports she has been requiring increased oxygen demand in the setting of progressively worsening shortness of breath. He has noted increased lower extremity edema. States he has been compliant with his Lasix. Denies any fever, chills, worsening cough. Did not endorse int ermittent chest tightness that resolved with nitroglycerin in the ED. On arrival he was noted to be hypoxemic with a O2 saturation in the mid 80s. Laboratory workup notable for an elevated troponin of 0.04. BNP also noted to be slightly elevated at 317. EKG shows normal sinus rhythm with nonspecific ST and T-wave changes. Chest x-ray shows cardiomegaly with increased pulmonary vascular congestion. Patient was given aspirin and nitroglycerin and placed on BiPAP. Admitted for CHF exacerbation as well as possible COPD exacerbation. Past Med Surg Social Fam HX - Past Medical History Medical history: atrial fibrillation, CHF, COPD, coronary artery disease, diabetes, hyperlipidemia, hypertension, renal disease, other Additional medical history: anemia Psychiatric history: anxiety, depression - Past Surgical History Surgical History: appendectomy, other Additional surgical history: left aka, toe amputee - Social History Smoking Status: Former smoker Smokeless Tobacco Status: No Alcohol use: none Drug use: none - Family History Father Adopted: No Family Member Ethnicity: Non- Living Status: Hx Family Cardiac Disorders: Yes Hx Family Respiratory Disorders: No Hx Family Cancer: No Hx Family GI Disorders: No Hx Family Endocrine Disorder: Yes (Diabetic) Hx Family Neuromuscular Disorders: No Hx Family Neurologic Disorders: No Hx Family HEENT Disorders: No Hx Family Autoimmune Disorders: No Internal Medicine - H&P: Meds Fluticasone/Vilanterol [Breo Ellipta 100-25 Mcg INH] 1 puff IH DAILY 06/24/16 [History] Escitalopram [Lexapro] 20 mg PO DAILY #30 tablet 04/16/18 [Rx] Loperamide [Imodium] 2 mg PO Q4HR PRN #30 capsule 04/16/18 [Rx] Aspirin 81 mg PO DAILY 09/12/18 [History] Atorvastatin [Lipitor] 40 mg PO DAILY 09/12/18 [History] Carvedilol 12.5 mg PO BID 09/12/18 [History] Insulin ASPART [Novolog Flexpen] 8 unit SQ TIDAC 09/12/18 [History] Insulin DETEMIR [Levemir Flextouch] 20 unit SQ BID 09/12/18 [History] Isosorbide MONOnitrate (24 HR) [Imdur] 30 mg PO QAM 09/12/18 [History] Lipase/Protease/Amylase [Creon Dr 36,000 Units Capsule] 2 cap PO TIDWM 09/12/18 [History] Rivaroxaban [Xarelto] 15 mg PO DAILY 09/12/18 [History] Furosemide [Lasix] 20 mg PO BID #60 tablet 09/23/18 [Rx] amLODIPine [Norvasc] 5 mg PO DAILY #30 tablet 09/23/18 [Rx] Clindamycin [Cleocin] 300 mg PO TID 09/29/18 [History] Allergy/AdvReac Type Severity Reaction Status Date / Time vancomycin Allergy Hives Verified 09/28/18 22:29 tramadol AdvReac Nausea Verified 09/28/18 22:29 All Systems PM: A 10-system review of systems was performed and is negative for pertinent findings except as documented above in the HPI. - Constitutional Constitutional: no chills, no fever(s), no night sweats - EENT Eyes: no change in vision, no discharge, no pain, no photophobia Ears: no ear discharge, no ear pain, no tinnitus Nose, mouth and throat: no dysphagia, no nasal discharge, no neck pain, no sore throat - Cardiovascular Cardiovascular ROS IM: no chest pain, no diaphoresis, no dyspnea, no lightheadedness, no palpitations, no syncope - Respiratory Respiratory: no cough, no dyspnea, no wheezing, no excessive phlegm production - Gastrointestinal Gastrointestinal: no abdominal pain, no diarrhea, no hematemesis, no hematochezia, no melena, no nausea, no vomiting - Musculoskeletal Musculoskeletal ROS IM: no numbness, no tingling - Integumentary Integumentary IM: no rash, no unusual bruising - Neurological Neurological ROS: no confusion, no convulsions, no focal weakness, no numbness, no tingling, no tremor(s) - Hematologic/Lymphatic Hematologic/Lymphatic: no easy bruising - Constitutional Vitals: Temp Pulse Resp BP Pulse Ox 98.1 F 86 20 158/97 93 09/28/18 23:42 09/28/18 23:42 09/28/18 23:42 09/28/18 23:42 09/28/18 23:42 Exam: General: Alert and oriented Skin:Normal color, no rash, no lesions. HEENT:EOM, pupils equal, round and reactive. Cardiovascular:Normal S1 & S2, no rubs, murmurs or gallops. No JVD. Pulse regular. Lungs:Normal breath sounds, no wheezes or crackles. Abdomen:Soft, non-tender, no rigidity. Extremities: Left [id number] amputation; right lower extremity 1+ pitting edema up to the mid sun. Right foot and bandage status post amputation. Dressing clean and dry. Neurological:Normal cognition and motor skills. Pulses:Carotid and radial pulses normal +2. Rest of the physical exam is non contributory Internal Med - H&P Results - Labs CBC & Chem 7: 09/30/18 05:52 09/30/18 05:52 Labs: Short CBC 09/28/18 Range/Units 20:06 WBC 7.6 (4.3-11.1) K/mcL Hgb 12.6 L D (12.9-16.9) g/dL Hct 38.9 (37.5-50.1) % Plt Count 246 (140-400) K/mcL Neutrophils # 6.1 (1.6-8.9) K/mcL BMP 09/28/18 20:06 Sodium 137 Potassium 3.9 Chloride 106 Carbon Dioxide 23 BUN 28 H Creatinine 3.03 H Glucose 184 H Calcium 8.3 L Cardiac Enzymes 09/28/18 Range/Units 20:06 Troponin I 0.04 H* (< 0.04) ng/mL - Impressions ITS Impressions Chest X-Ray 09/28/18 19:49 IMPRESSION: Cardiomegaly with pulmonary vascular congestion D/ / Alexy Velasquez MD / Alexy Velasquez MD Interpreting Provider: Alexy Velasquez MD - Assessment and Plan (1) Acute and chronic respiratory failure with hypoxia Current Visit: Yes Status: Acute Assessment and plan: Likely secondary to CHF exacerbation plus COPD exacerbation. Patient tolerated BiPAP briefly. Currently on 4 L nasal cannula saturating 93%. Still appears to have some conversational dyspnea. -Continue O2 support; will place patient on pulse oximetry. Advised patient to go back on BiPAP if his O2 saturations drop. -Continue Lasix for treatment of CHF exacerbation -We will start patient on duo nebs and steroids for possible COPD exacerbation (2) Elevated troponin Current Visit: Yes Status: Acute Assessment and plan: Patient reporting chest tightness earlier today which resolved with nitroglyceri n. Found to have a mildly elevated troponin of 0.04 on admission. EKG shows normal sinus rhythm with nonspecific ST/T-wave changes. May be secondary to demand ischemia. Patient received loading dose of aspirin in the ED. -Telemetry -We will trend troponin -Appreciate cardiology recommendations. (3) CHF (congestive heart failure) Current Visit: Yes Status: Deleted Assessment and plan: Patient presents with CHF symptoms--worsening dyspnea, weight gain, PND, and orthopnea over the past few days. Most recent echo last month shows reduced LVEF, 40-45% with global and segmental LV dysfunction -Continue strict I's and O's; daily weights. -Fluid restriction diet. -Continue Lasix 20 mg IV push twice a day -Consult cardiology Qualifiers: Heart failure type: systolic Heart failure chronicity: acute on chronic Qualified Code(s): I50.23 - Acute on chronic systolic (congestive) heart failure (4) Atrial fibrillation Current Visit: Yes Status: Chronic Assessment and plan: Hx of PAF per outpatient record, on Xarelto (renal adjusted dose). Patient currently appears to be in sinus rhythm. Per cardiology note on previous admission, May need to consider changing to Coumadin given worsening kidney function. However, kidney function at this time appears to be at baseline Qualifiers: Atrial fibrillation type: paroxysmal Qualified Code(s): I48.0 - Paroxysmal atrial fibrillation (5) CKD (chronic kidney disease) stage 3, GFR 30-59 ml/min Current Visit: No Status: Acute Assessment and plan: History of chronic kidney disease. Creatinine currently appears to be at baseline. We will continue to monitor the setting of diuresis. (6) DVT prophylaxis Current Visit: No Status: Chronic (7) Diabetes mellitus Current Visit: No Status: Chronic Assessment and plan: Blood glucose checks with sliding scale insulin. 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 -Continue duo nebs -Steroids -Azithromycin Qualifiers: Emphysema type: unspecified Qualified Code(s): J43.9 - Emphysema, unspecified (9) Osteomyelitis Current Visit: Yes Status: Acute Assessment and plan: Patient currently cleaning antibiotic course for osteomyelitis of third toe on right foot status post amputation. According to previous discharge note patient is to complete oral antibiotics until 6619. We will need to verify which antibiotic patient was taking. Qualifiers: Osteomyelitis type: unspecified type Laterality: unspecified laterality Qualified Code(s): M86.9 - Osteomyelitis, unspecified - Time Spent With Patient Total time spent is greater than 50% in coordination of care (as documented) at patient's floor/unit and/or counseling patient:
[2018-09-29] MEDS ORDERED: D5% in Water 1,000 ML IVC PRN (04:50)
[2018-09-29] MEDS ORDERED: *HR* Dextrose 50 % in Water (Syg) 50 ML SYRINGE IVP PRN (04:50)
[2018-09-29] MEDS ORDERED: Dextrose Gel 15 GM/37.5 ML TUBE PO PRN ×2 (04:50)
[2018-09-29] MEDS: Ipratropium/Albuterol Neb 3 ML IH SCH ×2 (05:51→11:15)
[2018-09-29] MEDS ORDERED: MethylPREDNISolone 40 MG/ML VIAL IVP SCH (06:00)
[2018-09-29 06:09] LABS: Basophils % 0.6 %; Eosinophils % 0.4 %; Immature Granulocytes % 0.6 % (0-4); Lymphocytes # 0.8 K/mcL (0.6-4.6); Lymphocytes % 11.8 %; Mean Corpuscular HGB Conc 31.6 g/dL (31.6-35.5); Mean Corpuscular Hemoglobin 28.5 pg (28.0-33.3); Mean Corpuscular Volume 90.3 fL (83.0-100.0); Mean Platelet Volume 10.1 fL (9.4-12.4); Monocytes # 0.6 K/mcL (0.0-1.3); Monocytes % 8.2 %; Neutrophils # 5.3 K/mcL (1.6-8.9); Platelet Count 184 K/mcL (140-400); Red Blood Count 4.21 M/mcL (4.19-5.50); Red Cell Distribution Width 14.8 % (11.5-14.5); Segmented Neutrophils % 78.4 %; White Blood Count 6.7 K/mcL (4.3-11.1)
[2018-09-29] MEDS: Azithromycin 500 MG in D5% in Water 250 ML IVPB SCH (06:12)
[2018-09-29] MEDS: OXYCODONE Oral CONC 10 MG/0.5 ML ORAL.SYG SL PRN ×2 (06:13→21:28)
[2018-09-29 06:15] LABS: INR 1.4; Prothrombin Time 15.6 Seconds (9.4-12.1)
[2018-09-29 06:18] LABS: Activated Partial Thrombo Time 34.6 Seconds (26.0-36.0)
[2018-09-29 06:43] LABS: Albumin 2.4 g/dL (3.5-5.7); Albumin/Globulin Ratio 0.7 (1.1-2.2); Bilirubin,Total 0.5 mg/dL (0.3-1.0); Calcium 7.9 mg/dL (8.6-10.3); Globulin 3.6 g/dL (2.4-3.5); Magnesium 1.7 mg/dL (1.6-2.6); Potassium 3.8 mEq/L (3.5-5.1); Troponin I 0.04 ng/mL (< 0.04)
[2018-09-29 06:44] LABS: Thyroid Stimulating Hormone 6.24 mcIU/mL (0.340-5.600)
[2018-09-29] MEDS: Aspirin 81 MG TAB.CHEW PO SCH (08:36)
[2018-09-29] MEDS: amLODIPine 5 MG TABLET PO SCH (08:36)
[2018-09-29] MEDS: Isosorbide MONOnitrate (24 HR) 30 MG TAB.ER.24H PO SCH (08:36)
[2018-09-29] MEDS: Insulin LISPRO 300 UNITS/3 ML VIAL SQ SCH ×3 (08:37→16:47)
[2018-09-29] MEDS: *HR* Rivaroxaban 15 MG TABLET PO SCH (08:37)
[2018-09-29] MEDS ORDERED: Furosemide 20 MG/2 ML VIAL IVP SCH (09:00)
--- NOTE | 2018-09-29 09:29 | Internal Med Progress Note ---
Hospitalist Progress Note - Encounter Date of Encounter: 09/29/18 Time of Encounter: 09:00 - Subjective Interval History: Mr. Tripp is a 53 year old male with a past medical history of systolic CHF, COPD, chronic hypoxic respiratory failure on 2 L home oxygen, hypertension, hyperlipidemia, paroxysmal atrial fibrillation on Xarelto, status post left AKA who was recently discharged from the hospital on September 23 after hospitalization for CHF / COPD exacerbation and found to have osteomyelitis of the right third toe status post amputation of toes. During last hospitalization Patient's Bumex was discontinued and patient was subsequently started on Lasix 20 mg by mouth twice a day. Now he presented to ER with progressively worsening shortness of breath from last couple of days . On arrival he was noted to be hypoxemic with a O2 saturation in the mid 80s. Laboratory workup notable for an elevated troponin of 0.04. Chest x-ray showed cardiomegaly with increased pulmonary vascular congestion. He was admitted in the hospital and placed him on secured entrance monitor. He was started on aggressive IV diuresis with Lasix. Patient stated he is feeling l ittle better today however still having moderate shortness of breath and dyspnea on exertion. He denied any chest pain. Does have cough and expectoration. - Exam Vitals: Temp Pulse Resp BP Pulse Ox 98.5 F 85 17 144/87 92 09/29/18 07:50 09/29/18 07:50 09/29/18 07:50 09/29/18 07:50 09/29/18 07:50 Exam: Gen: Alert, awake, Oriented to time,place and person Chest: Diminished breath sounds B/L, mild to moderate wheezing, crackles ++, rales ++ Heart: S1S2+ RRR No murmurs Abd: Soft, NT, BS +, No organomegaly Ext: 2+ pitting edema,pulses are palpable, No calf tenderness.. s/p Lt AKA, s/p Rt foot recent 3rd toe amputation.Clean incision noticed Neuro : No acute focal neuro deficits noticed Skin: No rash. - Assessment and Plan (1) Acute on chronic systolic (congestive) heart failure Current Visit: Yes Status: Acute Assessment and Plan: Patient presents with CHF symptoms--worsening dyspnea, weight gain, PND, and orthopnea over the past few days. His recent echo last month shows reduced LVEF, 40-45% with global and segmental LV dysfunction Continue strict I's and O's; daily weights. Fluid restriction diet. Inc Lasix to 40 mg IV push twice a day resumed other home meds (2) Acute and chronic respiratory failure with hypoxia Current Visit: Yes Status: Acute Assessment and Plan: Due to acute on chronic systolic CHF exacerbation + mild COPD exacerbation Inc Lasix to 40 BID cont close monitoring try to wean him off the oxygen to baseline as he tolerates (3) Diabetes mellitus Current Visit: No Status: Chronic Assessment and Plan: ADA diet on ISS + Added Levemir (4) Osteomyelitis of foot Current Visit: No Status: Acute Assessment and Plan: Patient currently on PO antibiotic course for osteomyelitis of third toe on right foot status post amputation. According to previous discharge note patient is to complete oral antibiotics until 6619. (5) Elevated troponin Current Visit: Yes Status: Acute Assessment and Plan: flat and adynamic slightly elevated @ 0.04 due to demand ischemia (6) DVT prophylaxis Current Visit: No Status: Chronic Assessment and Plan: on Xarelto (7) CKD (chronic kidney disease) stage 3, GFR 30-59 ml/min Current Visit: No Status: Acute Assessment and Plan: History of chronic kidney disease at stage 3 seems to be Cr at baseline now We will continue to monitor the setting of diuresis. (8) Atrial fibrillation Current Visit: Yes Status: Chronic Assessment and Plan: rate controlled with Coreg on Xarelto for anti coag (9) COPD (chronic obstructive pulmonary disease) Current Visit: Yes Status: Acute Assessment and Plan: Mild COPD exacerbation. Continue duo nebs Switch to PO Steroids Cont prophylactic abx Azithromycin - Time Spent with Patient Total time spent is greater than 50% in coordination of care (as documented) at patient's floor/unit and/or counseling patient: Internal Medicine: Result - Labs CBC & Chem 7: 09/29/18 05:39 09/29/18 05:39 Labs: Short CBC 09/28/18 09/29/18 Range/Units 20:06 05:39 WBC 7.6 6.7 (4.3-11.1) K/mcL Hgb 12.6 L D 12.0 L (12.9-16.9) g/dL Hct 38.9 38.0 (37.5-50.1) % Plt Count 246 184 (140-400) K/mcL Neutrophils # 6.1 5.3 (1.6-8.9) K/mcL BMP 09/28/18 09/29/18 20:06 05:39 Sodium 137 138 Potassium 3.9 3.8 Chloride 106 106 Carbon Dioxide 23 24 BUN 28 H 28 H Creatinine 3.03 H 3.00 H Glucose 184 H 216 H Calcium 8.3 L 7.9 L Cardiac Enzymes 09/28/18 09/29/18 Range/Units 20:06 05:39 Troponin I 0.04 H* 0.04 H* (< 0.04) ng/mL Liver Function 09/29/18 Range/Units 05:39 Total Bilirubin 0.5 (0.3-1.0) mg/dL AST 17 (13-39) Units/L ALT 14 (7-52) Units/L Alkaline Phosphatase 140 H (34-104) Units/L Albumin 2.4 L (3.5-5.7) g/dL - ABG Interpretation ABG results: PT/INR, D-dimer PT 15.6 Seconds (9.4-12.1) H 09/29/18 05:39 - Impressions Impressions Chest X-Ray 09/28/18 19:49 IMPRESSION: Cardiomegaly with pulmonary vascular congestion D/ / Alexy Velasquez MD / Alexy Velasquez MD Interpreting Provider: Alexy Velasquez MD Consult Discharge Plan - Plan Referrals: Ke Saha [Primary Care Provider] - (3) Diabetes mellitus Qualifiers: Diabetes mellitus type: other specified (including VAL) Diabetes mellitus custodial insulin use: with long term care administrator use Diabetes mellitus complication status: with unspecified complications Qualified Code(s): E13.8 - Other specified diabetes mellitus with unspecified complications; Z79.4 - prison (current) use of insulin (8) Atrial fibrillation Qualifiers: Atrial fibrillation type: paroxysmal Qualified Code(s): I48.0 - Paroxysmal atrial fibrillation
--- NOTE | 2018-09-29 09:59 | Electrocardiograph Report ---
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
[2018-09-29] MEDS ORDERED: Ipratropium/Albuterol Neb 3 ML IH PRN (11:27)
[2018-09-29] MEDS: Furosemide 20 MG/2 ML VIAL IVP SCH (16:48)
[2018-09-29] MEDS ORDERED: Insulin DETEMIR 100 UNIT/ML X5UNITS SQ SCH (21:00)
[2018-09-29] MEDS: Insulin DETEMIR 100 UNIT/ML X5UNITS SQ SCH (21:27)
[2018-09-30] MEDS: Azithromycin 500 MG in D5% in Water 250 ML IVPB SCH (06:14)
[2018-09-30 07:40] LABS: Hematocrit 36.8 % (37.5-50.1); Hemoglobin 11.5 g/dL (12.9-16.9); Mean Corpuscular HGB Conc 31.3 g/dL (31.6-35.5); Mean Corpuscular Hemoglobin 28.3 pg (28.0-33.3); Mean Corpuscular Volume 90.6 fL (83.0-100.0); Mean Platelet Volume 10.6 fL (9.4-12.4); Platelet Count 176 K/mcL (140-400); Red Blood Count 4.06 M/mcL (4.19-5.50); Red Cell Distribution Width 14.7 % (11.5-14.5)
[2018-09-30 07:50] LABS: Calcium 7.7 mg/dL (8.6-10.3); Magnesium 1.9 mg/dL (1.6-2.6); Potassium 3.7 mEq/L (3.5-5.1)
[2018-09-30 08:47] LABS: Lymphocytes # 2.5 K/mcL (0.6-4.6); Monocytes # 0.6 K/mcL (0.0-1.3); Neutrophils # 2.9 K/mcL (1.6-8.9); Platelet Estimate Normal (Normal); Reactive Lymphocytes Present (Not Present)
[2018-09-30] MEDS: Furosemide 20 MG/2 ML VIAL IVP SCH ×2 (09:12→17:27)
[2018-09-30] MEDS: Insulin LISPRO 300 UNITS/3 ML VIAL SQ SCH ×3 (09:16→17:30)
[2018-09-30] MEDS: predniSONE 20 MG TABLET PO SCH (09:18)
[2018-09-30] MEDS: Isosorbide MONOnitrate (24 HR) 30 MG TAB.ER.24H PO SCH (09:18)
[2018-09-30] MEDS: *HR* Rivaroxaban 15 MG TABLET PO SCH (09:18)
[2018-09-30] MEDS: amLODIPine 5 MG TABLET PO SCH (09:19)
[2018-09-30] MEDS: Aspirin 81 MG TAB.CHEW PO SCH (09:19)
[2018-09-30] MEDS: Insulin DETEMIR 100 UNIT/ML X5UNITS SQ SCH ×2 (09:20→20:24)
[2018-09-30] MEDS: OXYCODONE Oral CONC 10 MG/0.5 ML ORAL.SYG SL PRN (09:21)
--- NOTE | 2018-09-30 14:47 | Internal Med Progress Note ---
Hospitalist Progress Note - Encounter Date of Encounter: 09/30/18 Time of Encounter: 14:45 - Subjective Interval History: Mr. Tripp is a 53 year old male with a past medical history of systolic CHF, COPD, chronic hypoxic respiratory failure on 2 L home oxygen, hypertension, hyperlipidemia, paroxysmal atrial fibrillation on Xarelto, status post left AKA who was recently discharged from the hospital on September 23 after hospitalization for CHF / COPD exacerbation and found to have osteomyelitis of the right third toe status post amputation of toes. During last hospitalization Patient's Bumex was discontinued and patient was subsequently started on Lasix 20 mg by mouth twice a day. Now he presented to ER with progressively worsening shortness of breath from last couple of days . On arrival he was noted to be hypoxemic with a O2 saturation in the mid 80s. Laboratory workup notable for an elevated troponin of 0.04. Chest x-ray showed cardiomegaly with increased pulmonary vascular congestion. He was admitted in the hospital and placed him on monitoring analyst. He was started on aggressive IV diuresis with Lasix. Patient stated he is feeling l ittle better today however still having moderate shortness of breath and dyspnea on exertion. He denied any chest pain. Feels like he wanted to cough it out and unable to bring it out. - Exam Vitals: Temp Pulse Resp BP Pulse Ox 98.0 F 82 18 144/86 97 09/30/18 11:50 09/30/18 11:50 09/30/18 11:50 09/30/18 11:50 09/30/18 11:50 Exam: Gen: Alert, awake, Oriented to time,place and person Chest: Diminished breath sounds B/L, mild to moderate wheezing, crackles +, rales + Heart: S1S2+ RRR No murmurs Abd: Soft, NT, BS +, No organomegaly..Distended. Ext: 2+ pitting edema,pulses are palpable, No calf tenderness.. s/p Lt AKA, s/p Rt foot recent 3rd toe amputation.Clean incision noticed Neuro : No acute focal neuro deficits noticed Skin: No rash. - Assessment and Plan (1) Acute on chronic systolic (congestive) heart failure Current Visit: Yes Status: Acute Assessment and Plan: Patient presents with CHF symptoms--worsening dyspnea, weight gain, PND, and orthopnea over the past few days. His recent echo last month shows reduced LVEF, 40-45% with global and segmental LV dysfunction Continue strict I's and O's; daily weights Fluid restriction diet Cont Lasix to 40 mg IV push twice a day resumed other home meds (2) Acute and chronic respiratory failure with hypoxia Current Visit: Yes Status: Acute Assessment and Plan: Due to acute on chronic systolic CHF exacerbation + mild COPD exacerbation Inc Lasix to 40 BID cont close monitoring try to wean him off the oxygen to baseline 2 lit as he tolerates Patient does need to stay in the hospital more than 2 midnights due to his complex medical problems. So we will change him to full admission today. I did review my colleague Dr. Artis's H & P including HPI, PMH, PSH, FH, SH, and ROS no changes noticed (3) COPD (chronic obstructive pulmonary disease) Current Visit: Yes Status: Acute Assessment and Plan: Mild COPD exacerbation. Continue duo nebs Cont PO Steroids Cont abx Clindamycin d/c Azithro Ordered chest percussion therapy (4) Diabetes mellitus Current Visit: No Status: Chronic Assessment and Plan: ADA diet on ISS + Added Levemir (5) Osteomyelitis of foot Current Visit: Yes Status: Acute Assessment and Plan: Patient currently on PO antibiotic course for osteomyelitis of third toe on right foot status post amputation. Resumed home med of Clindamycin According to previous discharge note patient is to complete oral antibiotics until 66. (6) CKD (chronic kidney disease) stage 3, GFR 30-59 ml/min Current Visit: No Status: Acute Assessment and Plan: History of chronic kidney disease at stage 3 Cr started trending up now today @ 3.17 We will continue to monitor the setting of diuresis. (7) Elevated troponin Current Visit: Yes Status: Acute Assessment and Plan: flat and adynamic slightly elevated @ 0.04 due to demand ischemia (8) DVT prophylaxis Current Visit: No Status: Chronic Assessment and Plan: on Xarelto (9) Atrial fibrillation Current Visit: Yes Status: Chronic Assessment and Plan: rate controlled with Coreg on Xarelto for anti coag - Time Spent with Patient Total time spent is greater than 50% in coordination of care (as documented) at patient's floor/unit and/or counseling patient: Internal Medicine: Result - Labs CBC & Chem 7: 09/30/18 05:52 09/30/18 05:52 Labs: Short CBC 09/30/18 Range/Units 05:52 WBC 6.0 (4.3-11.1) K/mcL Hgb 11.5 L (12.9-16.9) g/dL Hct 36.8 L (37.5-50.1) % Plt Count 176 (140-400) K/mcL Neutrophils # 2.9 (1.6-8.9) K/mcL BMP 09/30/18 05:52 Sodium 138 Potassium 3.7 Chloride 104 Carbon Dioxide 27 BUN 33 H Creatinine 3.17 H Glucose 250 H Calcium 7.7 L - ABG Interpretation ABG results: PT/INR, D-dimer PT 15.6 Seconds (9.4-12.1) H 09/29/18 05:39 Consult Discharge Plan - Plan Referrals: Ke Saha [Primary Care Provider] - (4) Diabetes mellitus Qualifiers: Diabetes mellitus type: other specified (including VAL) 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
[2018-09-30] MEDS ORDERED: *HR* LORazepam 2 MG/ML VIAL IVP ONE (21:38)
[2018-10-01] MEDS: Insulin LISPRO 300 UNITS/3 ML VIAL SQ SCH ×4 (08:07→20:38)
[2018-10-01] MEDS: Furosemide 20 MG/2 ML VIAL IVP SCH (08:09)
[2018-10-01] MEDS: *HR* Rivaroxaban 15 MG TABLET PO SCH (08:15)
[2018-10-01] MEDS: Isosorbide MONOnitrate (24 HR) 30 MG TAB.ER.24H PO SCH (08:15)
[2018-10-01] MEDS: predniSONE 20 MG TABLET PO SCH (08:16)
[2018-10-01] MEDS: Aspirin 81 MG TAB.CHEW PO SCH (08:17)
[2018-10-01] MEDS: amLODIPine 5 MG TABLET PO SCH (08:17)
[2018-10-01] MEDS: Insulin DETEMIR 100 UNIT/ML X5UNITS SQ SCH ×2 (08:19→20:37)
[2018-10-01] MEDS: OXYCODONE Oral CONC 10 MG/0.5 ML ORAL.SYG SL PRN (08:20)
--- NOTE | 2018-10-01 11:08 | Internal Med Progress Note ---
Hospitalist Progress Note - Encounter Date of Encounter: 10/01/18 Time of Encounter: 10:30 - Subjective Interval History: Mr Tripp is currently admitted for acute exac CHF. He remains moderate to high risk due to potential for worsening cardiac status. Mr Tripp is feeling a little better. No fever or chills. Breathing somewhat better. Wants same drug for anxiety today. No GI issues. - Exam Vitals: Temp Pulse Resp BP Pulse Ox 97.9 F 82 18 157/93 99 10/01/18 07:05 10/01/18 07:05 10/01/18 07:05 10/01/18 07:05 10/01/18 07:05 Exam: General: Alert and oriented. Comfortable at this time. Skin: Normal color, no rash, H: Normocephalic. EENT: EOMI, Mucus membranes moist. Cardiovascular: Normal S1 & S2, no murmurs Pulse regular. Lungs: Decreased breath sounds. No wheeze or rales now. Abdomen: Soft, non-tender, Normal bowel sounds. Extremities: Edema present Neurological: Normal cognition and motor skills. Pulses: radial pulses normal +2. Rest of the physical exam is non contributory - Assessment and Plan (1) Acute renal failure Current Visit: Yes Status: Suspected Assessment and Plan: Renal function worsened again today. Decrease lasix dose. Recheck tomorrow. (2) Diabetes mellitus Current Visit: No Status: Chronic Assessment and Plan: Uncontrolled. Continue accuchecks and coverage. Adjust today. (3) Acute and chronic respiratory failure with hypoxia Current Visit: Yes Status: Acute Assessment and Plan: Due to CHF and COPD exacerbation. Currently weaning oxygen as able. (4) CHF (congestive heart failure) Current Visit: Yes Status: Acute Assessment and Plan: Pt presented to ED with symptoms of acute exac CHF. He has responded to diuresis. Need to decrease dose due to renal dysfunction. Continue symptomatic treatment. (5) CKD (chronic kidney disease) stage 3, GFR 30-59 ml/min Current Visit: No Status: Chronic Assessment and Plan: History of chronic kidney disease. (6) Atrial fibrillation Current Visit: Yes Status: Chronic Assessment and Plan: Pt with parox a fib Currently in sinus and on Xarelto. (7) COPD (chronic obstructive pulmonary disease) Current Visit: Yes Status: Acute Assessment and Plan: Improving with treatment. (8) Osteomyelitis Current Visit: Yes Status: Acute Assessment and Plan: Currently on PO abx. - Time Spent with Patient Total time spent is greater than 50% in coordination of care (as documented) at patient's floor/unit and/or counseling patient: Internal Medicine: Result - Labs CBC & Chem 7: 09/30/18 05:52 09/30/18 05:52 - ABG Interpretation ABG results: PT/INR, D-dimer PT 15.6 Seconds (9.4-12.1) H 09/29/18 05:39 Consult Discharge Plan - Plan Referrals: Ke Saha [Primary Care Provider] - (1) Acute renal failure Qualifiers: Acute renal failure type: with acute tubular necrosis Qualified Code(s): N17.0 - Acute kidney failure with tubular necrosis (2) Diabetes mellitus Qualifiers: Diabetes mellitus type: other specified (including VAL) Diabetes mellitus lobsterman insulin use: with lobsterman use Diabetes mellitus complication status: with other specified complication Qualified Code(s): E13.69 - Other specified diabetes mellitus with other specified complication; Z79.4 - [facility] (current) use of insulin (4) CHF (congestive heart failure) Qualifiers: Heart failure type: systolic Heart failure chronicity: acute on chronic Qualified Code(s): I50.23 - Acute on chronic systolic (congestive) heart failure (6) Atrial fibrillation Qualifiers: Atrial fibrillation type: paroxysmal Qualified Code(s): I48.0 - Paroxysmal atrial fibrillation (7) COPD (chronic obstructive pulmonary disease) Qualifiers: COPD type: COPD with acute lower respiratory infection Qualified Code(s): J44.0 - Chronic obstructive pulmonary disease with acute lower respiratory infection (8) Osteomyelitis Qualifiers: Osteomyelitis type: unspecified type Osteomyelitis location: foot Laterality : right Qualified Code(s): M86.9 - Osteomyelitis, unspecified
[2018-10-01] MEDS: *HR* LORazepam 0.5 MG TABLET PO PRN (15:35)
[2018-10-01] MEDS ORDERED: Insulin LISPRO 300 UNITS/3 ML VIAL SQ ONE (17:07)
[2018-10-02] MEDS: OXYCODONE Oral CONC 10 MG/0.5 ML ORAL.SYG SL PRN ×2 (01:56→08:22)
[2018-10-02 06:23] LABS: Hematocrit 37.8 % (37.5-50.1); Hemoglobin 12.2 g/dL (12.9-16.9); Mean Corpuscular HGB Conc 32.3 g/dL (31.6-35.5); Mean Corpuscular Hemoglobin 28.5 pg (28.0-33.3); Mean Corpuscular Volume 88.3 fL (83.0-100.0); Mean Platelet Volume 10.7 fL (9.4-12.4); Platelet Count 215 K/mcL (140-400); Red Blood Count 4.28 M/mcL (4.19-5.50); Red Cell Distribution Width 14.3 % (11.5-14.5)
[2018-10-02 06:25] LABS: White Blood Count 11.6 K/mcL (4.3-11.1)
[2018-10-02 06:44] LABS: Calcium 7.8 mg/dL (8.6-10.3); Magnesium 1.9 mg/dL (1.6-2.6)
[2018-10-02] MEDS: Insulin LISPRO 300 UNITS/3 ML VIAL SQ SCH ×4 (08:12→20:43)
[2018-10-02] MEDS: Aspirin 81 MG TAB.CHEW PO SCH (08:15)
[2018-10-02] MEDS: predniSONE 20 MG TABLET PO SCH (08:16)
[2018-10-02] MEDS: *HR* Rivaroxaban 15 MG TABLET PO SCH (08:16)
[2018-10-02] MEDS: *HR* LORazepam 0.5 MG TABLET PO PRN ×2 (08:16→22:40)
[2018-10-02] MEDS: amLODIPine 5 MG TABLET PO SCH (08:16)
[2018-10-02] MEDS: Isosorbide MONOnitrate (24 HR) 30 MG TAB.ER.24H PO SCH (08:17)
[2018-10-02] MEDS: Furosemide 20 MG/2 ML VIAL IVP SCH ×2 (08:19→17:04)
[2018-10-02] MEDS: Insulin DETEMIR 100 UNIT/ML X5UNITS SQ SCH ×2 (08:29→20:42)
--- NOTE | 2018-10-02 09:35 | Internal Med Progress Note ---
Hospitalist Progress Note - Encounter Date of Encounter: 10/02/18 Time of Encounter: 09:10 - Subjective Interval History: Mr Tripp is currently admitted for acute exacerbation of COPD/CHF. He remains moderate to high risk due to potential for worsening clinical status. Mr Tripp is feeling OK today. He is coughing a lot this morning and is trying to get up sputum. No fever or chills. BS very high last night and his noncompliance is documented. Moving around a little better today. Wants to go see Dr. Ovalle in pain management. - Exam Vitals: Temp Pulse Resp BP Pulse Ox 97.7 F 81 16 153/89 95 10/02/18 07:32 10/02/18 07:32 10/02/18 07:32 10/02/18 07:32 10/02/18 07:32 Exam: General: Alert and oriented. Sitting on edge of bed. Coughing more. Skin: Normal color, no rash, H: Normocephalic. EENT: EOMI, Mucus membranes moist. Cardiovascular: Normal S1 & S2, Pulse regular. No tachycardia. Lungs: Decreased breath sounds. Scattered basilar faint rales. No wheeze or rhonchi. Abdomen: Soft, non-tender, . Extremities: Edema present but seems better today. Neurological: Normal cognition and motor skills. Pulses: radial pulses normal +2. Rest of the physical exam is non contributory - Assessment and Plan (1) Acute and chronic respiratory failure with hypoxia Current Visit: Yes Status: Acute Assessment and Plan: Due to CHF and COPD exacerbation. Appears to be returning to baseline. (2) Acute renal failure Current Visit: Yes Status: Suspected Assessment and Plan: Renal function seems to be slowly improving. Diuretic decreased for today. Recheck tomorrow. (3) Diabetes mellitus Current Visit: No Status: Chronic Assessment and Plan: Uncontrolled. Pt has not been following diet especially at night. Adjust meds. (4) CHF (congestive heart failure) Current Visit: Yes Status: Acute Assessment and Plan: Pt presented to ED with symptoms of acute exac CHF. Continues to diuresis - dose of Lasix decreased. Clinically slowly improving. (5) CKD (chronic kidney disease) stage 3, GFR 30-59 ml/min Current Visit: No Status: Chronic Assessment and Plan: History of chronic kidney disease. (6) Atrial fibrillation Current Visit: Yes Status: Chronic Assessment and Plan: Pt with parox a fib Currently in sinus and on Xarelto. (7) COPD (chronic obstructive pulmonary disease) Current Visit: Yes Status: Acute Assessment and Plan: Continues to slowly improve. (8) Osteomyelitis Current Visit: Yes Status: Acute Assessment and Plan: Currently on PO abx. - Time Spent with Patient Total time spent is greater than 50% in coordination of care (as documented) at patient's floor/unit and/or counseling patient: Internal Medicine: Result - Labs CBC & Chem 7: 10/02/18 05:47 10/02/18 05:47 Labs: Short CBC 10/02/18 Range/Units 05:47 WBC 11.6 H D (4.3-11.1) K/mcL Hgb 12.2 L (12.9-16.9) g/dL Hct 37.8 (37.5-50.1) % Plt Count 215 (140-400) K/mcL BMP 10/02/18 05:47 Sodium 134 L Potassium 4.0 Chloride 100 Carbon Dioxide 29 BUN 40 H Creatinine 2.90 H Glucose 410 H Calcium 7.8 L - ABG Interpretation ABG results: PT/INR, D-dimer PT 15.6 Seconds (9.4-12.1) H 09/29/18 05:39 Consult Discharge Plan - Plan Referrals: Ke Saha [Primary Care Provider] - (2) Acute renal failure Qualifiers: Acute renal failure type: with acute tubular necrosis Qualified Code(s): N17.0 - Acute kidney failure with tubular necrosis (3) Diabetes mellitus Qualifiers: Diabetes mellitus type: other specified (including VAL) Diabetes mellitus retirement insulin use: with terminal system operator use Diabetes mellitus complication status: with other specified complication Qualified Code(s): E13.69 - Other specified diabetes mellitus with other specified complication; Z79.4 - correction (current) use of insulin (4) CHF (congestive heart failure) Qualifiers: Heart failure type: systolic Heart failure chronicity: acute on chronic Qualified Code(s): I50.23 - Acute on chronic systolic (congestive) heart failure (6) Atrial fibrillation Qualifiers: Atrial fibrillation type: paroxysmal Qualified Code(s): I48.0 - Paroxysmal atrial fibrillation (7) COPD (chronic obstructive pulmonary disease) Qualifiers: COPD type: COPD with acute lower respiratory infection Qualified Code(s): J44.0 - Chronic obstructive pulmonary disease with acute lower respiratory infection (8) Osteomyelitis Qualifiers: Osteomyelitis type: unspecified type Osteomyelitis location: foot Laterality: right Qualified Code(s): M86.9 - Osteomyelitis, unspecified
[2018-10-03 04:40] LABS: Calcium 7.7 mg/dL (8.6-10.3); Potassium 3.9 mEq/L (3.5-5.1)
[2018-10-03] MEDS: predniSONE 20 MG TABLET PO SCH (09:05)
[2018-10-03] MEDS: Aspirin 81 MG TAB.CHEW PO SCH (09:05)
[2018-10-03] MEDS: *HR* Rivaroxaban 15 MG TABLET PO SCH (09:05)
[2018-10-03] MEDS: Insulin LISPRO 300 UNITS/3 ML VIAL SQ SCH ×5 (09:06→20:16)
[2018-10-03] MEDS: Furosemide 20 MG/2 ML VIAL IVP SCH (09:06)
[2018-10-03] MEDS: Isosorbide MONOnitrate (24 HR) 30 MG TAB.ER.24H PO SCH (09:06)
[2018-10-03] MEDS: amLODIPine 5 MG TABLET PO SCH (09:06)
--- NOTE | 2018-10-03 13:10 | Internal Med Progress Note ---
Hospitalist Progress Note - Encounter Date of Encounter: 10/03/18 Time of Encounter: 10:15 - Subjective Interval History: Mr. Tripp is a 53 year old male with a past medical history of systolic CHF, COPD, chronic hypoxic respiratory failure on 2 L home oxygen, hypertension, hyperlipidemia, paroxysmal atrial fibrillation on Xarelto, status post left AKA who was recently discharged from the hospital on September 23 after hospitalization for CHF / COPD exacerbation and found to have osteomyelitis of the right third toe status post amputation of toes. During last hospitalization Patient's Bumex was discontinued and patient was subsequently started on Lasix 20 mg by mouth twice a day. Now he presented to ER with progressively worsening shortness of breath from last couple of days . On arrival he was noted to be hypoxemic with a O2 saturation in the mid 80s. Laboratory workup notable for an elevated troponin of 0.04. Chest x-ray showed cardiomegaly with increased pulmonary vascular congestion. He was admitted in the hospital and placed him on cardiac cath technologist. He was started on aggressive IV diuresis with Lasix. Patient stated his SOB better now. However he feels very weak and lethargic. He denied any chest pain. - Exam Vitals: Temp Pulse Resp BP Pulse Ox 98.0 F 84 15 153/85 99 10/03/18 12:05 10/03/18 12:05 10/03/18 12:05 10/03/18 12:05 10/03/18 12:05 Exam: Gen: Alert, awake, Oriented to time,place and person Chest: Diminished breath sounds B/L, mild to moderate wheezing, crackles +, rales + Heart: S1S2+ RRR No murmurs Abd: Soft, NT, BS +, No organomegaly..Distended. Ext: 2+ pitting edema,pulses are palpable, No calf tenderness.. s/p Lt AKA, s/p Rt foot recent 3rd toe amputation.Clean incision noticed Neuro : No acute focal neuro deficits noticed Skin: No rash. - Assessment and Plan (1) CHF (congestive heart failure) Current Visit: Yes Status: Acute Assessment and Plan: Improving His recent echo last month showed reduced LVEF, 40-45% with global and segmental LV dysfunction Continue strict I's and O's; daily weights Fluid restriction diet switched to PO Lasix 40mg BID now cont other home meds (2) Acute and chronic respiratory failure with hypoxia Current Visit: Yes Status: Acute Assessment and Plan: Due to CHF and COPD exacerbation. seems to be at baseline now He is non compliance pt.. He is taking of O2 at times Counseled him about this (3) Diabetes mellitus Current Visit: No Status: Chronic Assessment and Plan: Blood sugars are not well controlled Inc Levemir to 30 U BID On ISS Cut down on Prednisone (4) CKD (chronic kidney disease) stage 3, GFR 30-59 ml/min Current Visit: No Status: Chronic Assessment and Plan: He developed mild ABELINO with CKD-3 now Cr went upto 3.36 switched to Po lasix avoid nephro toxic meds Nephro consulted (5) Acute renal failure Current Visit: Yes Status: Suspected (6) Atrial fibrillation Current Visit: Yes Status: Chronic Assessment and Plan: Rate controlled with Coreg on Xarelto for anti coag (7) COPD (chronic obstructive pulmonary disease) Current Visit: Yes Status: Acute Assessment and Plan: start tapering steroids cont Duoneb + Symbicort (8) Osteomyelitis Current Visit: Yes Status: Acute Assessment and Plan: s/p amputation he finished his Abx course d/c Clinda - Time Spent with Patient Total time spent is greater than 50% in coordination of care (as documented) at patient's floor/unit and/or counseling patient: Internal Medicine: Result - Labs CBC & Chem 7: 10/02/18 05:47 10/03/18 03:37 Labs: BMP 10/03/18 03:37 Sodium 137 Potassium 3.9 Chloride 103 Carbon Dioxide 27 BUN 47 H Creatinine 3.36 H Glucose 305 H Calcium 7.7 L - ABG Interpretation ABG results: PT/INR, D-dimer PT 15.6 Seconds (9.4-12.1) H 09/29/18 05:39 Consult Discharge Plan - Plan Additional Instructions: Call [facility] when you get home to have shower chair delivered. #[phone] Referrals: Ke Saha [Primary Care Provider] - (1) CHF (congestive heart failure) Qualifiers: Heart failure type: systolic Heart failure chronicity: acute on chronic Qualified Code(s): I50.23 - Acute on chronic systolic (congestive) heart failure (3) Diabetes mellitus Qualifiers: Diabetes mellitus type: other specified (including VAL) Diabetes mellitus terminal carman insulin use: with terminal carman use Diabetes mellitus complication status: with other specified complication Qualified Code(s): E13.69 - Other specified diabetes mellitus with other specified complication; Z79.4 - termite treater helper (current) use of insulin (5) Acute renal failure Qualifiers: Acute renal failure type: with acute tubular necrosis Qualified Code(s): N17.0 - Acute kidney failure with tubular necrosis (6) Atrial fibrillation Qualifiers: Atrial fibrillation type: paroxysmal Qualified Code(s): I48.0 - Paroxysmal atrial fibrillation (7) COPD (chronic obstructive pulmonary disease) Qualifiers: COPD type: COPD with acute lower respiratory infection Qualified Code(s): J44.0 - Chronic obstructive pulmonary disease with acute lower respiratory infection (8) Osteomyelitis Qualifiers: Osteomyelitis type: unspecified type Osteomyelitis location: foot Laterality: right Qualified Code(s): M86.9 - Osteomyelitis, unspecified
[2018-10-03] MEDS: *HR* LORazepam 0.5 MG TABLET PO PRN (13:35)
[2018-10-03] MEDS: Insulin DETEMIR 100 UNIT/ML X5UNITS SQ SCH ×2 (13:37→20:16)
--- NOTE | 2018-10-03 17:20 | Nephrology Consult Note ---
Date of Encounter: 10/03/18 Time of Encounter: 17:00 Assessment and Plan (1) Acute kidney injury superimposed on CKD Current Visit: No Status: Acute Elevated SCr in the setting of CHF and diuretics Agree with de-escalating diuretics use back to po from iv Po fluids but restricted Will check urine studies Avoid nephrotoxins if possible No acute indication for INDUCTION COORDINATION POWER ENGINEER at this time (2) Acute and chronic respiratory failure with hypoxia Current Visit: Yes Status: Acute (3) Acute on chronic systolic (congestive) heart failure Current Visit: Yes Status: Acute (4) CKD (chronic kidney disease) stage 3, GFR 30-59 ml/min Current Visit: No Status: Acute History of Present Illness - Reason for Consult Consult date: 10/03/18 Acute Kidney Injury, Chronic Kidney Disease Requesting physician: Miranda Beth - History of Present Illness 53 y o male with PMH of HTN, high chol, CHF, COPD on home oxygen, Afib on xarelto and PAD with L AKA recently treated for osteomyelitis last month requiring amputation R 3rd toe with stay complicated by ABELINO returning with worsening SOB on lasix 20mg bid. Pt was diagnosed with CHF exacerbation and diuresed on lasix 40mg iv. UOP has been great around 4-5liters daily in the past 2 days. Renal consulted for rising SCr at 3.36, GFR 19. Of note last month Scr ranged from 2.6 to 3.26 with GFR in the 20s and baseline as of april was 1.85, GFR 38. Pt seen and examined Past Med Surg Social Fam HX - Past Medical History Medical history: atrial fibrillation, CHF, COPD, coronary artery disease, diabetes, hyperlipidemia, hypertension, renal disease, other Additional medical history: anemia Psychiatric history: anxiety, depression - Past Surgical History Surgical History: appendectomy, other Additional surgical history: left aka, toe amputee - Social History Smoking Status: Former smoker Smokeless Tobacco Status: No Alcohol use: none Drug use: none - Family History Father Adopted: No Family Member Ethnicity: Non- Living Status: Hx Family Cardiac Disorders: Yes Hx Family Respiratory Disorders: No Hx Family Cancer: No Hx Family GI Disorders: No Hx Family Endocrine Disorder: Yes (Diabetic) Hx Family Neuromuscular Disorders: No Hx Family Neurologic Disorders: No Hx Family HEENT Disorders: No Hx Family Autoimmune Disorders: No Medications and Allergies Fluticasone/Vilanterol [Breo Ellipta 100-25 Mcg INH] 1 puff IH DAILY 06/24/16 [History] Escitalopram [Lexapro] 20 mg PO DAILY #30 tablet 04/16/18 [Rx] Loperamide [Imodium] 2 mg PO Q4HR PRN #30 capsule 04/16/18 [Rx] Aspirin 81 mg PO DAILY 09/12/18 [History] Atorvastatin [Lipitor] 40 mg PO DAILY 09/12/18 [History] Carvedilol 12.5 mg PO BID 09/12/18 [History] Insulin ASPART [Novolog Flexpen] 8 unit SQ TIDAC 09/12/18 [History] Insulin DETEMIR [Levemir Flextouch] 20 unit SQ BID 09/12/18 [History] Isosorbide MONOnitrate (24 HR) [Imdur] 30 mg PO QAM 09/12/18 [History] Lipase/Protease/Amylase [Creon Dr 36,000 Units Capsule] 2 cap PO TIDWM 09/12/18 [History] Rivaroxaban [Xarelto] 15 mg PO DAILY 09/12/18 [History] Furosemide [Lasix] 20 mg PO BID #60 tablet 09/23/18 [Rx] amLODIPine [Norvasc] 5 mg PO DAILY #30 tablet 09/23/18 [Rx] Clindamycin [Cleocin] 300 mg PO TID 09/29/18 [History] Allergy/AdvReac Type Severity Reaction Status Date / Time vancomycin Allergy Hives Verified 09/28/18 22:29 tramadol AdvReac Nausea Verified 09/28/18 22:29 Exam - Vital Signs Vital signs: Initial Vital Signs Temp Pulse Resp BP Pulse Ox 97.9 F 86 16 174/106 98 09/28/18 20:27 09/28/18 20:27 09/28/18 20:27 09/28/18 20:27 09/28/18 20:27 Vital Signs - Last 8 Hours Temp Pulse Resp BP Pulse Ox 10/03/18 15:42 98.0 F 84 16 151/91 99 10/03/18 12:05 98.0 F 84 15 153/85 99 Intake and Output 10/03/18 10/03/18 10/03/18 07:59 15:59 23:59 Intake Total 600 / 600 Output Total 1500 / 2100 600 / 2100 Balance -1500 / -1500 0 / -1500 Intake: Oral 600 / 600 Output: Urine 1500 / 2100 600 / 2100 Other: Meal Lunch Percent of Meal Consumed 60% Stool Size Large Stool Consistency soft Stool Characteristics Pasty Stool Color Brown Blood Glucose* 458 Results - Lab Results 10/02/18 05:47 10/03/18 03:37 Consult Discharge Plan - Plan Additional Instructions: Call [facility] when you get home to have shower chair delivered. #[phone] Referrals: Ke Saha [Primary Care Provider] -
[2018-10-03] MEDS: Furosemide 40 MG TABLET PO SCH (18:15)
[2018-10-04] MEDS: OXYCODONE Oral CONC 10 MG/0.5 ML ORAL.SYG SL PRN ×2 (00:35→08:23)
[2018-10-04 00:56] LABS: Bilirubin,Urine Negative (Negative); Blood,Urine Small (Negative); Clarity,Urine Clear (Clear); Color,Urine Yellow (Yellow); Glucose,Urine (UA) >=1000 mg/dL (Normal); Ketones,Urine Negative (Negative); Leukocyte Esterase,Urine Negative (Negative); Nitrite,Urine Negative (Negative); Protein,Urine >=300 mg/dL (Neg-Trace); Urobilinogen,Urine Normal (Normal)
[2018-10-04 01:09] LABS: Creatinine,Urine 28 mg/dL; Microalbumin,Urine > 1350 mg/L; Protein/Creatinine Ratio,Urine 17.46 mg/mg (0.00-0.20); Sodium, Urine 64.6 mEq/L
[2018-10-04 02:35] LABS: Bacteria,Urine None Seen per hpf (None-Few); Hyaline Casts,Urine None Seen per lpf (None-Few); Squamous Epithelial Cell,Urine Moderate per lpf (None-Few); WBC,Urine 0-3 per hpf (0-3)
[2018-10-04] MEDS ORDERED: *HR* Metoprolol 5 MG/5 ML VIAL IVP ONE (05:26)
[2018-10-04] MEDS: Aspirin 81 MG TAB.CHEW PO SCH (08:21)
[2018-10-04] MEDS: amLODIPine 5 MG TABLET PO SCH (08:22)
[2018-10-04] MEDS: Isosorbide MONOnitrate (24 HR) 30 MG TAB.ER.24H PO SCH (08:22)
[2018-10-04] MEDS: Furosemide 40 MG TABLET PO SCH (08:22)
[2018-10-04] MEDS: *HR* Rivaroxaban 15 MG TABLET PO SCH (08:22)
[2018-10-04] MEDS: Insulin DETEMIR 100 UNIT/ML X5UNITS SQ SCH (08:23)
[2018-10-04] MEDS: Insulin LISPRO 300 UNITS/3 ML VIAL SQ SCH ×2 (08:24→08:25)
[2018-10-04] MEDS: *HR* LORazepam 0.5 MG TABLET PO PRN (08:38)
[2018-10-04] MEDS ORDERED: predniSONE 20 MG TABLET PO SCH (09:00)
[2018-10-04 09:32] LABS: Calcium 7.9 mg/dL (8.6-10.3); Potassium 3.9 mEq/L (3.5-5.1)
--- NOTE | 2018-10-04 11:04 | Discharge Summary ---
- NOTES TO OUTPATIENT PROVIDER Notes to Outpatient Provider: f/u with PCP in one week. f/u with Nephrology in 2-4 weeks. Pelase start taking Lasix 40mg pO BID.. Estimated PT Needs at Discharge: Home Health Estimated OT Needs at Discharge: Home Health Date of Encounter: 10/04/18 Time of Encounter: 10:57 - Discharge Diagnosis (1) CHF (congestive heart failure) Priority: Primary Status: Acute Qualifiers: Heart failure type: systolic Heart failure chronicity: acute on chronic Qualified Code(s): I50.23 - Acute on chronic systolic (congestive) heart failure (2) Acute and chronic respiratory failure with hypoxia Priority: Primary Status: Acute (3) Diabetes mellitus Priority: Secondary Status: Chronic Qualifiers: Diabetes mellitus type: other specified (including VAL) Diabetes mellitus alf insulin use: with alf use Diabetes mellitus complication status: with other specified complication Qualified Code(s): E13.69 - Other specified diabetes mellitus with other specified complication; Z79.4 - terminal supervisor (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) use of insulin (4) CKD (chronic kidney disease) stage 3, GFR 30-59 ml/min Priority: Secondary Status: Chronic (5) Acute renal failure Priority: Secondary Status: Suspected Qualifiers: Acute renal failure type: with acute tubular necrosis Qualified Code(s): N17.0 - Acute kidney failure with tubular necrosis (6) Atrial fibrillation Priority: Secondary Status: Chronic Qualifiers: Atrial fibrillation type: paroxysmal Qualified Code(s): I48.0 - Paroxysmal atrial fibrillation (7) COPD (chronic obstructive pulmonary disease) Priority: Secondary Status: Acute Qualifiers: COPD type: COPD with acute lower respiratory infection Qualified Code(s): J44.0 - Chronic obstructive pulmonary disease with acute lower respiratory infection (8) Osteomyelitis Priority: Secondary Status: Acute Qualifiers: Osteomyelitis type: unspecified type Osteomyelitis location: foot Laterality: right Qualified Code(s): M86.9 - Osteomyelitis, unspecified Hospital course: Mr. Tripp is a 53 year old male with a past medical history of systolic CHF, COPD, chronic hypoxic respiratory failure on 2 L home oxygen, hypertension, hyperlipidemia, paroxysmal atrial fibrillation on Xarelto, status post left AKA who was recently discharged from the hospital on September 23 after hospitalization for CHF / COPD exacerbation and found to have osteomyelitis of the right third toe status post amputation of toes. During last hospitalization Patient's Bumex was discontinued and patient was subsequently started on Lasix 20 mg by mouth twice a day. Now he presented to ER with progressively worsening shortness of breath from last couple of days . On arrival he was noted to be hypoxemic with a O2 saturation in the mid 80s. Laboratory workup notable for an elevated troponin of 0.04. Chest x-ray showed cardiomegaly with increased pulmonary vascular congestion. He was admitted in the hospital and placed him on threat monitoring analyst. He was started on aggressive IV diuresis with Lasix. He does have mild COPD exacerbation, for which we started him on steroids and frequent Duonebs. His symptoms started improving slowly. He did develop milkd ABEILNO with CKD-3 due to aggressive diuresis. Now by switching his Lasix to PO 40mg PO BID, his Cr improved and at baseline now @ 2.81. Patient stated his SOB better now. So will d/c him home in stable condition today with HH services. Pt has recurrent hospitalization due to medication non compliance . I did addiction treatment counselor the pt about importance of taking all his medications as scheduled an f/u with PCP, as well as specialists as directed. We will arrange for HH / out pt navigator system to help the pt about his medications and other barriers for his readmissions. - Time Spent with Patient Total time spent providing and/or coordinating discharge services: Time spent: Greater than 30 minutes (Spent 45 minutes on this patient's discharge summary due to complex medical problems and patient needed a lot of education regarding discharge instructions) - Discharge Medications Prescriptions: New Furosemide [Lasix] 40 mg PO BIDDIURETIC #60 tablet GuaiFENesin ER [Mucinex] 600 mg PO BID #20 tbbp.12hr predniSONE [PredniSONE] 20 mg PO DAILY #3 tablet Continued Fluticasone/Vilanterol [Breo Ellipta 100-25 Mcg INH] 1 puff IH DAILY Escitalopram [Lexapro] 20 mg PO DAILY #30 tablet Loperamide [Imodium] 2 mg PO Q4HR PRN #30 capsule PRN Reason: Diarrhea Atorvastatin [Lipitor] 40 mg PO DAILY Carvedilol 12.5 mg PO BID Insulin ASPART [Novolog Flexpen] 8 unit SQ TIDAC Isosorbide MONOnitrate (24 HR) [Imdur] 30 mg PO QAM Lipase/Protease/Amylase [Isaac Melendez 36,000 Units Capsule] 2 cap PO TIDWM Rivaroxaban [Xarelto] 15 mg PO DAILY Aspirin 81 mg PO DAILY amLODIPine [Norvasc] 5 mg PO DAILY #30 tablet Changed Insulin DETEMIR [Levemir Flextouch] 30 unit SQ BID #0 Discontinued Furosemide [Lasix] 20 mg PO BID #60 tablet Clindamycin [Cleocin] 300 mg PO TID Home Medications: Fluticasone/Vilanterol [Breo Ellipta 100-25 Mcg INH] 1 puff IH DAILY 06/24/16 [History] Escitalopram [Lexapro] 20 mg PO DAILY #30 tablet 04/16/18 [Rx] Loperamide [Imodium] 2 mg PO Q4HR PRN #30 capsule 04/16/18 [Rx] Aspirin 81 mg PO DAILY 09/12/18 [History] Atorvastatin [Lipitor] 40 mg PO DAILY 09/12/18 [History] Carvedilol 12.5 mg PO BID 09/12/18 [History] Insulin ASPART [Novolog Flexpen] 8 unit SQ TIDAC 09/12/18 [History] Isosorbide MONOnitrate (24 HR) [Imdur] 30 mg PO QAM 09/12/18 [History] Lipase/Protease/Amylase [Isaac Melendez 36,000 Units Capsule] 2 cap PO TIDWM 09/12/18 [History] Rivaroxaban [Xarelto] 15 mg PO DAILY 09/12/18 [History] amLODIPine [Norvasc] 5 mg PO DAILY #30 tablet 09/23/18 [Rx] Furosemide [Lasix] 40 mg PO BIDDIURETIC #60 tablet 10/04/18 [Rx] GuaiFENesin ER [Mucinex] 600 mg PO BID #20 tbbp.12hr 10/04/18 [Rx] Insulin DETEMIR [Levemir Flextouch] 30 unit SQ BID #0 10/04/18 [Rx] predniSONE [PredniSONE] 20 mg PO DAILY #3 tablet 10/04/18 [Rx] Allergies/Adverse Reactions: Allergy/AdvReac Type Severity Reaction Status Date / Time vancomycin Allergy Hives Verified 09/28/18 22:29 tramadol AdvReac Nausea Verified 09/28/18 22:29 Date of admission: 09/30/18 14:42 Primary care physician: Ke Saha Consults: 09/29/18 02:03 Consult to Cardiac Rehabilitation-Phase1 [CONS] Routine Comment: Reason for Consult: heart failure Call Completed: Yes Consult to Nurse Navigator [CONS] Routine Comment: 09/29/18 04:47 Consult to Nurse Navigator [CONS] Routine Comment: CHF, COPD 09/30/18 15:23 Consult to Nurse Navigator [CONS] Routine Comment: [facility] 10/03/18 13:06 Consult to Nephrology [CONS] Routine Consulting Provider: Kidney Jolene/JOEL/LUIS ALFREDO/JAE Reason for Consult: Abelino with CKD-4 due to aggressive diuresis Time Notified: 13:07 Call Completed: Yes - Constitutional Vitals: Temp Pulse Resp BP Pulse Ox 97.7 F 84 17 154/91 98 10/04/18 08:08 10/04/18 08:08 10/04/18 08:08 10/04/18 08:08 10/04/18 08:08 General appearance: Present: cooperative, A&O X 3, no acute distress, answers questions appropriately Exam: Gen: Alert, awake, Oriented to time,place and person Chest: Diminished breath sounds B/L, mild to moderate wheezing, crackles +, rales + Heart: S1S2+ RRR No murmurs Abd: Soft, NT, BS +, No organomegaly..Distended. Ext: 2+ pitting edema,pulses are palpable, No calf tenderness.. s/p Lt AKA, s/p Rt foot recent 3rd toe amputation.Clean incision noticed Neuro : No acute focal neuro deficits noticed Skin: No rash. - Patient Status Disposition: Home Health Service Condition: Good Overall status at discharge: patient is back to baseline - Discharge Instructions Follow Up With: Ke aSha [Primary Care Provider] - Fede Ovalle DO [Partnered Physician] - Sisi Graf MD [Partnered Physician] - Additional Instructions: Call [facility] when you get home to have shower chair delivered. #[phone] - Diet and Activity Activity: increase activity as tolerated, wear oxygen at all times Diet: low salt diet
--- NOTE | 2018-10-04 11:12 | Physician Discharge Referral ---
Home Health/Hosp Referral Info Transfer to: Home Health Provider in Charge Post Discharge: PCP - Diagnosis (1) CHF (congestive heart failure) Status: Acute (2) Acute and chronic respiratory failure with hypoxia Status: Acute (3) Diabetes mellitus Status: Chronic (4) CKD (chronic kidney disease) stage 3, GFR 30-59 ml/min Status: Chronic (5) Acute renal failure Status: Suspected (6) Atrial fibrillation Status: Chronic (7) COPD (chronic obstructive pulmonary disease) Status: Acute (8) Osteomyelitis Status: Acute - Respiratory Orders Smoking Cessation: Smoking cessation has been advised. For more information, call the [place] Tobacco Quit Line at 6-049-SQZI-NOW. - Services Needed Following services are medically necessary services: Nursing, Physical Therapy, Occupational Therapy - Transfer Medications Prescriptions: Furosemide [Lasix] 40 mg PO BIDDIURETIC #60 tablet GuaiFENesin ER [Mucinex] 600 mg PO BID #20 tbbp.12hr predniSONE [PredniSONE] 20 mg PO DAILY #3 tablet Home Medications: Fluticasone/Vilanterol [Breo Ellipta 100-25 Mcg INH] 1 puff IH DAILY 06/24/16 [History] Escitalopram [Lexapro] 20 mg PO DAILY #30 tablet 04/16/18 [Rx] Loperamide [Imodium] 2 mg PO Q4HR PRN #30 capsule 04/16/18 [Rx] Aspirin 81 mg PO DAILY 09/12/18 [History] Atorvastatin [Lipitor] 40 mg PO DAILY 09/12/18 [History] Carvedilol 12.5 mg PO BID 09/12/18 [History] Insulin ASPART [Novolog Flexpen] 8 unit SQ TIDAC 09/12/18 [History] Isosorbide MONOnitrate (24 HR) [Imdur] 30 mg PO QAM 09/12/18 [History] Lipase/Protease/Amylase [Creon Dr 36,000 Units Capsule] 2 cap PO TIDWM 09/12/18 [History] Rivaroxaban [Xarelto] 15 mg PO DAILY 09/12/18 [History] amLODIPine [Norvasc] 5 mg PO DAILY #30 tablet 09/23/18 [Rx] Furosemide [Lasix] 40 mg PO BIDDIURETIC #60 tablet 10/04/18 [Rx] GuaiFENesin ER [Mucinex] 600 mg PO BID #20 tbbp.12hr 10/04/18 [Rx] Insulin DETEMIR [Levemir Flextouch] 30 unit SQ BID #0 10/04/18 [Rx] predniSONE [PredniSONE] 20 mg PO DAILY #3 tablet 10/04/18 [Rx] Allergies/Adverse Reactions: Allergy/AdvReac Type Severity Reaction Status Date / Time vancomycin Allergy Hives Verified 09/28/18 22:29 tramadol AdvReac Nausea Verified 09/28/18 22:29 Certification: Further, I certify that my clinical findings support that this patient is homebound (i.e. absences from home require considerable and taxing effort and are for medical reasons or rastafarian services or infrequently or short duration when for other reasons) because: Homebound Reason: Patient requires assistance of a person or device to safely leave home Attestation: My signature below is to certify that this patient is under my care and that I, or nurse practitioner, or a physician's employment legal assistant working with me, has a [id number] encounter with this patient.
[2018-10-04 11:25] VITALS: BP 122/73
== END 2018-10-04 21:37 | disposition home health service (06) | DRG 291 ==
LOC: 3BNU 19:46 → EMEROOARM 19:46 → SUATTDRO 22:32 → 3BNU 23:19 → SUATTDRO 09-30 14:42
PROVIDERS: ADMIT Internal Medicine; ATTEND Family Medicine

== ENCOUNTER 2019-01-22 02:43 | Inpatient (IN) ==
[2019-01-22 05:43] LABS: Basophils # 0.1 K/mcL (0.0-0.2); Basophils % 0.6 %; Eosinophils # 0.2 K/mcL (0.0-0.6); Eosinophils % 1.9 %; Hematocrit 38.2 % (37.5-50.1); Hemoglobin 11.9 g/dL (12.9-16.9); Immature Granulocytes % 0.3 % (0-4); Lymphocytes # 1.4 K/mcL (0.6-4.6); Lymphocytes % 14.1 %; Mean Corpuscular HGB Conc 31.2 g/dL (31.6-35.5); Mean Corpuscular Hemoglobin 28.3 pg (28.0-33.3); Mean Corpuscular Volume 90.7 fL (83.0-100.0); Mean Platelet Volume 10.1 fL (9.4-12.4); Monocytes # 0.8 K/mcL (0.0-1.3); Monocytes % 7.7 %; Neutrophils # 7.5 K/mcL (1.6-8.9); Platelet Count 256 K/mcL (140-400); Red Blood Count 4.21 M/mcL (4.19-5.50); Red Cell Distribution Width 14.4 % (11.5-14.5); Segmented Neutrophils % 75.4 %; White Blood Count 9.9 K/mcL (4.3-11.1)
[2019-01-22] MEDS ORDERED: Furosemide 40 MG/4 ML VIAL IVP ONE (05:54)
[2019-01-22] MEDS ORDERED: *HR* OxyCODONE/APAP 10/325 TABLET PO ONE (05:54)
[2019-01-22 06:06] LABS: Albumin 2.4 g/dL (3.5-5.7); Albumin/Globulin Ratio 0.7 (1.1-2.2); Bilirubin,Total 0.2 mg/dL (0.3-1.0); Calcium 7.7 mg/dL (8.6-10.3); Globulin 3.6 g/dL (2.4-3.5); Potassium 4.7 mEq/L (3.5-5.1); Troponin I 0.04 ng/mL (< 0.04)
[2019-01-22] MEDS ORDERED: Naloxone 0.4 MG/ML INJ IVP PRN (07:58)
[2019-01-22] MEDS ORDERED: Acetaminophen 325 MG TABLET PO PRN (07:58)
[2019-01-22] MEDS ORDERED: Ondansetron 4 MG/2 ML VIAL IVP PRN (07:58)
[2019-01-22] MEDS ORDERED: D5% in Water 1,000 ML IVC PRN (08:02)
[2019-01-22] MEDS ORDERED: Dextrose Gel 15 GM/37.5 ML TUBE PO PRN ×2 (08:02)
[2019-01-22] MEDS ORDERED: *HR* Dextrose 50 % in Water (Syg) 50 ML SYRINGE IVP PRN (08:02)
[2019-01-22 08:55] LABS: Bilirubin,Urine Negative (Negative); Blood,Urine Small (Negative); Clarity,Urine Clear (Clear); Color,Urine Yellow (Yellow); Glucose,Urine (UA) 100 mg/dL (Normal); Ketones,Urine Negative (Negative); Leukocyte Esterase,Urine Negative (Negative); Nitrite,Urine Negative (Negative); PH,Urine 6.5 pH Units (5.0-8.0); Protein,Urine >=300 mg/dL (Neg-Trace); Specific Gravity,Urine 1.012 (1.010-1.025); Urobilinogen,Urine Normal (Normal)
[2019-01-22] MEDS ORDERED: Furosemide 40 MG/4 ML VIAL IVP SCH (09:00)
[2019-01-22 09:01] LABS: RBC,Urine 0-3 per hpf (0-3)
[2019-01-22] MEDS: Aspirin 81 MG TAB.CHEW PO SCH (09:25)
[2019-01-22] MEDS: Isosorbide MONOnitrate (24 HR) 30 MG TAB.ER.24H PO SCH (09:25)
[2019-01-22] MEDS: *HR* Rivaroxaban 15 MG TABLET PO SCH (09:37)
[2019-01-22] MEDS: predniSONE 20 MG TABLET PO SCH (09:37)
[2019-01-22] MEDS: Insulin DETEMIR 100 UNIT/ML X5UNITS SQ SCH ×2 (09:37→21:01)
[2019-01-22] MEDS: cloNIDine HCl 0.1 MG TABLET PO SCH ×2 (12:27→21:00)
[2019-01-22] MEDS: Insulin LISPRO 300 UNITS/3 ML VIAL SQ SCH ×2 (12:28→17:02)
[2019-01-22] MEDS: *HR* HYDROcodone/Acet 5/325 mg TABLET PO PRN (17:37)
[2019-01-23 06:07] LABS: Basophils % 0.5 %; Eosinophils # 0.1 K/mcL (0.0-0.6); Eosinophils % 0.6 %; Hematocrit 35.6 % (37.5-50.1); Immature Granulocytes % 0.3 % (0-4); Lymphocytes # 1.2 K/mcL (0.6-4.6); Mean Corpuscular HGB Conc 30.9 g/dL (31.6-35.5); Mean Corpuscular Hemoglobin 28.4 pg (28.0-33.3); Mean Corpuscular Volume 91.8 fL (83.0-100.0); Mean Platelet Volume 10.1 fL (9.4-12.4); Monocytes # 0.5 K/mcL (0.0-1.3); Monocytes % 6.6 %; Neutrophils # 6.1 K/mcL (1.6-8.9); Platelet Count 225 K/mcL (140-400); Red Blood Count 3.88 M/mcL (4.19-5.50); Red Cell Distribution Width 14.3 % (11.5-14.5); White Blood Count 7.9 K/mcL (4.3-11.1)
[2019-01-23 06:25] LABS: Calcium 7.7 mg/dL (8.6-10.3); Magnesium 2.4 mg/dL (1.6-2.6); Phosphorous 7.4 mg/dL (2.7-4.5)
[2019-01-23 06:37] LABS: Thyroid Stimulating Hormone 6.85 mcIU/mL (0.340-5.600)
[2019-01-23] MEDS: Insulin LISPRO 300 UNITS/3 ML VIAL SQ SCH ×3 (07:55→17:20)
[2019-01-23 08:04] LABS: Estimated Average Glucose 217 mg/dl
[2019-01-23] MEDS ORDERED: Furosemide 40 MG/4 ML VIAL IVP ONE (08:31)
[2019-01-23] MEDS: Isosorbide MONOnitrate (24 HR) 30 MG TAB.ER.24H PO SCH (09:31)
[2019-01-23] MEDS: predniSONE 20 MG TABLET PO SCH (09:31)
[2019-01-23] MEDS: Insulin DETEMIR 100 UNIT/ML X5UNITS SQ SCH ×2 (09:32→21:33)
[2019-01-23] MEDS: Aspirin 81 MG TAB.CHEW PO SCH (09:32)
[2019-01-23] MEDS: cloNIDine HCl 0.1 MG TABLET PO SCH (09:32)
[2019-01-23] MEDS: *HR* Rivaroxaban 15 MG TABLET PO SCH (09:32)
[2019-01-23] MEDS: Ipratropium/Albuterol Neb 3 ML IH PRN (13:22)
[2019-01-23] MEDS: hydrALAZINE 25 MG TABLET PO SCH ×2 (14:48→21:30)
[2019-01-23] MEDS: Silvasorb 44.4 ML TUBE TP SCH (17:22)
[2019-01-23] MEDS: Budesonide/Formoterol 160/4.5 1 PUFF INH IH SCH (19:55)
[2019-01-23 20:52] LABS: Protein/Creatinine Ratio,Urine 8.12 mg/mg (0.00-0.20); Sodium, Urine 45.2 mEq/L
[2019-01-24 04:50] LABS: Basophils % 0.2 %; Eosinophils % 0.4 %; Hematocrit 36.3 % (37.5-50.1); Hemoglobin 11.3 g/dL (12.9-16.9); Immature Granulocytes % 0.5 % (0-4); Lymphocytes % 9.7 %; Mean Corpuscular HGB Conc 31.1 g/dL (31.6-35.5); Mean Corpuscular Volume 90.1 fL (83.0-100.0); Mean Platelet Volume 11.2 fL (9.4-12.4); Monocytes # 0.5 K/mcL (0.0-1.3); Monocytes % 5.1 %; Neutrophils # 8.2 K/mcL (1.6-8.9); Platelet Count 219 K/mcL (140-400); Red Blood Count 4.03 M/mcL (4.19-5.50); Red Cell Distribution Width 14.5 % (11.5-14.5); Segmented Neutrophils % 84.1 %; White Blood Count 9.8 K/mcL (4.3-11.1)
[2019-01-24 05:05] LABS: Calcium 7.8 mg/dL (8.6-10.3); Potassium 5.2 mEq/L (3.5-5.1)
[2019-01-24] MEDS ORDERED: Albumin 25% 25gram/100mL 25 GM/100 ML IV.SOLN IVPB SCH (08:00)
[2019-01-24] MEDS: Isosorbide MONOnitrate (24 HR) 30 MG TAB.ER.24H PO SCH (08:45)
[2019-01-24] MEDS: hydrALAZINE 25 MG TABLET PO SCH ×3 (08:45→22:45)
[2019-01-24] MEDS: *HR* Rivaroxaban 15 MG TABLET PO SCH (08:45)
[2019-01-24] MEDS: Aspirin 81 MG TAB.CHEW PO SCH (08:45)
[2019-01-24] MEDS: predniSONE 10 MG TABLET PO SCH (08:45)
[2019-01-24] MEDS: Insulin LISPRO 300 UNITS/3 ML VIAL SQ SCH ×3 (08:46→17:30)
[2019-01-24] MEDS: Furosemide 40 MG/4 ML VIAL IVP SCH ×2 (08:46→17:29)
[2019-01-24] MEDS: Insulin DETEMIR 100 UNIT/ML X5UNITS SQ SCH ×2 (09:16→22:45)
[2019-01-24] MEDS: Albumin 25% 25gram/100mL 25 GM/100 ML IV.SOLN IVPB SCH ×2 (09:17→17:30)
[2019-01-24] MEDS: Budesonide/Formoterol 160/4.5 1 PUFF INH IH SCH ×2 (10:15→19:55)
[2019-01-24] MEDS: Silvasorb 44.4 ML TUBE TP SCH (10:31)
[2019-01-24] MEDS: *HR* HYDROcodone/Acet 5/325 mg TABLET PO PRN (22:45)
[2019-01-24] MEDS: Loratadine 10 MG TABLET PO PRN (22:45)
[2019-01-25 03:47] LABS: Hematocrit 36.3 % (37.5-50.1); Mean Corpuscular HGB Conc 30.3 g/dL (31.6-35.5); Mean Corpuscular Volume 92.4 fL (83.0-100.0); Mean Platelet Volume 10.2 fL (9.4-12.4); Platelet Count 216 K/mcL (140-400); Red Blood Count 3.93 M/mcL (4.19-5.50); Red Cell Distribution Width 14.3 % (11.5-14.5); White Blood Count 10.2 K/mcL (4.3-11.1)
[2019-01-25 04:04] LABS: Calcium 7.4 mg/dL (8.6-10.3); Magnesium 2.3 mg/dL (1.6-2.6); Phosphorous 8.1 mg/dL (2.7-4.5); Potassium 5.3 mEq/L (3.5-5.1)
[2019-01-25] MEDS: *HR* HYDROcodone/Acet 5/325 mg TABLET PO PRN ×3 (07:25→20:20)
[2019-01-25] MEDS: Budesonide/Formoterol 160/4.5 1 PUFF INH IH SCH ×2 (07:38→20:00)
[2019-01-25] MEDS: hydrALAZINE 25 MG TABLET PO SCH ×3 (08:35→20:20)
[2019-01-25] MEDS: Isosorbide MONOnitrate (24 HR) 30 MG TAB.ER.24H PO SCH (08:35)
[2019-01-25] MEDS: predniSONE 10 MG TABLET PO SCH (08:35)
[2019-01-25] MEDS: Insulin DETEMIR 100 UNIT/ML X5UNITS SQ SCH ×2 (08:35→20:21)
[2019-01-25] MEDS: Aspirin 81 MG TAB.CHEW PO SCH (08:35)
[2019-01-25] MEDS: *HR* Rivaroxaban 15 MG TABLET PO SCH (08:35)
[2019-01-25] MEDS: Insulin LISPRO 300 UNITS/3 ML VIAL SQ SCH ×3 (08:36→18:22)
[2019-01-25] MEDS: Silvasorb 44.4 ML TUBE TP SCH (08:36)
[2019-01-25] MEDS: Albumin 25% 25gram/100mL 25 GM/100 ML IV.SOLN IVPB SCH ×2 (10:23→18:26)
[2019-01-25] MEDS: Furosemide 40 MG/4 ML VIAL IVP SCH ×2 (10:23→18:22)
[2019-01-25] MEDS ORDERED: Perflutren Lipid Microsphere 1.3 ML in 0.9 % Sodium Chloride 8.7 ML IVP ONE (16:00)
[2019-01-25] MEDS ORDERED: Perflutren Lipid Microsphere 2 ML VIAL ONE (16:14)
[2019-01-25] MEDS: Loratadine 10 MG TABLET PO PRN (20:20)
[2019-01-25] MEDS ORDERED: Melatonin 3 MG TABLET PO ONE (22:21)
[2019-01-26 04:32] LABS: Basophils # 0.1 K/mcL (0.0-0.2); Basophils % 0.5 %; Eosinophils # 0.1 K/mcL (0.0-0.6); Eosinophils % 1.3 %; Hematocrit 36.2 % (37.5-50.1); Hemoglobin 11.2 g/dL (12.9-16.9); Immature Granulocytes % 0.5 % (0-4); Lymphocytes # 1.5 K/mcL (0.6-4.6); Mean Corpuscular HGB Conc 30.9 g/dL (31.6-35.5); Mean Corpuscular Hemoglobin 28.6 pg (28.0-33.3); Mean Corpuscular Volume 92.6 fL (83.0-100.0); Mean Platelet Volume 10.5 fL (9.4-12.4); Monocytes # 0.7 K/mcL (0.0-1.3); Monocytes % 6.9 %; Neutrophils # 8.2 K/mcL (1.6-8.9); Platelet Count 215 K/mcL (140-400); Red Blood Count 3.91 M/mcL (4.19-5.50); Red Cell Distribution Width 14.5 % (11.5-14.5); Segmented Neutrophils % 76.8 %; White Blood Count 10.7 K/mcL (4.3-11.1)
[2019-01-26 04:55] LABS: Calcium 7.6 mg/dL (8.6-10.3); Potassium 5.2 mEq/L (3.5-5.1)
[2019-01-26] MEDS: Insulin LISPRO 300 UNITS/3 ML VIAL SQ SCH ×3 (07:35→17:24)
[2019-01-26] MEDS: Budesonide/Formoterol 160/4.5 1 PUFF INH IH SCH ×2 (07:41→21:59)
[2019-01-26] MEDS: Albumin 25% 25gram/100mL 25 GM/100 ML IV.SOLN IVPB SCH (09:08)
[2019-01-26] MEDS: Silvasorb 44.4 ML TUBE TP SCH (09:12)
[2019-01-26] MEDS ORDERED: 0.9 % Sodium Chloride 250 ML IVC PRN (09:46)
[2019-01-26] MEDS ORDERED: 0.9 % Sodium Chloride 1,000 ML PRIME SCH (10:00)
[2019-01-26] MEDS: Aspirin 81 MG TAB.CHEW PO SCH (11:07)
[2019-01-26] MEDS: Insulin DETEMIR 100 UNIT/ML X5UNITS SQ SCH ×2 (11:08→20:56)
[2019-01-26] MEDS: Furosemide 40 MG/4 ML VIAL IVP SCH (11:21)
[2019-01-26] MEDS ORDERED: *HR* Heparin 5,000 UNIT/ML VIAL ONE (11:48)
[2019-01-26] MEDS: Isosorbide MONOnitrate (24 HR) 30 MG TAB.ER.24H PO SCH (13:17)
[2019-01-26] MEDS: hydrALAZINE 25 MG TABLET PO SCH ×3 (13:17→20:51)
[2019-01-26] MEDS: *HR* HYDROcodone/Acet 5/325 mg TABLET PO PRN ×2 (13:32→20:50)
[2019-01-26 14:54] LABS: Hepatitis B Surface Antibody < 3.10 mIU/mL
[2019-01-26 15:03] LABS: Hepatitis B Surface Antigen Nonreactive (Nonreactive)
[2019-01-26] MEDS: Furosemide 40 MG TABLET PO SCH (17:28)
[2019-01-26] MEDS: Melatonin 3 MG TABLET PO PRN (20:50)
[2019-01-26] MEDS: Apixaban 5 MG TABLET PO SCH (20:52)
[2019-01-27] MEDS: *HR* HYDROcodone/Acet 5/325 mg TABLET PO PRN (03:40)
[2019-01-27 03:44] LABS: Basophils % 0.5 %; Eosinophils # 0.3 K/mcL (0.0-0.6); Eosinophils % 3.7 %; Hematocrit 34.1 % (37.5-50.1); Hemoglobin 10.6 g/dL (12.9-16.9); Immature Granulocytes % 0.4 % (0-4); Lymphocytes # 1.5 K/mcL (0.6-4.6); Lymphocytes % 18.2 %; Mean Corpuscular HGB Conc 31.1 g/dL (31.6-35.5); Mean Corpuscular Hemoglobin 28.5 pg (28.0-33.3); Mean Corpuscular Volume 91.7 fL (83.0-100.0); Mean Platelet Volume 10.2 fL (9.4-12.4); Monocytes # 0.7 K/mcL (0.0-1.3); Monocytes % 8.8 %; Neutrophils # 5.5 K/mcL (1.6-8.9); Platelet Count 178 K/mcL (140-400); Red Blood Count 3.72 M/mcL (4.19-5.50); Red Cell Distribution Width 14.4 % (11.5-14.5); Segmented Neutrophils % 68.4 %; White Blood Count 8.1 K/mcL (4.3-11.1)
[2019-01-27 04:05] LABS: Magnesium 2.2 mg/dL (1.6-2.6); Phosphorous 7.4 mg/dL (2.7-4.5)
[2019-01-27 04:06] LABS: Calcium 7.6 mg/dL (8.6-10.3); Potassium 4.9 mEq/L (3.5-5.1)
[2019-01-27] MEDS ORDERED: 0.9 % Sodium Chloride 250 ML IVC PRN (06:56)
[2019-01-27] MEDS: Insulin LISPRO 300 UNITS/3 ML VIAL SQ SCH ×3 (07:46→16:10)
[2019-01-27] MEDS: Budesonide/Formoterol 160/4.5 1 PUFF INH IH SCH ×2 (07:48→19:57)
[2019-01-27] MEDS: *HR* Rivaroxaban 15 MG TABLET PO SCH (07:57)
[2019-01-27] MEDS: hydrALAZINE 25 MG TABLET PO SCH ×3 (10:30→20:39)
[2019-01-27] MEDS: Furosemide 40 MG TABLET PO SCH (10:30)
[2019-01-27] MEDS: Apixaban 5 MG TABLET PO SCH ×2 (10:30→20:39)
[2019-01-27] MEDS: Isosorbide MONOnitrate (24 HR) 30 MG TAB.ER.24H PO SCH (10:31)
[2019-01-27] MEDS: Aspirin 81 MG TAB.CHEW PO SCH (10:31)
[2019-01-27] MEDS: Insulin DETEMIR 100 UNIT/ML X5UNITS SQ SCH ×2 (10:41→20:39)
[2019-01-27] MEDS ORDERED: *HR* Heparin 10,000 UNIT/10 ML VIAL IV PRN (11:00)
[2019-01-27] MEDS: *HR* HYDROcodone/Acet 7.5/325 mg TABLET PO PRN ×2 (12:14→21:19)
[2019-01-27] MEDS: Silvasorb 44.4 ML TUBE TP SCH (21:04)
[2019-01-28] MEDS: Melatonin 3 MG TABLET PO PRN (01:04)
[2019-01-28 04:34] LABS: Hematocrit 31.6 % (37.5-50.1); Mean Corpuscular HGB Conc 31.6 g/dL (31.6-35.5); Mean Corpuscular Hemoglobin 28.7 pg (28.0-33.3); Mean Corpuscular Volume 90.5 fL (83.0-100.0); Mean Platelet Volume 10.3 fL (9.4-12.4); Platelet Count 156 K/mcL (140-400); Red Blood Count 3.49 M/mcL (4.19-5.50); Red Cell Distribution Width 14.3 % (11.5-14.5); White Blood Count 7.4 K/mcL (4.3-11.1)
[2019-01-28 04:52] LABS: Calcium 7.5 mg/dL (8.6-10.3); Phosphorous 6.4 mg/dL (2.7-4.5); Potassium 4.6 mEq/L (3.5-5.1)
[2019-01-28] MEDS ORDERED: *HR* Heparin 10,000 UNIT/10 ML VIAL IV PRN ×2 (07:23)
[2019-01-28] MEDS ORDERED: 0.9 % Sodium Chloride 250 ML IVC PRN (07:23)
[2019-01-28] MEDS ORDERED: 0.9 % Sodium Chloride 1,000 ML PRIME SCH (07:30)
[2019-01-28] MEDS: Budesonide/Formoterol 160/4.5 1 PUFF INH IH SCH ×2 (07:31→20:01)
[2019-01-28] MEDS: Insulin LISPRO 300 UNITS/3 ML VIAL SQ SCH ×3 (09:09→16:07)
[2019-01-28] MEDS: Furosemide 40 MG TABLET PO SCH (10:37)
[2019-01-28] MEDS: Aspirin 81 MG TAB.CHEW PO SCH (10:37)
[2019-01-28] MEDS: *HR* HYDROcodone/Acet 7.5/325 mg TABLET PO PRN ×2 (10:37→18:55)
[2019-01-28] MEDS: Isosorbide MONOnitrate (24 HR) 30 MG TAB.ER.24H PO SCH (10:37)
[2019-01-28] MEDS: Insulin DETEMIR 100 UNIT/ML X5UNITS SQ SCH ×2 (10:38→22:41)
[2019-01-28] MEDS: Apixaban 5 MG TABLET PO SCH ×2 (10:38→22:36)
[2019-01-28] MEDS: hydrALAZINE 25 MG TABLET PO SCH ×3 (10:45→22:37)
[2019-01-29] MEDS: Melatonin 3 MG TABLET PO PRN ×2 (01:13→21:43)
[2019-01-29] MEDS: *HR* HYDROcodone/Acet 7.5/325 mg TABLET PO PRN ×3 (01:15→21:43)
[2019-01-29] MEDS: Silvasorb 44.4 ML TUBE TP SCH ×2 (01:36→08:24)
[2019-01-29] MEDS: Budesonide/Formoterol 160/4.5 1 PUFF INH IH SCH ×2 (07:45→20:23)
[2019-01-29] MEDS: Insulin LISPRO 300 UNITS/3 ML VIAL SQ SCH ×3 (08:22→16:51)
[2019-01-29] MEDS: Apixaban 5 MG TABLET PO SCH ×2 (08:23→21:42)
[2019-01-29] MEDS: Aspirin 81 MG TAB.CHEW PO SCH (08:23)
[2019-01-29] MEDS: Furosemide 40 MG TABLET PO SCH (08:23)
[2019-01-29] MEDS: hydrALAZINE 25 MG TABLET PO SCH ×3 (08:23→21:43)
[2019-01-29] MEDS: Isosorbide MONOnitrate (24 HR) 30 MG TAB.ER.24H PO SCH (08:23)
[2019-01-29] MEDS: Insulin DETEMIR 100 UNIT/ML X5UNITS SQ SCH ×2 (08:24→21:42)
[2019-01-29] MEDS: Ipratropium/Albuterol Neb 3 ML IH PRN (12:17)
[2019-01-30 05:08] LABS: Hematocrit 33.6 % (37.5-50.1); Hemoglobin 10.4 g/dL (12.9-16.9); Mean Corpuscular Hemoglobin 28.7 pg (28.0-33.3); Mean Corpuscular Volume 92.8 fL (83.0-100.0); Mean Platelet Volume 10.8 fL (9.4-12.4); Platelet Count 165 K/mcL (140-400); Red Blood Count 3.62 M/mcL (4.19-5.50); Red Cell Distribution Width 14.2 % (11.5-14.5); White Blood Count 8.5 K/mcL (4.3-11.1)
[2019-01-30 05:27] LABS: Calcium 7.7 mg/dL (8.6-10.3); Magnesium 2.3 mg/dL (1.6-2.6); Potassium 4.5 mEq/L (3.5-5.1)
[2019-01-30] MEDS: Budesonide/Formoterol 160/4.5 1 PUFF INH IH SCH ×2 (07:36→20:46)
[2019-01-30] MEDS ORDERED: 0.9 % Sodium Chloride 1,000 ML PRIME SCH (07:45)
[2019-01-30] MEDS ORDERED: *HR* Heparin 10,000 UNIT/10 ML VIAL IV PRN (07:45)
[2019-01-30] MEDS ORDERED: 0.9 % Sodium Chloride 250 ML IVC PRN (07:45)
[2019-01-30] MEDS: Apixaban 5 MG TABLET PO SCH (08:06)
[2019-01-30] MEDS: Aspirin 81 MG TAB.CHEW PO SCH (08:06)
[2019-01-30] MEDS: Insulin DETEMIR 100 UNIT/ML X5UNITS SQ SCH ×2 (08:15→21:35)
[2019-01-30] MEDS: Insulin LISPRO 300 UNITS/3 ML VIAL SQ SCH ×3 (08:17→17:14)
[2019-01-30] MEDS: Silvasorb 44.4 ML TUBE TP SCH (11:38)
[2019-01-30] MEDS: hydrALAZINE 25 MG TABLET PO SCH ×3 (12:58→21:35)
[2019-01-30] MEDS: *HR* HYDROcodone/Acet 7.5/325 mg TABLET PO PRN ×2 (13:32→23:42)
[2019-01-30] MEDS: Furosemide 40 MG TABLET PO SCH (13:32)
[2019-01-30] MEDS: Isosorbide MONOnitrate (24 HR) 30 MG TAB.ER.24H PO SCH (13:32)
[2019-01-30] MEDS: Melatonin 3 MG TABLET PO PRN (23:42)
[2019-01-31 03:56] LABS: Calcium 7.6 mg/dL (8.6-10.3); Potassium 4.3 mEq/L (3.5-5.1)
[2019-01-31] MEDS: Insulin LISPRO 300 UNITS/3 ML VIAL SQ SCH ×3 (08:44→16:43)
[2019-01-31] MEDS: Isosorbide MONOnitrate (24 HR) 30 MG TAB.ER.24H PO SCH (08:45)
[2019-01-31] MEDS: Aspirin 81 MG TAB.CHEW PO SCH (08:45)
[2019-01-31] MEDS: hydrALAZINE 25 MG TABLET PO SCH ×3 (08:45→21:19)
[2019-01-31] MEDS: Furosemide 40 MG TABLET PO SCH (08:45)
[2019-01-31] MEDS: Silvasorb 44.4 ML TUBE TP SCH (08:53)
[2019-01-31] MEDS: Budesonide/Formoterol 160/4.5 1 PUFF INH IH SCH ×2 (09:55→19:44)
[2019-01-31] MEDS: Insulin DETEMIR 100 UNIT/ML X5UNITS SQ SCH ×2 (10:26→21:20)
[2019-01-31] MEDS ORDERED: 0.9 % Sodium Chloride 250 ML IVC PRN (11:58)
[2019-01-31] MEDS ORDERED: *HR* Heparin 10,000 UNIT/10 ML VIAL IV PRN (11:58)
[2019-01-31] MEDS: *HR* HYDROcodone/Acet 7.5/325 mg TABLET PO PRN ×2 (16:41→22:41)
[2019-01-31] MEDS: Melatonin 3 MG TABLET PO PRN (22:41)
[2019-02-01 05:09] LABS: Calcium 7.7 mg/dL (8.6-10.3); Potassium 4.6 mEq/L (3.5-5.1)
[2019-02-01] MEDS ORDERED: *HR* Heparin 10,000 UNIT/10 ML VIAL IV PRN ×2 (07:20)
[2019-02-01] MEDS ORDERED: 0.9 % Sodium Chloride 250 ML IVC PRN (07:20)
[2019-02-01] MEDS ORDERED: 0.9 % Sodium Chloride 1,000 ML PRIME SCH (07:30)
[2019-02-01] MEDS: Budesonide/Formoterol 160/4.5 1 PUFF INH IH SCH ×2 (07:47→20:04)
[2019-02-01 10:43] LABS: INR 1.2; Prothrombin Time 13.7 Seconds (9.4-12.1)
[2019-02-01] MEDS ORDERED: Heparin 1,000 UNITS/500 mL 500 ML ONE (13:54)
[2019-02-01] MEDS ORDERED: *HR* Midazolam HCl 2 MG/2 ML VIAL IVP ONE (13:58)
[2019-02-01] MEDS ORDERED: *HR* FentaNYL (PF) 100 MCG/2 ML VIAL IVP ONE (13:58)
[2019-02-01] MEDS ORDERED: CeFAZolin Premix DUPLEX 2,000 MG/50 ML BAG IVPB ONE ×2 (13:58→15:00)
[2019-02-01] MEDS ORDERED: *HR* FentaNYL (PF) 100 MCG/2 ML VIAL ONE (14:02)
[2019-02-01] MEDS ORDERED: *HR* Heparin 5,000 UNIT/ML VIAL ONE (14:30)
[2019-02-01] MEDS: Insulin LISPRO 300 UNITS/3 ML VIAL SQ SCH ×2 (18:23→18:24)
[2019-02-01] MEDS: hydrALAZINE 25 MG TABLET PO SCH ×2 (18:27→20:30)
[2019-02-01] MEDS: Insulin DETEMIR 100 UNIT/ML X5UNITS SQ SCH ×2 (18:27→20:30)
[2019-02-01] MEDS: Aspirin 81 MG TAB.CHEW PO SCH (18:32)
[2019-02-01] MEDS: amLODIPine 5 MG TABLET PO SCH (18:32)
[2019-02-01] MEDS: Furosemide 40 MG TABLET PO SCH (18:32)
[2019-02-01] MEDS: Isosorbide MONOnitrate (24 HR) 30 MG TAB.ER.24H PO SCH (18:32)
[2019-02-01] MEDS: Silvasorb 44.4 ML TUBE TP SCH (20:24)
[2019-02-01] MEDS: *HR* HYDROcodone/Acet 7.5/325 mg TABLET PO PRN (21:57)
[2019-02-01] MEDS: Melatonin 3 MG TABLET PO PRN (21:57)
[2019-02-02] MEDS: hydrALAZINE 25 MG TABLET PO SCH (08:43)
[2019-02-02] MEDS: Furosemide 40 MG TABLET PO SCH (08:44)
[2019-02-02] MEDS: Insulin DETEMIR 100 UNIT/ML X5UNITS SQ SCH ×2 (08:44→21:33)
[2019-02-02] MEDS: Isosorbide MONOnitrate (24 HR) 30 MG TAB.ER.24H PO SCH (08:44)
[2019-02-02] MEDS: Aspirin 81 MG TAB.CHEW PO SCH (08:44)
[2019-02-02] MEDS: *HR* HYDROcodone/Acet 7.5/325 mg TABLET PO PRN ×2 (08:44→17:24)
[2019-02-02] MEDS: amLODIPine 5 MG TABLET PO SCH (08:44)
[2019-02-02] MEDS: Insulin LISPRO 300 UNITS/3 ML VIAL SQ SCH ×3 (08:45→17:24)
[2019-02-02] MEDS: Budesonide/Formoterol 160/4.5 1 PUFF INH IH SCH ×2 (10:41→20:52)
[2019-02-02] MEDS ORDERED: *HR* LORazepam 1 MG TABLET PO ONE (12:10)
[2019-02-02] MEDS: *HR* Rivaroxaban 15 MG TABLET PO SCH (17:24)
[2019-02-02] MEDS: Melatonin 3 MG TABLET PO PRN (21:33)
[2019-02-03] MEDS ORDERED: 0.9 % Sodium Chloride 250 ML IVC PRN (07:17)
[2019-02-03] MEDS ORDERED: *HR* Heparin 10,000 UNIT/10 ML VIAL IV PRN ×2 (07:17)
[2019-02-03] MEDS ORDERED: 0.9 % Sodium Chloride 1,000 ML PRIME SCH (07:30)
[2019-02-03] MEDS: Budesonide/Formoterol 160/4.5 1 PUFF INH IH SCH ×2 (07:37→21:08)
[2019-02-03] MEDS: Isosorbide MONOnitrate (24 HR) 30 MG TAB.ER.24H PO SCH (08:10)
[2019-02-03] MEDS: amLODIPine 5 MG TABLET PO SCH (08:10)
[2019-02-03] MEDS: Aspirin 81 MG TAB.CHEW PO SCH (08:10)
[2019-02-03] MEDS: Furosemide 40 MG TABLET PO SCH (08:10)
[2019-02-03] MEDS: Insulin LISPRO 300 UNITS/3 ML VIAL SQ SCH ×3 (08:11→18:13)
[2019-02-03] MEDS: Insulin DETEMIR 100 UNIT/ML X5UNITS SQ SCH ×2 (08:11→22:35)
[2019-02-03] MEDS: Silvasorb 44.4 ML TUBE TP SCH (08:12)
[2019-02-03 11:35] LABS: Basophils % 0.4 %; Eosinophils # 0.3 K/mcL (0.0-0.6); Eosinophils % 3.5 %; Hematocrit 30.8 % (37.5-50.1); Hemoglobin 9.6 g/dL (12.9-16.9); Immature Granulocytes % 0.2 % (0-4); Lymphocytes # 0.9 K/mcL (0.6-4.6); Lymphocytes % 10.4 %; Mean Corpuscular HGB Conc 31.2 g/dL (31.6-35.5); Mean Corpuscular Hemoglobin 28.6 pg (28.0-33.3); Mean Corpuscular Volume 91.7 fL (83.0-100.0); Mean Platelet Volume 11.4 fL (9.4-12.4); Monocytes # 0.8 K/mcL (0.0-1.3); Monocytes % 9.3 %; Neutrophils # 6.2 K/mcL (1.6-8.9); Platelet Count 129 K/mcL (140-400); Red Blood Count 3.36 M/mcL (4.19-5.50); Segmented Neutrophils % 76.2 %; White Blood Count 8.2 K/mcL (4.3-11.1)
[2019-02-03 11:49] LABS: Calcium 7.9 mg/dL (8.6-10.3); Potassium 4.4 mEq/L (3.5-5.1)
[2019-02-03] MEDS ORDERED: *HR* LORazepam 1 MG TABLET PO ONE (15:18)
[2019-02-03] MEDS: *HR* HYDROcodone/Acet 7.5/325 mg TABLET PO PRN ×2 (15:50→22:34)
[2019-02-03] MEDS: *HR* Rivaroxaban 15 MG TABLET PO SCH (18:12)
[2019-02-03] MEDS: Melatonin 3 MG TABLET PO PRN (22:34)
[2019-02-04] MEDS: Ipratropium/Albuterol Neb 3 ML IH PRN (02:21)
[2019-02-04] MEDS: *HR* HYDROcodone/Acet 7.5/325 mg TABLET PO PRN (04:16)
[2019-02-04] MEDS ORDERED: *HR* LORazepam 2 MG/ML VIAL IVP ONE (04:22)
[2019-02-04] MEDS: Isosorbide MONOnitrate (24 HR) 30 MG TAB.ER.24H PO SCH (09:34)
[2019-02-04] MEDS: Furosemide 40 MG TABLET PO SCH (09:34)
[2019-02-04] MEDS: amLODIPine 5 MG TABLET PO SCH (09:34)
[2019-02-04] MEDS: Silvasorb 44.4 ML TUBE TP SCH (09:35)
[2019-02-04] MEDS: Insulin LISPRO 300 UNITS/3 ML VIAL SQ SCH ×3 (09:36→17:35)
[2019-02-04] MEDS: Insulin DETEMIR 100 UNIT/ML X5UNITS SQ SCH ×2 (09:36→22:00)
[2019-02-04] MEDS: Aspirin 81 MG TAB.CHEW PO SCH (09:36)
[2019-02-04] MEDS ORDERED: *HR* Heparin 10,000 UNIT/10 ML VIAL IV PRN (10:34)
[2019-02-04] MEDS ORDERED: 0.9 % Sodium Chloride 250 ML IVC PRN (10:34)
[2019-02-04] MEDS: Budesonide/Formoterol 160/4.5 1 PUFF INH IH SCH ×2 (11:07→20:10)
[2019-02-04] MEDS ORDERED: methylPREDNISolone 125 MG/2 ML VIAL IVP ONE (12:36)
[2019-02-04] MEDS: *HR* Rivaroxaban 15 MG TABLET PO SCH (17:35)
[2019-02-05 05:38] LABS: Hematocrit 34.2 % (37.5-50.1); Hemoglobin 10.8 g/dL (12.9-16.9); Mean Corpuscular HGB Conc 31.6 g/dL (31.6-35.5); Mean Corpuscular Hemoglobin 28.3 pg (28.0-33.3); Mean Corpuscular Volume 89.5 fL (83.0-100.0); Mean Platelet Volume 11.3 fL (9.4-12.4); Platelet Count 160 K/mcL (140-400); Red Blood Count 3.82 M/mcL (4.19-5.50); Red Cell Distribution Width 13.9 % (11.5-14.5)
[2019-02-05 05:39] LABS: White Blood Count 13.5 K/mcL (4.3-11.1)
[2019-02-05 05:54] LABS: Calcium 8.4 mg/dL (8.6-10.3); Potassium 5.2 mEq/L (3.5-5.1)
[2019-02-05] MEDS: Budesonide/Formoterol 160/4.5 1 PUFF INH IH SCH ×2 (08:00→20:04)
[2019-02-05] MEDS: Isosorbide MONOnitrate (24 HR) 30 MG TAB.ER.24H PO SCH (09:18)
[2019-02-05] MEDS: predniSONE 20 MG TABLET PO SCH (09:18)
[2019-02-05] MEDS: Furosemide 40 MG TABLET PO SCH (09:18)
[2019-02-05] MEDS: Aspirin 81 MG TAB.CHEW PO SCH (09:18)
[2019-02-05] MEDS: Insulin LISPRO 300 UNITS/3 ML VIAL SQ SCH ×3 (09:19→18:19)
[2019-02-05] MEDS: amLODIPine 5 MG TABLET PO SCH (09:19)
[2019-02-05] MEDS: Insulin DETEMIR 100 UNIT/ML X5UNITS SQ SCH (09:19)
[2019-02-05] MEDS: Silvasorb 44.4 ML TUBE TP SCH (09:20)
[2019-02-05] MEDS: *HR* HYDROcodone/Acet 7.5/325 mg TABLET PO PRN ×2 (11:42→21:32)
[2019-02-05] MEDS ORDERED: Insulin DETEMIR 100 UNIT/ML X5UNITS SQ ONE (12:42)
[2019-02-05] MEDS: *HR* Rivaroxaban 15 MG TABLET PO SCH (18:19)
[2019-02-05] MEDS ORDERED: Insulin DETEMIR 100 UNIT/ML X5UNITS SQ SCH ×2 (21:00)
[2019-02-05] MEDS: Melatonin 3 MG TABLET PO PRN (21:33)
[2019-02-06] MEDS ORDERED: Insulin Human Regular 10 UNIT in 0.9 % Sodium Chloride 10 ML IV ONE (00:07)
[2019-02-06] MEDS ORDERED: Insulin DETEMIR 100 UNIT/ML X5UNITS SQ ONE (04:24)
[2019-02-06] MEDS ORDERED: 0.9 % Sodium Chloride 250 ML IVC PRN (07:23)
[2019-02-06] MEDS ORDERED: *HR* Heparin 10,000 UNIT/10 ML VIAL IV PRN (07:23)
[2019-02-06] MEDS ORDERED: 0.9 % Sodium Chloride 1,000 ML PRIME SCH (07:30)
[2019-02-06] MEDS: Budesonide/Formoterol 160/4.5 1 PUFF INH IH SCH ×2 (07:46→19:38)
[2019-02-06] MEDS: Isosorbide MONOnitrate (24 HR) 30 MG TAB.ER.24H PO SCH (08:15)
[2019-02-06] MEDS: predniSONE 20 MG TABLET PO SCH (08:15)
[2019-02-06] MEDS: Aspirin 81 MG TAB.CHEW PO SCH (08:16)
[2019-02-06] MEDS: Furosemide 40 MG TABLET PO SCH (08:16)
[2019-02-06] MEDS: Insulin LISPRO 300 UNITS/3 ML VIAL SQ SCH ×5 (08:19→17:07)
[2019-02-06] MEDS: Insulin DETEMIR 100 UNIT/ML X5UNITS SQ SCH ×3 (09:03→21:09)
[2019-02-06] MEDS: amLODIPine 5 MG TABLET PO SCH (14:10)
[2019-02-06] MEDS: Silvasorb 44.4 ML TUBE TP SCH (14:10)
[2019-02-06] MEDS: *HR* Rivaroxaban 15 MG TABLET PO SCH (17:06)
[2019-02-06] MEDS: *HR* HYDROcodone/Acet 7.5/325 mg TABLET PO PRN ×2 (17:11→23:18)
[2019-02-06] MEDS: Melatonin 3 MG TABLET PO PRN (23:18)
[2019-02-07 07:05] VITALS: BP 112/69
[2019-02-07] MEDS: Budesonide/Formoterol 160/4.5 1 PUFF INH IH SCH (07:48)
[2019-02-07] MEDS: Aspirin 81 MG TAB.CHEW PO SCH (08:59)
[2019-02-07] MEDS: Isosorbide MONOnitrate (24 HR) 30 MG TAB.ER.24H PO SCH (09:00)
[2019-02-07] MEDS: amLODIPine 5 MG TABLET PO SCH (09:00)
[2019-02-07] MEDS: Insulin DETEMIR 100 UNIT/ML X5UNITS SQ SCH (09:00)
[2019-02-07] MEDS: Furosemide 40 MG TABLET PO SCH (09:00)
[2019-02-07] MEDS: predniSONE 20 MG TABLET PO SCH (09:00)
[2019-02-07] MEDS: Insulin LISPRO 300 UNITS/3 ML VIAL SQ SCH ×2 (09:04)
[2019-02-07] MEDS: Silvasorb 44.4 ML TUBE TP SCH (09:13)
== END 2019-02-07 11:33 | disposition home or self-care (01) | DRG 291 ==
LOC: 2ANU 02:43 → EMEROOARM 02:43 → SUATTDRO 06:24 → 2ANU 06:48 → SUATTDRO 01-23 11:44
PROVIDERS: ADMIT Pharmacist; ATTEND Internal Medicine
PROC: IRPERMA (2019-02-01 12:00)

== ENCOUNTER 2019-02-16 18:29 | Inpatient (IN) ==
[2019-02-16] MEDS ORDERED: *HR* OxyCODONE/APAP 5/325 TABLET PO ONE (19:00)
[2019-02-16 19:59] LABS: Basophils % 0.2 %; Eosinophils # 0.1 K/mcL (0.0-0.6); Hematocrit 34.8 % (37.5-50.1); Immature Granulocytes % 0.4 % (0-4); Lymphocytes # 0.7 K/mcL (0.6-4.6); Lymphocytes % 4.9 %; Mean Corpuscular HGB Conc 31.6 g/dL (31.6-35.5); Mean Corpuscular Hemoglobin 28.8 pg (28.0-33.3); Mean Corpuscular Volume 91.1 fL (83.0-100.0); Mean Platelet Volume 10.1 fL (9.4-12.4); Monocytes # 0.8 K/mcL (0.0-1.3); Monocytes % 5.3 %; Neutrophils # 12.9 K/mcL (1.6-8.9); Platelet Count 246 K/mcL (140-400); Red Blood Count 3.82 M/mcL (4.19-5.50); Segmented Neutrophils % 88.2 %; White Blood Count 14.6 K/mcL (4.3-11.1)
[2019-02-16 20:04] LABS: VBG HCO3 28 mEq/L (21-27); VBG PCO2 55 mmHg (41-51); VBG PH 7.31 pH Units (7.32-7.42); VBG PO2 53 mmHg (25-50)
[2019-02-16 20:39] LABS: Calcium 8.6 mg/dL (8.6-10.3); Troponin I 0.04 ng/mL (< 0.04)
[2019-02-16] MEDS ORDERED: Ondansetron 4 MG/2 ML VIAL IVP PRN (22:19)
[2019-02-16] MEDS ORDERED: Naloxone 0.4 MG/ML INJ IVP PRN (22:19)
[2019-02-16] MEDS ORDERED: amLODIPine 5 MG TABLET PO SCH (22:30)
[2019-02-16] MEDS: Budesonide/Formoterol 160/4.5 1 PUFF INH IH SCH (22:40)
[2019-02-17] MEDS ORDERED: Furosemide 40 MG/4 ML VIAL IVP ONE (02:01)
[2019-02-17] MEDS: Ipratropium/Albuterol Neb 3 ML IH SCH ×6 (03:51→23:03)
[2019-02-17] MEDS ORDERED: *HR* LORazepam 2 MG/ML VIAL IVP ONE ×4 (05:38→21:48)
[2019-02-17] MEDS: Budesonide/Formoterol 160/4.5 1 PUFF INH IH SCH ×2 (07:34→19:52)
[2019-02-17 07:52] LABS: Basophils % 0.2 %; Eosinophils # 0.3 K/mcL (0.0-0.6); Eosinophils % 2.3 %; Hematocrit 32.4 % (37.5-50.1); Hemoglobin 10.1 g/dL (12.9-16.9); INR 1.2; Immature Granulocytes % 0.5 % (0-4); Lymphocytes # 0.7 K/mcL (0.6-4.6); Lymphocytes % 5.2 %; Mean Corpuscular HGB Conc 31.2 g/dL (31.6-35.5); Mean Corpuscular Hemoglobin 28.8 pg (28.0-33.3); Mean Corpuscular Volume 92.3 fL (83.0-100.0); Mean Platelet Volume 10.2 fL (9.4-12.4); Monocytes # 0.7 K/mcL (0.0-1.3); Monocytes % 5.4 %; Neutrophils # 11.5 K/mcL (1.6-8.9); Platelet Count 221 K/mcL (140-400); Prothrombin Time 13.4 Seconds (9.4-12.1); Red Blood Count 3.51 M/mcL (4.19-5.50); Red Cell Distribution Width 15.3 % (11.5-14.5); Segmented Neutrophils % 86.4 %; White Blood Count 13.3 K/mcL (4.3-11.1)
[2019-02-17 07:55] LABS: Activated Partial Thrombo Time 31.7 Seconds (26.0-36.0)
[2019-02-17 08:02] LABS: Albumin 2.9 g/dL (3.5-5.7); Bilirubin,Total 0.5 mg/dL (0.3-1.0); Calcium 8.3 mg/dL (8.6-10.3); Globulin 2.9 g/dL (2.4-3.5); Magnesium 1.9 mg/dL (1.6-2.6); Phosphorous 5.4 mg/dL (2.7-4.5); Potassium 3.5 mEq/L (3.5-5.1); Total Protein 5.8 g/dL (6.4-8.9)
[2019-02-17 08:14] LABS: Adenovirus Not Detected (Not Detect); Bordetella Pertussis Not Detected (Not Detect); Chlamydophila pneumoniae Not Detected (Not Detect); Coronavirus 229E Not Detected (Not Detect); Coronavirus HKU1 Not Detected (Not Detect); Coronavirus NL63 Not Detected (Not Detect); Coronavirus OC43 Not Detected (Not Detect); Human Metapneumovirus Not Detected (Not Detect); Human Rhinovirus/Enterovirus DETECTED (Not Detect); Influenza A Subtype 2009 H1 Not Detected (Not Detect); Influenza A Untypeable Not Detected (Not Detect); Influenza B Not Detected (Not Detect); Mycoplasma pneumoniae Not Detected (Not Detect); Parainfluenza Virus 1 Not Detected (Not Detect); Parainfluenza Virus 2 Not Detected (Not Detect); Parainfluenza Virus 3 Not Detected (Not Detect); Parainfluenza Virus 4 Not Detected (Not Detect); Respiratory Syncytial Virus Not Detected (Not Detect)
[2019-02-17 08:26] LABS: Troponin I 0.04 ng/mL (< 0.04)
[2019-02-17] MEDS: Aspirin 81 MG TAB.CHEW PO SCH (08:55)
[2019-02-17] MEDS: Isosorbide MONOnitrate (24 HR) 30 MG TAB.ER.24H PO SCH (08:55)
[2019-02-17] MEDS: Furosemide 40 MG TABLET PO SCH ×2 (08:55→15:50)
[2019-02-17] MEDS: Apixaban 5 MG TABLET PO SCH ×2 (08:55→20:36)
[2019-02-17] MEDS ORDERED: *HR* Rivaroxaban 15 MG TABLET PO SCH (09:00)
[2019-02-17] MEDS ORDERED: (Breo Ellipta 100-25 Mcg Inh) IH SCH (10:00)
[2019-02-17] MEDS ORDERED: 0.9 % Sodium Chloride 250 ML IVC PRN (10:58)
[2019-02-17] MEDS ORDERED: 0.9 % Sodium Chloride 1,000 ML PRIME SCH (11:00)
[2019-02-17] MEDS ORDERED: D5% in Water 1,000 ML IVC PRN (11:16)
[2019-02-17] MEDS ORDERED: Dextrose Gel 15 GM/37.5 ML TUBE PO PRN ×2 (11:16)
[2019-02-17] MEDS ORDERED: *HR* Dextrose 50 % in Water (Syg) 50 ML SYRINGE IVP PRN (11:16)
[2019-02-17] MEDS: amLODIPine 5 MG TABLET PO SCH (13:16)
[2019-02-17] MEDS: Insulin LISPRO 300 UNITS/3 ML VIAL SQ SCH ×3 (13:17→20:36)
[2019-02-17] MEDS ORDERED: *HR* Heparin 10,000 UNIT/10 ML VIAL IV PRN (18:50)
[2019-02-17] MEDS: Insulin DETEMIR 100 UNIT/ML X5UNITS SQ SCH (20:37)
[2019-02-17] MEDS ORDERED: Melatonin 3 MG TABLET PO PRN (21:48)
[2019-02-18] MEDS: Ipratropium/Albuterol Neb 3 ML IH SCH ×3 (04:20→20:02)
[2019-02-18] MEDS: Budesonide/Formoterol 160/4.5 1 PUFF INH IH SCH ×2 (07:21→20:02)
[2019-02-18] MEDS ORDERED: *HR* LORazepam 2 MG/ML VIAL ONE ×2 (12:06→14:25)
[2019-02-18] MEDS ORDERED: predniSONE 20 MG TABLET ONE (12:09)
[2019-02-18 19:00] LABS: Calcium 7.8 mg/dL (8.6-10.3); Potassium 3.9 mEq/L (3.5-5.1)
[2019-02-18 19:04] LABS: Basophils % 0.3 %; Eosinophils # 0.3 K/mcL (0.0-0.6); Eosinophils % 5.5 %; Hematocrit 29.6 % (37.5-50.1); Hemoglobin 9.7 g/dL (12.9-16.9); Immature Granulocytes % 0.3 % (0-4); Lymphocytes # 0.5 K/mcL (0.6-4.6); Lymphocytes % 8.8 %; Mean Corpuscular HGB Conc 32.8 g/dL (31.6-35.5); Mean Corpuscular Hemoglobin 29.6 pg (28.0-33.3); Mean Corpuscular Volume 90.2 fL (83.0-100.0); Monocytes # 0.6 K/mcL (0.0-1.3); Monocytes % 10.2 %; Neutrophils # 4.5 K/mcL (1.6-8.9); Platelet Count 166 K/mcL (140-400); Red Blood Count 3.28 M/mcL (4.19-5.50); Red Cell Distribution Width 15.5 % (11.5-14.5); Segmented Neutrophils % 74.9 %
[2019-02-18] MEDS ORDERED: *HR* LORazepam 2 MG/ML VIAL IVP ONE (20:48)
[2019-02-18] MEDS: Apixaban 5 MG TABLET PO SCH (21:05)
[2019-02-18] MEDS: Insulin LISPRO 300 UNITS/3 ML VIAL SQ SCH (21:05)
[2019-02-18] MEDS: Insulin DETEMIR 100 UNIT/ML X5UNITS SQ SCH (21:06)
[2019-02-19] MEDS: Ipratropium/Albuterol Neb 3 ML IH SCH ×9 (00:02→23:37)
[2019-02-19] MEDS: Insulin LISPRO 300 UNITS/3 ML VIAL SQ SCH ×7 (01:48→19:51)
[2019-02-19] MEDS: Aspirin 81 MG TAB.CHEW PO SCH ×2 (04:38→09:29)
[2019-02-19] MEDS: Isosorbide MONOnitrate (24 HR) 30 MG TAB.ER.24H PO SCH ×2 (04:39→09:28)
[2019-02-19] MEDS: Furosemide 40 MG TABLET PO SCH ×3 (04:40→17:02)
[2019-02-19] MEDS: Apixaban 5 MG TABLET PO SCH ×3 (04:40→19:50)
[2019-02-19] MEDS: amLODIPine 5 MG TABLET PO SCH ×2 (04:40→09:29)
[2019-02-19] MEDS: Insulin DETEMIR 100 UNIT/ML X5UNITS SQ SCH ×3 (04:41→19:50)
[2019-02-19 06:42] LABS: Hematocrit 30.4 % (37.5-50.1); Hemoglobin 9.9 g/dL (12.9-16.9); Mean Corpuscular HGB Conc 32.6 g/dL (31.6-35.5); Mean Corpuscular Hemoglobin 29.2 pg (28.0-33.3); Mean Corpuscular Volume 89.7 fL (83.0-100.0); Mean Platelet Volume 10.2 fL (9.4-12.4); Platelet Count 178 K/mcL (140-400); Red Blood Count 3.39 M/mcL (4.19-5.50); Red Cell Distribution Width 15.3 % (11.5-14.5)
[2019-02-19 06:44] LABS: White Blood Count 5.6 K/mcL (4.3-11.1)
[2019-02-19] MEDS: Budesonide/Formoterol 160/4.5 1 PUFF INH IH SCH ×2 (07:36→19:45)
[2019-02-19] MEDS ORDERED: Insulin LISPRO 300 UNITS/3 ML VIAL SQ SCH (08:00)
[2019-02-19] MEDS: Bumetanide 1 MG TABLET PO SCH (09:27)
[2019-02-19] MEDS: predniSONE 20 MG TABLET PO SCH (09:29)
[2019-02-19] MEDS: *HR* LORazepam 2 MG/ML VIAL IVP PRN ×2 (09:29→19:51)
[2019-02-19] MEDS ORDERED: Insulin DETEMIR 100 UNIT/ML X5UNITS SQ ONE (10:42)
[2019-02-20] MEDS: Ipratropium/Albuterol Neb 3 ML IH SCH ×5 (04:20→20:09)
[2019-02-20] MEDS: Insulin LISPRO 300 UNITS/3 ML VIAL SQ SCH ×12 (08:00→21:13)
[2019-02-20] MEDS: Bumetanide 1 MG TABLET PO SCH (09:23)
[2019-02-20] MEDS: predniSONE 20 MG TABLET PO SCH (09:23)
[2019-02-20] MEDS: amLODIPine 5 MG TABLET PO SCH (09:24)
[2019-02-20] MEDS: Apixaban 5 MG TABLET PO SCH ×2 (09:25→21:13)
[2019-02-20] MEDS: Aspirin 81 MG TAB.CHEW PO SCH (09:26)
[2019-02-20] MEDS: Isosorbide MONOnitrate (24 HR) 30 MG TAB.ER.24H PO SCH (09:26)
[2019-02-20] MEDS: Furosemide 40 MG TABLET PO SCH (09:26)
[2019-02-20] MEDS: Insulin DETEMIR 100 UNIT/ML X5UNITS SQ SCH ×2 (09:43→21:13)
[2019-02-20] MEDS: *HR* LORazepam 2 MG/ML VIAL IVP PRN ×2 (10:38→19:17)
[2019-02-20] MEDS: Budesonide/Formoterol 160/4.5 1 PUFF INH IH SCH ×2 (11:19→20:09)
[2019-02-20 14:50] LABS: Hematocrit 29.2 % (37.5-50.1); Hemoglobin 9.5 g/dL (12.9-16.9); Mean Corpuscular HGB Conc 32.5 g/dL (31.6-35.5); Mean Platelet Volume 10.2 fL (9.4-12.4); Platelet Count 186 K/mcL (140-400); Red Blood Count 3.28 M/mcL (4.19-5.50); Red Cell Distribution Width 15.3 % (11.5-14.5)
[2019-02-20 14:59] LABS: White Blood Count 10.6 K/mcL (4.3-11.1)
[2019-02-21] MEDS: Ipratropium/Albuterol Neb 3 ML IH SCH ×4 (00:18→11:26)
[2019-02-21] MEDS: Budesonide/Formoterol 160/4.5 1 PUFF INH IH SCH (07:37)
[2019-02-21] MEDS: Bumetanide 1 MG TABLET PO SCH (07:47)
[2019-02-21] MEDS: amLODIPine 5 MG TABLET PO SCH (07:48)
[2019-02-21] MEDS: predniSONE 20 MG TABLET PO SCH (07:48)
[2019-02-21] MEDS: Insulin DETEMIR 100 UNIT/ML X5UNITS SQ SCH (07:48)
[2019-02-21] MEDS: Apixaban 5 MG TABLET PO SCH (07:48)
[2019-02-21] MEDS: Isosorbide MONOnitrate (24 HR) 30 MG TAB.ER.24H PO SCH (07:48)
[2019-02-21] MEDS: Insulin LISPRO 300 UNITS/3 ML VIAL SQ SCH ×4 (07:52→13:47)
[2019-02-21] MEDS: Aspirin 81 MG TAB.CHEW PO SCH (07:56)
[2019-02-21] MEDS ORDERED: 0.9 % Sodium Chloride 250 ML IVC PRN (08:10)
[2019-02-21] MEDS ORDERED: *HR* Heparin 10,000 UNIT/10 ML VIAL IV PRN (08:10)
[2019-02-21] MEDS ORDERED: *HR* LORazepam 0.5 MG TABLET PO PRN (10:15)
[2019-02-21 13:43] VITALS: BP 164/97
== END 2019-02-21 14:28 | disposition home or self-care (01) | DRG 291 ==
LOC: EMEROOARM 18:29 → 2ANU 18:29 → SUATTDRO 21:44 → 2ANU 22:13
PROVIDERS: ADMIT Internal Medicine; ATTEND Internal Medicine

== ENCOUNTER 2019-05-14 04:29 | Inpatient (IN) ==
[2019-05-14] MEDS ORDERED: *HR* LORazepam 1 MG TABLET PO ONE ×2 (04:46→07:20)
[2019-05-14 04:57] LABS: Basophils % 0.4 %; Hematocrit 34.6 % (37.5-50.1); Immature Granulocytes % 0.5 % (0-4); Lymphocytes # 0.5 K/mcL (0.6-4.6); Lymphocytes % 5.1 %; Mean Corpuscular HGB Conc 31.8 g/dL (31.6-35.5); Mean Corpuscular Hemoglobin 28.7 pg (28.0-33.3); Mean Corpuscular Volume 90.3 fL (83.0-100.0); Mean Platelet Volume 10.1 fL (9.4-12.4); Monocytes # 0.4 K/mcL (0.0-1.3); Monocytes % 4.5 %; Neutrophils # 8.7 K/mcL (1.6-8.9); Platelet Count 193 K/mcL (140-400); Red Blood Count 3.83 M/mcL (4.19-5.50); Red Cell Distribution Width 17.6 % (11.5-14.5); Segmented Neutrophils % 89.5 %; White Blood Count 9.7 K/mcL (4.3-11.1)
[2019-05-14 05:29] LABS: Calcium 7.6 mg/dL (8.6-10.3); Potassium 4.3 mEq/L (3.5-5.1); Troponin I 0.09 ng/mL (< 0.04)
[2019-05-14] MEDS ORDERED: Aspirin 81 MG TAB.CHEW PO ONE (06:27)
[2019-05-14] MEDS ORDERED: Naloxone 0.4 MG/ML INJ IVP PRN (07:32)
[2019-05-14] MEDS ORDERED: Ondansetron 4 MG/2 ML VIAL IVP PRN (07:32)
[2019-05-14] MEDS ORDERED: Ipratropium/Albuterol Neb 3 ML IH PRN (07:34)
[2019-05-14] MEDS ORDERED: D5% in Water 1,000 ML IVC PRN (07:44)
[2019-05-14] MEDS ORDERED: Dextrose Gel 15 GM/37.5 ML TUBE PO PRN (07:44)
[2019-05-14] MEDS ORDERED: amLODIPine 5 MG TABLET PO SCH (07:45)
[2019-05-14] MEDS: Budesonide/Formoterol 160/4.5 1 PUFF INH IH SCH ×2 (10:32→20:28)
[2019-05-14] MEDS: carvediloL 6.25 MG TABLET PO SCH ×2 (11:14→17:17)
[2019-05-14] MEDS: Bumetanide 1 MG TABLET PO SCH (11:14)
[2019-05-14] MEDS: Apixaban 5 MG TABLET PO SCH ×2 (11:14→20:22)
[2019-05-14] MEDS: Aspirin 81 MG TAB.CHEW PO SCH (11:14)
[2019-05-14] MEDS: Isosorbide MONOnitrate (24 HR) 30 MG TAB.ER.24H PO SCH (11:15)
[2019-05-14] MEDS: Insulin DETEMIR 100 UNIT/ML X5UNITS SQ SCH ×2 (11:15→20:19)
[2019-05-14] MEDS: Insulin LISPRO 300 UNITS/3 ML VIAL SQ SCH ×3 (11:20→20:13)
[2019-05-14] MEDS: *HR* OxyCODONE Immed Rel 5 MG TABLET PO PRN ×2 (11:26→17:17)
[2019-05-14 12:08] LABS: Estimated Average Glucose 229 mg/dl
[2019-05-14] MEDS ORDERED: Acetaminophen IV 1,000 MG/100 ML INFUS..BTL IVPB ONE (20:16)
[2019-05-14] MEDS ORDERED: *HR* LORazepam 2 MG/ML VIAL IVP ONE (20:54)
[2019-05-15] MEDS: *HR* Dextrose 50 % in Water (Syg) 50 ML SYRINGE IVP PRN (02:48)
[2019-05-15 05:43] LABS: White Blood Count 7.1 K/mcL (4.3-11.1)
[2019-05-15 05:44] LABS: Basophils % 0.4 %; Eosinophils % 0.6 %; Hematocrit 32.8 % (37.5-50.1); Immature Granulocytes % 0.3 % (0-4); Lymphocytes # 0.4 K/mcL (0.6-4.6); Mean Corpuscular HGB Conc 30.5 g/dL (31.6-35.5); Mean Corpuscular Hemoglobin 28.2 pg (28.0-33.3); Mean Corpuscular Volume 92.7 fL (83.0-100.0); Mean Platelet Volume 10.1 fL (9.4-12.4); Monocytes # 0.4 K/mcL (0.0-1.3); Monocytes % 5.4 %; Neutrophils # 6.2 K/mcL (1.6-8.9); Platelet Count 150 K/mcL (140-400); Red Blood Count 3.54 M/mcL (4.19-5.50); Red Cell Distribution Width 17.2 % (11.5-14.5); Segmented Neutrophils % 88.3 %
[2019-05-15 05:53] LABS: Calcium 7.1 mg/dL (8.6-10.3); Magnesium 2.1 mg/dL (1.6-2.6); Phosphorous 7.1 mg/dL (2.7-4.5); Potassium 4.1 mEq/L (3.5-5.1)
[2019-05-15] MEDS ORDERED: 0.9 % Sodium Chloride 250 ML IVC PRN (08:15)
[2019-05-15] MEDS ORDERED: *HR* Heparin 10,000 UNIT/10 ML VIAL IV PRN (08:15)
[2019-05-15] MEDS ORDERED: 0.9 % Sodium Chloride 1,000 ML PRIME SCH (08:15)
[2019-05-15] MEDS: Insulin LISPRO 300 UNITS/3 ML VIAL SQ SCH ×4 (09:12→21:13)
[2019-05-15] MEDS: Cholecalciferol (D-3) 1,000 UNIT (25MCG) TABLET PO SCH (09:12)
[2019-05-15] MEDS: Aspirin 81 MG TAB.CHEW PO SCH (09:12)
[2019-05-15] MEDS: Apixaban 5 MG TABLET PO SCH ×2 (09:12→21:14)
[2019-05-15] MEDS: Insulin DETEMIR 100 UNIT/ML X5UNITS SQ SCH ×2 (09:13→21:13)
[2019-05-15 09:25] LABS: Hepatitis B Surface Antibody < 3.10 mIU/mL
[2019-05-15 09:35] LABS: Hepatitis B Surface Antigen Nonreactive (Nonreactive)
[2019-05-15] MEDS: Budesonide/Formoterol 160/4.5 1 PUFF INH IH SCH ×2 (10:33→20:44)
[2019-05-15] MEDS: amLODIPine 5 MG TABLET PO SCH (14:36)
[2019-05-15] MEDS: Bumetanide 1 MG TABLET PO SCH (14:36)
[2019-05-15] MEDS: Isosorbide MONOnitrate (24 HR) 30 MG TAB.ER.24H PO SCH (14:36)
[2019-05-15] MEDS: carvediloL 6.25 MG TABLET PO SCH ×2 (14:36→17:39)
[2019-05-15] MEDS: *HR* OxyCODONE Immed Rel 5 MG TABLET PO PRN ×2 (15:05→21:14)
[2019-05-15] MEDS: hydrOXYzine pamoate 25 MG CAPSULE PO PRN (17:39)
[2019-05-16] MEDS ORDERED: Acetaminophen IV 1,000 MG/100 ML INFUS..BTL IVPB ONE (00:51)
[2019-05-16] MEDS ORDERED: *HR* LORazepam 2 MG/ML VIAL IVP ONE (06:11)
[2019-05-16] MEDS: Budesonide/Formoterol 160/4.5 1 PUFF INH IH SCH ×2 (07:14→19:47)
[2019-05-16] MEDS ORDERED: 0.9 % Sodium Chloride 250 ML IVC PRN (08:13)
[2019-05-16] MEDS ORDERED: *HR* Heparin 10,000 UNIT/10 ML VIAL IV PRN (08:13)
[2019-05-16] MEDS: Insulin LISPRO 300 UNITS/3 ML VIAL SQ SCH ×4 (08:41→23:42)
[2019-05-16] MEDS: Aspirin 81 MG TAB.CHEW PO SCH (09:16)
[2019-05-16] MEDS: Isosorbide MONOnitrate (24 HR) 30 MG TAB.ER.24H PO SCH (09:16)
[2019-05-16] MEDS: Bumetanide 1 MG TABLET PO SCH (09:16)
[2019-05-16] MEDS: Insulin DETEMIR 100 UNIT/ML X5UNITS SQ SCH ×2 (09:16→23:30)
[2019-05-16] MEDS: Apixaban 5 MG TABLET PO SCH ×2 (09:16→23:27)
[2019-05-16] MEDS: carvediloL 6.25 MG TABLET PO SCH ×2 (09:16→16:50)
[2019-05-16] MEDS: amLODIPine 5 MG TABLET PO SCH (09:17)
[2019-05-16] MEDS: Cholecalciferol (D-3) 1,000 UNIT (25MCG) TABLET PO SCH (09:17)
[2019-05-16] MEDS: *HR* OxyCODONE Immed Rel 5 MG TABLET PO PRN (09:45)
[2019-05-16] MEDS: hydrOXYzine pamoate 25 MG CAPSULE PO PRN ×2 (14:17→23:27)
[2019-05-16] MEDS ORDERED: *HR* FentaNYL (PF) 100 MCG/2 ML VIAL IVP ONE (16:11)
[2019-05-16 16:52] LABS: Hematocrit 31.7 % (37.5-50.1); Mean Corpuscular HGB Conc 31.5 g/dL (31.6-35.5); Mean Corpuscular Hemoglobin 27.9 pg (28.0-33.3); Mean Corpuscular Volume 88.5 fL (83.0-100.0); Mean Platelet Volume 10.7 fL (9.4-12.4); Platelet Count 162 K/mcL (140-400); Red Blood Count 3.58 M/mcL (4.19-5.50); Red Cell Distribution Width 16.6 % (11.5-14.5); White Blood Count 6.6 K/mcL (4.3-11.1)
[2019-05-16 17:01] LABS: Calcium 7.1 mg/dL (8.6-10.3)
[2019-05-17 00:55] LABS: Adenovirus F 40/41 PCR Not detected (Not detect); Astrovirus PCR Not detected (Not detect); C.difficile Toxin A/B Gene PCR Not detected (Not detect); Campylobacter by PCR Not detected (Not detect); Cryptosporidium by PCR Not detected (Not detect); Cyclospora cayetanensis PCR Not detected (Not detect); E. coli O157 by PCR Not detected (Not detect); Entamoeba histolytica PCR Not detected (Not detect); Enteroaggregative E.coli(EAEC) Not detected (Not detect); Enteropathogenic E.coli(EPEC) Not detected (Not detect); Enterotoxigenic E.coli (ETEC) Not detected (Not detect); Giardia lamblia PCR Not detected (Not detect); Norovirus GI/GII PCR Not detected (Not detect); Plesiomonas shigelloides PCR Not detected (Not detect); Rotavirus A PCR Not detected (Not detect); Salmonella PCR Not detected (Not detect); Sapovirus PCR Not detected (Not detect); Shig/EnteroinvasiveE coli EIEC Not detected (Not detect); Shigalike tox-prod E coli STEC Not detected (Not detect); Vibrio PCR Not detected (Not detect); Vibrio cholerae PCR Not detected (Not detect); Yersinia enterocolitica PCR Not detected (Not detect)
[2019-05-17] MEDS ORDERED: 0.9 % Sodium Chloride 250 ML IVC PRN (07:56)
[2019-05-17] MEDS ORDERED: *HR* Heparin 10,000 UNIT/10 ML VIAL IV PRN (07:56)
[2019-05-17] MEDS: Insulin LISPRO 300 UNITS/3 ML VIAL SQ SCH ×4 (08:37→22:14)
[2019-05-17] MEDS: Apixaban 5 MG TABLET PO SCH ×2 (10:20→22:25)
[2019-05-17] MEDS: Cholecalciferol (D-3) 1,000 UNIT (25MCG) TABLET PO SCH (10:20)
[2019-05-17] MEDS: carvediloL 6.25 MG TABLET PO SCH ×2 (10:20→22:13)
[2019-05-17] MEDS: Isosorbide MONOnitrate (24 HR) 30 MG TAB.ER.24H PO SCH (10:21)
[2019-05-17] MEDS: Aspirin 81 MG TAB.CHEW PO SCH (10:21)
[2019-05-17] MEDS: Bumetanide 1 MG TABLET PO SCH (10:23)
[2019-05-17] MEDS: amLODIPine 5 MG TABLET PO SCH (10:24)
[2019-05-17] MEDS: Insulin DETEMIR 100 UNIT/ML X5UNITS SQ SCH ×2 (10:24→22:19)
[2019-05-17] MEDS: Budesonide/Formoterol 160/4.5 1 PUFF INH IH SCH ×2 (10:53→19:51)
[2019-05-17 14:47] LABS: Hematocrit 31.9 % (37.5-50.1); Hemoglobin 9.8 g/dL (12.9-16.9); Mean Corpuscular HGB Conc 30.7 g/dL (31.6-35.5); Mean Corpuscular Hemoglobin 28.5 pg (28.0-33.3); Mean Corpuscular Volume 92.7 fL (83.0-100.0); Mean Platelet Volume 10.8 fL (9.4-12.4); Platelet Count 144 K/mcL (140-400); Red Blood Count 3.44 M/mcL (4.19-5.50); Red Cell Distribution Width 16.6 % (11.5-14.5)
[2019-05-17 15:19] LABS: Potassium 4.9 mEq/L (3.5-5.1)
[2019-05-17 15:23] LABS: White Blood Count 10.4 K/mcL (4.3-11.1)
[2019-05-17 15:36] LABS: Calcium 7.1 mg/dL (8.6-10.3)
[2019-05-18] MEDS: hydrOXYzine pamoate 25 MG CAPSULE PO PRN ×2 (00:04→23:34)
[2019-05-18] MEDS: Budesonide/Formoterol 160/4.5 1 PUFF INH IH SCH ×2 (07:29→20:18)
[2019-05-18] MEDS ORDERED: 0.9 % Sodium Chloride 250 ML IVC PRN (08:08)
[2019-05-18] MEDS ORDERED: *HR* Heparin 10,000 UNIT/10 ML VIAL IV PRN (08:08)
[2019-05-18] MEDS: Insulin DETEMIR 100 UNIT/ML X5UNITS SQ SCH ×2 (08:11→22:25)
[2019-05-18] MEDS: Insulin LISPRO 300 UNITS/3 ML VIAL SQ SCH ×4 (08:11→21:38)
[2019-05-18] MEDS: carvediloL 6.25 MG TABLET PO SCH ×2 (08:11→16:54)
[2019-05-18] MEDS: Apixaban 5 MG TABLET PO SCH ×2 (08:12→22:24)
[2019-05-18] MEDS: Bumetanide 1 MG TABLET PO SCH (08:12)
[2019-05-18] MEDS: Isosorbide MONOnitrate (24 HR) 30 MG TAB.ER.24H PO SCH (08:13)
[2019-05-18] MEDS: Cholecalciferol (D-3) 1,000 UNIT (25MCG) TABLET PO SCH (08:13)
[2019-05-18] MEDS: Aspirin 81 MG TAB.CHEW PO SCH (08:13)
[2019-05-18] MEDS ORDERED: *HR* Alteplase (Cathflo) 2 MG VIAL IVP ONE (10:33)
[2019-05-18] MEDS: amLODIPine 5 MG TABLET PO SCH (14:12)
[2019-05-18] MEDS: *HR* OxyCODONE Immed Rel 5 MG TABLET PO PRN ×2 (16:46→23:34)
[2019-05-18 23:12] LABS: Hematocrit 32.9 % (37.5-50.1); Hemoglobin 10.4 g/dL (12.9-16.9); Mean Corpuscular HGB Conc 31.6 g/dL (31.6-35.5); Mean Corpuscular Hemoglobin 28.3 pg (28.0-33.3); Mean Corpuscular Volume 89.4 fL (83.0-100.0); Mean Platelet Volume 11.4 fL (9.4-12.4); Platelet Count 199 K/mcL (140-400); Red Blood Count 3.68 M/mcL (4.19-5.50); Red Cell Distribution Width 16.5 % (11.5-14.5); White Blood Count 10.8 K/mcL (4.3-11.1)
[2019-05-19 01:13] LABS: Hematocrit 30.1 % (37.5-50.1); Mean Corpuscular HGB Conc 33.2 g/dL (31.6-35.5); Mean Corpuscular Hemoglobin 28.2 pg (28.0-33.3); Mean Platelet Volume 11.2 fL (9.4-12.4); Platelet Count 185 K/mcL (140-400); Red Blood Count 3.54 M/mcL (4.19-5.50); Red Cell Distribution Width 16.5 % (11.5-14.5); White Blood Count 11.3 K/mcL (4.3-11.1)
[2019-05-19 01:40] LABS: Calcium 7.1 mg/dL (8.6-10.3); Potassium 5.9 mEq/L (3.5-5.1)
[2019-05-19] MEDS ORDERED: *HR* Heparin 10,000 UNIT/10 ML VIAL IV PRN (07:50)
[2019-05-19] MEDS ORDERED: 0.9 % Sodium Chloride 250 ML IVC PRN (07:50)
[2019-05-19] MEDS: Cholecalciferol (D-3) 1,000 UNIT (25MCG) TABLET PO SCH (09:37)
[2019-05-19] MEDS: Isosorbide MONOnitrate (24 HR) 30 MG TAB.ER.24H PO SCH (09:37)
[2019-05-19] MEDS: Apixaban 5 MG TABLET PO SCH ×2 (09:38→19:55)
[2019-05-19] MEDS: Aspirin 81 MG TAB.CHEW PO SCH (09:38)
[2019-05-19] MEDS: amLODIPine 5 MG TABLET PO SCH (09:39)
[2019-05-19] MEDS: Bumetanide 1 MG TABLET PO SCH (09:39)
[2019-05-19] MEDS: Insulin LISPRO 300 UNITS/3 ML VIAL SQ SCH ×4 (09:40→19:43)
[2019-05-19] MEDS: carvediloL 6.25 MG TABLET PO SCH ×2 (09:40→16:47)
[2019-05-19] MEDS: Insulin DETEMIR 100 UNIT/ML X5UNITS SQ SCH (09:40)
[2019-05-19] MEDS: Budesonide/Formoterol 160/4.5 1 PUFF INH IH SCH ×3 (10:11→20:24)
[2019-05-19 11:26] LABS: Calcium 7.5 mg/dL (8.6-10.3); Potassium 5.3 mEq/L (3.5-5.1)
[2019-05-19] MEDS: Dextrose Gel 15 GM/37.5 ML TUBE PO PRN (12:57)
[2019-05-19] MEDS: *HR* Dextrose 50 % in Water (Syg) 50 ML SYRINGE IVP PRN ×4 (12:57→23:32)
[2019-05-19] MEDS ORDERED: 0.9 % Sodium Chloride 250 ML ONE (14:01)
[2019-05-19] MEDS ORDERED: 0.9 % Sodium Chloride 250 ML IVC ONE (14:12)
[2019-05-19] MEDS ORDERED: Albuterol 2.5 MG/3 ML NEBULIZER IH PRN (14:33)
[2019-05-19 14:46] LABS: Hematocrit 32.3 % (37.5-50.1); Hemoglobin 10.7 g/dL (12.9-16.9); Mean Corpuscular HGB Conc 33.1 g/dL (31.6-35.5); Mean Corpuscular Hemoglobin 28.3 pg (28.0-33.3); Mean Corpuscular Volume 85.4 fL (83.0-100.0); Platelet Count 203 K/mcL (140-400); Red Blood Count 3.78 M/mcL (4.19-5.50); Red Cell Distribution Width 16.6 % (11.5-14.5); White Blood Count 14.3 K/mcL (4.3-11.1)
[2019-05-19 14:57] LABS: Calcium 7.3 mg/dL (8.6-10.3); Potassium 4.4 mEq/L (3.5-5.1)
[2019-05-19] MEDS: Ipratropium/Albuterol Neb 3 ML IH SCH ×4 (15:26→23:53)
[2019-05-19] MEDS: Piperacillin/Tazobactam 3.375 GM in 0.9 % Sodium Chloride Mini Bag 100 ML IVPB SCH (16:39)
[2019-05-19] MEDS: D10% in Water 500 ML IVC SCH (19:56)
[2019-05-19] MEDS ORDERED: *HR* HYDROmorphone (PF) 1 MG/ML SYRINGE IVP PRN (20:34)
[2019-05-19] MEDS ORDERED: Insulin DETEMIR 100 UNIT/ML X5UNITS SQ SCH (21:00)
[2019-05-19 23:24] LABS: Bilirubin,Urine Small (Negative); Blood,Urine Large (Negative); Clarity,Urine Cloudy (Clear); Color,Urine Yellow (Yellow); Glucose,Urine (UA) Normal (Normal); Ketones,Urine Negative (Negative); Leukocyte Esterase,Urine Small (Negative); Nitrite,Urine Negative (Negative); Protein,Urine >=1000 mg/dL (Neg-Trace); Specific Gravity,Urine 1.021 (1.010-1.025); Urobilinogen,Urine Normal (Normal)
[2019-05-19 23:25] LABS: Bacteria,Urine Many per hpf (None-Few); Hyaline Casts,Urine None Seen per lpf (None-Few); RBC,Urine 50-100 per hpf (0-3); Squamous Epithelial Cell,Urine Moderate per lpf (None-Few); WBC,Urine TNTC per hpf (0-3)
[2019-05-20] MEDS ORDERED: Acetaminophen IV 1,000 MG/100 ML INFUS..BTL IVPB ONE (00:29)
[2019-05-20] MEDS: Dextrose Gel 15 GM/37.5 ML TUBE PO PRN (02:13)
[2019-05-20 02:41] LABS: Hematocrit 33.6 % (37.5-50.1); Hemoglobin 11.3 g/dL (12.9-16.9); Mean Corpuscular HGB Conc 33.6 g/dL (31.6-35.5); Mean Corpuscular Hemoglobin 28.3 pg (28.0-33.3); Mean Platelet Volume 11.2 fL (9.4-12.4); Platelet Count 187 K/mcL (140-400); Red Cell Distribution Width 16.4 % (11.5-14.5); White Blood Count 14.1 K/mcL (4.3-11.1)
[2019-05-20 02:53] LABS: Calcium 7.3 mg/dL (8.6-10.3); Potassium 5.1 mEq/L (3.5-5.1)
[2019-05-20] MEDS: Ipratropium/Albuterol Neb 3 ML IH SCH ×6 (03:14→19:33)
[2019-05-20] MEDS: *HR* OxyCODONE Immed Rel 5 MG TABLET PO PRN (04:31)
[2019-05-20] MEDS: hydrOXYzine pamoate 25 MG CAPSULE PO PRN ×2 (04:31→22:51)
[2019-05-20] MEDS: Piperacillin/Tazobactam 3.375 GM in 0.9 % Sodium Chloride Mini Bag 100 ML IVPB SCH ×2 (04:31→17:41)
[2019-05-20] MEDS ORDERED: 0.9 % Sodium Chloride 250 ML IVC PRN (06:51)
[2019-05-20] MEDS: Budesonide/Formoterol 160/4.5 1 PUFF INH IH SCH ×3 (07:31→21:46)
[2019-05-20] MEDS: carvediloL 6.25 MG TABLET PO SCH ×2 (07:47→17:22)
[2019-05-20] MEDS: Isosorbide MONOnitrate (24 HR) 30 MG TAB.ER.24H PO SCH (07:47)
[2019-05-20] MEDS: amLODIPine 5 MG TABLET PO SCH (07:48)
[2019-05-20] MEDS: Aspirin 81 MG TAB.CHEW PO SCH (07:53)
[2019-05-20] MEDS: Cholecalciferol (D-3) 1,000 UNIT (25MCG) TABLET PO SCH (07:53)
[2019-05-20] MEDS: *HR* LORazepam 2 MG/ML VIAL IVP PRN ×2 (07:53→18:00)
[2019-05-20] MEDS: Apixaban 5 MG TABLET PO SCH ×2 (07:53→20:22)
[2019-05-20 12:30] LABS: Acinetobacter baumannii by PCR Not Detected (Not Detect); Candida albicans by PCR Not Detected (Not Detect); Candida glabrata by PCR Not Detected (Not Detect); Candida krusei by PCR Not Detected (Not Detect); Candida parapsilosis by PCR Not Detected (Not Detect); Candida tropicalis by PCR Not Detected (Not Detect); Enterobacter cloacae Cmplx PCR Not Detected (Not Detect); Enterobacteriaceae by PCR Not Detected (Not Detect); Enterococcus by PCR Not Detected (Not Detect); Escherichia coli by PCR Not Detected (Not Detect); Klebsiella oxytoca by PCR Not Detected (Not Detect); Klebsiella pneumoniae by PCR Not Detected (Not Detect); Proteus by PCR Not Detected (Not Detect); Pseudomonas aeruginosa by PCR Not Detected (Not Detect); Serratia marcescens by PCR Not Detected (Not Detect); Staphylococcus aureus by PCR DETECTED (Not Detect); Streptococcus agalactiae(B)PCR Not Detected (Not Detect); Streptococcus by PCR Not Detected (Not Detect); Streptococcus pneumoniae PCR Not Detected (Not Detect); Streptococcus pyogenes (A) PCR Not Detected (Not Detect); mecA Methicillin-Resist Gene DETECTED (Not Detect)
[2019-05-20] MEDS ORDERED: SODIUM CHLORIDE 0.9% IVPB SCH (15:00)
[2019-05-20] MEDS ORDERED: DAPTOMYCIN IVPB SCH (15:00)
[2019-05-20] MEDS ORDERED: QUEtiapine Fumarate 25 MG TABLET PO ONE (17:26)
[2019-05-21] MEDS: Ipratropium/Albuterol Neb 3 ML IH SCH ×7 (00:04→23:55)
[2019-05-21] MEDS: Piperacillin/Tazobactam 3.375 GM in 0.9 % Sodium Chloride Mini Bag 100 ML IVPB SCH ×2 (05:44→16:33)
[2019-05-21] MEDS: Budesonide/Formoterol 160/4.5 1 PUFF INH IH SCH ×2 (07:25→19:39)
[2019-05-21 07:45] LABS: Acinetobacter baumannii by PCR Not Detected (Not Detect); Candida albicans by PCR Not Detected (Not Detect); Candida glabrata by PCR Not Detected (Not Detect); Candida krusei by PCR Not Detected (Not Detect); Candida parapsilosis by PCR Not Detected (Not Detect); Candida tropicalis by PCR Not Detected (Not Detect); Enterobacter cloacae Cmplx PCR Not Detected (Not Detect); Enterobacteriaceae by PCR Not Detected (Not Detect); Enterococcus by PCR Not Detected (Not Detect); Escherichia coli by PCR Not Detected (Not Detect); Klebsiella oxytoca by PCR Not Detected (Not Detect); Klebsiella pneumoniae by PCR Not Detected (Not Detect); Proteus by PCR Not Detected (Not Detect); Pseudomonas aeruginosa by PCR Not Detected (Not Detect); Serratia marcescens by PCR Not Detected (Not Detect); Staphylococcus aureus by PCR DETECTED (Not Detect); Streptococcus agalactiae(B)PCR Not Detected (Not Detect); Streptococcus by PCR Not Detected (Not Detect); Streptococcus pneumoniae PCR Not Detected (Not Detect); Streptococcus pyogenes (A) PCR Not Detected (Not Detect); mecA Methicillin-Resist Gene DETECTED (Not Detect)
[2019-05-21] MEDS: Apixaban 5 MG TABLET PO SCH ×2 (08:40→20:06)
[2019-05-21] MEDS: Cholecalciferol (D-3) 1,000 UNIT (25MCG) TABLET PO SCH (08:40)
[2019-05-21] MEDS: Aspirin 81 MG TAB.CHEW PO SCH (08:40)
[2019-05-21] MEDS: carvediloL 6.25 MG TABLET PO SCH ×2 (08:40→16:26)
[2019-05-21] MEDS: D10% in Water 500 ML IVC SCH (12:52)
[2019-05-21] MEDS: hydrOXYzine pamoate 25 MG CAPSULE PO PRN (20:06)
[2019-05-21] MEDS: *HR* OxyCODONE Immed Rel 5 MG TABLET PO PRN (20:06)
[2019-05-21] MEDS: QUEtiapine Fumarate 25 MG TABLET PO SCH (20:07)
[2019-05-22] MEDS: Ipratropium/Albuterol Neb 3 ML IH SCH ×4 (03:49→15:43)
[2019-05-22 04:01] LABS: Basophils % 0.2 %; Eosinophils # 0.5 K/mcL (0.0-0.6); Eosinophils % 2.4 %; Hematocrit 31.4 % (37.5-50.1); Hemoglobin 10.5 g/dL (12.9-16.9); Lymphocytes # 1.2 K/mcL (0.6-4.6); Mean Corpuscular HGB Conc 33.4 g/dL (31.6-35.5); Mean Corpuscular Hemoglobin 27.9 pg (28.0-33.3); Mean Corpuscular Volume 83.5 fL (83.0-100.0); Mean Platelet Volume 10.7 fL (9.4-12.4); Monocytes # 0.8 K/mcL (0.0-1.3); Monocytes % 3.9 %; Platelet Count 220 K/mcL (140-400); Red Blood Count 3.76 M/mcL (4.19-5.50); Red Cell Distribution Width 16.8 % (11.5-14.5); Segmented Neutrophils % 85.5 %; White Blood Count 19.9 K/mcL (4.3-11.1)
[2019-05-22 04:14] LABS: Potassium 4.9 mEq/L (3.5-5.1)
[2019-05-22] MEDS: Piperacillin/Tazobactam 3.375 GM in 0.9 % Sodium Chloride Mini Bag 100 ML IVPB SCH ×2 (05:58→17:14)
[2019-05-22] MEDS: Budesonide/Formoterol 160/4.5 1 PUFF INH IH SCH ×2 (07:09→20:43)
[2019-05-22] MEDS ORDERED: 0.9 % Sodium Chloride 250 ML IVC PRN (07:13)
[2019-05-22] MEDS: carvediloL 6.25 MG TABLET PO SCH ×2 (08:25→17:06)
[2019-05-22] MEDS: Cholecalciferol (D-3) 1,000 UNIT (25MCG) TABLET PO SCH (08:26)
[2019-05-22] MEDS: Apixaban 5 MG TABLET PO SCH ×2 (08:26→20:53)
[2019-05-22] MEDS: Aspirin 81 MG TAB.CHEW PO SCH (08:26)
[2019-05-22] MEDS: Haloperidol Lactate 5 MG/ML VIAL IVP PRN (17:13)
[2019-05-22] MEDS: QUEtiapine Fumarate 25 MG TABLET PO SCH (20:52)
[2019-05-22] MEDS: hydrOXYzine pamoate 25 MG CAPSULE PO PRN (20:53)
[2019-05-22] MEDS: *HR* OxyCODONE Immed Rel 5 MG TABLET PO PRN (20:53)
[2019-05-23] MEDS: *HR* LORazepam 2 MG/ML VIAL IVP PRN ×2 (01:09→17:19)
[2019-05-23] MEDS: Haloperidol Lactate 5 MG/ML VIAL IVP PRN (04:04)
[2019-05-23 05:02] LABS: ABG Base Excess -1 mEq/L (-2 to 3); ABG HCO3 24 mEq/L (21-27); ABG Oxygen Saturation 94 % (95-98); ABG PCO2 39 mmHg (35-45); ABG PH 7.39 pH Units (7.32-7.45); ABG PO2 70 mmHg (85-104); ABG TCO2 25 mEq/L (20-26)
[2019-05-23 05:33] LABS: Basophils % 0.2 %; Eosinophils # 0.3 K/mcL (0.0-0.6); Eosinophils % 1.9 %; Hematocrit 30.8 % (37.5-50.1); Lymphocytes # 1.1 K/mcL (0.6-4.6); Lymphocytes % 6.9 %; Mean Corpuscular HGB Conc 32.5 g/dL (31.6-35.5); Mean Corpuscular Hemoglobin 27.8 pg (28.0-33.3); Mean Corpuscular Volume 85.6 fL (83.0-100.0); Mean Platelet Volume 10.5 fL (9.4-12.4); Neutrophils # 13.8 K/mcL (1.6-8.9); Platelet Count 220 K/mcL (140-400); Red Cell Distribution Width 16.7 % (11.5-14.5); White Blood Count 16.5 K/mcL (4.3-11.1)
[2019-05-23] MEDS: Piperacillin/Tazobactam 3.375 GM in 0.9 % Sodium Chloride Mini Bag 100 ML IVPB SCH ×2 (05:34→17:18)
[2019-05-23 05:55] LABS: Potassium 4.3 mEq/L (3.5-5.1)
[2019-05-23] MEDS ORDERED: 0.9 % Sodium Chloride 250 ML IVC PRN (07:31)
[2019-05-23] MEDS: Budesonide/Formoterol 160/4.5 1 PUFF INH IH SCH ×2 (07:59→19:50)
[2019-05-23] MEDS: carvediloL 6.25 MG TABLET PO SCH ×2 (09:16→17:35)
[2019-05-23] MEDS ORDERED: *HR* Heparin 10,000 UNIT/10 ML VIAL IV PRN ×2 (10:34→10:39)
[2019-05-23] MEDS: Apixaban 5 MG TABLET PO SCH ×2 (11:27→22:01)
[2019-05-23] MEDS: *HR* OxyCODONE Immed Rel 5 MG TABLET PO PRN (11:27)
[2019-05-23] MEDS: Cholecalciferol (D-3) 1,000 UNIT (25MCG) TABLET PO SCH (11:27)
[2019-05-23] MEDS: Aspirin 81 MG TAB.CHEW PO SCH (11:28)
[2019-05-23] MEDS ORDERED: Vancomycin 500 MG in 0.9 % Sodium Chloride Mini Bag 100 ML IVPB ONE (11:34)
[2019-05-23] MEDS: QUEtiapine Fumarate 25 MG TABLET PO SCH (22:01)
[2019-05-24 00:25] LABS: Acinetobacter baumannii by PCR Not Detected (Not Detect); Candida albicans by PCR Not Detected (Not Detect); Candida glabrata by PCR Not Detected (Not Detect); Candida krusei by PCR Not Detected (Not Detect); Candida parapsilosis by PCR Not Detected (Not Detect); Candida tropicalis by PCR Not Detected (Not Detect); Enterobacter cloacae Cmplx PCR Not Detected (Not Detect); Enterobacteriaceae by PCR Not Detected (Not Detect); Enterococcus by PCR Not Detected (Not Detect); Escherichia coli by PCR Not Detected (Not Detect); Klebsiella oxytoca by PCR Not Detected (Not Detect); Klebsiella pneumoniae by PCR Not Detected (Not Detect); Proteus by PCR Not Detected (Not Detect); Pseudomonas aeruginosa by PCR Not Detected (Not Detect); Serratia marcescens by PCR Not Detected (Not Detect); Staphylococcus aureus by PCR DETECTED (Not Detect); Streptococcus agalactiae(B)PCR Not Detected (Not Detect); Streptococcus by PCR Not Detected (Not Detect); Streptococcus pneumoniae PCR Not Detected (Not Detect); Streptococcus pyogenes (A) PCR Not Detected (Not Detect); blaKPC Carbapenem-Resist Gene Not Detected (Not Detect); mecA Methicillin-Resist Gene DETECTED (Not Detect); vanA/B Vancomycin-Resist Genes Not Detected (Not Detect)
[2019-05-24] MEDS: *HR* LORazepam 2 MG/ML VIAL IVP PRN (06:17)
[2019-05-24] MEDS: *HR* OxyCODONE Immed Rel 5 MG TABLET PO PRN (06:18)
[2019-05-24] MEDS: Piperacillin/Tazobactam 3.375 GM in 0.9 % Sodium Chloride Mini Bag 100 ML IVPB SCH ×2 (06:20→18:11)
[2019-05-24 09:17] LABS: Basophils % 0.2 %; Eosinophils # 0.3 K/mcL (0.0-0.6); Eosinophils % 1.7 %; Hemoglobin 9.6 g/dL (12.9-16.9); Immature Granulocytes % 1.1 % (0-4); Lymphocytes # 1.2 K/mcL (0.6-4.6); Lymphocytes % 6.6 %; Mean Corpuscular Volume 87.5 fL (83.0-100.0); Monocytes # 1.2 K/mcL (0.0-1.3); Monocytes % 6.4 %; Neutrophils # 15.1 K/mcL (1.6-8.9); Platelet Count 189 K/mcL (140-400); Red Blood Count 3.43 M/mcL (4.19-5.50); Red Cell Distribution Width 16.8 % (11.5-14.5)
[2019-05-24 09:25] LABS: Potassium 3.9 mEq/L (3.5-5.1)
[2019-05-24] MEDS: carvediloL 6.25 MG TABLET PO SCH ×2 (09:28→16:55)
[2019-05-24] MEDS: Apixaban 5 MG TABLET PO SCH ×3 (09:28→23:59)
[2019-05-24] MEDS: Cholecalciferol (D-3) 1,000 UNIT (25MCG) TABLET PO SCH (09:28)
[2019-05-24] MEDS: Aspirin 81 MG TAB.CHEW PO SCH (09:28)
[2019-05-24] MEDS: Budesonide/Formoterol 160/4.5 1 PUFF INH IH SCH ×2 (09:29→20:12)
[2019-05-24] MEDS ORDERED: Vancomycin 250 MG in 0.9 % Sodium Chloride Mini Bag 100 ML IVPB ONE (10:44)
[2019-05-24 12:38] LABS: Prothrombin Time 23.3 Seconds (9.4-12.1)
[2019-05-24] MEDS: QUEtiapine Fumarate 25 MG TABLET PO SCH (21:03)
[2019-05-25 05:05] LABS: Basophils % 0.2 %; Eosinophils # 0.4 K/mcL (0.0-0.6); Eosinophils % 2.5 %; Hematocrit 32.4 % (37.5-50.1); Hemoglobin 10.2 g/dL (12.9-16.9); Immature Granulocytes % 1.1 % (0-4); Lymphocytes # 1.1 K/mcL (0.6-4.6); Lymphocytes % 6.2 %; Mean Corpuscular HGB Conc 31.5 g/dL (31.6-35.5); Mean Corpuscular Hemoglobin 27.8 pg (28.0-33.3); Mean Corpuscular Volume 88.3 fL (83.0-100.0); Mean Platelet Volume 10.1 fL (9.4-12.4); Monocytes % 5.6 %; Neutrophils # 14.5 K/mcL (1.6-8.9); Platelet Count 207 K/mcL (140-400); Red Blood Count 3.67 M/mcL (4.19-5.50); Red Cell Distribution Width 16.7 % (11.5-14.5); Segmented Neutrophils % 84.4 %; White Blood Count 17.1 K/mcL (4.3-11.1)
[2019-05-25 05:14] LABS: Calcium 7.2 mg/dL (8.6-10.3); Potassium 4.1 mEq/L (3.5-5.1)
[2019-05-25] MEDS: Piperacillin/Tazobactam 3.375 GM in 0.9 % Sodium Chloride Mini Bag 100 ML IVPB SCH ×2 (05:51→17:40)
[2019-05-25] MEDS: Budesonide/Formoterol 160/4.5 1 PUFF INH IH SCH ×2 (07:30→20:22)
[2019-05-25] MEDS: Cholecalciferol (D-3) 1,000 UNIT (25MCG) TABLET PO SCH (09:12)
[2019-05-25] MEDS: carvediloL 6.25 MG TABLET PO SCH ×2 (09:12→17:40)
[2019-05-25] MEDS: Aspirin 81 MG TAB.CHEW PO SCH (09:12)
[2019-05-25] MEDS: Apixaban 5 MG TABLET PO SCH ×2 (09:12→22:38)
[2019-05-25] MEDS ORDERED: Perflutren Lipid Microsphere 1.3 ML in 0.9 % Sodium Chloride 8.7 ML IVP ONE (13:48)
[2019-05-25] MEDS: QUEtiapine Fumarate 25 MG TABLET PO SCH (22:40)
[2019-05-26 02:24] LABS: Potassium 4.2 mEq/L (3.5-5.1)
[2019-05-26] MEDS ORDERED: *HR* OxyCODONE Immed Rel 5 MG TABLET PO ONE (02:26)
[2019-05-26 02:29] LABS: Basophils % 0.3 %; Eosinophils # 0.3 K/mcL (0.0-0.6); Eosinophils % 2.2 %; Hematocrit 31.1 % (37.5-50.1); Hemoglobin 9.6 g/dL (12.9-16.9); Immature Granulocytes % 0.9 % (0-4); Lymphocytes % 7.4 %; Mean Corpuscular HGB Conc 30.9 g/dL (31.6-35.5); Mean Corpuscular Hemoglobin 27.3 pg (28.0-33.3); Mean Corpuscular Volume 88.4 fL (83.0-100.0); Mean Platelet Volume 9.9 fL (9.4-12.4); Monocytes # 0.6 K/mcL (0.0-1.3); Monocytes % 4.4 %; Neutrophils # 11.5 K/mcL (1.6-8.9); Platelet Count 182 K/mcL (140-400); Red Blood Count 3.52 M/mcL (4.19-5.50); Red Cell Distribution Width 16.8 % (11.5-14.5); Segmented Neutrophils % 84.8 %; White Blood Count 13.6 K/mcL (4.3-11.1)
[2019-05-26] MEDS: Piperacillin/Tazobactam 3.375 GM in 0.9 % Sodium Chloride Mini Bag 100 ML IVPB SCH ×2 (06:10→16:53)
[2019-05-26] MEDS ORDERED: 0.9 % Sodium Chloride 250 ML IVC PRN (07:07)
[2019-05-26] MEDS: Aspirin 81 MG TAB.CHEW PO SCH (09:31)
[2019-05-26] MEDS: Apixaban 5 MG TABLET PO SCH ×2 (09:31→22:20)
[2019-05-26] MEDS: carvediloL 6.25 MG TABLET PO SCH ×2 (09:31→16:52)
[2019-05-26] MEDS: Cholecalciferol (D-3) 1,000 UNIT (25MCG) TABLET PO SCH (09:31)
[2019-05-26] MEDS ORDERED: Vancomycin 250 MG in 0.9 % Sodium Chloride Mini Bag 100 ML IVPB ONE (10:49)
[2019-05-26] MEDS: Budesonide/Formoterol 160/4.5 1 PUFF INH IH SCH ×2 (11:10→19:58)
[2019-05-26] MEDS ORDERED: Heparin 1,000 UNITS/500 mL 500 ML ONE (13:06)
[2019-05-26] MEDS ORDERED: *HR* Heparin 5,000 UNIT/ML VIAL SQ ONE (15:19)
[2019-05-26] MEDS: QUEtiapine Fumarate 25 MG TABLET PO SCH (22:20)
[2019-05-26] MEDS: *HR* LORazepam 2 MG/ML VIAL IVP PRN (22:21)
[2019-05-27 03:58] LABS: Basophils % 0.3 %; Eosinophils # 0.2 K/mcL (0.0-0.6); Eosinophils % 2.2 %; Hematocrit 29.7 % (37.5-50.1); Hemoglobin 9.5 g/dL (12.9-16.9); Immature Granulocytes % 0.8 % (0-4); Lymphocytes # 0.8 K/mcL (0.6-4.6); Lymphocytes % 7.3 %; Mean Corpuscular Hemoglobin 28.2 pg (28.0-33.3); Mean Corpuscular Volume 88.1 fL (83.0-100.0); Mean Platelet Volume 10.4 fL (9.4-12.4); Monocytes # 0.6 K/mcL (0.0-1.3); Monocytes % 5.3 %; Platelet Count 161 K/mcL (140-400); Red Blood Count 3.37 M/mcL (4.19-5.50); Red Cell Distribution Width 16.6 % (11.5-14.5); Segmented Neutrophils % 84.1 %; White Blood Count 10.7 K/mcL (4.3-11.1)
[2019-05-27 04:36] LABS: Calcium 6.7 mg/dL (8.6-10.3); Potassium 4.4 mEq/L (3.5-5.1)
[2019-05-27] MEDS: Budesonide/Formoterol 160/4.5 1 PUFF INH IH SCH ×2 (07:42→20:03)
[2019-05-27] MEDS ORDERED: *HR* Heparin 10,000 UNIT/10 ML VIAL IV PRN ×2 (07:56)
[2019-05-27] MEDS ORDERED: 0.9 % Sodium Chloride 250 ML IVC PRN (07:56)
[2019-05-27] MEDS ORDERED: 0.9 % Sodium Chloride 1,000 ML PRIME SCH (08:00)
[2019-05-27] MEDS: carvediloL 6.25 MG TABLET PO SCH ×2 (10:41→16:56)
[2019-05-27] MEDS ORDERED: Perflutren Lipid Microsphere 1.3 ML in 0.9 % Sodium Chloride 8.7 ML IVP ONE (10:49)
[2019-05-27] MEDS: Apixaban 5 MG TABLET PO SCH ×2 (15:11→20:57)
[2019-05-27] MEDS: Aspirin 81 MG TAB.CHEW PO SCH (15:11)
[2019-05-27] MEDS: Cholecalciferol (D-3) 1,000 UNIT (25MCG) TABLET PO SCH (15:11)
[2019-05-27] MEDS: QUEtiapine Fumarate 25 MG TABLET PO SCH (20:58)
[2019-05-27] MEDS: Haloperidol Lactate 5 MG/ML VIAL IVP PRN (20:59)
[2019-05-28] MEDS: *HR* LORazepam 2 MG/ML VIAL IVP PRN (00:14)
[2019-05-28 04:59] LABS: Basophils % 0.2 %; Eosinophils # 0.2 K/mcL (0.0-0.6); Eosinophils % 1.1 %; Hematocrit 30.2 % (37.5-50.1); Hemoglobin 9.2 g/dL (12.9-16.9); Immature Granulocytes % 0.6 % (0-4); Lymphocytes # 0.8 K/mcL (0.6-4.6); Lymphocytes % 5.6 %; Mean Corpuscular HGB Conc 30.5 g/dL (31.6-35.5); Mean Corpuscular Hemoglobin 27.5 pg (28.0-33.3); Mean Corpuscular Volume 90.1 fL (83.0-100.0); Mean Platelet Volume 10.4 fL (9.4-12.4); Monocytes # 0.8 K/mcL (0.0-1.3); Monocytes % 5.9 %; Neutrophils # 12.1 K/mcL (1.6-8.9); Platelet Count 176 K/mcL (140-400); Red Blood Count 3.35 M/mcL (4.19-5.50); Red Cell Distribution Width 16.4 % (11.5-14.5); Segmented Neutrophils % 86.6 %
[2019-05-28 05:10] LABS: Potassium 4.2 mEq/L (3.5-5.1)
[2019-05-28] MEDS ORDERED: Haloperidol Lactate 5 MG/ML VIAL IVP ONE (05:25)
[2019-05-28] MEDS: Budesonide/Formoterol 160/4.5 1 PUFF INH IH SCH (07:43)
[2019-05-28] MEDS ORDERED: Dextrose Gel 15 GM/37.5 ML TUBE PO PRN ×2 (11:46)
[2019-05-28] MEDS ORDERED: D5% in Water 1,000 ML IVC PRN (11:46)
[2019-05-28] MEDS ORDERED: *HR* Dextrose 50 % in Water (Syg) 50 ML SYRINGE IVP PRN (11:46)
[2019-05-28] MEDS: carvediloL 6.25 MG TABLET PO SCH (11:48)
[2019-05-28] MEDS: Cholecalciferol (D-3) 1,000 UNIT (25MCG) TABLET PO SCH (11:49)
[2019-05-28] MEDS: Apixaban 5 MG TABLET PO SCH (11:49)
[2019-05-28] MEDS: Aspirin 81 MG TAB.CHEW PO SCH (11:49)
[2019-05-28] MEDS ORDERED: Insulin LISPRO 300 UNITS/3 ML VIAL SQ SCH ×2 (12:00)
[2019-05-28 12:10] VITALS: BP 153/95
[2019-05-28] MEDS ORDERED: Nitroglycerin 0.4 MG TAB.SUBL SL PRN (12:55)
[2019-05-28] MEDS ORDERED: Nitroglycerin 0.4 MG TAB.SUBL SL ONE (13:03)
[2019-05-28] MEDS ORDERED: Aminoglycoside Consult 1 EACH MC ONE (15:57)
== END 2019-05-28 15:58 | disposition short-term general hospital (02) | DRG 291 ==
LOC: 2ANU 04:29 → EMEROOARM 04:29 → SUATTDRO 07:40 → 2ANU 08:38 → SUATTDRO 05-15 15:06
PROVIDERS: ADMIT Student in an Organized Health Care Education/Training Program; ATTEND Family Medicine

== ENCOUNTER 2019-06-30 19:33 | Inpatient (IN) ==
[2019-06-30 20:44] LABS: Basophils # 0.1 K/mcL (0.0-0.2); Basophils % 0.9 %; Eosinophils # 0.3 K/mcL (0.0-0.6); Eosinophils % 2.7 %; Hematocrit 30.3 % (37.5-50.1); Hemoglobin 9.1 g/dL (12.9-16.9); Immature Granulocytes % 0.4 % (0-4); Lymphocytes # 0.9 K/mcL (0.6-4.6); Mean Corpuscular Hemoglobin 26.8 pg (28.0-33.3); Mean Corpuscular Volume 89.1 fL (83.0-100.0); Mean Platelet Volume 9.8 fL (9.4-12.4); Monocytes # 1.3 K/mcL (0.0-1.3); Monocytes % 11.7 %; Neutrophils # 8.7 K/mcL (1.6-8.9); Platelet Count 335 K/mcL (140-400); Red Cell Distribution Width 17.1 % (11.5-14.5); Segmented Neutrophils % 76.3 %; White Blood Count 11.4 K/mcL (4.3-11.1)
[2019-06-30 21:01] LABS: Calcium 8.3 mg/dL (8.6-10.3); Potassium 4.2 mEq/L (3.5-5.1); Troponin I 0.04 ng/mL (< 0.04)
[2019-07-01] MEDS ORDERED: Naloxone 0.4 MG/ML INJ IVP PRN (01:46)
[2019-07-01] MEDS ORDERED: D5% in Water 1,000 ML IVC PRN (01:48)
[2019-07-01] MEDS ORDERED: Dextrose Gel 15 GM/37.5 ML TUBE PO PRN ×2 (01:48)
[2019-07-01] MEDS ORDERED: *HR* Dextrose 50 % in Water (Syg) 50 ML SYRINGE IVP PRN (01:48)
[2019-07-01] MEDS ORDERED: 0.9 % Sodium Chloride 250 ML IVC PRN (06:10)
[2019-07-01] MEDS ORDERED: 0.9 % Sodium Chloride 1,000 ML PRIME SCH (06:15)
[2019-07-01 08:16] LABS: Hematocrit 30.3 % (37.5-50.1); Hemoglobin 9.2 g/dL (12.9-16.9); Mean Corpuscular HGB Conc 30.4 g/dL (31.6-35.5); Mean Corpuscular Hemoglobin 26.6 pg (28.0-33.3); Mean Corpuscular Volume 87.6 fL (83.0-100.0); Mean Platelet Volume 9.7 fL (9.4-12.4); Platelet Count 341 K/mcL (140-400); Red Blood Count 3.46 M/mcL (4.19-5.50); Red Cell Distribution Width 17.1 % (11.5-14.5); White Blood Count 11.7 K/mcL (4.3-11.1)
[2019-07-01 08:42] LABS: Albumin 2.8 g/dL (3.5-5.7); Albumin/Globulin Ratio 0.5 (1.1-2.2); Bilirubin,Total 0.6 mg/dL (0.3-1.0); Calcium 8.4 mg/dL (8.6-10.3); Globulin 5.3 g/dL (2.4-3.5); Magnesium 2.1 mg/dL (1.6-2.6); Total Protein 8.1 g/dL (6.4-8.9); Troponin I 0.04 ng/mL (< 0.04)
[2019-07-01 08:50] LABS: Hepatitis B Surface Antibody < 3.10 mIU/mL
[2019-07-01 09:01] LABS: Hepatitis B Surface Antigen Nonreactive (Nonreactive)
[2019-07-01] MEDS: Insulin LISPRO 300 UNITS/3 ML VIAL SQ SCH ×4 (09:01→20:10)
[2019-07-01] MEDS: Divalproex (24 HR) 500 MG TABLET PO SCH (09:02)
[2019-07-01] MEDS: Apixaban 5 MG TABLET PO SCH ×2 (09:02→20:10)
[2019-07-01] MEDS: Aspirin 81 MG TAB.CHEW PO SCH (09:02)
[2019-07-01] MEDS: Loratadine 10 MG TABLET PO SCH (09:02)
[2019-07-01] MEDS: Bumetanide 1 MG TABLET PO SCH (09:02)
[2019-07-01] MEDS: Ranolazine 500 MG TAB.ER.12H PO SCH ×2 (09:02→20:10)
[2019-07-01] MEDS: Renal Vitamin 1 CAP CAPSULE PO SCH (09:03)
[2019-07-01] MEDS: Cholestyramine 4 GM POWD.PACK PO SCH ×2 (09:03→20:11)
[2019-07-01] MEDS: carvediloL 25 MG TABLET PO SCH ×2 (09:16→17:22)
[2019-07-01] MEDS ORDERED: *HR* Heparin 10,000 UNIT/10 ML VIAL IV PRN (12:09)
[2019-07-01] MEDS ORDERED: Insulin DETEMIR 100 UNIT/ML X5UNITS SQ ONE (12:20)
[2019-07-01] MEDS: hydrOXYzine pamoate 25 MG CAPSULE PO PRN (13:09)
[2019-07-01] MEDS: Insulin DETEMIR 100 UNIT/ML X5UNITS SQ SCH (20:10)
[2019-07-01] MEDS ORDERED: Insulin DETEMIR 100 UNIT/ML X5UNITS SQ SCH (21:00)
[2019-07-01] MEDS: *HR* OxyCODONE Immed Rel 5 MG TABLET PO PRN (23:40)
[2019-07-02] MEDS: Bumetanide 1 MG TABLET PO SCH (09:52)
[2019-07-02] MEDS: Loratadine 10 MG TABLET PO SCH (09:53)
[2019-07-02] MEDS: Ranolazine 500 MG TAB.ER.12H PO SCH ×2 (09:53→19:54)
[2019-07-02] MEDS: Renal Vitamin 1 CAP CAPSULE PO SCH (09:53)
[2019-07-02] MEDS: Divalproex (24 HR) 500 MG TABLET PO SCH (09:53)
[2019-07-02] MEDS: carvediloL 25 MG TABLET PO SCH ×2 (09:53→17:22)
[2019-07-02] MEDS: Cholestyramine 4 GM POWD.PACK PO SCH ×2 (09:53→19:54)
[2019-07-02] MEDS: Aspirin 81 MG TAB.CHEW PO SCH (09:53)
[2019-07-02] MEDS: Apixaban 5 MG TABLET PO SCH ×2 (09:53→19:53)
[2019-07-02] MEDS: Insulin LISPRO 300 UNITS/3 ML VIAL SQ SCH ×4 (09:55→19:54)
[2019-07-02] MEDS: *HR* OxyCODONE Immed Rel 5 MG TABLET PO PRN (17:21)
[2019-07-02] MEDS: hydrOXYzine pamoate 25 MG CAPSULE PO PRN (19:53)
[2019-07-02] MEDS: Insulin DETEMIR 100 UNIT/ML X5UNITS SQ SCH (19:54)
[2019-07-03] MEDS: *HR* OxyCODONE Immed Rel 5 MG TABLET PO PRN ×2 (01:25→20:28)
[2019-07-03] MEDS: hydrOXYzine pamoate 25 MG CAPSULE PO PRN ×2 (06:36→15:32)
[2019-07-03] MEDS ORDERED: 0.9 % Sodium Chloride 250 ML IVC PRN (07:11)
[2019-07-03] MEDS: Ammonium Lactate 30 APPL/225 GM BOTTLE TP SCH ×2 (07:54→23:03)
[2019-07-03] MEDS: Bumetanide 1 MG TABLET PO SCH (07:57)
[2019-07-03] MEDS: carvediloL 25 MG TABLET PO SCH ×2 (07:57→17:36)
[2019-07-03] MEDS: Divalproex (24 HR) 500 MG TABLET PO SCH (07:57)
[2019-07-03] MEDS: Apixaban 5 MG TABLET PO SCH ×2 (07:57→20:28)
[2019-07-03] MEDS: Ranolazine 500 MG TAB.ER.12H PO SCH ×2 (07:57→20:28)
[2019-07-03] MEDS: Aspirin 81 MG TAB.CHEW PO SCH (07:57)
[2019-07-03] MEDS: Renal Vitamin 1 CAP CAPSULE PO SCH (07:57)
[2019-07-03] MEDS: Loratadine 10 MG TABLET PO SCH (07:57)
[2019-07-03] MEDS: Cholestyramine 4 GM POWD.PACK PO SCH ×2 (07:58→20:52)
[2019-07-03] MEDS: Insulin LISPRO 300 UNITS/3 ML VIAL SQ SCH ×4 (09:33→20:52)
[2019-07-03] MEDS ORDERED: *HR* Heparin 10,000 UNIT/10 ML VIAL IV PRN (10:59)
[2019-07-03] MEDS: Insulin DETEMIR 100 UNIT/ML X5UNITS SQ SCH (20:52)
[2019-07-03] MEDS ORDERED: Melatonin 3 MG TABLET PO SCH (21:00)
[2019-07-04] MEDS ORDERED: 0.9 % Sodium Chloride 250 ML IVC PRN (07:05)
[2019-07-04] MEDS: Insulin LISPRO 300 UNITS/3 ML VIAL SQ SCH ×2 (09:05→11:50)
[2019-07-04] MEDS: Ranolazine 500 MG TAB.ER.12H PO SCH (09:05)
[2019-07-04] MEDS: Divalproex (24 HR) 500 MG TABLET PO SCH (09:05)
[2019-07-04] MEDS: Apixaban 5 MG TABLET PO SCH (09:06)
[2019-07-04] MEDS: Aspirin 81 MG TAB.CHEW PO SCH (09:06)
[2019-07-04] MEDS: carvediloL 25 MG TABLET PO SCH (09:06)
[2019-07-04] MEDS: Bumetanide 1 MG TABLET PO SCH (09:06)
[2019-07-04] MEDS: Renal Vitamin 1 CAP CAPSULE PO SCH (09:06)
[2019-07-04] MEDS: Cholestyramine 4 GM POWD.PACK PO SCH (09:06)
[2019-07-04] MEDS: Loratadine 10 MG TABLET PO SCH (09:06)
[2019-07-04] MEDS: *HR* OxyCODONE Immed Rel 5 MG TABLET PO PRN ×2 (10:46→17:15)
[2019-07-04] MEDS ORDERED: *HR* Heparin 10,000 UNIT/10 ML VIAL IV PRN (12:15)
[2019-07-04] MEDS: Ammonium Lactate 30 APPL/225 GM BOTTLE TP SCH (13:34)
[2019-07-04 19:56] VITALS: BP 166/84
[2019-07-04] MEDS ORDERED: Melatonin 3 MG TABLET PO SCH (21:00)
== END 2019-07-04 17:33 | DRG 291 ==
LOC: EMEROOARM 19:33 → 2ANU 19:33 → SUATTDRO 22:19 → 2ANU 23:23
PROVIDERS: ADMIT Internal Medicine; ATTEND Internal Medicine

== ENCOUNTER 2019-09-07 17:22 | Observation (INO) ==
[2019-09-07 18:20] LABS: Basophils # 0.1 K/mcL (0.0-0.2); Basophils % 0.6 %; Eosinophils # 0.6 K/mcL (0.0-0.6); Eosinophils % 6.5 %; Hematocrit 28.8 % (37.5-50.1); Hemoglobin 8.7 g/dL (12.9-16.9); Immature Granulocytes % 0.3 % (0-4); Lymphocytes # 0.9 K/mcL (0.6-4.6); Lymphocytes % 10.4 %; Mean Corpuscular HGB Conc 30.2 g/dL (31.6-35.5); Mean Corpuscular Hemoglobin 27.5 pg (28.0-33.3); Mean Corpuscular Volume 91.1 fL (83.0-100.0); Mean Platelet Volume 9.4 fL (9.4-12.4); Monocytes # 0.8 K/mcL (0.0-1.3); Monocytes % 9.1 %; Neutrophils # 6.5 K/mcL (1.6-8.9); Platelet Count 226 K/mcL (140-400); Red Blood Count 3.16 M/mcL (4.19-5.50); Red Cell Distribution Width 16.9 % (11.5-14.5); Segmented Neutrophils % 73.1 %; White Blood Count 8.9 K/mcL (4.3-11.1)
[2019-09-07 18:24] LABS: INR 1.5; Prothrombin Time 16.9 Seconds (9.4-12.1)
[2019-09-07 18:27] LABS: Activated Partial Thrombo Time 34.2 Seconds (26.0-36.0)
[2019-09-07 19:02] LABS: Calcium 7.6 mg/dL (8.6-10.3); Potassium 7.4 mEq/L (3.5-5.1); Troponin I 0.03 ng/mL (< 0.04)
[2019-09-07] MEDS ORDERED: Calcium Gluconate 1gm/50mL 1 GM/50 ML BAG IVPB STA (19:05)
[2019-09-07] MEDS ORDERED: Insulin Human Regular 10 UNIT in 0.9 % Sodium Chloride 10 ML IV STA (19:06)
[2019-09-07] MEDS ORDERED: *HR* Dextrose 50 % in Water (Syg) 50 ML SYRINGE IVP ONE (19:07)
[2019-09-07] MEDS ORDERED: Sodium Bicarbonate 50 MEQ/50 ML VIAL IVP STA (19:07)
[2019-09-07] MEDS ORDERED: *HR* Dextrose 50 % in Water (Syg) 50 ML SYRINGE ONE (19:15)
[2019-09-07] MEDS ORDERED: Calcium Gluconate 1gm/50mL 1 GM/50 ML BAG IVPB ONE ×2 (19:15→23:29)
[2019-09-07] MEDS ORDERED: Calcium Gluconate 1gm/50mL 1 GM/50 ML BAG IVPB SCH (19:30)
[2019-09-07] MEDS ORDERED: *HR* OxyCODONE Immed Rel 5 MG TABLET PO ONE (19:36)
[2019-09-07] MEDS ORDERED: *HR* Heparin 10,000 UNIT/10 ML VIAL IV PRN ×2 (21:53)
[2019-09-07] MEDS ORDERED: 0.9 % Sodium Chloride 250 ML IVC PRN (21:53)
[2019-09-07] MEDS ORDERED: 0.9 % Sodium Chloride 1,000 ML ONE (22:00)
[2019-09-07] MEDS ORDERED: 0.9 % Sodium Chloride 1,000 ML PRIME SCH (22:00)
[2019-09-07 22:33] LABS: Hepatitis B Surface Antibody < 3.10 mIU/mL
[2019-09-07 22:44] LABS: Hepatitis B Surface Antigen Nonreactive (Nonreactive)
[2019-09-07] MEDS ORDERED: Aspirin Enteric Coated 325 MG Tablet PO ONE (23:29)
[2019-09-07] MEDS ORDERED: Naloxone 0.4 MG/ML INJ IVP PRN (23:30)
[2019-09-07] MEDS ORDERED: Nicotine 2 MG GUM BC PRN (23:30)
[2019-09-07] MEDS ORDERED: Dextrose Gel 15 GM/37.5 ML TUBE PO PRN ×2 (23:30)
[2019-09-07] MEDS ORDERED: *HR* Dextrose 50 % in Water (Syg) 50 ML SYRINGE IVP PRN (23:30)
[2019-09-07] MEDS ORDERED: Nitroglycerin 0.4 MG TAB.SUBL SL PRN (23:30)
[2019-09-07] MEDS ORDERED: D5% in Water 1,000 ML IVC PRN (23:30)
[2019-09-08 00:10] LABS: Calcium 7.7 mg/dL (8.6-10.3); Potassium 6.2 mEq/L (3.5-5.1)
[2019-09-08 00:11] LABS: Troponin I 0.03 ng/mL (< 0.04)
[2019-09-08] MEDS: Divalproex (24 HR) 500 MG TABLET PO SCH ×2 (00:28→20:42)
[2019-09-08] MEDS: Insulin DETEMIR 100 UNIT/ML X5UNITS SQ SCH ×2 (00:28→20:41)
[2019-09-08] MEDS: risperiDONE 1 MG TABLET PO SCH ×3 (01:38→20:43)
[2019-09-08] MEDS: Melatonin 3 MG TABLET PO SCH ×3 (01:38→23:07)
[2019-09-08] MEDS: traZODone 50 MG TABLET PO SCH ×5 (01:39→23:07)
[2019-09-08] MEDS: Nicotine 14 MG PATCH.TD24 TD SCH ×2 (01:39→09:08)
[2019-09-08 06:13] LABS: Basophils # 0.1 K/mcL (0.0-0.2); Basophils % 0.6 %; Eosinophils # 0.5 K/mcL (0.0-0.6); Eosinophils % 6.2 %; Hematocrit 28.1 % (37.5-50.1); Hemoglobin 8.4 g/dL (12.9-16.9); Immature Granulocytes % 0.4 % (0-4); Lymphocytes # 0.8 K/mcL (0.6-4.6); Lymphocytes % 9.4 %; Mean Corpuscular HGB Conc 29.9 g/dL (31.6-35.5); Mean Corpuscular Hemoglobin 27.5 pg (28.0-33.3); Mean Corpuscular Volume 91.8 fL (83.0-100.0); Mean Platelet Volume 9.2 fL (9.4-12.4); Monocytes # 0.8 K/mcL (0.0-1.3); Monocytes % 9.4 %; Neutrophils # 6.2 K/mcL (1.6-8.9); Platelet Count 203 K/mcL (140-400); Red Blood Count 3.06 M/mcL (4.19-5.50); Red Cell Distribution Width 16.8 % (11.5-14.5); White Blood Count 8.3 K/mcL (4.3-11.1)
[2019-09-08 06:34] LABS: Albumin 2.5 g/dL (3.5-5.7); Albumin/Globulin Ratio 0.6 (1.1-2.2); Bilirubin,Total 0.6 mg/dL (0.3-1.0); Calcium 7.5 mg/dL (8.6-10.3); Globulin 4.2 g/dL (2.4-3.5); Magnesium 2.2 mg/dL (1.6-2.6); Phosphorous 10.2 mg/dL (2.7-4.5); Potassium 5.8 mEq/L (3.5-5.1); Total Protein 6.7 g/dL (6.4-8.9)
[2019-09-08] MEDS: Insulin LISPRO 300 UNITS/3 ML VIAL SQ SCH ×4 (08:02→20:41)
[2019-09-08 08:36] LABS: Estimated Average Glucose 169 mg/dl
[2019-09-08] MEDS ORDERED: SODIUM ZIRCONIUM CYCLOSILICATE 5 GM POWD.PACK PO SCH (09:00)
[2019-09-08] MEDS: carvediloL 25 MG TABLET PO SCH ×2 (09:08→16:50)
[2019-09-08] MEDS: Apixaban 5 MG TABLET PO SCH ×2 (09:08→20:42)
[2019-09-08] MEDS: Aspirin 81 MG TAB.CHEW PO SCH (09:08)
[2019-09-08] MEDS: Bumetanide 1 MG TABLET PO SCH (09:08)
[2019-09-08] MEDS: SODIUM ZIRCONIUM CYCLOSILICATE 5 GM POWD.PACK PO SCH ×2 (09:08→09:10)
[2019-09-08] MEDS ORDERED: Insulin LISPRO 300 UNITS/3 ML VIAL SQ SCH (23:30)
[2019-09-09] MEDS ORDERED: *HR* Heparin 10,000 UNIT/10 ML VIAL IV PRN (09:41)
[2019-09-09] MEDS ORDERED: 0.9 % Sodium Chloride 250 ML IVC PRN (09:41)
[2019-09-09] MEDS: Insulin LISPRO 300 UNITS/3 ML VIAL SQ SCH ×4 (11:04→22:06)
[2019-09-09] MEDS: carvediloL 25 MG TABLET PO SCH ×2 (11:04→18:06)
[2019-09-09] MEDS: Aspirin 81 MG TAB.CHEW PO SCH (11:04)
[2019-09-09] MEDS: Nicotine 14 MG PATCH.TD24 TD SCH (11:05)
[2019-09-09] MEDS: Apixaban 5 MG TABLET PO SCH ×3 (11:05→22:49)
[2019-09-09] MEDS: risperiDONE 1 MG TABLET PO SCH ×3 (11:05→22:50)
[2019-09-09] MEDS: Bumetanide 1 MG TABLET PO SCH (11:05)
[2019-09-09] MEDS: traZODone 50 MG TABLET PO SCH ×4 (11:05→22:50)
[2019-09-09] MEDS: SODIUM ZIRCONIUM CYCLOSILICATE 5 GM POWD.PACK PO SCH (11:05)
[2019-09-09 14:17] LABS: Calcium 7.3 mg/dL (8.6-10.3); Potassium 5.1 mEq/L (3.5-5.1)
[2019-09-09] MEDS: Divalproex (24 HR) 500 MG TABLET PO SCH ×2 (22:06→22:50)
[2019-09-09] MEDS: Insulin DETEMIR 100 UNIT/ML X5UNITS SQ SCH (22:07)
[2019-09-09] MEDS: Melatonin 3 MG TABLET PO SCH ×2 (22:07→22:49)
[2019-09-09] MEDS: Acetaminophen 325 MG TABLET PO PRN (23:38)
[2019-09-10 01:43] LABS: Hematocrit 26.2 % (37.5-50.1); Hemoglobin 7.7 g/dL (12.9-16.9); Mean Corpuscular HGB Conc 29.4 g/dL (31.6-35.5); Mean Corpuscular Hemoglobin 27.7 pg (28.0-33.3); Mean Corpuscular Volume 94.2 fL (83.0-100.0); Mean Platelet Volume 9.6 fL (9.4-12.4); Platelet Count 189 K/mcL (140-400); Red Blood Count 2.78 M/mcL (4.19-5.50); Red Cell Distribution Width 16.6 % (11.5-14.5); White Blood Count 9.2 K/mcL (4.3-11.1)
[2019-09-10 02:08] LABS: Calcium 7.1 mg/dL (8.6-10.3); Potassium 4.7 mEq/L (3.5-5.1)
[2019-09-10] MEDS: Insulin LISPRO 300 UNITS/3 ML VIAL SQ SCH ×4 (08:53→21:13)
[2019-09-10] MEDS: carvediloL 25 MG TABLET PO SCH ×2 (08:54→16:51)
[2019-09-10] MEDS: Bumetanide 1 MG TABLET PO SCH (08:54)
[2019-09-10] MEDS: Aspirin 81 MG TAB.CHEW PO SCH (08:54)
[2019-09-10] MEDS: traZODone 50 MG TABLET PO SCH ×3 (08:55→21:10)
[2019-09-10] MEDS: SODIUM ZIRCONIUM CYCLOSILICATE 5 GM POWD.PACK PO SCH (08:55)
[2019-09-10] MEDS: risperiDONE 1 MG TABLET PO SCH ×2 (08:55→21:11)
[2019-09-10] MEDS: Apixaban 5 MG TABLET PO SCH ×2 (08:55→21:11)
[2019-09-10] MEDS: Nicotine 14 MG PATCH.TD24 TD SCH (08:55)
[2019-09-10] MEDS: Acetaminophen 325 MG TABLET PO PRN (16:36)
[2019-09-10] MEDS: Divalproex (24 HR) 500 MG TABLET PO SCH (21:10)
[2019-09-10] MEDS: Melatonin 3 MG TABLET PO SCH (21:12)
[2019-09-10] MEDS: Insulin DETEMIR 100 UNIT/ML X5UNITS SQ SCH (21:13)
[2019-09-11] MEDS ORDERED: *HR* Heparin 10,000 UNIT/10 ML VIAL IV PRN (06:56)
[2019-09-11] MEDS ORDERED: 0.9 % Sodium Chloride 250 ML IVC PRN (06:56)
[2019-09-11] MEDS: Insulin LISPRO 300 UNITS/3 ML VIAL SQ SCH ×2 (07:46→12:39)
[2019-09-11 10:14] LABS: Hematocrit 27.5 % (37.5-50.1); Hemoglobin 8.2 g/dL (12.9-16.9); Mean Corpuscular HGB Conc 29.8 g/dL (31.6-35.5); Mean Corpuscular Hemoglobin 27.7 pg (28.0-33.3); Mean Corpuscular Volume 92.9 fL (83.0-100.0); Mean Platelet Volume 9.5 fL (9.4-12.4); Platelet Count 192 K/mcL (140-400); Red Blood Count 2.96 M/mcL (4.19-5.50); Red Cell Distribution Width 16.2 % (11.5-14.5); White Blood Count 8.3 K/mcL (4.3-11.1)
[2019-09-11 10:29] LABS: Calcium 7.3 mg/dL (8.6-10.3); Potassium 5.5 mEq/L (3.5-5.1)
[2019-09-11] MEDS: carvediloL 25 MG TABLET PO SCH (11:08)
[2019-09-11] MEDS: Acetaminophen 325 MG TABLET PO PRN (11:29)
[2019-09-11 12:24] VITALS: BP 102/49
[2019-09-11] MEDS: Aspirin 81 MG TAB.CHEW PO SCH (12:38)
[2019-09-11] MEDS: Bumetanide 1 MG TABLET PO SCH (12:38)
[2019-09-11] MEDS: Apixaban 5 MG TABLET PO SCH (12:38)
[2019-09-11] MEDS: risperiDONE 1 MG TABLET PO SCH (12:39)
[2019-09-11] MEDS: SODIUM ZIRCONIUM CYCLOSILICATE 5 GM POWD.PACK PO SCH (12:39)
[2019-09-11] MEDS: Nicotine 14 MG PATCH.TD24 TD SCH (12:39)
[2019-09-11] MEDS: traZODone 50 MG TABLET PO SCH (12:39)
== END 2019-09-11 15:57 ==
LOC: 2ANU 17:22 → EMEROOARM 17:22 → SUATTDRO 20:33 → 2ANU 21:29
PROVIDERS: ADMIT Internal Medicine; ATTEND Internal Medicine